=== PATIENT | female | born 1945 | race Caucasian/White ===

== ENCOUNTER 2018-03-20 09:47 | Emergency (ER) | payer MEDICARE, OTHER ==
[~2018-03-20] VITALS: Ht 315 cm; Wt 71.2 kg
[~2018-03-20 09:47] MED LIST: VICODIN ES TAB1 EACH PO; Z.0.AMBIEN10 MG PO; Z.0.AVAPRO150 MG PO; Z.0.CELEXA20 MG PO; Z.0.HUMULIN N100 UNI SQ; Z.0.HUMULIN R100 UNI; Z.0.HYDROCODON-ACE1 PO; Z.0.TORADOL10 MG PO
--- OUTSIDE RECORDS SUMMARY | 2018-03-20 09:51 | XMS REPORT | Clinical Summary ---
Author Author [facility] Organization [facility] Address Unknown Phone Unavailable Care Team Providers Care Dust Collector Ore Crushing Name Role Phone Daquan Spicer MD PCP Allergies No Known Allergies Medications End Date Status Medication Sig Dispensed Refills Start Date Active insulin ASPART (NovoLOG) Inject under 0 100 unit/mL injection the skin 3 (three) times a day before meals. Active mirtazapine (REMERON Take 7.5 mg 0 DAMIAN-TAB) 15 MG by mouth disintegrating tablet nightly. Active glimepiride (AMARYL) 2 MG Take 2 mg by 0 tablet mouth daily before breakfast. Active traZODone (DESYREL) 100 Take 100 mg 0 MG tablet by mouth nightly. Active furosemide (LASIX) 20 mg Take 20 mg by 0 tablet mouth daily. Active tamsulosin (FLOMAX) 0.4 Take 0.4 mg 0 mg capsule by mouth daily. Active escitalopram (LEXAPRO) 10 Take 10 mg by 0 MG tablet mouth daily. Active allopurinol (ZYLOPRIM) Take 100 mg 0 100 MG tablet by mouth daily. Active folic acid (FOLVITE) 1 MG Take 1 mg by 0 tablet mouth daily. Active amLODIPine (NORVASC) 5 mg Take 5 mg by 0 tablet mouth daily. Active lubiprostone (AMITIZA) 24 Take 24 mcg 0 MCG capsule by mouth 2 (two) times a day with meals. 11/08/2017 sulfamethoxazole-trimetho Take 1 tablet 6 tablet 0 prim (BACTRIM DS) 800-160 by mouth 2 8 mg per tablet (two) times a day for 3 days. smx-tmp DS (BACTRIM) 800-160 mg tabs (1tab q12 D10) Active Problems Not on file Encounters Care Team Description Date Type Specialty Kateryna Hays Jr., MD Dislodged Dotson catheter, initial encounter (Primary Dx); Hyperkalemia; UTI symptoms 11/04/2017 Emergency Emergency Medicine - 11/05/2017 after 03/19/2017 Social History Date Tobacco Use Types Packs/Day Years Used Never Smoker Smokeless Tobacco: Never Used Alcohol Use Drinks/Week oz/Week Comments Yes Sex Assigned at Date Recorded Not on file Industry Job Start Date Occupation Not on file Not on file Not on file Travel End Travel History Travel Start No recent travel history available. Last Filed Vital Signs Time Taken Vital Sign Reading 11/05/2017 12:57 AM CDT Blood Pressure 178/82 11/05/2017 12:57 AM CDT Pulse 84 11/05/2017 12:57 AM CDT Temperature 36.8 C (98.2 F) 11/05/2017 12:57 AM CDT Respiratory Rate 18 11/05/2017 12:57 AM CDT Oxygen Saturation 98% - Inhaled Oxygen - Concentration 11/04/2017 5:18 PM CDT Weight 59 kg (130 lb) 11/04/2017 5:18 PM CDT Height 165.1 cm (5' 5") 11/04/2017 5:18 PM CDT Body Mass Index 21.63 Plan of Treatment Not on file Procedures Comments Procedure Name Priority Date/Time Associated Diagnosis ZZESTIMATED GFR STAT 11/04/2017 11:09 PM CDT BASIC METABOLIC PANEL STAT 11/04/2017 11:09 PM CDT ECG 12-LEAD STAT 11/04/2017 8:37 PM CDT ECG ED PRELIMINARY Routine 11/04/2017 INTERPRETATION 7:45 PM CDT ZZESTIMATED GFR STAT 11/04/2017 7:25 PM CDT BASIC METABOLIC PANEL STAT 11/04/2017 7:25 PM CDT URINALYSIS SCREEN AND STAT 11/04/2017 MICROSCOPY, WITH REFLEX 7:02 PM CDT TO CULTURE GRAM STAIN STAT 11/04/2017 7:02 PM CDT URINE CULTURE STAT 11/04/2017 7:02 PM CDT after 03/19/2017 Results * Estimated GFR (11/04/2017 11:09 PM CDT) Only the most recent of 2 results within the time period is included. GFR Non Af Amer 32 (A) mL/min/1.73 m2 [facility] AND [facility] GFR Af Amer 39 (A) mL/min/1.73 m2 [facility] Comment: PATHOLOGY AND Chronic kidney disease: <60 GENOMIC MEDICINE mL/min/1.73m2 Kidney failure: <15 mL/min/1.73m2 The estimated GFR is calculated from the IDMS-traceable Modification of Diet in Renal Disease Equation. The accuracy of the calculation is poor when the creatinine is normal. Calculated values >90 mL/min/1.73m2 are not reported. This equation has not been validated in children (<18 years), women, the elderly (>70 years), or ethnic groups other than Caucasians and Americans. Specimen Plasma specimen Performing Organization Address City/State/Zipcode Phone Number [facility] [place] [address] PATHOLOGY AND [facility] * Basic metabolic panel (11/04/2017 11:09 PM CDT) Only the most recent of 2 results within the time period is included. Sodium 139 135 - 150 mEq/L [facility] AND [facility] Potassium 4.6 3.5 - 5.0 mEq/L [facility] AND [facility] Chloride 104 98 - 112 mEq/L [facility]OLOGY AND GENOMIC MEDICINE CO2 22 (L) 24 - 31 mmol/L [facility] AND [facility] Anion gap 13@ANIO 7 - 15 mEq/L [facility]OLOGY AND [facility] BUN 34 (H) 7 - 18 mg/dL [facility]OLOGY AND [facility] Creatinine 1.60 (H) 0.50 - 0.90 mg/dL [facility]Y AND [facility] Glucose 123 (H) 65 - 100 mg/dL [facility]OLOGY AND [facility] Calcium 9.2 8.8 - 10.2 mg/dL [facility] DEPARTMENT OF PATHOLOGY AND GENOMIC MEDICINE Specimen Plasma specimen Performing Organization Address City/[facility]/Zipcode Phone Number [facility] [address] [place] [address] PATHOLOGY AND GENOMIC MEDICINE * ECG 12 lead (11/04/2017 8:37 PM CDT) Ventricular rate 73 [facility] Atrial rate 73 [facility] AL interval 206 [facility] QRSD interval 74 [facility] QT interval 396 [facility] QTC interval 436 [facility] P axis 1 50 [facility] QRS axis 1 30 [facility] T wave axis 63 [facility] EKG impression Normal sinus rhythm-Cannot [facility] rule out Anterior infarct , age undetermined-Abnormal ECG-No previous ECGs available- Performing Organization Address City/[facility] Phone Number [facility] MUSE [address] [place] [address] * ECG ED Preliminary Interpretation - NOT AN ORDER (11/04/2017 7:45 PM CDT) Narrative Performed At Kateryna Hays Jr., MD 11/07/20171:43 AM ECG ED Preliminary Interpretation - Not an Order Performed by: KATERYNA HAYS JR. Authorized by: KATERYNA HAYS JR. ECG reviewed by ED Physician in the absence of a events traffic controller: yes Interpretation: Interpretation: normal Rate: ECG rate:73 ECG rate assessment: normal Rhythm: Rhythm: sinus rhythm Ectopy: Ectopy: none QRS: QRS axis:Normal QRS intervals:Normal Conduction: Conduction: normal ST segments: ST segments:Normal T waves: T waves: normal * Urinalysis screen and microscopy, with reflex to culture (11/04/2017 7:02 PM CDT) Specimen site Catheterized [facility] AND GENOMIC MEDICINE Color, UA Yellow [facility] AND GENOMIC MEDICINE Appearance, UA Slightly-Cloudy [facility] AND GENOMIC MEDICINE Specific gravity, UA 1.014 1.001 - 1.035 [facility] AND GENOMIC MEDICINE pH, UA 5.0 5.0 - 8.5 [facility] AND GENOMIC MEDICINE Protein, UA 1+ (A) Negative [facility] AND GENOMIC MEDICINE Glucose, UA 2+ (A) Negative [facility] AND GENOMIC MEDICINE Ketones, UA Negative Negative [facility] AND GENOMIC MEDICINE Bilirubin, UA Negative Negative [facility] AND GENOMIC MEDICINE Blood, UA Small (A) Negative [facility]OLOGY AND GENOMIC MEDICINE Nitrite, UA Negative Negative [facility] AND GENOMIC MEDICINE Urobilinogen, UA Negative <2.0 [facility] AND GENOMIC MEDICINE Leukocyte esterase, UA Moderate (A) Negative [facility] AND GENOMIC MEDICINE Epithelial cells, UA Few /HPF [facility] AND GENOMIC MEDICINE WBC, UA 18 (H) 0 - 5 /HPF [facility] AND GENOMIC MEDICINE RBC, UA 1 0 - 5 /HPF [facility]Y AND GENOMIC MEDICINE Bacteria, UA None seen None seen [facility] AND GENOMIC MEDICINE Yeast, UA None seen [facility]OLOGY AND GENOMIC MEDICINE Yeast with pseudohyphae, None seen [facility] UA PATHOLOGY AND GENOMIC MEDICINE Specimen Urine Performing Organization Address City/[facility] Phone Number [facility] [address] [place] [id number] PATHOLOGY AND GENOMIC MEDICINE * Gram stain (11/04/2017 7:02 PM CDT) Gram stain result Occasional WBC's [facility] DEPARTMENT OF No organisms seen PATHOLOGY AND Comment: GENOMIC MEDICINE Specimen Information Specimen Source: Urine Specimen Site: Catheterized Specimen Urine - Catheterized Performing Organization Address City/State/Zipcode Phone Number [facility] DEPARTMENT OF [address] [place] [phone] PATHOLOGY AND GENOMIC MEDICINE * Urine culture (11/04/2017 7:02 PM CDT) Urine culture isolate Streptococcus group B [facility] DEPARTMENT OF 10-1 cfu/ml PATHOLOGY AND (A) GENOMIC MEDICINE Comment: Specimen Information Specimen Source: Urine Specimen Site: Catheterized Urine culture isolate Mixed Gram negative rods [facility] DEPARTMENT OF 10-2 cfu/ml PATHOLOGY AND (A) GENOMIC MEDICINE Urine culture isolate Mixed Gram positive dallin [facility] DEPARTMENT OF <10-1 cfu/ml PATHOLOGY AND (A) GENOMIC MEDICINE Specimen Urine - Catheterized Performing Organization Address City/[facility]/Zipcode Phone Number [facility] DEPARTMENT OF [address] [place] [address] PATHOLOGY AND GENOMIC MEDICINE after 03/19/2017 Insurance Payer Benefit Subscriber ID Type Phone Address Plan / Group MEDICARE MEDICARE xxxxxxxxxx Medicare [place] PART A AND B BANKERS LIFE AND CASUALTY BANKERS xxxxxxxxx Commercial LIFE AND CASUALTY Advance Directives Patient has advance care planning documents on file. For more information, deb ji contact: Mitch Kirkpatrick [address] [place] [address]
--- OUTSIDE RECORDS SUMMARY | 2018-03-20 09:52 | XMS REPORT | Clinical Summary ---
Author Author BAIRON [employer] [employer] [facility] Address Unknown Phone Unavailable Care Team Providers Care Blow Down Operator Name Role Phone Nayan Daquan PCP Allergies No Known Allergies Medications End Date Status Medication Sig Dispensed Refills Start Date Active traZODone (DESYREL) 50 MG Take 50 mg by 0 tabletIndications: mouth insomnia associated with nightly. depression Active hydrALAZINE (APRESOLINE) Take 25 mg by 0 25 MG tablet mouth 2 (two) times daily. Active pregabalin (LYRICA) 50 MG Take 50 mg by 0 capsule mouth 2 (two) times daily. Active allopurinol (ZYLOPRIM) Take 100 mg 0 100 MG tablet by mouth daily. Active furosemide (LASIX) 20 MG Take 60 mg by 0 tablet mouth daily . Active lubiprostone (AMITIZA) 24 Take 24 mg by 0 MCG capsule mouth 2 (two) times daily. Active LORazepam (ATIVAN) 1 MG Take 1 mg by 0 tablet mouth 2 (two) times daily as needed. Active sAXagliptin 5 mg Tab Take 5 mg by 0 mouth daily. Active citalopram (CELEXA) 20 MG Take 20 mg by 0 tablet mouth daily. Active HYDROcodone-acetaminophen Take 1 tablet 0 (NORCO 10-325) 10-325 mg by mouth per tablet every 6 (six) hours as needed. Active docusate sodium (COLACE) Take 200 mg 0 100 MG capsule by mouth 2 (two) times daily. Active acetaminophen (TYLENOL) Take 650 mg 0 325 MG tablet by mouth every 4 (four) hours as needed for Pain. Active cyanocobalamin 1000 MCG Take 1,000 0 tablet mcg by mouth daily. Active ferrous sulfate 325 (65 Take 325 mg 0 FE) MG tablet by mouth daily with breakfast. Active folic acid (FOLVITE) 1 MG Take 1 mg by 0 tablet mouth daily. Active guaiFENesin (MUCINEX) 600 Take 600 mg 0 mg 12 hr by mouth 2 tabletIndications: Cold (two) times Symptoms, Cough daily as needed for Congestion. Active senna-docusate Take 1 tablet 0 (SENNOSIDES-DOCUSATE by mouth SODIUM) 8.6-50 mg per daily as tablet needed for Constipation. Active insulin glargine (LANTUS) Inject 9 10 mL 0 100 unit/mL injection Units 8 subcutaneousl y nightly Use as directed . 08/03/2018 Active insulin lispro (HUMALOG) Inject 0-12 10 mL 0 100 unit/mL injection Units 8 subcutaneousl y as needed (High blood sugar). Active morphine 1 mg/ 1 mL in Inject 2 mLs 144 mL 0 0.9 % sodium chloride 1 (2 mg total) 8 mg/mL Soln intravenously every 8 (eight) hours as needed. Max Daily Amount: 6 mg Active ondansetron (ZOFRAN) 2 Inject 2 mLs 0 mg/mL Soln (4 mg total) 8 intravenously every 8 (eight) hours as needed. 05/26/2017 Discontinued pregabalin (LYRICA) 25 MG Take 25 mg by 0 capsuleIndications: mouth. Diabetic Peripheral Neuropathy 06/05/2017 Discontinued HYDROmorphone (DILAUDID) Inject 1 mL 1 mL 0 injection 1 mg/mL (1 mg total) 8 intravenously every 2 (two) hours as needed. Max Daily Amount: 12 mg 06/05/2017 Discontinued fluconazole (DIFLUCAN) Inject 200 200 mL 0 IVPB 400 mg in sodium mLs (400 mg 8 chloride 0.9% (NS) 200 mL total) intravenously daily. 06/05/2017 Discontinued micafungin (MYCAMINE) MBP Inject 100 mg 0 100 mg in 100 mL NS intravenously 8 daily. 05/26/2017 Discontinued hydrALAZINE (APRESOLINE) Inject 0.5 1 mL 0 20 mg/mL injection mLs (10 mg 8 total) intravenously every 6 (six) hours as needed (for systolic >160mmhg). 05/26/2017 Discontinued metoprolol (TOPROL-XL) 25 Take 1 tablet 0 MG 24 hr tablet (25 mg total) 8 by mouth daily. 05/26/2017 Discontinued insulin lispro (HUMALOG) Inject 0-4 10 mL 0 100 unit/mL injection Units 8 subcutaneousl y every night as needed (High blood sugar). 06/05/2017 Discontinued DEXTROSE 50 % IN WATER Inject 25 mLs 0 (DEXTROSE 50%, D50W,) (12.5 g 8 Syrg injection total) intravenously as needed (blood sugar less than 70 and patient unable to take PO juice or soda). 04/13/2017 polyethylene glycol Take 17 g by 14 each 0 (GLYCOLAX) 17 gram packet mouth daily 8 as needed for up to 3 days. 04/20/2017 HYDROcodone-acetaminophen Take 1 tablet 30 tablet 0 (NORCO 10-325) 10-325 mg by mouth 8 per tablet every 6 (six) hours as needed for up to 10 days. Max Daily Amount: 4 tablets 06/05/2017 Discontinued cefTRIAXone (ROCEPHIN) 1 Inject 50 mLs 50 mL 0 g in dextrose 5% (D5W) 50 (1 g total) 8 mL (DUPLEX) IVPB intravenously daily. 07/24/2017 Discontinued insulin detemir (LEVEMIR) Inject 17 10 mL 0 100 unit/mL injection Units 8 subcutaneousl y nightly. 06/05/2017 Discontinued amLODIPine (NORVASC) 5 MG Take 5 mg by 0 tablet mouth daily. 08/03/2017 Discontinued insulin aspart (NOVOLOG Inject 10 0 FLEXPEN) 100 unit/mL InPn Units subcutaneousl y every morning before breakfast. 07/24/2017 Discontinued acetaminophen (TYLENOL) Take 2 30 tablet 0 325 MG tablet tablets (650 8 mg total) by mouth every 4 (four) hours as needed for up to 360 days. 06/15/2017 cefdinir (OMNICEF) 300 MG Take 1 20 capsule 0 capsule capsule (300 8 mg total) by mouth every 12 (twelve) hours for 10 days. 06/15/2017 docusate sodium (COLACE) Take 1 10 capsule 0 100 MG capsule capsule (100 8 mg total) by mouth 2 (two) times daily for 10 days. 07/24/2017 Discontinued strkquih-lerqniwoiUi-ornf Apply 1 1 packet 0 myxnB (NEOSPORIN) packet 8 3.5-400-5,000 topically 2 vt-[id number] OiPk packet (two) times daily. 06/12/2017 ondansetron (ZOFRAN-ODT) Take 1 tablet 20 tablet 0 4 MG disintegrating (4 mg total) 8 tablet by mouth every 8 (eight) hours as needed for up to 7 days. 06/09/2017 polyethylene glycol Take 17 g by 14 each 0 (GLYCOLAX) 17 gram packet mouth daily 8 for 3 days. 08/03/2017 Discontinued insulin glargine (LANTUS) Inject 12 0 100 unit/mL injection Units subcutaneousl y nightly Use as directed . 08/03/2017 Discontinued insulin regular (HUMULIN Inject 10 0 R,NOVOLIN R) 100 unit/mL Units injection subcutaneousl y daily Use as directed . 08/03/2017 Discontinued levoFLOXacin (LEVAQUIN) Take 500 mg 0 500 MG tablet by mouth daily. 09/10/2017 DAPTOmycin (CUBICIN) IV Inject 650 mg 0 intravenously 8 daily for 38 days. 09/02/2017 lidocaine (LIDODERM) 5 % Place 2 30 patch 0 patch patches onto 8 the skin daily for 30 days Remove & Discard patch within 12 hours or as directed by . 09/10/2017 sodium chloride Inject 1 g 0 bacteriostatic 0.9% 0.9 % intravenously 8 Soln 20 mL with meropenem every 12 1 gram SolR 1 g (twelve) hours for 38 days. 09/10/2017 micafungin (MYCAMINE) MBP Inject 100 mg 0 100 mg in 100 mL NS intravenously 8 daily for 37 days. 08/13/2017 traMADol (ULTRAM) 50 mg Take 1 tablet 30 tablet 0 tablet (50 mg total) 8 by mouth every 6 (six) hours as needed for up to 10 days. Max Daily Amount: 200 mg 09/02/2017 zolpidem (AMBIEN) 5 MG Take 1 tablet 30 tablet 0 tablet (5 mg total) 8 by mouth every night as needed for Insomnia for up to 30 days. Max Daily Amount: 5 mg Active Problems Problem Noted Date Emphysematous pyelonephritis 07/24/2017 Acute urinary tract infection 05/26/2017 Chronic diastolic HF (heart failure) 05/26/2017 Stage 4 chronic kidney disease 05/26/2017 Severe muscle deconditioning 05/26/2017 Type 2 diabetes mellitus with diabetic polyneuropathy, with long-term 05/26/2017 current use of insulin Candidemia 04/06/2017 Acute cystitis 03/29/2017 Pyelonephritis due to Escherichia coli 03/29/2017 MARIO (acute kidney injury) 03/29/2017 Atelectasis of both lungs 03/29/2017 Bacteremia due to Escherichia coli 03/28/2017 Encounters Care Team Description Date Type Specialty Flor Nunes MD Discitis of thoracic region 10/08/2017 Hospital Radiology Encounter Flor Nunes MD Discitis of thoracic region (Primary Dx) 10/05/2017 Outside Orders Radiology Az Corneliusanna 07/25/2017 Anesthesia Event Tyler De Anda MD CYSTOSCOPY,INSERTION URETERAL STENTS 07/25/2017 Surgery Tyler De Anda MD Tirukkovalluri, Srilakshmi, MD Zindani, Shireen, MD Emphysematous pyelonephritis; Nephrolithiasis; Retained ureteral stent 07/24/2017 [facility] General Internal Medicine - Encounter 08/03/2017 Lisette Burgos MD 07/24/2017 Orders Only Internal Medicine Danielle White 07/20/2017 Orders Only Pre-Admission Testing Gt Vargas MD Jarrouge, Elie G., MD Zindani, Shireen, MD Tirukkovalluri, Srilakshmi, MD Acute urinary tract infection (Primary Dx); MARIO (acute kidney injury) (HCC); Dizziness; Leukocytosis, unspecified type; Gait disturbance; Weakness; Chronic diastolic HF (heart failure) (HCC); Severe muscle deconditioning; Stage 4 chronic kidney disease (HCC); Type 2 diabetes mellitus with diabetic polyneuropathy, with long-term current use of insulin (HCC); Emphysematous pyelonephritis of left kidney; Urinary retention 05/26/2017 Hospital Oncology - Encounter 06/05/2017 05/26/2017 Orders Only General Internal Medicine Louis Flynn MD Kulkarni, MD Solo Hunter Alireza, MD Bacteremia due to Escherichia coli (Primary Dx); Pyelonephritis due to Escherichia coli; Acute cystitis without hematuria; MARIO (acute kidney injury) (HCC); Atelectasis of both lungs; Emphysematous pyelonephritis of left kidney 03/28/2017 Hospital General Internal Medicine - Encounter 04/10/2017 03/28/2017 Orders Only General Internal Medicine after 03/19/2017 Immunizations Name Dates Previously Given Next Due Pneumococcal Conjugate 07/30/2017 (Prevnar) 13-Valent Social History Date Tobacco Use Types Packs/Day Years Used Never Smoker Smokeless Tobacco: Never Used Tobacco Cessation: Counseling Given: No Alcohol Use Drinks/Week oz/Week Comments Yes 1 Glasses of 0.6 wine Sex Assigned at Date Recorded Not on file Industry Job Start Date Occupation Not on file Not on file Not on file Travel End Travel History Travel Start No recent travel history available. Last Filed Vital Signs Time Taken Vital Sign Reading 08/03/2017 10:44 AM CDT Blood Pressure 116/56 08/03/2017 10:44 AM CDT Pulse 70 08/03/2017 10:44 AM CDT Temperature 36.2 C (97.1 F) 08/03/2017 10:44 AM CDT Respiratory Rate 18 08/03/2017 10:44 AM CDT Oxygen Saturation 91% 07/29/2017 10:23 AM CDT Inhaled Oxygen 21% Concentration 07/25/2017 7:37 PM CDT Weight 69.9 kg (154 lb) 07/25/2017 7:37 PM CDT Height 165.1 cm (5' 5") 07/25/2017 7:37 PM CDT Body Mass Index 25.63 Plan of Treatment Not on file Implants Device Identifier Shelf Expiration Date Model / Serial / Lot Implanted Type Area Manufactur [id number] / / [id number] Stent Uret Cntour Inj [id number] Uro Stent Left: Ureter [place] [id number] - [id number] SCI:UROLOG Implanted: Qty: 1 on 07/25/2017 by Y/Tyler Jj MD GY Procedures Comments Procedure Name Priority Date/Time Associated Diagnosis MR THORACIC SPINE WITHOUT Routine 10/08/2017 Discitis of thoracic CONTRAST 12:40 PM CDT region POCT-GLUCOSE METER Routine 08/03/2017 12:33 PM CDT CBC W/PLT COUNT & AUTO Routine 08/03/2017 DIFFERENTIAL 5:57 AM CDT CREATINE KINASE (CK) Routine 08/03/2017 5:57 AM CDT BASIC METABOLIC PANEL (7) Routine 08/03/2017 5:57 AM CDT CBC W/PLT COUNT & AUTO Routine 08/03/2017 DIFFERENTIAL 5:57 AM CDT POCT-GLUCOSE METER Routine 08/02/2017 9:35 PM CDT POCT-GLUCOSE METER Routine 08/02/2017 5:39 PM CDT POCT-GLUCOSE METER Routine 08/02/2017 12:54 PM CDT POCT-GLUCOSE METER Routine 08/02/2017 9:33 AM CDT POCT-GLUCOSE METER Routine 08/02/2017 8:49 AM CDT CBC W/PLT COUNT & AUTO Routine 08/02/2017 DIFFERENTIAL 7:01 AM CDT COMPREHENSIVE METABOLIC Routine 08/02/2017 PANEL 7:01 AM CDT SEDIMENTATION RATE Routine 08/02/2017 7:01 AM CDT C-REACTIVE PROTEIN Routine 08/02/2017 7:01 AM CDT CBC W/PLT COUNT & AUTO Routine 08/02/2017 DIFFERENTIAL 7:01 AM CDT POCT-GLUCOSE METER Routine 08/01/2017 9:17 PM CDT POCT-GLUCOSE METER Routine 08/01/2017 6:05 PM CDT POCT-GLUCOSE METER Routine 08/01/2017 12:24 PM CDT POCT-GLUCOSE METER Routine 08/01/2017 9:06 AM CDT POCT-GLUCOSE METER Routine 08/01/2017 8:10 AM CDT CBC W/PLT COUNT & AUTO Routine 08/01/2017 DIFFERENTIAL 6:52 AM CDT COMPREHENSIVE METABOLIC Routine 08/01/2017 PANEL 6:52 AM CDT CBC W/PLT COUNT & AUTO Routine 08/01/2017 DIFFERENTIAL 6:52 AM CDT POCT-GLUCOSE METER Routine 07/31/2017 9:49 PM CDT POCT-GLUCOSE METER Routine 07/31/2017 5:00 PM CDT TISSUE EXAM AP Routine 07/31/2017 1:53 PM CDT POCT-GLUCOSE METER Routine 07/31/2017 12:05 PM CDT POCT-GLUCOSE METER Routine 07/31/2017 9:00 AM CDT POCT-GLUCOSE METER Routine 07/31/2017 8:29 AM CDT CBC W/PLT COUNT & AUTO Routine 07/31/2017 DIFFERENTIAL 5:03 AM CDT BASIC METABOLIC PANEL (7) Routine 07/31/2017 5:03 AM CDT CBC W/PLT COUNT & AUTO Routine 07/31/2017 DIFFERENTIAL 5:03 AM CDT POCT-GLUCOSE METER Routine 07/30/2017 9:27 PM CDT POCT-GLUCOSE METER Routine 07/30/2017 5:[address] Routine 07/30/2017 BIOPSY/ASPIRATION/INJECTI 3:25 PM CDT ON CYTOLOGY AP Routine 07/30/2017 3:20 PM CDT BODY FLUID CULTURE + GRAM Routine 07/30/2017 STAIN 3:17 PM CDT FUNGUS CULTURE + SMEAR Routine 07/30/2017 3:17 PM CDT AFB CULTURE + SMEAR Routine 07/30/2017 3:17 PM CDT POCT-GLUCOSE METER Routine 07/30/2017 11:29 AM CDT POCT-GLUCOSE METER Routine 07/30/2017 8:32 AM CDT POCT-GLUCOSE METER Routine 07/30/2017 7:50 AM CDT CBC W/PLT COUNT & AUTO Routine 07/30/2017 DIFFERENTIAL 4:29 AM CDT BASIC METABOLIC PANEL (7) Routine 07/30/2017 4:29 AM CDT CBC W/PLT COUNT & AUTO Routine 07/30/2017 DIFFERENTIAL 4:29 AM CDT POCT-GLUCOSE METER Routine 07/29/2017 9:14 PM CDT POCT-GLUCOSE METER Routine 07/29/2017 5:33 PM CDT POCT-GLUCOSE METER Routine 07/29/2017 12:57 PM CDT POCT-GLUCOSE METER Routine 07/29/2017 8:48 AM CDT CBC W/PLT COUNT & AUTO Routine 07/29/2017 DIFFERENTIAL 5:29 AM CDT BASIC METABOLIC PANEL (7) Routine 07/29/2017 5:29 AM CDT CBC W/PLT COUNT & AUTO Routine 07/29/2017 DIFFERENTIAL 5:29 AM CDT POCT-GLUCOSE METER Routine 07/28/2017 9:08 PM CDT POCT-GLUCOSE METER Routine 07/28/2017 6:01 PM CDT POCT-GLUCOSE METER Routine 07/28/2017 2:27 PM CDT CBC W/PLT COUNT & AUTO Routine 07/28/2017 DIFFERENTIAL 5:20 AM CDT BASIC METABOLIC PANEL (7) Routine 07/28/2017 5:20 AM CDT CBC W/PLT COUNT & AUTO Routine 07/28/2017 DIFFERENTIAL 5:20 AM CDT CREATINE KINASE (CK) Routine 07/28/2017 5:[address] SPINE THORACIC WITHOUT STAT 07/27/2017 IV CONTRAST 10:53 PM CDT POCT-GLUCOSE METER Routine 07/27/2017 9:27 PM CDT POCT-GLUCOSE METER Routine 07/27/2017 5:55 PM CDT POCT-GLUCOSE METER Routine 07/27/2017 11:45 AM CDT POCT-GLUCOSE METER Routine 07/27/2017 7:28 AM CDT POCT-GLUCOSE METER Routine 07/26/2017 9:33 PM CDT POCT-GLUCOSE METER Routine 07/26/2017 5:58 PM CDT POCT-GLUCOSE METER Routine 07/26/2017 12:16 PM CDT POCT-GLUCOSE METER Routine 07/26/2017 8:14 AM CDT CBC W/PLT COUNT & AUTO Routine 07/26/2017 DIFFERENTIAL 5:51 AM CDT BASIC METABOLIC PANEL (7) Routine 07/26/2017 5:51 AM CDT CBC W/PLT COUNT & AUTO Routine 07/26/2017 DIFFERENTIAL 5:51 AM CDT C-REACTIVE PROTEIN Routine 07/26/2017 5:51 AM CDT SEDIMENTATION RATE Routine 07/26/2017 5:51 AM CDT POCT-GLUCOSE METER Routine 07/25/2017 9:37 PM CDT VANCOMYCIN LEVEL, TROUGH Timed 07/25/2017 9:29 PM CDT POCT-GLUCOSE METER Routine 07/25/2017 1:07 PM CDT FL RAIL CAR REPAIRMAN IN OR 30 Routine 07/25/2017 MINUTE INCREMENTS 1:00 PM CDT STONE ANALYSIS Routine 07/25/2017 11:41 AM CDT URINE CULTURE Routine 07/25/2017 11:40 AM CDT FUNGUS CULTURE + SMEAR Routine 07/25/2017 11:01 AM CDT AFB CULTURE + SMEAR Routine 07/25/2017 11:01 AM CDT ANAEROBIC CULTURE Routine 07/25/2017 11:01 AM CDT SURGICALLY OBTAINED Routine 07/25/2017 CULTURE + GRAM STAIN 11:01 AM CDT SPIN/CONCENTRATION CHARGE Routine 07/25/2017 11:01 AM CDT CYSTOSCOPY,RETROGRADES 07/25/2017 Kidney stones 9:00 AM CDT Special Needs (Holmium scheduled w/ FORTEC (confirmat ion-pendin g)-MS) CYSTOSCOPY,URETEROSCOPY 07/25/2017 Kidney stones W/ LASER LITHOTRIPSY 9:00 AM CDT Special Needs (Holmium scheduled w/ FORTEC (confirmat ion-pendin g)-MS) CYSTOSCOPY,INSERTION 07/25/2017 Kidney stones URETERAL STENTS 9:00 AM CDT Special Needs (Holmium scheduled w/ FORTEC (confirmat ion-pendin g)-MS) CBC W/PLT COUNT & AUTO STAT 07/25/2017 DIFFERENTIAL 8:32 AM CDT BASIC METABOLIC PANEL (7) STAT 07/25/2017 8:32 AM CDT CBC W/PLT COUNT & AUTO STAT 07/25/2017 DIFFERENTIAL 8:32 AM CDT URINALYSIS W/ MICROSCOPIC STAT 07/24/2017 11:26 PM CDT URINE CULTURE STAT 07/24/2017 11:26 PM CDT BLOOD CULTURE Routine 07/24/2017 11:25 PM CDT BLOOD CULTURE STAT 07/24/2017 11:25 PM CDT XR CHEST 1 VIEW STAT 07/24/2017 PORTABLE/BEDSIDE 6:33 PM CDT POCT-GLUCOSE METER Routine 07/24/2017 5:04 PM CDT CBC W/PLT COUNT & AUTO Routine 07/24/2017 DIFFERENTIAL 3:06 PM CDT PROTHROMBIN TIME/INR Routine 07/24/2017 3:06 PM CDT COMPREHENSIVE METABOLIC Routine 07/24/2017 PANEL 3:06 PM CDT CBC W/PLT COUNT & AUTO Routine 07/24/2017 DIFFERENTIAL 3:06 PM CDT POCT-GLUCOSE METER Routine 06/05/2017 12:31 PM AEROPHYSICS ENGINEER POCT-GLUCOSE METER Routine 06/05/2017 7:09 AM AEROPHYSICS ENGINEER CBC W/PLT COUNT & AUTO Routine 06/05/2017 DIFFERENTIAL 6:01 AM AEROPHYSICS ENGINEER PHOSPHORUS Routine 06/05/2017 6:01 AM AEROPHYSICS ENGINEER MAGNESIUM Routine 06/05/2017 6:01 AM AEROPHYSICS ENGINEER BASIC METABOLIC PANEL (7) Routine 06/05/2017 6:01 AM AEROPHYSICS ENGINEER CBC W/PLT COUNT & AUTO Routine 06/05/2017 DIFFERENTIAL 6:01 AM AEROPHYSICS ENGINEER POCT-GLUCOSE METER Routine 06/04/2017 8:49 PM AEROPHYSICS ENGINEER POCT-GLUCOSE METER Routine 06/04/2017 5:40 PM AEROPHYSICS ENGINEER POCT-GLUCOSE METER Routine 06/04/2017 10:48 AM AEROPHYSICS ENGINEER CBC W/PLT COUNT & AUTO Routine 06/04/2017 DIFFERENTIAL 5:50 AM AEROPHYSICS ENGINEER PHOSPHORUS Routine 06/04/2017 5:50 AM AEROPHYSICS ENGINEER MAGNESIUM Routine 06/04/2017 5:50 AM AEROPHYSICS ENGINEER BASIC METABOLIC PANEL (7) Routine 06/04/2017 5:50 AM AEROPHYSICS ENGINEER CBC W/PLT COUNT & AUTO Routine 06/04/2017 DIFFERENTIAL 5:50 AM AEROPHYSICS ENGINEER POCT-GLUCOSE METER Routine 06/03/2017 9:32 PM AEROPHYSICS ENGINEER POCT-GLUCOSE METER Routine 06/03/2017 6:15 PM AEROPHYSICS ENGINEER POCT-GLUCOSE METER Routine 06/03/2017 12:06 PM AEROPHYSICS ENGINEER CBC W/PLT COUNT & AUTO Routine 06/03/2017 DIFFERENTIAL 11:01 AM AEROPHYSICS ENGINEER BASIC METABOLIC PANEL (7) Routine 06/03/2017 11:01 AM AEROPHYSICS ENGINEER CBC W/PLT COUNT & AUTO Routine 06/03/2017 DIFFERENTIAL 11:01 AM AEROPHYSICS ENGINEER POCT-GLUCOSE METER Routine 06/03/2017 7:36 AM AEROPHYSICS ENGINEER POCT-GLUCOSE METER Routine 06/02/2017 9:05 PM AEROPHYSICS ENGINEER POCT-GLUCOSE METER Routine 06/02/2017 6:25 PM AEROPHYSICS ENGINEER POCT-GLUCOSE METER Routine 06/02/2017 2:47 PM AEROPHYSICS ENGINEER PHOSPHORUS Routine 06/02/2017 1:01 PM AEROPHYSICS ENGINEER MAGNESIUM Routine 06/02/2017 1:01 PM AEROPHYSICS ENGINEER BASIC METABOLIC PANEL (7) Routine 06/02/2017 1:01 PM AEROPHYSICS ENGINEER POCT-GLUCOSE METER Routine 06/02/2017 8:23 AM AEROPHYSICS ENGINEER POCT-GLUCOSE METER Routine 06/01/2017 9:51 PM AEROPHYSICS ENGINEER POCT-GLUCOSE METER Routine 06/01/2017 5:43 PM AEROPHYSICS ENGINEER POCT-GLUCOSE METER Routine 06/01/2017 11:34 AM AEROPHYSICS ENGINEER CBC W/PLT COUNT & AUTO Routine 06/01/2017 DIFFERENTIAL 10:19 AM AEROPHYSICS ENGINEER CBC W/PLT COUNT & AUTO Routine 06/01/2017 DIFFERENTIAL 10:19 AM AEROPHYSICS ENGINEER PHOSPHORUS Routine 06/01/2017 10:19 AM AEROPHYSICS ENGINEER MAGNESIUM Routine 06/01/2017 10:19 AM AEROPHYSICS ENGINEER BASIC METABOLIC PANEL (7) Routine 06/01/2017 10:19 AM AEROPHYSICS ENGINEER POCT-GLUCOSE METER Routine 06/01/2017 7:30 AM AEROPHYSICS ENGINEER POCT-GLUCOSE METER Routine 05/31/2017 8:39 PM AEROPHYSICS ENGINEER POCT-GLUCOSE METER Routine 05/31/2017 5:18 PM AEROPHYSICS ENGINEER POCT-GLUCOSE METER Routine 05/31/2017 11:07 AM AEROPHYSICS ENGINEER POCT-GLUCOSE METER Routine 05/31/2017 7:48 AM AEROPHYSICS ENGINEER PHOSPHORUS Routine 05/31/2017 4:31 AM AEROPHYSICS ENGINEER MAGNESIUM Routine 05/31/2017 4:31 AM AEROPHYSICS ENGINEER BASIC METABOLIC PANEL (7) Routine 05/31/2017 4:31 AM AEROPHYSICS ENGINEER POCT-GLUCOSE METER Routine 05/30/2017 9:12 PM AEROPHYSICS ENGINEER POCT-GLUCOSE METER Routine 05/30/2017 5:12 PM AEROPHYSICS ENGINEER POCT-GLUCOSE METER Routine 05/30/2017 11:38 AM AEROPHYSICS ENGINEER POCT-GLUCOSE METER Routine 05/30/2017 7:53 AM AEROPHYSICS ENGINEER PHOSPHORUS Routine 05/30/2017 5:16 AM AEROPHYSICS ENGINEER MAGNESIUM Routine 05/30/2017 5:16 AM AEROPHYSICS ENGINEER BASIC METABOLIC PANEL (7) Routine 05/30/2017 5:16 AM AEROPHYSICS ENGINEER POCT-GLUCOSE METER Routine 05/29/2017 9:27 PM AEROPHYSICS ENGINEER POCT-GLUCOSE METER Routine 05/29/2017 12:52 PM AEROPHYSICS ENGINEER POCT-GLUCOSE METER Routine 05/29/2017 7:37 AM AEROPHYSICS ENGINEER PHOSPHORUS Routine 05/29/2017 5:03 AM AEROPHYSICS ENGINEER MAGNESIUM Routine 05/29/2017 5:03 AM AEROPHYSICS ENGINEER BASIC METABOLIC PANEL (7) Routine 05/29/2017 5:03 AM AEROPHYSICS ENGINEER POCT-GLUCOSE METER Routine 05/28/2017 8:50 PM AEROPHYSICS ENGINEER PERIPHERAL VASCULAR 05/28/2017 REPORT - SCAN 6:50 PM AEROPHYSICS ENGINEER POCT-GLUCOSE METER Routine 05/28/2017 6:19 PM AEROPHYSICS ENGINEER VENOUS DOPPLER LEGS Routine 05/28/2017 BILATERAL 3:32 PM AEROPHYSICS ENGINEER POCT-GLUCOSE METER Routine 05/28/2017 12:29 PM AEROPHYSICS ENGINEER XR CHEST 1 VIEW STAT 05/28/2017 PORTABLE/BEDSIDE 11:55 AM AEROPHYSICS ENGINEER POCT-GLUCOSE METER Routine 05/28/2017 8:38 AM AEROPHYSICS ENGINEER CBC W/PLT COUNT & AUTO Routine 05/28/2017 DIFFERENTIAL 4:41 AM AEROPHYSICS ENGINEER B-TYPE NATRIURETIC FACTOR Routine 05/28/2017 (BNP) 4:41 AM AEROPHYSICS ENGINEER CBC W/PLT COUNT & AUTO Routine 05/28/2017 DIFFERENTIAL 4:41 AM AEROPHYSICS ENGINEER BASIC METABOLIC PANEL (7) Routine 05/28/2017 4:41 AM AEROPHYSICS ENGINEER PHOSPHORUS Routine 05/28/2017 4:41 AM AEROPHYSICS ENGINEER MAGNESIUM Routine 05/28/2017 4:41 AM AEROPHYSICS ENGINEER CALCIUM, IONIZED Routine 05/28/2017 4:41 AM AEROPHYSICS ENGINEER POCT-GLUCOSE METER Routine 05/27/2017 9:50 PM AEROPHYSICS ENGINEER US RENAL COMPLETE Routine 05/27/2017 9:01 PM AEROPHYSICS ENGINEER POCT-GLUCOSE METER Routine 05/27/2017 5:47 PM AEROPHYSICS ENGINEER POCT-GLUCOSE METER Routine 05/27/2017 8:32 AM AEROPHYSICS ENGINEER CBC W/PLT COUNT & AUTO Routine 05/27/2017 DIFFERENTIAL 6:13 AM AEROPHYSICS ENGINEER HEMOGLOBIN A1C Routine 05/27/2017 6:13 AM AEROPHYSICS ENGINEER PHOSPHORUS Routine 05/27/2017 6:13 AM AEROPHYSICS ENGINEER MAGNESIUM Routine 05/27/2017 6:13 AM AEROPHYSICS ENGINEER COMPREHENSIVE METABOLIC Routine 05/27/2017 PANEL 6:13 AM AEROPHYSICS ENGINEER CBC W/PLT COUNT & AUTO Routine 05/27/2017 DIFFERENTIAL 6:13 AM AEROPHYSICS ENGINEER BLOOD CULTURE Routine 05/26/2017 9:45 PM AEROPHYSICS ENGINEER POCT-GLUCOSE METER Routine 05/26/2017 7:[address] ABDOMEN/PELVIS WITHOUT STAT 05/26/2017 IV CONTRAST 6:15 PM AEROPHYSICS ENGINEER URINE CULTURE STAT 05/26/2017 5:23 PM AEROPHYSICS ENGINEER URINALYSIS W/ MICROSCOPIC STAT 05/26/2017 3:58 PM AEROPHYSICS ENGINEER XR CHEST 1 VIEW STAT 05/26/2017 PORTABLE/BEDSIDE 2:27 PM AEROPHYSICS ENGINEER CBC W/PLT COUNT & AUTO STAT 05/26/2017 DIFFERENTIAL 1:38 PM AEROPHYSICS ENGINEER PROTHROMBIN TIME/INR STAT 05/26/2017 1:38 PM AEROPHYSICS ENGINEER CREATINE KINASE (CK), STAT 05/26/2017 TOTAL AND MB 1:38 PM AEROPHYSICS ENGINEER TROPONIN I STAT 05/26/2017 1:38 PM AEROPHYSICS ENGINEER BASIC METABOLIC PANEL (7) STAT 05/26/2017 1:38 PM AEROPHYSICS ENGINEER CBC W/PLT COUNT & AUTO STAT 05/26/2017 DIFFERENTIAL 1:38 PM AEROPHYSICS ENGINEER ECG 12-LEAD Routine 05/26/2017 1:27 PM AEROPHYSICS ENGINEER Procedure Note - Interface, External Ris In - 05/26/2017 2:20 PM AEROPHYSICS ENGINEER Ventricula r Rate 71 BPM Atrial Rate 71 BPM P-R Interval 170 ms QRS Duration 66 ms Q-T Interval 410 ms QTC Calculatio n(Bazett) 445 ms P [place] 37 degrees R [place] 26 degrees T [place] 59 degrees Normal sinus rhythm Normal ECG When compared with ECG of 7 10:38, No significan t change was found ECG 12-LEAD STAT 05/26/2017 1:[address] BRAIN WITHOUT IV STAT 05/26/2017 CONTRAST 12:11 PM AEROPHYSICS ENGINEER RHYTHM STRIP - SCAN 04/11/2017 9:10 AM AEROPHYSICS ENGINEER POCT-GLUCOSE METER Routine 04/10/2017 12:47 PM AEROPHYSICS ENGINEER POCT-GLUCOSE METER Routine 04/10/2017 9:43 AM AEROPHYSICS ENGINEER CBC W/PLT COUNT & AUTO Routine 04/10/2017 DIFFERENTIAL 4:32 AM AEROPHYSICS ENGINEER MAGNESIUM Routine 04/10/2017 4:32 AM AEROPHYSICS ENGINEER PHOSPHORUS Routine 04/10/2017 4:32 AM AEROPHYSICS ENGINEER CALCIUM, IONIZED Routine 04/10/2017 4:32 AM AEROPHYSICS ENGINEER BASIC METABOLIC PANEL (7) Routine 04/10/2017 4:32 AM AEROPHYSICS ENGINEER CBC W/PLT COUNT & AUTO Routine 04/10/2017 DIFFERENTIAL 4:32 AM AEROPHYSICS ENGINEER POCT-GLUCOSE METER Routine 04/09/2017 10:08 PM AEROPHYSICS ENGINEER POCT-GLUCOSE METER Routine 04/09/2017 6:45 PM AEROPHYSICS ENGINEER POCT-GLUCOSE METER Routine 04/09/2017 7:18 AM AEROPHYSICS ENGINEER CBC W/PLT COUNT & AUTO Routine 04/09/2017 DIFFERENTIAL 5:52 AM AEROPHYSICS ENGINEER MAGNESIUM Routine 04/09/2017 5:52 AM AEROPHYSICS ENGINEER PHOSPHORUS Routine 04/09/2017 5:52 AM AEROPHYSICS ENGINEER CALCIUM, IONIZED Routine 04/09/2017 5:52 AM AEROPHYSICS ENGINEER BASIC METABOLIC PANEL (7) Routine 04/09/2017 5:52 AM AEROPHYSICS ENGINEER CBC W/PLT COUNT & AUTO Routine 04/09/2017 DIFFERENTIAL 5:52 AM AEROPHYSICS ENGINEER POCT-GLUCOSE METER Routine 04/08/2017 9:14 PM AEROPHYSICS ENGINEER POCT-GLUCOSE METER Routine 04/08/2017 6:36 PM AEROPHYSICS ENGINEER POCT-GLUCOSE METER Routine 04/08/2017 5:58 PM AEROPHYSICS ENGINEER XR CHEST 1 VIEW STAT 04/08/2017 PORTABLE/BEDSIDE 2:49 PM AEROPHYSICS ENGINEER POCT-GLUCOSE METER Routine 04/08/2017 12:40 PM AEROPHYSICS ENGINEER POCT-GLUCOSE METER Routine 04/08/2017 9:08 AM AEROPHYSICS ENGINEER CBC W/PLT COUNT & AUTO Routine 04/08/2017 DIFFERENTIAL 5:57 AM AEROPHYSICS ENGINEER BASIC METABOLIC PANEL (7) Routine 04/08/2017 5:57 AM AEROPHYSICS ENGINEER PHOSPHORUS Routine 04/08/2017 5:57 AM AEROPHYSICS ENGINEER MAGNESIUM Routine 04/08/2017 5:57 AM AEROPHYSICS ENGINEER CALCIUM, IONIZED Routine 04/08/2017 5:57 AM AEROPHYSICS ENGINEER CBC W/PLT COUNT & AUTO Routine 04/08/2017 DIFFERENTIAL 5:57 AM AEROPHYSICS ENGINEER POCT-GLUCOSE METER Routine 04/07/2017 9:28 PM AEROPHYSICS ENGINEER POCT-GLUCOSE METER Routine 04/07/2017 5:00 PM AEROPHYSICS ENGINEER POCT-GLUCOSE METER Routine 04/07/2017 10:50 AM AEROPHYSICS ENGINEER CBC W/PLT COUNT & AUTO Routine 04/07/2017 DIFFERENTIAL 5:30 AM AEROPHYSICS ENGINEER PHOSPHORUS Routine 04/07/2017 5:30 AM AEROPHYSICS ENGINEER MAGNESIUM Routine 04/07/2017 5:30 AM AEROPHYSICS ENGINEER CALCIUM, IONIZED Routine 04/07/2017 5:30 AM AEROPHYSICS ENGINEER BASIC METABOLIC PANEL (7) Routine 04/07/2017 5:30 AM AEROPHYSICS ENGINEER CBC W/PLT COUNT & AUTO Routine 04/07/2017 DIFFERENTIAL 5:30 AM AEROPHYSICS ENGINEER POCT-GLUCOSE METER Routine 04/06/2017 8:[address] ABDOMEN/PELVIS WITHOUT Routine 04/06/2017 IV CONTRAST 7:46 PM AEROPHYSICS ENGINEER LACTIC ACID, VENOUS, Routine 04/06/2017 WHOLE BLOOD 6:08 PM AEROPHYSICS ENGINEER CREATINE KINASE (CK) Routine 04/06/2017 6:08 PM AEROPHYSICS ENGINEER SODIUM, RANDOM URINE Routine 04/06/2017 5:59 PM AEROPHYSICS ENGINEER CREATININE, RANDOM URINE Routine 04/06/2017 5:59 PM AEROPHYSICS ENGINEER URINALYSIS W/ MICROSCOPIC Routine 04/06/2017 5:59 PM AEROPHYSICS ENGINEER POCT-GLUCOSE METER Routine 04/06/2017 4:52 PM AEROPHYSICS ENGINEER POCT-GLUCOSE METER Routine 04/06/2017 11:39 AM AEROPHYSICS ENGINEER POCT-GLUCOSE METER Routine 04/06/2017 7:58 AM AEROPHYSICS ENGINEER CBC W/PLT COUNT & AUTO Routine 04/06/2017 DIFFERENTIAL 3:57 AM AEROPHYSICS ENGINEER MAGNESIUM Routine 04/06/2017 3:57 AM AEROPHYSICS ENGINEER PHOSPHORUS Routine 04/06/2017 3:57 AM AEROPHYSICS ENGINEER CALCIUM, IONIZED Routine 04/06/2017 3:57 AM AEROPHYSICS ENGINEER BASIC METABOLIC PANEL (7) Routine 04/06/2017 3:57 AM AEROPHYSICS ENGINEER CBC W/PLT COUNT & AUTO Routine 04/06/2017 DIFFERENTIAL 3:57 AM AEROPHYSICS ENGINEER POCT-GLUCOSE METER Routine 04/05/2017 9:33 PM AEROPHYSICS ENGINEER POCT-GLUCOSE METER Routine 04/05/2017 5:18 PM AEROPHYSICS ENGINEER POCT-GLUCOSE METER Routine 04/05/2017 12:59 PM AEROPHYSICS ENGINEER BLOOD CULTURE Routine 04/05/2017 10:50 AM AEROPHYSICS ENGINEER CBC W/PLT COUNT & AUTO Routine 04/05/2017 DIFFERENTIAL 3:05 AM AEROPHYSICS ENGINEER MAGNESIUM Routine 04/05/2017 3:05 AM AEROPHYSICS ENGINEER PHOSPHORUS Routine 04/05/2017 3:05 AM AEROPHYSICS ENGINEER CALCIUM, IONIZED Routine 04/05/2017 3:05 AM AEROPHYSICS ENGINEER BASIC METABOLIC PANEL (7) Routine 04/05/2017 3:05 AM AEROPHYSICS ENGINEER CBC W/PLT COUNT & AUTO Routine 04/05/2017 DIFFERENTIAL 3:05 AM AEROPHYSICS ENGINEER POCT-GLUCOSE METER Routine 04/04/2017 9:29 PM AEROPHYSICS ENGINEER POCT-GLUCOSE METER Routine 04/04/2017 6:04 PM AEROPHYSICS ENGINEER XR CHEST 1 VIEW STAT 04/04/2017 PORTABLE/BEDSIDE 2:24 PM AEROPHYSICS ENGINEER POCT-GLUCOSE METER Routine 04/04/2017 1:31 PM AEROPHYSICS ENGINEER POCT-GLUCOSE METER Routine 04/04/2017 8:21 AM AEROPHYSICS ENGINEER (MANUAL DIFFERENTIAL) Routine 04/04/2017 5:41 AM AEROPHYSICS ENGINEER CBC W/PLT COUNT & AUTO Routine 04/04/2017 DIFFERENTIAL 5:41 AM AEROPHYSICS ENGINEER CALCIUM, IONIZED Routine 04/04/2017 5:41 AM AEROPHYSICS ENGINEER MAGNESIUM Routine 04/04/2017 5:41 AM AEROPHYSICS ENGINEER PHOSPHORUS Routine 04/04/2017 5:41 AM AEROPHYSICS ENGINEER LIPID PANEL Routine 04/04/2017 5:41 AM AEROPHYSICS ENGINEER BASIC METABOLIC PANEL (7) Routine 04/04/2017 5:41 AM AEROPHYSICS ENGINEER CBC W/PLT COUNT & AUTO Routine 04/04/2017 DIFFERENTIAL 5:41 AM AEROPHYSICS ENGINEER POCT-GLUCOSE METER Routine 04/03/2017 8:[address] DRAINAGE ABDOMINAL Routine 04/03/2017 1:48 PM AEROPHYSICS ENGINEER BODY FLUID CULTURE + GRAM Routine 04/03/2017 STAIN 1:29 PM AEROPHYSICS ENGINEER POCT-GLUCOSE METER Routine 04/03/2017 11:30 AM AEROPHYSICS ENGINEER POCT-GLUCOSE METER Routine 04/03/2017 9:01 AM AEROPHYSICS ENGINEER CBC W/PLT COUNT & AUTO Routine 04/03/2017 DIFFERENTIAL 4:52 AM AEROPHYSICS ENGINEER MAGNESIUM Routine 04/03/2017 4:52 AM AEROPHYSICS ENGINEER PHOSPHORUS Routine 04/03/2017 4:52 AM AEROPHYSICS ENGINEER CALCIUM, IONIZED Routine 04/03/2017 4:52 AM AEROPHYSICS ENGINEER BASIC METABOLIC PANEL (7) Routine 04/03/2017 4:52 AM AEROPHYSICS ENGINEER PROTHROMBIN TIME/INR Routine 04/03/2017 4:52 AM AEROPHYSICS ENGINEER CBC W/PLT COUNT & AUTO Routine 04/03/2017 DIFFERENTIAL 4:52 AM AEROPHYSICS ENGINEER BLOOD CULTURE Routine 04/03/2017 4:52 AM AEROPHYSICS ENGINEER POCT-GLUCOSE METER Routine 04/02/2017 10:29 PM AEROPHYSICS ENGINEER POCT-GLUCOSE METER Routine 04/02/2017 6:14 PM AEROPHYSICS ENGINEER POCT-GLUCOSE METER Routine 04/02/2017 12:49 PM AEROPHYSICS ENGINEER POCT-GLUCOSE METER Routine 04/02/2017 8:08 AM AEROPHYSICS ENGINEER CBC W/PLT COUNT & AUTO Routine 04/02/2017 DIFFERENTIAL 6:17 AM AEROPHYSICS ENGINEER CBC W/PLT COUNT & AUTO Routine 04/02/2017 DIFFERENTIAL 6:17 AM AEROPHYSICS ENGINEER POCT-GLUCOSE METER Routine 04/01/2017 9:43 PM AEROPHYSICS ENGINEER POCT-GLUCOSE METER Routine 04/01/2017 5:21 PM AEROPHYSICS ENGINEER POCT-GLUCOSE METER Routine 04/01/2017 1:[address] ABDOMEN/PELVIS WITHOUT Routine 04/01/2017 IV CONTRAST 11:35 AM AEROPHYSICS ENGINEER POCT-GLUCOSE METER Routine 04/01/2017 7:47 AM AEROPHYSICS ENGINEER CBC W/PLT COUNT & AUTO Routine 04/01/2017 DIFFERENTIAL 4:24 AM AEROPHYSICS ENGINEER CBC W/PLT COUNT & AUTO Routine 04/01/2017 DIFFERENTIAL 4:24 AM AEROPHYSICS ENGINEER POCT-GLUCOSE METER Routine 03/31/2017 8:42 PM AEROPHYSICS ENGINEER POCT-GLUCOSE METER Routine 03/31/2017 5:46 PM AEROPHYSICS ENGINEER CATHETER TIP CULTURE Routine 03/31/2017 1:47 PM AEROPHYSICS ENGINEER POCT-GLUCOSE METER Routine 03/31/2017 11:48 AM AEROPHYSICS ENGINEER POCT-GLUCOSE METER Routine 03/31/2017 7:30 AM AEROPHYSICS ENGINEER BASIC METABOLIC PANEL (7) STAT 03/31/2017 6:28 AM AEROPHYSICS ENGINEER (MANUAL DIFFERENTIAL) Routine 03/31/2017 5:15 AM AEROPHYSICS ENGINEER CBC W/PLT COUNT & AUTO Routine 03/31/2017 DIFFERENTIAL 5:15 AM AEROPHYSICS ENGINEER CBC W/PLT COUNT & AUTO Routine 03/31/2017 DIFFERENTIAL 5:15 AM AEROPHYSICS ENGINEER POCT-GLUCOSE METER Routine 03/30/2017 9:07 PM AEROPHYSICS ENGINEER POCT-GLUCOSE METER Routine 03/30/2017 4:06 PM AEROPHYSICS ENGINEER POCT-GLUCOSE METER Routine 03/30/2017 12:39 PM AEROPHYSICS ENGINEER POCT-GLUCOSE METER Routine 03/30/2017 8:36 AM AEROPHYSICS ENGINEER (MANUAL DIFFERENTIAL) Routine 03/30/2017 6:00 AM AEROPHYSICS ENGINEER CBC W/PLT COUNT & AUTO Routine 03/30/2017 DIFFERENTIAL 6:00 AM AEROPHYSICS ENGINEER CBC W/PLT COUNT & AUTO Routine 03/30/2017 DIFFERENTIAL 6:00 AM AEROPHYSICS ENGINEER BASIC METABOLIC PANEL (7) STAT 03/30/2017 6:00 AM AEROPHYSICS ENGINEER POCT-GLUCOSE METER Routine 03/29/2017 9:03 PM AEROPHYSICS ENGINEER POCT-GLUCOSE METER Routine 03/29/2017 6:01 PM AEROPHYSICS ENGINEER POCT-GLUCOSE METER Routine 03/29/2017 12:33 PM AEROPHYSICS ENGINEER XR CHEST 1 VIEW STAT 03/29/2017 PORTABLE/BEDSIDE 10:25 AM AEROPHYSICS ENGINEER RAPID INFLUENZA A&B STAT 03/29/2017 SCREEN 9:55 AM AEROPHYSICS ENGINEER RESPIRATORY PANEL [facility] STAT 03/29/2017 9:55 AM AEROPHYSICS ENGINEER ECHOCARDIOGRAM REPORT - 03/29/2017 SCAN 9:50 AM AEROPHYSICS ENGINEER POCT-GLUCOSE METER Routine 03/29/2017 8:43 AM AEROPHYSICS ENGINEER POCT-GLUCOSE METER Routine 03/29/2017 6:25 AM AEROPHYSICS ENGINEER BASIC METABOLIC PANEL (7) STAT 03/29/2017 4:30 AM AEROPHYSICS ENGINEER CBC W/PLT COUNT & AUTO Routine 03/29/2017 DIFFERENTIAL 3:36 AM AEROPHYSICS ENGINEER CBC W/PLT COUNT & AUTO Routine 03/29/2017 DIFFERENTIAL 3:36 AM AEROPHYSICS ENGINEER HEMOGLOBIN A1C Routine 03/29/2017 3:36 AM AEROPHYSICS ENGINEER POCT-GLUCOSE METER Routine 03/28/2017 9:48 PM AEROPHYSICS ENGINEER IR NEPHROSTOGRAM Routine 03/28/2017 7:25 PM AEROPHYSICS ENGINEER POCT-GLUCOSE METER Routine 03/28/2017 5:40 PM AEROPHYSICS ENGINEER 2D ECHO W/ DOPPLER Routine 03/28/2017 (CW/PW/COLOR) 4:08 PM AEROPHYSICS ENGINEER POCT-GLUCOSE METER Routine 03/28/2017 11:57 AM AEROPHYSICS ENGINEER ECG 12-LEAD Routine 03/28/2017 10:38 AM AEROPHYSICS ENGINEER Procedure Note - Interface, External Ris In - 03/28/2017 10:46 AM AEROPHYSICS ENGINEER Ventricula r Rate 82 BPM Atrial Rate 82 BPM P-R Interval 164 ms QRS Duration 76 ms Q-T Interval 366 ms QTC Calculatio n(Bazett) 427 ms P [place] 35 degrees R [place] 33 degrees T [place] 62 degrees Normal sinus rhythm Normal ECG No previous ECGs available ECG 12-LEAD Routine 03/28/2017 10:38 AM AEROPHYSICS ENGINEER URINALYSIS W/ MICROSCOPIC Routine 03/28/2017 10:04 AM AEROPHYSICS ENGINEER URINE CULTURE Routine 03/28/2017 10:02 AM AEROPHYSICS ENGINEER B-TYPE NATRIURETIC FACTOR Routine 03/28/2017 (BNP) 9:53 AM AEROPHYSICS ENGINEER HEPATIC FUNCTION PANEL STAT 03/28/2017 9:53 AM AEROPHYSICS ENGINEER BASIC METABOLIC PANEL (7) STAT 03/28/2017 9:53 AM AEROPHYSICS ENGINEER LACTIC ACID, VENOUS, STAT 03/28/2017 WHOLE BLOOD 9:53 AM AEROPHYSICS ENGINEER MISCELLANEOUS LAB ORDER Routine 03/28/2017 8:49 AM AEROPHYSICS ENGINEER BLOOD CULTURE STAT 03/28/2017 8:49 AM AEROPHYSICS ENGINEER BLOOD CULTURE STAT 03/28/2017 8:49 AM AEROPHYSICS ENGINEER XR CHEST 1 VIEW KIMMY 03/28/2017 PORTABLE/BEDSIDE 8:48 AM AEROPHYSICS ENGINEER POCT-GLUCOSE METER Routine 03/28/2017 8:29 AM AEROPHYSICS ENGINEER (MANUAL DIFFERENTIAL) Routine 03/28/2017 8:20 AM AEROPHYSICS ENGINEER CBC W/PLT COUNT & AUTO STAT 03/28/2017 DIFFERENTIAL 8:20 AM AEROPHYSICS ENGINEER CBC W/PLT COUNT & AUTO STAT 03/28/2017 DIFFERENTIAL 8:20 AM AEROPHYSICS ENGINEER APTT STAT 03/28/2017 8:20 AM AEROPHYSICS ENGINEER PROTHROMBIN TIME/INR STAT 03/28/2017 8:20 AM AEROPHYSICS ENGINEER after 03/19/2017 Results * MR thoracic spine without IV contrast (10/08/2017 12:40 PM CDT) Narrative Performed At FINAL REPORT [facility] MRI of the thoracic spine Comparison:July 27, 2017 Reason for exam: T9 discitis Discussion: Sagittal and axial multisequence MR imaging of the thoracic spine was provided At T9/10, the disc space is destroyed with edematous and infiltrative changes involving the bone marrow at the T9 and T10 levels. Findings are in keeping with an evolving perhaps treated or partially treated discitis and osteomyelitis. There is no central canal or cord compromise at this level. Mild paraspinal infiltrative inflammatory changes are seen centered at the T9/T10 disc space. Remaining thoracic spine levels are unremarkable except for mild degenerative changes. No central canal or cord compromise at any other level. 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 Continued active infection cannot be excluded at this point. There is no central canal or cord compromise at this or any other level. Signed: Adarsh Loredo MD Report Verified Date/Time:10/08/2017 13:38:56 Reading Location: [address] Consult Reading Room Procedure Note Interface, External Ris In - 10/08/2017 1:41 PM CDT FINAL REPORT MRI of the thoracic spine Comparison: July 27, 2017 Reason for exam: T9 discitis Discussion: Sagittal and axial multisequence MR imaging of the thoracic spine was provided At T9/10, the disc space is destroyed with edematous and infiltrative changes involving the bone marrow at the T9 and T10 levels. Findings are in keeping with an evolving perhaps treated or partially treated discitis and osteomyelitis. There is no central canal or cord compromise at this level. Mild paraspinal infiltrative inflammatory changes are seen centered at the T9/T10 disc space. Remaining thoracic spine levels are unremarkable except for mild degenerative changes. No central canal or cord compromise at any other level. 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 Continued active infection cannot be excluded at this point. There is no central canal or cord compromise at this or any other level. Signed: Adarsh Loredo MD Report Verified Date/Time: 10/08/2017 13:38:56 Reading Location: [facility] B1 [id number] Consult Reading Room Performing Organization Address City/State/Zipcode Phone Number [facility] * POC-Glucose meter (08/03/2017 12:33 PM CDT) Only the most recent of 127 results within the time period is included. POC-Glucose Meter 184 (H)Comment: TESTED AT 70 - 110 mg/dL [address] [address] Specimen Blood Performing Organization Address [facility] Phone Number [address] [facility] * CBC with platelet count + automated diff (08/03/2017 5:57 AM CDT) Only the most recent of 31 results within the time period is included. WBC 8.8 3.5 - 10.5 K/L [facility] RBC 3.29 (L) 3.93 - 5.22 M/L [facility] Hemoglobin 8.7 (L) 11.2 - 15.7 GM/DL [facility] Hematocrit 28.2 (L) 34.1 - 44.9 % [facility] MCV 85.7 79.4 - 94.8 fL [facility] MCH 26.4 25.6 - 32.2 pg [facility] MCHC 30.9 (L) 32.2 - 35.5 GM/DL [facility] RDW 14.5 (H) 11.7 - 14.4 % [facility] Platelets 307 150 - 450 K/CU MM [facility] MPV 10.3 9.4 - 12.3 fL [facility] nRBC 0 0 - 0 /100 WBC [facility] % Neutros 59 % [facility] % Lymphs 26 % [facility] % Monos 7 % [facility] % Eos 6 % [facility] % Baso 1 % [facility] # Neutros 5.19 1.56 - 6.13 K/L [facility] # Lymphs 2.31 1.18 - 3.74 K/L [facility] # Monos 0.65 (H) 0.24 - 0.36 K/L [facility] # Eos 0.56 (H) 0.04 - 0.36 K/L [facility] # Baso 0.04 0.01 - 0.08 K/L [facility] Immature 1 0 - 1 % [facility] Granulocytes-Relative [facility] Specimen Blood - Line, Venous Performing Organization Address City/[facility]/Zipcode Phone Number [address] * Creatine Kinase (CK) (08/03/2017 5:57 AM CDT) Only the most recent of 3 results within the time period is included. Total CK 16 (L) 29 - 200 U/L [facility] Specimen Blood - Line, Venous Performing Organization Address City/[facility]/[place] [phone] [place] [address] * Basic Metabolic Panel (08/03/2017 5:57 AM CDT) Only the most recent of 29 results within the time period is included. Sodium 140 136 - 145 meq/L [facility] Potassium 3.9 3.5 - 5.1 meq/L [facility] Chloride 101 98 - 107 meq/L [facility] CO2 31 (H) 22 - 29 meq/L [facility] BUN 31 (H) 7 - 21 mg/dL [facility] Creatinine 1.32 (H) 0.57 - 1.25 mg/dL [facility] Glucose 86 70 - 105 mg/dL [facility] Calcium 8.5 8.4 - 10.2 mg/dL [facility] EGFR 40Comment: ESTIMATED GFR IS mL/min/1.[address] [facility] NOT ACCURATE CREATININE [facility] CLEARANCE IN PREDICTING GLOMERULAR FILTRATION RATE. ESTIMATED GFR IS NOT APPLICABLE FOR DIALYSIS PATIENTS. Specimen Blood - Line, Venous Performing Organization Address [facility] Phone Number [address] * C-Reactive Protein (08/02/2017 7:01 AM CDT) Only the most recent of 2 results within the time period is included. CRP 8.76 (H) 0.00 - 0.50 mg/dL [facility] Specimen Blood - Line, Venous Performing Organization Address [facility] Phone Number [address] * Sedimentation rate (08/02/2017 7:01 AM CDT) Only the most recent of 2 results within the time period is included. Sed Rate 91 (H) 0 - 40 mm/HR [facility] Specimen Blood - Line, Venous Performing Organization Address [facility] Phone Number [address] * Comprehensive metabolic panel (08/02/2017 7:01 AM CDT) Only the most recent of 4 results within the time period is included. Protein, Total 6.4Comment: Specimen 6.0 - 8.3 gm/dL [facility] moderately hemolyzed [facility] Albumin 2.6 (L)Comment: Specimen 3.5 - 5.0 g/dL [facility] hemolyzed [facility] Alkaline Phosphatase 71 40 - 150 U/L [facility] Total Bilirubin 0.4Comment: Specimen 0.2 - 1.2 mg/dL [facility] moderately hemolyzed [facility] Sodium 140 136 - 145 meq/L [facility] Potassium 3.9Comment: Specimen 3.5 - 5.1 meq/L [facility] hemolyzed [facility] Chloride 104 98 - 107 meq/L [facility] CO2 28 22 - 29 meq/L [facility] BUN 31 (H) 7 - 21 mg/dL [facility] Creatinine 1.20Comment: Specimen 0.57 - 1.25 mg/dL [facility] hemolyzed [facility] Glucose 60 (L) 70 - 105 mg/dL [facility] Calcium 8.5 8.4 - 10.2 mg/dL [facility] AST 15Comment: Specimen moderately 5 - 34 U/L [facility] <6 (L)Comment: Specimen 6 - 55 U/L [facility] hemolyzed [facility] EGFR 45Comment: ESTIMATED GFR IS mL/min/1.[address] [facility] NOT ACCURATE CREATININE [facility] CLEARANCE IN PREDICTING GLOMERULAR FILTRATION RATE. ESTIMATED GFR IS NOT APPLICABLE FOR DIALYSIS PATIENTS. Specimen Blood - Line, Venous Performing Organization Address City/State/Zipcode Phone Number [facility] [address] [place] [address] [facility] * Tissue Exam (07/31/2017 1:53 PM CDT) Case Report Surgical Pathology [facility] Report [facility] Case: [id number] Authorizing Provider:Flor Nunes MD Collected: 07/31/2017 1353 Ordering Location: [address] Received: 07/31/2017 1357 Service Pathologist: Salty Gallo MD Specimen:Intervertebra l Disc, thoracic 9 DIAGNOSIS VERTEBRAL COLUMN, T9, [facility] LAMINECTOMY: [facility] MINUTE FRAGMENT OF FIBRIN AND BLOOD CLOT NO FIBROCARTILAGE IS IDENTIFIED Signing Pathologist Direct Phone Line: [phone] CPT Code(s) [address] [facility] CLINICAL HISTORY None given [facility] SPECIMEN SOURCE Intervertebral disc thoracic 9 [facility] GROSS DESCRIPTION The specimen is received in a [facility] fluidless container labeled [facility] with the patient's information and labeled "thoracic 9 disc tissue" and consists of red soft tissue measuring 0.2 cm in greatest dimension, submitted entirely in A1. CG/ew MICROSCOPIC DESCRIPTION Performed [facility] Specimen Tissue - Intervertebral Disc Performing Organization Address City/State/Zipcode Phone Number [facility] [address] [place] [address] [facility] * CT Biopsy/Aspiration/Injection (07/30/2017 3:25 PM CDT) Narrative Performed At FINAL REPORT [facility] CT-guided fine needle aspiration of the T8/T9 paravertebral soft tissue disc inflammation. CLINICAL HISTORY: t9 osteo. COMPARISON STUDY: CT scan dated July 27, 2017.. Informed consent was obtained from the patient and the risks of the procedure were explained including bleeding, infection, damage to lung, blood vessels, nerves and other adjacent structures. The possibly of a pneumothorax necessitating a chest tube was discussed with the patient. This exam was performed according to our department dose optimization program which includes automated exposure control, adjustment of the mA and/or kV according to the patient's size and/or use of iterative reconstruction technique. Sedation: 1% Xylocaine was utilized as local analgesia. A total of 1.5 mg of Versed and 75 mcg of fentanyl were administered using the moderate sedation protocol under the supervision of the physician and nurse. Moderate sedation time: 20 minutes. TECHNIQUE: Using sterile technique, CT fluoroscopic guidance and a 22-gauge Chiba needle, a single pass fine needle aspiration of the paravertebral/para disc inflammatory tissue was performed using a right percutaneous approach. The sample was sent to the lab in both RPMI for cytology and in saline for cultures. COMPLICATIONS: None. The patient experienced severe pain when the paravertebral soft tissue mass was transected. ESTIMATED BLOOD LOSS: None. Patient Disposition: The patient was in the same state post procedure as preprocedure. IMPRESSION: Successful CT-guided fine-needle aspiration of a T9/T10 paravertebral soft tissue mass adjacent to the disc space. Signed: Dale Umana MD Report Verified Date/Time:07/30/2017 17:23:33 Reading Location: [address] Ortho Consult Reading Room Procedure Note Interface, External Ris In - 07/30/2017 5:25 PM CDT FINAL REPORT CT-guided fine needle aspiration of the T8/T9 paravertebral soft tissue disc inflammation. CLINICAL HISTORY: t9 osteo. COMPARISON STUDY: CT scan dated July 27, 2017.. Informed consent was obtained from the patient and the risks of the procedure were explained including bleeding, infection, damage to lung, blood vessels, nerves and other adjacent structures. The possibly of a pneumothorax necessitating a chest tube was discussed with the patient. This exam was performed according to our department dose optimization program which includes automated exposure control, adjustment of the mA and/or kV according to the patient's size and/or use of iterative reconstruction technique. Sedation: 1% Xylocaine was utilized as local analgesia. A total of 1.5 mg of Versed and 75 mcg of fentanyl were administered using the moderate sedation protocol under the supervision of the physician and nurse. Moderate sedation time: 20 minutes. TECHNIQUE: Using sterile technique, CT fluoroscopic guidance and a 22-gauge Chiba needle, a single pass fine needle aspiration of the paravertebral/para disc inflammatory tissue was performed using a right percutaneous approach. The sample was sent to the lab in both RPMI for cytology and in saline for cultures. COMPLICATIONS: None. The patient experienced severe pain when the paravertebral soft tissue mass was transected. ESTIMATED BLOOD LOSS: None. Patient Disposition: The patient was in the same state post procedure as preprocedure. IMPRESSION: Successful CT-guided fine-needle aspiration of a T9/T10 paravertebral soft tissue mass adjacent to the disc space. Signed: Dale Umana MD Report Verified Date/Time: 07/30/2017 17:23:33 Reading Location: [facility] B1 [id number] Ortho Consult Reading Room Performing Organization Address City/State/Zipcode Phone Number [facility] * Cytology (07/30/2017 3:20 PM CDT) Case Report Medical Cytology [facility] Report [facility] Case: [id number] Authorizing Provider:Flor Nunes MD Collected: 07/30/2017 1520 Ordering Location: [address] Received: 07/31/2017 1257 Service Pathologist: Tran Dobbins MD Specimen:Bone, T9 spine DIAGNOSIS BONE, T9 SPINE FNA BY [facility] CLINICIAN (CYTOSPINS AND CELL [facility] BLOCK OF ASPIRATE): - NO MALIGNANT CELLS IDENTIFIED (SEE COMMENT) - FEW LYMPHOCYTES PRESENT Signing Pathologist Direct Phone Line: [phone] COMMENT Cytospins and cell block [facility] sections show predominantly [facility] blood elements and a few small clusters of lymphocytes. Immunostains performed on cell block sections are predominantly negative for CAM5.2 and GATA3 (rare nonspecific staining). These findings are supportive of the above diagnosis. Clinical/radiological correlation is recommended to determine the adequacy of the sampling. CPT Code(s) 90206, 00960, 24695, 19276 [facility] CLINICAL DATA CT-guided fine needle [facility] aspiration of the T8/T9 [facility] paravertebral soft tissue disc inflammation, history of breast cancer SPECIMEN SOURCE BONE, T9 SPINE FNA [facility] GROSS DESCRIPTION 25 mls in cytorich red; [address] [facility] cytospins, cell block [facility] Collected: [id number] Received: [id number] SPECIAL STUDIES The following special studies [facility] were performed on this case [facility] and the interpretation is incorporated in the diagnostic report above: Please see the immunohistochemistry results in the COMMENT section. The immunohistochemistry test was developed and its performance characteristics determined by [facility], Pathology Laboratory. It has not been cleared or approved by the U.S. Food and Drug Administration. The FDA has determined that such clearance or approval is not necessary. The test is used for clinical purposes. It should not be regarded as investigational or for research. This laboratory is certified under the Clinical Laboratory Improvement Amendments of 1988 (CLIA-88) as qualified to perform high complexity clinical laboratory testing. Technical component was [facility] performed at [facility], Department [facility] Pathology, [address] [place] [id number], Professional component [facility] was performed at [facility], Department of [facility] Pathology, [address] [place] [id number], Specimen Aspirate - Bone Narrative Performed At Performing Organization Address [facility] Phone Number [address] [address] [facility] * AFB culture + smear (07/30/2017 3:17 PM CDT) Only the most recent of 2 results within the time period is included. Result No acid-fast bacilli isolated [facility] in 42 days [facility] AFB Smear No acid fast bacilli seen [facility] Specimen Tissue - Spine, Thoracic Performing Organization Address City/[facility] Phone Number [address] [address] [facility] * Body fluid culture + gram stain (07/30/2017 3:17 PM CDT) Only the most recent of 2 results within the time period is included. Result No growth [facility] Gram Stain Result <1+ WBCs [facility] Gram Stain Result No organisms seen [facility] Specimen Body Fluid - Spine, Thoracic Performing Organization Address City/State/Zipcode Phone Number [facility] [address] [place] [address] [facility] * Fungus culture + smear (07/30/2017 3:17 PM CDT) Only the most recent of 2 results within the time period is included. Result No fungus isolated in 28 days [facility] Fungus Smear No fungi seen [facility] Specimen Tissue - Spine, Thoracic Performing Organization Address City/[facility] Phone Number [facility] [address] [place] [address] [facility] * CT spine thoracic without IV contrast (07/27/2017 10:53 PM CDT) Narrative Performed At FINAL REPORT [employer] CT, SPINE, THORACIC, WO CONTRAST INDICATION: "T9 osteomyelitis - needs biopsy" COMPARISON: None TECHNIQUE:Axially oriented 2.5 mm thick images were obtained through the entire thoracic spine, without contrast.Sagittal and coronal reformations are also provided in osseous and soft tissue algorithms. DOSE REDUCTION: Dose modulation, iterative reconstruction, and/or weight-based adjustment of the mA/kV was utilized to reduce the radiation dose to as low as reasonably achievable. FINDINGS: There is complete loss of disc space height at T9-T10 with destructive endplate changes at this level. There is a moderate amount of inflammatory change in the perivertebral soft tissues. No malalignment. Mild to moderate multilevel degenerative disc disease throughout the thoracic spine. No obvious cord abnormality, large epidural fluid collection, or severe canal narrowing. MRI would be needed for further evaluation. Limited evaluation of the soft tissue structures demonstrates small bilateral pleural effusions, right greater than left, with adjacent airspace disease. Nonobstructing stone in the lower pole of the left kidney. Cardiomegaly. IMPRESSION: Destructive endplate changes at the T9-T10 level compatible with osteomyelitis/discitis. No obvious abnormality of the spinal canal. MRI can be obtained for further evaluation of the cord and epidural space. Signed: Germaine Gentile MD Report Verified Date/Time:07/27/2017 23:51:36 Reading Location: [address] Ortho Consult Reading Room Procedure Note Interface, External Ris In - 07/27/2017 11:[address] FINAL REPORT CT, SPINE, THORACIC, WO CONTRAST INDICATION: "T9 osteomyelitis - needs biopsy" COMPARISON: None TECHNIQUE: Axially oriented 2.5 mm thick images were obtained through the entire thoracic spine, without contrast. Sagittal and coronal reformations are also provided in osseous and soft tissue algorithms. DOSE REDUCTION: Dose modulation, iterative reconstruction, and/or weight-based adjustment of the mA/kV was utilized to reduce the radiation dose to as low as reasonably achievable. FINDINGS: There is complete loss of disc space height at T9-T10 with destructive endplate changes at this level. There is a moderate amount of inflammatory change in the perivertebral soft tissues. No malalignment. Mild to moderate multilevel degenerative disc disease throughout the thoracic spine. No obvious cord abnormality, large epidural fluid collection, or severe canal narrowing. MRI would be needed for further evaluation. Limited evaluation of the soft tissue structures demonstrates small bilateral pleural effusions, right greater than left, with adjacent airspace disease. Nonobstructing stone in the lower pole of the left kidney. Cardiomegaly. IMPRESSION: Destructive endplate changes at the T9-T10 level compatible with osteomyelitis/discitis. No obvious abnormality of the spinal canal. MRI can be obtained for further evaluation of the cord and epidural space. Signed: Germaine Gentile MD Report Verified Date/Time: 07/27/2017 23:51:36 Reading Location: [address] Ortho Consult Reading Room Performing Organization Address City/State/Zipcode Phone Number [facility] * Vancomycin level, trough (07/25/2017 9:29 PM CDT) Vancomycin Tr 23.1 (H) 10.0 - 20.0 ug/mL [facility] Specimen Blood - Line, Venous Narrative Performed At Please draw 30 min prior to fourth dose of vancomycin [facility] Performing Organization Address City/[facility]/Zipcode Phone Number [place] [phone] [place] [address] [facility] * [place] manager of radiology in or 30 minute increments (07/25/2017 1:00 PM CDT) Narrative Performed At PROCEDURE PERFORMED IN O.R. - PLEASE REFER TO THE INTRAOPERATIVE [facility] REPORT. Procedure Note Interface, External Ris In - 08/22/2017 10:48 AM CDT PROCEDURE PERFORMED IN O.R. - PLEASE REFER TO THE INTRAOPERATIVE REPORT. Performing Organization Address [facility] Phone Number [facility] * STONE ANALYSIS (07/25/2017 11:41 AM CDT) Stone Source STONE [facility] Nidus Not observed [facility] COMPONENT 1 ([facility]) See Below [facility] Comment: INC[facility]PORATED Calcium Oxalate Dihydrate (Weddellite) 10% Calcium Oxalate Monohydrate (Whewellite) 90% COMPONENT 2 ([facility]) DNR [facility] Stone Weight 0.0460 g [facility] Comment: INC[facility]PORATED The image will follow, unless test is cancelled or no picture is available to report. This test was developed and its analytical performance characteristics have been determined by [facility]. It has not been cleared or approved by the US Food and Drug Administration. This assay has been validated pursuant to the CLIA regulations and is used for clinical purposes. Specimen Tissue - Stone Narrative Performed At Performing Lab [facility] *[facility] [employer] [facility] [email or web address] [place], [address] [place] [address] Evi Keller MD, PhD Performing Organization Address [facility] Phone Number [facility], [address] [place], [place] [facility] [address] [address] * Urine culture (07/25/2017 11:40 AM CDT) Only the most recent of 4 results within the time period is included. Result >100,000 col/mL Same organism [facility] has been isolated from [facility] culture(s) of the same body site within 3 days. Repeat identification performed only after consultation with the clinical microbiology laboratory. (A) Comment: Refer to previous culture of Vancomycin resistant Enterococcus species Specimen Urine Narrative Performed At <10,000 col/mL Gram Negative Rods [facility] Performing Organization Address City/State/Zipcode Phone Number [facility] [address] [place], [place] [phone] [facility] * Anaerobic culture (07/25/2017 11:01 AM CDT) Result No anaerobes isolated [facility] Specimen Other - Kidney, Left Performing Organization Address City/[facility]/Zipcode Phone Number [facility] [address] [place] [address] [facility] [place] * Surgically obtained culture + gram stain (07/25/2017 11:01 AM CDT) Result PSEUDOMONAS AERUGINOSA (A) [facility] Result 2+ Vancomycin resistant [facility] Enterococcus species (A) [facility] Result METHICILLIN RESISTANT [facility] STAPHYLOCOCCUS AUREUS (A) [facility] Gram Stain Result <1+ WBCs [facility] Gram Stain Result 2+ gram negative rods [facility] Specimen Other - Kidney, Left Antibiotic Method Susceptibility Organism Amikacin <=8: Susceptible Pseudomonas aeruginosa Aztreonam >16: Resistant Pseudomonas aeruginosa Cefepime 8: Susceptible Pseudomonas aeruginosa Ceftazidime 8: Susceptible Pseudomonas aeruginosa Ciprofloxacin >2: Resistant Pseudomonas aeruginosa Doripenem 1: Susceptible Pseudomonas aeruginosa Gentamicin <=2: Susceptible Pseudomonas aeruginosa Imipenem 2: Susceptible Pseudomonas aeruginosa Levofloxacin >8: Resistant Pseudomonas aeruginosa Meropenem 2: Susceptible Pseudomonas aeruginosa Piperacillin <=16: Susceptible Pseudomonas aeruginosa Piperacillin + Tazobactam 16: Susceptible Pseudomonas aeruginosa Tobramycin <=2: Susceptible Pseudomonas aeruginosa Ampicillin >=32: Resistant Vancomycin resistant Enterococcus species Linezolid 2: Susceptible Vancomycin resistant Enterococcus species Vancomycin >=32: Resistant Vancomycin resistant Enterococcus species Daptomycin 2: Susceptible Vancomycin resistant Enterococcus species Clindamycin 0.25: Susceptible Methicillin resistant Staphylococcus aureus Daptomycin <=0.12: Susceptible Methicillin resistant Staphylococcus aureus Erythromycin >=8: Resistant Methicillin resistant Staphylococcus aureus Linezolid 2: Susceptible Methicillin resistant Staphylococcus aureus Oxacillin >=4: Resistant Methicillin resistant Staphylococcus aureus Rifampin <=0.5: Susceptible Methicillin resistant Staphylococcus aureus Tetracycline >=16: Resistant Methicillin resistant Staphylococcus aureus Trimethoprim + Sulfamethoxazole <=10: Susceptible Methicillin resistant Staphylococcus aureus Vancomycin <=0.5: Susceptible Methicillin resistant Staphylococcus aureus Performing Organization Address City/[facility]/Zipcode Phone Number [place] [phone] [place], [place] [phone] [facility] * SPIN/CONCENTRATION CHARGE (07/25/2017 11:01 AM CDT) Concentration charged Done [facility] Specimen Other - Kidney, Left Performing Organization Address [facility]/Zipcode Phone Number [place] [phone] [place] [address] [facility] * Urinalysis w/Microscopic (07/24/2017 11:26 PM CDT) Only the most recent of 4 results within the time period is included. Color, UA Light Yellow [facility] Clarity, UA Clear [facility] Specific [place], UA 1.009 1.001 - 1.035 [facility] pH, UA 5.5 5.0 - 8.0 [facility] Protein, UA Negative Negative [facility] Glucose, UA Negative Negative [facility] Ketones, UA Negative Negative [facility] Bilirubin, UA Negative Negative [facility] Blood, UA Negative Negative [facility] Nitrite, UA Negative Negative [facility] Leukocytes, UA Large (A) Negative [facility] Urobilinogen, UA 0.2 0.2 - 1.0 mg/dL [facility] RBC, UA 2 /HPF [facility] WBC, UA 54 /HPF [facility] Bacteria, UA Occasional [facility] Mucus Rare [facility] Squam Epithel, UA <1 /HPF [facility] Hyaline Casts, UA 2 /LPF [facility] Specimen Source Urine, Clean Catch [facility] Specimen Urine - Urine, Clean Catch Performing Organization Address City/State/Zipcode Phone Number [facility] [address] [place], [place] [phone] [facility] * Blood culture (07/24/2017 11:25 PM CDT) Only the most recent of 7 results within the time period is included. Result No growth in 5 days [facility] Specimen Blood - Line, Venous Performing Organization Address City/State/Zipcode Phone Number [facility] [address] [place], [place] [phone] [facility] * XR chest 1 view portable / bedside (07/24/2017 6:33 PM CDT) Only the most recent of 7 results within the time period is included. Narrative Performed At FINAL REPORT [facility] Chest x-ray Clinical History: check picc placement Comparison: May 28, 2017 Views: One AP lordotic Chest x-ray: The cardiac and mediastinal silhouettes are within normal limits. There is no evidence of a pneumothorax.There is no evidence of a pleural effusion.There is no evidence of overt cardiac failure. The visible regional skeleton is intact.There is evidence of a left lower lung zone focal parenchymal opacity. Postoperative changes are visualized overlying the right proximal humerus. There is a right PICC line terminating in the right atrium. Impression: Interval placement of a right PICC line terminating in the right atrium. Subsegmental atelectasis is visualized bilaterally. Signed: Stacie Prabhakar MD Report Verified Date/Time:07/24/2017 18:53:53 Reading Location: [facility] B1 [id number] Consult Reading Room Procedure Note Interface, External Ris In - 07/24/2017 6:56 PM CDT FINAL REPORT Chest x-ray Clinical History: check picc placement Comparison: May 28, 2017 Views: One AP lordotic Chest x-ray: The cardiac and mediastinal silhouettes are within normal limits. There is no evidence of a pneumothorax. There is no evidence of a pleural effusion. There is no evidence of overt cardiac failure. The visible regional skeleton is intact. There is evidence of a left lower lung zone focal parenchymal opacity. Postoperative changes are visualized overlying the right proximal humerus. There is a right PICC line terminating in the right atrium. Impression: Interval placement of a right PICC line terminating in the right atrium. Subsegmental atelectasis is visualized bilaterally. Signed: Stacie Prabhakar MD Report Verified Date/Time: 07/24/2017 18:53:53 Reading Location: [address] Consult Reading Room Performing Organization Address City/State/Zipcode Phone Number [facility] * Prothrombin time/INR (07/24/2017 3:06 PM CDT) Only the most recent of 4 results within the time period is included. Protime 14.9 (H) 11.7 - 14.7 seconds [facility] INR 1.2 <=5.9 [facility] Specimen Blood - Arm, Right Narrative Performed At RECOMMENDED COUMADIN/WARFARIN INR THERAPY RANGES [facility] STANDARD DOSE: 2.0 - 3.0 Includes: PROPHYLAXIS for venous thrombosis, [facility] systemic embolization; TREATMENT for venous thrombosis and/or pulmonary embolus. HIGH RISK: Target INR is 2.5-3.5 for patients with mechanical heart valves. Performing Organization Address City/[facility] [place] [phone] [place] [address] * Phosphorus (06/05/2017 6:01 AM AEROPHYSICS ENGINEER) Only the most recent of 17 results within the time period is included. Phosphorus 5.7 (H) 2.3 - 4.7 mg/dL [facility] Specimen Blood - Arm, Right Performing Organization Address City/[facility]/Zipcode Phone Number [address] [address] [facility] * Magnesium (06/05/2017 6:01 AM AEROPHYSICS ENGINEER) Only the most recent of 17 results within the time period is included. Magnesium 1.9 1.6 - 2.6 mg/dL [facility] [place] Specimen Blood - Arm, Right Performing Organization Address City/State/Zipcode Phone Number [facility] [address] [place] [address] [facility] * PERIPHERAL VASCULAR REPORT - SCAN (05/28/2017 6:50 PM AEROPHYSICS ENGINEER) Narrative Performed At * Venous doppler legs bilateral (05/28/2017 3:32 PM AEROPHYSICS ENGINEER) [facility] Fraction [facility] Impressions Performed At Right Impression [facility] 1. There is no deep venous obstruction in the common femoral, profunda [facility] femoral, femoral, popliteal, posterior tibial or peroneal veins where visualized. 2. There is no superficial venous obstruction in the great saphenous vein where visualized. Left Impression 1. There is no deep venous obstruction in the common femoral, profunda femoral, femoral, popliteal, posterior tibial or peroneal veins where visualized. 2. There is no superficial venous obstruction in the great saphenous vein where visualized. Conclusions Summary Venous duplex imaging and compression of the bilateral lower extremities were performed. The veins were technically difficult to visualize due to edema and patient body habitus. The bilateral venous systems were patent and compressible with no evidence of thrombus where visualized. The venous Doppler waveforms were phasic with respiration. Signature Velocities are measured in cm/s ; Diameters are measured in cm Narrative Performed At PV LAB - Lower Extremities DVT Study [facility] Demographics [employer] Patient NameMASSEY, CONNIEDate of Study05/28/2017 Visit [id number] Female of Birth1945 Number Referring [facility] [id number] Physician Dayana Manager Metrology Gisele Arrieta RVTInterpreting Kathe Villagomez Physician, [place] Procedure Type of Study: Veins: Lower Extremities DVT Study, VENOUS DOPPLER LEG, BILATERAL. Indications for Study:Fluid collection. Patient Status:Routine. Study Location:Vascular Lab. Technical Quality:Technically Difficult. Risk Factors History of Disease + +----+ + !Diagnosis !Date!Comments! + +----+ + !History/Risk Factors: !!DM, Pneumonia ! + +----+ + Procedure Note Interface, External Ris In - 05/28/2017 6:03 PM AEROPHYSICS ENGINEER PV LAB - Lower Extremities DVT Study Demographics Patient Name BINTA BLAIR Date of Study 05/28/2017 Age 71 Visit Number [id number] Gender Female Date of 1945 Number Referring Raiza Room Number 7 Physician Dayana Manager Metrology Gisele Arrieta RVT Interpreting Kathe Villagomez, Physician , GEM Procedure Type of Study: Veins: Lower Extremities DVT Study, VENOUS DOPPLER LEG, BILATERAL. Indications for Study:Fluid collection. Patient Status:Routine. Study Location:Vascular Lab. Technical Quality:Technically Difficult. Risk Factors History of Disease + +----+ + !Diagnosis !Date!Comments ! + +----+ + !History/Risk Factors: ! !DM, Pneumonia ! + +----+ + Impressions Right Impression 1. There is no deep venous obstruction in the common femoral, profunda femoral, femoral, popliteal, posterior tibial or peroneal veins where visualized. 2. There is no superficial venous obstruction in the great saphenous vein where visualized. Left Impression 1. There is no deep venous obstruction in the common femoral, profunda femoral, femoral, popliteal, posterior tibial or peroneal veins where visualized. 2. There is no superficial venous obstruction in the great saphenous vein where visualized. Conclusions Summary Venous duplex imaging and compression of the bilateral lower extremities were performed. The veins were technically difficult to visualize due to edema and patient body habitus. The bilateral venous systems were patent and compressible with no evidence of thrombus where visualized. The venous Doppler waveforms were phasic with respiration. Signature Velocities are measured in cm/s ; Diameters are measured in cm Performing Organization Address City/[facility] Phone Number [facility] MKCKESSON [facility] * Calcium, Ionized (05/28/2017 4:41 AM AEROPHYSICS ENGINEER) Only the most recent of 9 results within the time period is included. Calcium, Ion 1.01 (L) 1.12 - 1.27 mmol/L [facility] pH, Blood 7.31 [facility] Specimen Blood - Arm, Right Performing Organization Address [facility] Phone Number [facility] [address] [place], [place] [phone] [address] * B-type Natriuretic Factor (BNP) (05/28/2017 4:41 AM AEROPHYSICS ENGINEER) Only the most recent of 2 results within the time period is included. BNP 696 (H) 0 - 100 pg/mL [facility] Specimen Blood - Arm, Right Performing Organization Address [facility] Phone Number [place] [phone] * US renal complete (05/27/2017 9:01 PM AEROPHYSICS ENGINEER) Narrative Performed At FINAL REPORT [employer] U/S, RENAL, COMPLETE CLINICAL INDICATION:Mario /Pyelonephritis COMPARISON: Correlation abdomen pelvis CT May 30, 2017 TECHNIQUE:The kidneys and urinary bladder were evaluated using real time andres scale and color Doppler sonography. FINDINGS: Right kidney: Size: 9.4 x 5.1 x 5.0 cm. Parenchyma: Normal echogenicity. No cysts. No stones. Hydronephrosis: None. Left kidney: Size: 10.4 x 5.0 x 5.0 cm. Parenchyma: Normal echogenicity. No cysts. Nonobstructing stone in the superior pole measures up to 1.2 cm. Hydronephrosis: None. Ureteric stent is not clearly identified on the current examination. Renal Vasculature: Doppler interrogation reveals preserved vascular flow in the main renal arteries and veins bilaterally. Urinary bladder: Decompressed by Dotson catheter. Additional findings: None. IMPRESSION: Nonobstructing left renal stone. The known left ureteric stent is not identified. Otherwise unremarkable renal ultrasound. Signed: JR Jackson Robert MD Report Verified Date/Time:05/28/2017 01:13:48 Reading Location: [facility] C013 CT Body Reading Room Procedure Note Interface, External Ris In - 05/28/2017 1:16 AM AEROPHYSICS ENGINEER FINAL REPORT U/S, RENAL, COMPLETE CLINICAL INDICATION: Mario /Pyelonephritis COMPARISON: Correlation abdomen pelvis CT May 30, 2017 TECHNIQUE: The kidneys and urinary bladder were evaluated using real time andres scale and color Doppler sonography. FINDINGS: Right kidney: Size: 9.4 x 5.1 x 5.0 cm. Parenchyma: Normal echogenicity. No cysts. No stones. Hydronephrosis: None. Left kidney: Size: 10.4 x 5.0 x 5.0 cm. Parenchyma: Normal echogenicity. No cysts. Nonobstructing stone in the superior pole measures up to 1.2 cm. Hydronephrosis: None. Ureteric stent is not clearly identified on the current examination. Renal Vasculature: Doppler interrogation reveals preserved vascular flow in the main renal arteries and veins bilaterally. Urinary bladder: Decompressed by Dotson catheter. Additional findings: None. IMPRESSION: Nonobstructing left renal stone. The known left ureteric stent is not identified. Otherwise unremarkable renal ultrasound. Signed: JR Jackson Robert MD Report Verified Date/Time: 05/28/2017 01:13:48 Reading Location: [facility] C013Y CT Body Reading Room Performing Organization Address City/State/Zipcode Phone Number [facility] RIS * Hemoglobin A1c (05/27/2017 6:13 AM AEROPHYSICS ENGINEER) Only the most recent of 2 results within the time period is included. Hemoglobin A1C 7.9 (H) 4.3 - 6.1 % [facility] Specimen Blood - Arm, Right Performing Organization Address City/State/Zipcode Phone Number [facility] [address] [place] [address] [facility] * CT abdomen/pelvis without iv contrast (05/26/2017 6:15 PM AEROPHYSICS ENGINEER) Only the most recent of 3 results within the time period is included. Narrative Performed At FINAL REPORT [employer] DOSE REDUCTION: The examination was performed according to departmental dose-optimization program which includes automated exposure control, adjustment of the mA and/or kV according to patient size and/or use of iterative reconstruction technique. TECHNIQUE: CT of the abdomen and pelvis without intravenous contrast. Enteric contrast was not administered. COMPARISON: CT of the abdomen and pelvis, 04/06/2017 DISCUSSION: Limited study without intravenous contrast; detection of some masses, vascular pathology, and infectious/inflammatory process may be difficult. There are trace pleural effusion with lower lobe atelectasis/fibrotic changes. Left breast prosthesis partially depicted. Noncontrast appearance of the spleen, pancreas, adrenal glands is unremarkable. Subcentimeter hypodensity in the liver again noted, too small to characterize, stable. There is nonspecific mild distention of the gallbladder. Small amount of high density material at the peripheral aspect of the bladder probably represent small focal gallbladder calcification or gallstone, stable. This is unchanged. No CT findings of cholecystitis. No bile duct dilatation. There is some nonspecific right sided perinephric stranding along with right cortical irregularities. Otherwise noncontrast appearance of the right kidney and ureter is unremarkable. 7 mm stone in the upper pole of the left kidney. Left internal ureteral stent in place. No significant left hydronephrosis. Previous collection of gas along the upper lateral aspect of the left kidney has resolved. A percutaneous drainage catheter has been removed. There is an ill-defined low-density collection measuring 2.8 x 3.3 cm at this location instead. This could represent some residual collection/fluid. No gas within it to suggest definitive abscess although superimposed infection would be difficult to exclude. Further characterization of this finding is limited without intravenous contrast. Pyelonephritis is difficult to evaluate without intravenous contrast. Moderate to large amount of stool throughout the colon. Otherwise unopacified small bowel, colon, and appendix appear unremarkable. No ascites. No organized fluid collections or abscess elsewhere. Vascular calcifications are seen. Aorta and IVC are normal in caliber. There are scattered periaortic and pericaval lymph nodes, nonspecific. A Dotson catheter is present in the bladder. Uterus appears grossly unremarkable. No suspicious adnexal masses. There is mild soft tissue anasarca. No definite acute skeletal amount amounts. Osteopenia and degenerative changes are seen. IMPRESSION: 1. Resolution of previous left perinephric gas containing collection. Percutaneous drainage catheter has been removed. Low density collection without gas along the lateral aspect of the left renal upper pole in the same location could represent some residual changes, area of infarct, etc. Superimposed infection/abscess is difficult to exclude especially without intravenous contrast. 2. Nonobstructing stone in the upper pole of the left kidney. Left internal ureteral stent in place. No left hydronephrosis. Signed: Chi Resendez MD Report Verified Date/Time:05/26/2017 18:29:02 Reading Location: [address] Transitional Reading Room Procedure Note Interface, External Ris In - 05/26/2017 6:31 PM AEROPHYSICS ENGINEER FINAL REPORT DOSE REDUCTION: The examination was performed according to departmental dose-optimization program which includes automated exposure control, adjustment of the mA and/or kV according to patient size and/or use of iterative reconstruction technique. TECHNIQUE: CT of the abdomen and pelvis without intravenous contrast. Enteric contrast was not administered. COMPARISON: CT of the abdomen and pelvis, 04/06/2017 DISCUSSION: Limited study without intravenous contrast; detection of some masses, vascular pathology, and infectious/inflammatory process may be difficult. There are trace pleural effusion with lower lobe atelectasis/fibrotic changes. Left breast prosthesis partially depicted. Noncontrast appearance of the spleen, pancreas, adrenal glands is unremarkable. Subcentimeter hypodensity in the liver again noted, too small to characterize, stable. There is nonspecific mild distention of the gallbladder. Small amount of high density material at the peripheral aspect of the bladder probably represent small focal gallbladder calcification or gallstone, stable. This is unchanged. No CT findings of cholecystitis. No bile duct dilatation. There is some nonspecific right sided perinephric stranding along with right cortical irregularities. Otherwise noncontrast appearance of the right kidney and ureter is unremarkable. 7 mm stone in the upper pole of the left kidney. Left internal ureteral stent in place. No significant left hydronephrosis. Previous collection of gas along the upper lateral aspect of the left kidney has resolved. A percutaneous drainage catheter has been removed. There is an ill-defined low-density collection measuring 2.8 x 3.3 cm at this location instead. This could represent some residual collection/fluid. No gas within it to suggest definitive abscess although superimposed infection would be difficult to exclude. Further characterization of this finding is limited without intravenous contrast. Pyelonephritis is difficult to evaluate without intravenous contrast. Moderate to large amount of stool throughout the colon. Otherwise unopacified small bowel, colon, and appendix appear unremarkable. No ascites. No organized fluid collections or abscess elsewhere. Vascular calcifications are seen. Aorta and IVC are normal in caliber. There are scattered periaortic and pericaval lymph nodes, nonspecific. A Dotson catheter is present in the bladder. Uterus appears grossly unremarkable. No suspicious adnexal masses. There is mild soft tissue anasarca. No definite acute skeletal amount amounts. Osteopenia and degenerative changes are seen. IMPRESSION: 1. Resolution of previous left perinephric gas containing collection. Percutaneous drainage catheter has been removed. Low density collection without gas along the lateral aspect of the left renal upper pole in the same location could represent some residual changes, area of infarct, etc. Superimposed infection/abscess is difficult to exclude especially without intravenous contrast. 2. Nonobstructing stone in the upper pole of the left kidney. Left internal ureteral stent in place. No left hydronephrosis. Signed: Chi Resendez MD Report Verified Date/Time: 05/26/2017 18:29:02 Reading Location: [address] Transitional Reading Room Performing Organization Address City/State/Zipcode Phone Number [facility] * Troponin I (05/26/2017 1:38 PM AEROPHYSICS ENGINEER) Troponin I 0.01 0.00 - 0.03 ng/mL [facility] Specimen Blood - Arm, Right Narrative Performed At Troponin I (TnI) levels must be interpreted in the context of the presenting [facility] symptoms and the clinical findings. Elevated TnI levels indicate myocardial [facility] damage, but are not specific for ischemic heart disease. Elevated TnI levels are seen in patients with other cardiac conditions (including myocarditis and congestive heart failure), and slight TnI elevations occur in patients with other conditions, including sepsis, renal failure, acidosis, acute neurological disease, and persistent tachyarrhythmia. Performing Organization Address City/[facility]/Zipcode Phone Number [facility] [address] [place] [address] [facility] * Creatine Kinase (CK), Total and MB (05/26/2017 1:38 PM AEROPHYSICS ENGINEER) Total CK 31 29 - 200 U/L [facility] CK-MB 1.3 0.0 - 6.6 ng/mL [facility] MB Relative Index 4.2 % [facility] Specimen Blood - Arm, Right Narrative Performed At CK-MB Reference Range: [facility] <6.7Normal [facility] 6.7-10.0Borderline >10.0 Abnormal Performing Organization Address City/[facility] Phone Number [facility] [address], [place] [phone] [facility] * ECG 12 lead (05/26/2017 1:27 PM AEROPHYSICS ENGINEER) Only the most recent of 2 results within the time period is included. Narrative Performed At Ventricular Rate 71 BPM GE MUSE Atrial Rate 71 BPM P-R Interval 170 ms QRS Duration 66 ms Q-T Interval 410 ms QTC Calculation(Bazett) 445 ms P Plano 37 degrees R Plano 26 degrees T Pl[place] 59 degrees Normal sinus rhythm Normal ECG When compared with ECG of 28-MAR-2017 10:38, No significant change was found Confirmed by MD DAWN MAJID ([id number]) on 05/27/2017 10:24:35 AM Procedure Note Interface, External Ris In - 05/27/2017 10:24 AM AEROPHYSICS ENGINEER Ventricular Rate 71 BPM Atrial Rate 71 BPM P-R Interval 170 ms QRS Duration 66 ms Q-T Interval 410 ms QTC Calculation(Bazett) 445 ms P [place] 37 degrees R [place]ano 26 degrees T [place] 59 degrees Normal sinus rhythm Normal ECG When compared with ECG of 28-MAR-2017 10:38, No significant change was found Confirmed by MD NEREYDA, LEXII ([id number]) on 05/27/2017 10:24:35 AM Performing Organization Address City/State/Zipcode Phone Number GE MUSE * CT brain without IV contrast (05/26/2017 12:11 PM AEROPHYSICS ENGINEER) Narrative Performed At FINAL REPORT [employer] CT head without contrast INDICATION: Dizziness TECHNIQUE: Axial noncontrast CT images through the head were obtained. This exam was performed according to our departmental dose optimization program which includes automated exposure control, adjustment of the mA and/or kV according to patient size and/or use of iterative reconstruction technique. COMPARISON: None available FINDINGS: There is no parenchymal hematoma, extra-axial collection, or mass effect. Microvascular ischemic changes are present without definite acute features. Please note that CT is insensitive for early or small infarcts. Generalized volume loss and vascular calcifications are noted. There is no hydrocephalus or midline shift. There is mild chronic sinus mucosal disease and minimal left mastoid air cell fluid. 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 The calvarium is intact. IMPRESSION: No acute intracranial hemorrhage or mass effect. Microvascular ischemic changes without definite acute features. If there is persistent concern for acute abnormality, MRI is advised. Signed: Mike Morris MD Report Verified Date/Time:05/26/2017 12:21:36 Reading Location: [address] Neuro Reading Room Procedure Note Interface, External Ris In - 05/26/2017 12:23 PM AEROPHYSICS ENGINEER FINAL REPORT CT head without contrast INDICATION: Dizziness TECHNIQUE: Axial noncontrast CT images through the head were obtained. This exam was performed according to our departmental dose optimization program which includes automated exposure control, adjustment of the mA and/or kV according to patient size and/or use of iterative reconstruction technique. COMPARISON: None available FINDINGS: There is no parenchymal hematoma, extra-axial collection, or mass effect. Microvascular ischemic changes are present without definite acute features. Please note that CT is insensitive for early or small infarcts. Generalized volume loss and vascular calcifications are noted. There is no hydrocephalus or midline shift. There is mild chronic sinus mucosal disease and minimal left mastoid air cell fluid. 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 The calvarium is intact. IMPRESSION: No acute intracranial hemorrhage or mass effect. Microvascular ischemic changes without definite acute features. If there is persistent concern for acute abnormality, MRI is advised. Signed: Mike Morris MD Report Verified Date/Time: 05/26/2017 12:21:36 Reading Location: [facility] C013V Neuro Reading Room Performing Organization Address City/State/Zipcode Phone Number [facility] * RHYTHM STRIP - SCAN (04/11/2017 9:10 AM AEROPHYSICS ENGINEER) Narrative Performed At * Lactic acid, venous, whole blood (04/06/2017 6:08 PM AEROPHYSICS ENGINEER) Only the most recent of 2 results within the time period is included. Lactate, Venous 1.0 0.5 - 2.2 mmol/L [facility] Specimen Blood Narrative Performed At Effective 08/04/2015: Units/Reference Range Change [facility] New: 0.5-2.2 mmol/LPrevious: 5-20 mg/dL [facility] Performing Organization Address [facility] Phone Number [address] [address] [facility] * Sodium, random urine (04/06/2017 5:59 PM AEROPHYSICS ENGINEER) Sodium Urine 73 meq/L [facility] Specimen Urine Narrative Performed At Reference Range: No Normals [facility] Performing Organization Address City/[facility]/Zipcode Phone Number [place] [phone] [place] [address] [facility] * Creatinine, random urine (04/06/2017 5:59 PM AEROPHYSICS ENGINEER) Creatinine, Ur 34.4 mg/dL [facility] Specimen Urine Narrative Performed At Reference Range: No Normals [facility] Performing Organization Address [facility] Phone Number [facility] [address] [place] [address] [phone] [place] [address] * Manual Differential (04/04/2017 5:41 AM AEROPHYSICS ENGINEER) Only the most recent of 4 results within the time period is included. Total Counted [facility] WBC Morphology Normal [facility] Platelet Morphology Normal [facility] RBC Morphology Normal [facility] Specimen Blood - Arm, Right Performing Organization Address [facility] Phone Number [address] * Lipid panel (04/04/2017 5:41 AM AEROPHYSICS ENGINEER) Triglycerides 164 mg/dL [facility] Cholesterol 134 mg/dL [facility] HDL 18 mg/dL [facility] LDL Calculated 83 mg/dL [facility] Specimen Blood - Arm, Right Narrative Performed At Triglyceride Reference Range: [facility] Low Risk <150 [facility] [id number] High Risk 200-499 Very High Risk>=500 Cholesterol Reference Range: Low Risk <200 [id number] High Risk>240 HDL Cholesterol Reference Range: Low Risk >=60 High Risk <40 LDL Cholesterol Reference Range: Optimal<100 Near [id number] Very High >=190 Performing Organization Address [facility] Phone Number [address] [address] [phone] [place] [address] * [address] drainage abdominal (04/03/2017 1:48 PM AEROPHYSICS ENGINEER) Narrative Performed At Addendum Begins [facility] REPORT STATUS:A 1.0 mg Versed and 100 mcg Fentanyl was given intravenously for moderate sedation monitored under my direction. Total time of sedation was 30 minutes. The patient's vital signs were monitored throughout the procedure and recorded in the patient's medical record by the nurse. Signed: Monique Bhatia MD Report Verified Date/Time:04/09/2017 16:06:08 Reading Location: [facility] B1 C013X Ortho Consult Reading Room Addendum Ends FINAL REPORT CT guided drainage catheter placement, left renal air fluid collection Clinical History: renal air collection Modality: CT Local anesthesia: 10 cc of 1% lidocaine Conscious sedation: (Given after informed consent is obtained.) 1.0 mg of Versed and 100 mcg of fentanyl intravenously Consent: The risks (which included the risks of bleeding, infection, injury to adjacent structures/bowel, adverse medication reaction), benefits, and alternatives to the procedure were discussed with the patient. The patient expressed understanding and informed written consent was obtained. Time out: A pre-procedure time out was performed in order to confirm the appropriate site of the procedure. Technique: After informed consent is obtained, the patient's abdomen is scanned, after reviewing the previous CT from April 01, 2017. The air and fluid collection in the left kidney is localized.After the skin is prepped and draped in the usual sterile manner, and local anesthesia is achieved, an introducer needle is advanced into the fluid collection under CT fluoroscopy guidance. Aftera small skin incision is made, a guidewire is advanced into the fluid collection. Subsequently, a soft tissue tract is created with 7 Taiwanese and 9 Taiwanese dilators. After the tract is dilated, an 10 Taiwanese all-purpose drainage catheter is placed into the fluid collection. The wire is then removed, and the pigtail of the catheter is locked. Approximately 20 cc of cloudy serosanguineous fluid is drained. The fluid is sent for culture. The catheter is then secured onto the skin via sutures. A drainage bag is attached to the catheter, to drain via gravity. The patient tolerated the procedure well, without immediate complications. The patient's vital signs remained stable throughout the procedure. Patient disposition: The patient is discharged from the department in stable condition. Impression: Successful and uncomplicated CT guided drainage catheter placement into left renal air and fluid collection. Signed: Monique Bhatia MD Report Verified Date/Time:04/03/2017 14:11:22 Reading Location: [facility] B1 C013Y CT Body Reading Room Procedure Note Interface, External Ris In - 04/09/2017 4:08 PM AEROPHYSICS ENGINEER Addendum Begins REPORT STATUS:A 1.0 mg Versed and 100 mcg Fentanyl was given intravenously for moderate sedation monitored under my direction. Total time of sedation was 30 minutes. The patient's vital signs were monitored throughout the procedure and recorded in the patient's medical record by the nurse. Signed: Monique Bhatia MD Report Verified Date/Time: 04/09/2017 16:06:08 Reading Location: [facility] C013X Ortho Consult Reading Room Addendum Ends FINAL REPORT CT guided drainage catheter placement, left renal air fluid collection Clinical History: renal air collection Modality: CT Local anesthesia: 10 cc of 1% lidocaine Conscious sedation: (Given after informed consent is obtained.) 1.0 mg of Versed and 100 mcg of fentanyl intravenously Consent: The risks (which included the risks of bleeding, infection, injury to adjacent structures/bowel, adverse medication reaction), benefits, and alternatives to the procedure were discussed with the patient. The patient expressed understanding and informed written consent was obtained. Time out: A pre-procedure time out was performed in order to confirm the appropriate site of the procedure. Technique: After informed consent is obtained, the patient's abdomen is scanned, after reviewing the previous CT from April 01, 2017. The air and fluid collection in the left kidney is localized. After the skin is prepped and draped in the usual sterile manner, and local anesthesia is achieved, an introducer needle is advanced into the fluid collection under CT fluoroscopy guidance. After a small skin incision is made, a guidewire is advanced into the fluid collection. Subsequently, a soft tissue tract is created with 7 Taiwanese and 9 Taiwanese dilators. After the tract is dilated, an 10 Taiwanese all-purpose drainage catheter is placed into the fluid collection. The wire is then removed, and the pigtail of the catheter is locked. Approximately 20 cc of cloudy serosanguineous fluid is drained. The fluid is sent for culture. The catheter is then secured onto the skin via sutures. A drainage bag is attached to the catheter, to drain via gravity. The patient tolerated the procedure well, without immediate complications. The patient's vital signs remained stable throughout the procedure. Patient disposition: The patient is discharged from the department in stable condition. Impression: Successful and uncomplicated CT guided drainage catheter placement into left renal air and fluid collection. Signed: Monique Bhatia MD Report Verified Date/Time: 04/03/2017 14:11:22 Reading Location: [facility] B1 C013Y CT Body Reading Room Performing Organization Address City/State/Zipcode Phone Number GE RIS * Catheter Tip Culture (03/31/2017 1:47 PM AEROPHYSICS ENGINEER) Result No growth [facility] Specimen Other - Catheter Tip Performing Organization Address City/State/Zipcode Phone Number [facility] [address] [place] [address] MEDICAL CENTER * RESPIRATORY PANEL [facility] (03/29/2017 9:55 AM AEROPHYSICS ENGINEER) Human Metapneumovirus Not detected Not detected, [facility] Inconclusive [facility] Rhinovirus Not detected Not detected, [facility] Inconclusive [facility] Influenza A Not detected Not detected, [facility] Inconclusive [facility] Influenza A subtype H1 Not detected Not detected, [facility] Inconclusive [facility] Influenza A Subtype H3 Not detected Not detected, [facility] Inconclusive [facility] Influenza A Subtype Not detected Not detected, [facility] H1-2009 Inconclusive [facility] Influenza B Not detected Not detected, [facility] Inconclusive [facility] Respiratory Syncytial Not detected Not detected, [facility] Virus Inconclusive [facility] Parainfluenza Virus 1 Not detected Not detected, [facility] Parainfluenza Virus 2 Not detected Not detected, [facility] Parainfluenza virus 3 Not detected Not detected, [facility] Parainfluenza Virus 4 Not detected Not detected, [facility] Adenovirus Not detected Not detected, [facility] Coronavirus 229E Not detected Not detected, [facility] Inconclusive [facility] Coronavirus HKU1 Not detected Not detected, [facility] Coronavirus NL63 Not detected Not detected, [facility] Coronavirus OC43 Not detected Not detected, [facility] Bordetella Pertussis Not detected Not detected, [facility] Inconclusive [facility] Chlamydophila Pneumoniae Not detected Not detected, [facility] Mycoplasma Pneumoniae Not detected Not detected, [facility] Inconclusive [facility] Specimen Nasopharyngeal - Nasopharyngeal Swab Performing Organization Address City/[facility] Phone Number [address] [address] [phone] * Rapid Influenza A&B Screen (03/29/2017 9:55 AM AEROPHYSICS ENGINEER) Rapid Influenza A Antigen NEGATIVE LABORATORY FINDING Negative, Inconclusive [facility] Rapid influenza B Antigen NEGATIVE LABORATORY FINDING Negative, Inconclusive [facility] Specimen Nasal - Nasopharyngeal Swab Performing Organization Address [facility] Phone Number [address] [address] [phone] * ECHOCARDIOGRAM REPORT - SCAN (03/29/2017 9:50 AM AEROPHYSICS ENGINEER) Narrative Performed At * IR Nephrostogram (03/28/2017 7:25 PM AEROPHYSICS ENGINEER) Narrative Performed At FINAL REPORT [facility] LIMITED LEFT RENAL ULTRASOUND FINDINGS: Limited sonographic images are obtained of the left kidney at the bedside for the assessment of hydronephrosis. No hydronephrosis is present. A ureteral stent is visualized in place. No obvious perinephric fluid collections identified. IMPRESSION: No hydronephrosis with ureteral stent identified in place. Signed: Gokul Tobias MD Report Verified Date/Time:04/03/2017 08:11:15 Reading Location: [place] [address] Angio Body Reading Room Procedure Note Interface, External Ris In - 04/03/2017 8:13 AM AEROPHYSICS ENGINEER FINAL REPORT LIMITED LEFT RENAL ULTRASOUND FINDINGS: Limited sonographic images are obtained of the left kidney at the bedside for the assessment of hydronephrosis. No hydronephrosis is present. A ureteral stent is visualized in place. No obvious perinephric fluid collections identified. IMPRESSION: No hydronephrosis with ureteral stent identified in place. Signed: Gokul Tobias MD Report Verified Date/Time: 04/03/2017 08:11:15 Reading Location: [facility] P048 Angio Body Reading Room Performing Organization Address City/State/Zipcode Phone Number GE RIS * 2D Echo W/Doppler(CW/PW/Color) (03/28/2017 4:08 PM AEROPHYSICS ENGINEER) Ejection Fraction [facility]CHO [facility]ART[facility] Narrative Performed At Transthoracic Echocardiography Report (TTE) [facility] ECHO [facility]ARTLAB Demographics [facility]rowd[facility] Patient Name Briana BLAIR of Study 03/28/2017 [id number] Female Visit Number [id number] Room Number 7212 Number Date of Birth1945Referring Physician 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 Clinical History DM BACTEREMIA DUE TO ECHERICHIA COLI HGB 9.9 HCT 30.7 % Height: 64 inches Weight: 79.38 kg (175 lbs) BSA: 1.85 m^2 BMI: 30.04 kg/m^2 HR: 80 bpm BP: 126/54 mmHg Summary Left ventricular wall thickness is moderately increased. Left ventricular size is normal. Left ventricular systolic function is normal (EF 60-65%). All segments are joslyn normally. No pericardial effusion is present. Left atrial size is mildly enlarged. Assessment of the inferior vena cava is limited due to poor visualization. Right ventricular size is normal. Right ventricular function is normal. TV structure is normal. Kvtp-le-qvgljknl tricuspid regurgitation. Estimated peak systolic PA pressure is 35-40 mmHg + RA pressure. Signature Findings Rhythm/BPSinus rhythm. Left Ventricle Left ventricular wall thickness is moderately increased. Left ventricular size is normal. Left ventricular systolic function is normal (EF 60-65%). All segments are joslyn normally. Left AtriumLeft atrial size is mildly enlarged. Right VentricleRight ventricular size is normal. Right ventricular function is normal. Right Atrium Right atrial size is normal. Atrial SeptumNormal interatrial septum by available views. Aortic Valve Aortic valve is normal in appearance. No aortic stenosis or regurgitation. Mitral Valve Mitral valve is normal in appearance. No mitral stenosis or regurgitation. Tricuspid ValveTV structure is normal. Nlom-dt-rzxzzeup tricuspid regurgitation. Estimated peak systolic PA pressure is 35-40 mmHg + RA pressure. Pulmonic Valve Pulmonic valve is normal in appearance. Trace pulmonic regurgitation. No pulmonic stenosis. AortaAortic root size is normal. Proximal ascending aortic size is normal. PericardiumNo pericardial effusion is present. IVC/SVC/PA/PV/PleuralAssessment of the inferior vena cava is limited due to poor visualization. Chambers/Structures Left Atrium LA Dimension: 3.42 cmLA Area: 23.22 cm^2 LA Volume: 73.78 ml LA Vol. Index: 40 ml/m^2 Left Ventricle LVIDd: 3.78 cm LVIDs: 2.18 cm LV Septum Diastolic: 1.35 cm LV PW Diastolic: 1.17 cmLV FS: 42.3 % LVEDV Fall's:59.85 ml LVESV Fall's:19.14 mlLVEDVI: 32 ml/m^2 LVEF Fall's: 68 %LVESVI: 10 ml/m^2 LVOT Diameter: 1.87 cm Right Atrium RA Vol. (Sngl Plane): 37.75 ml Right Ventricle RV Diast Dim.: 3.[address] Junction: 2.64 cm Ascending Aorta: 2.51 cm Doppler/Quantitative Measurements Mitral Valve MV Peak E-Wave: 1.14 m/s MV Peak A-Wave: 1.16 m/s E/A Ratio: 0.99 Peak Gradient: 5.22 mmHg MV John. Peak: Tissue Doppler E' Septal Velocity: 0.07 m/s E/E': 14.12 E' Lateral Velocity: 0.08 m/s LVOT Peak Velocity: 1.15 m/s Peak Gradient: 5.34 mmHg Mean Velocity: 0.75 m/s Mean Gradient: 2.64 mmHg LVOT Diameter: 1.87 cmLVOT VTI: 26.87 cm LVOT Area: 2.75 cm^2LVOT SV:73.76 ml LVOT CO: 5.9 l/minLVOT CI: 3.19 l/min/m^2 Tricuspid Valve TR Velocity: 3.29 m/s TR Gradient: 43.36 mmHg Procedure Note Interface, External Ris In - 03/29/2017 9:18 AM AEROPHYSICS ENGINEER Transthoracic Echocardiography Report (TTE) Demographics Patient Name BINTA BLAIR Date of Study 03/28/2017 Gender Female Visit Number [id number] Race Unknown Room Number 7212 Number Date of 1945 Referring Physician Age 71 year(s) Manager Metrology Ana Sandhu Interpreting Sanchez Agustin, Physician MD Fellow CONNIE Montero Procedure Type of Study TTE procedure:2DECHO W DOPPLER(CW/PW/COLOR) (STAT) Indications:Shortness of breath. Clinical History DM BACTEREMIA DUE TO ECHERICHIA COLI HGB 9.9 HCT 30.7 % Height: 64 inches Weight: 79.38 kg (175 lbs) BSA: 1.85 m^2 BMI: 30.04 kg/m^2 HR: 80 bpm BP: 126/54 mmHg Summary Left ventricular wall thickness is moderately increased. Left ventricular size is normal. Left ventricular systolic function is normal (EF 60-65%). All segments are joslyn normally. No pericardial effusion is present. Left atrial size is mildly enlarged. Assessment of the inferior vena cava is limited due to poor visualization. Right ventricular size is normal. Right ventricular function is normal. TV structure is normal. Uohf-wa-kytzaywl tricuspid regurgitation. Estimated peak systolic PA pressure is 35-40 mmHg + RA pressure. Signature Findings Rhythm/BP Sinus rhythm. Left Ventricle Left ventricular wall thickness is moderately increased. Left ventricular size is normal. Left ventricular systolic function is normal (EF 60-65%). All segments are joslyn normally. Left Atrium Left atrial size is mildly enlarged. Right Ventricle Right ventricular size is normal. Right ventricular function is normal. Right Atrium Right atrial size is normal. Atrial Septum Normal interatrial septum by available views. Aortic Valve Aortic valve is normal in appearance. No aortic stenosis or regurgitation. Mitral Valve Mitral valve is normal in appearance. No mitral stenosis or regurgitation. Tricuspid Valve TV structure is normal. Yggz-rd-kftdwixn tricuspid regurgitation. Estimated peak systolic PA pressure is 35-40 mmHg + RA pressure. Pulmonic Valve Pulmonic valve is normal in appearance. Trace pulmonic regurgitation. No pulmonic stenosis. Aorta Aortic root size is normal. Proximal ascending aortic size is normal. Pericardium No pericardial effusion is present. IVC/SVC/PA/PV/Pleural Assessment of the inferior vena cava is limited due to poor visualization. Chambers/Structures Left Atrium LA Dimension: 3.42 cm LA Area: 23.22 cm^2 LA Volume: 73.78 ml LA Vol. Index: 40 ml/m^2 Left Ventricle LVIDd: 3.78 cm LVIDs: 2.18 cm LV Septum Diastolic: 1.35 cm LV PW Diastolic: 1.17 cm LV FS: 42.3 % LVEDV Fall's:59.85 ml LVESV Fall's:19.14 ml LVEDVI: 32 ml/m^2 LVEF Fall's: 68 % LVESVI: 10 ml/m^2 LVOT Diameter: 1.87 cm Right Atrium RA Vol. (Sngl Plane): 37.75 ml Right Ventricle RV Diast Dim.: 3.[address] Junction: 2.64 cm Ascending Aorta: 2.51 cm Doppler/Quantitative Measurements Mitral Valve MV Peak E-Wave: 1.14 m/s MV Peak A-Wave: 1.16 m/s E/A Ratio: 0.99 Peak Gradient: 5.22 mmHg MV John. Peak: Tissue Doppler E' Septal Velocity: 0.07 m/s E/E': 14.12 E' Lateral Velocity: 0.08 m/s LVOT Peak Velocity: 1.15 m/s Peak Gradient: 5.34 mmHg Mean Velocity: 0.75 m/s Mean Gradient: 2.64 mmHg LVOT Diameter: 1.87 cm LVOT VTI: 26.87 cm LVOT Area: 2.75 cm^2 LVOT SV:73.76 ml LVOT CO: 5.9 l/min LVOT CI: 3.19 l/min/m^2 Tricuspid Valve TR Velocity: 3.29 m/s TR Gradient: 43.36 mmHg Performing Organization Address [facility]code Phone Number [facility] * Hepatic function panel (03/28/2017 9:53 AM AEROPHYSICS ENGINEER) Protein, Total 5.5 (L) 6.0 - 8.3 gm/dL [facility] Albumin 2.1 (L) 3.5 - 5.0 g/dL [facility] Total Bilirubin 0.6 0.2 - 1.2 mg/dL [facility] Bilirubin, Direct 0.4 0.1 - 0.5 mg/dL [facility] Alkaline Phosphatase 242 (H) 40 - 150 U/L [facility] AST 15 5 - 34 U/L [facility] ALT 8 6 - 55 U/L [facility] Specimen Blood Performing Organization Address City/[facility]/Zipcode Phone Number [facility] [address] [place] [address] [facility] * BCID (03/28/2017 8:49 AM AEROPHYSICS ENGINEER) Scan Result [facility] Specimen Blood Narrative Performed At [facility] Result comments: LAB EARL GLABRATA DETECTED First line therapy: micafungin De-escalate based on susceptibilities when patient is clinically improving ID and Ophthalmologic consultations strongly recommended Other organisms and resistance markers not contained in this PCR panel cannot be excluded and follow-up of traditional culture results is required. This sample was tested at the [facility] using the Spongecell Blood Culture ID Panel. This test is FDA cleared for in vitro diagnostic use and has been verified and approved by the [facility] for clinical use. Reference Range: Not Detected Performing Organization Address City/State/Zipcode Phone Number [facility] [address] [place], [place] * aPTT (03/28/2017 8:20 AM AEROPHYSICS ENGINEER) PTT 25.9 22.5 - 36.0 seconds [facility] Specimen Blood Performing Organization Address City/State/Zipcode Phone Number [facility] [address] [place] [address] [facility] after 03/19/2017 Insurance Payer Benefit Subscriber ID Type Phone Address Plan / Group MEDICARE MEDICARE A xxxxxxxxxx Medicare B MCR SUPPLEMENT/[employer] xxxxxxxxx Medigap LIFE Advance Directives For more information, please contact: [address] [address] Date Inactivated Comments Code Status Date Activated 08/03/2017 7:51 PM Full Code 07/24/2017 4:42 PM This code status was determined by: Patient 07/24/2017 4:42 PM Full Code 07/24/2017 2:56 PM This code status was determined by: Patient 06/05/2017 8:19 PM Full Code 05/26/2017 6:06 PM This code status was determined by: Patient 04/10/2017 6:03 PM Full Code 03/28/2017 7:34 AM This code status was determined by: Patient
--- OUTSIDE RECORDS SUMMARY | 2018-03-20 09:55 | XMS REPORT | Continuity of Care Document ---
Author Author [facility] Organization [facility] Address [address] [facility] [place] [address] ;ext= Care Team Providers Care Churner Name Role Phone WEBBADILIA Admphys Unavailable ADILIA WEBB Attphys Unavailable Hospital Admission Diagnosis * No data in the System SOCIAL HISTORY * Smoking Status - No data in the system Problems Code Code System Problem Name Start Date End Date Status 302724287 SNOMED-CT Pneumonia 03/25/2017 Active 38961758 SNOMED-CT Urinary tract infectious disease 03/25/2017 Active 23703939 SNOMED-CT Systemic infection 03/25/2017 Active 644648465 SNOMED-CT Carcinoma of breast Unknown Active 360400325 SNOMED-CT Neuropathy Unknown Active 66308472 SNOMED-CT Diabetes mellitus type 2 Unknown Inactive 81518904 SNOMED-CT Diabetes mellitus type 1 Unknown Active Medications RxNorm Medication Dose Route Instructions Indications Start Date End Date Status 6570123 insulin, isophane 40 unit Subcutaneous subcutaneously every evening (administer 30-60 minutes before breakfast;) Active 357947 pregabalin 75 MG Oral Capsule 75 milligram Oral orally 2 times per day (administer at approximately the same time(s) each day;) Active 346258 Trazodone Hydrochloride 50 MG Oral Tablet 50 milligram Oral orally every day at bedtime as needed. insomnia Active Allergies * No Known Allergies Results * No data in the system Vital Signs * No data in the system Plan of Care * No data in the system Procedures * No data in the system Encounters * No data in the system Immunizations * No data in the system Functional Status * No data in the system Hospital Discharge Instructions * No data in the system
--- OUTSIDE RECORDS SUMMARY | 2018-03-20 09:55 | XMS REPORT | Continuity of Care Document ---
Author Author [facility] Organization [facility] Address [address] [address] [place] [address] ;ext= Care Team Providers Care Video Production Intern Name Role Phone WEBBADILIA Admphys Unavailable ADILIA WEBB Attphys Unavailable Hospital Admission Diagnosis * No data in the System SOCIAL HISTORY * Smoking Status - No data in the system Problems Code Code System Problem Name Start Date End Date Status 171893244 SNOMED-CT Pneumonia 03/25/2017 Active 72888607 SNOMED-CT Urinary tract infectious disease 03/25/2017 Active 82661153 SNOMED-CT Systemic infection 03/25/2017 Active 341555767 SNOMED-CT Carcinoma of breast Unknown Active 601957344 SNOMED-CT Neuropathy Unknown Active 25295309 SNOMED-CT Diabetes mellitus type 2 Unknown Inactive 15729037 SNOMED-CT Diabetes mellitus type 1 Unknown Active Medications RxNorm Medication Dose Route Instructions Indications Start Date End Date Status 2396719 insulin, isophane 40 unit Subcutaneous subcutaneously every evening (administer 30-60 minutes before breakfast;) Active 799360 pregabalin 75 MG Oral Capsule 75 milligram Oral orally 2 times per day (administer at approximately the same time(s) each day;) Active 998039 Trazodone Hydrochloride 50 MG Oral Tablet 50 [...]
--- OUTSIDE RECORDS SUMMARY | 2018-03-20 09:55 | XMS REPORT | Continuity of Care Document ---
Author Author [facility] Address [address] [place] [address] ;ext= Care Team Providers Care Process Treater Name Role Phone KYRA VELASQUEZ Admphys GROKYRA PALOMARES Attphys Hospital Admission Diagnosis Code Admission Diagnosis Date [id number] Asthen[place] Social History Element Description Code Description Smoking Status Code System Start Date End Date Smoking Status [id number] Never smoker SNOMED-CT Problems Code Code System Problem Name Start Date End Date Status 542188526 SNOMED-CT Pneumonia 03/25/2017 Active 80639011 SNOMED-CT Urinary tract infectious disease 03/25/2017 Active 14963278 SNOMED-CT Systemic infection 03/25/2017 Active 490044436 SNOMED-CT Carcinoma of breast Unknown Active 786747754 SNOMED-CT Neuropathy Unknown Active 72715580 SNOMED-CT Diabetes mellitus type 2 Unknown Inactive 93869259 SNOMED-CT Diabetes mellitus type 1 Unknown Active Medications RxNorm Medication Dose Route Instructions Indications Start Date End Date Status 0901370 insulin, isophane 40 unit Subcutaneous subcutaneously every evening (administer 30-60 minutes before breakfast;) Active 463829 pregabalin 75 MG Oral Capsule 75 milligram Oral orally 2 times per day (administer at approximately the same time(s) each day;) Active 975460 Trazodone Hydrochloride 50 MG Oral Tablet 50 milligram Oral orally every day at bedtime as needed. insomnia Active Allergies * No Known Allergies Results Laboratory Results Order: UA URINALYSIS WITH MICROSCOPY LOINC Test Result Flag Range Unit Date 5777-08 1Color:Type:Pt:Urine:Nom Yellow 03/24/2017 23:39 5767-9 1Appearance:Aper:Pt:Urine:Nom Sl Cloudy 03/24/2017 23:39 2349-9 1Glucose:ACnc:Pt:Urine:Ord >=1000 A NEGATIVE 03/24/2017 23:39 5770-3 1Bilirubin:ACnc:Pt:Urine:Ord:Test strip NEGATIVE NEGATIVE 03/24/2017 23:39 2514-8 1Ketones:ACnc:Pt:Urine:Ord:Test strip NEGATIVE NEGATIVE 03/24/2017 23:39 5811-5 1Specific gravity:Rden:Pt:Urine:Qn:Test strip >=1.030 A 1.005-1.030 03/24/2017 23:39 5794-3 1Hemoglobin:ACnc:Pt:Urine:Ord:Test strip Moderate A NEGATIVE 03/24/2017 23:39 5803-2 1pH:LsCnc:Pt:Urine:Qn:Test strip 5.5 A 4.5-8.0 03/24/2017 23:39 29935-7 1Protein:ACnc:Pt:Urine:Ord:Test strip Trace A NEGATIVE 03/24/2017 23:39 5818-0 1Urobilinogen:ACnc:Pt:Urine:Ord:Test strip 0.2 0.2 03/24/2017 23:39 5802-4 1Nitrite:ACnc:Pt:Urine:Ord:Test strip NEGATIVE NEGATIVE 03/24/2017 23:39 5799-2 1Leukocyte esterase:ACnc:Pt:Urine:Ord:Test strip NEGATIVE NEGATIVE 03/24/2017 23:39 5821-4 1Leukocytes:Naric:Pt:Urine sed:Qn:Microscopy.light.HPF 0-1 A 0-5 03/24/2017 23:39 47804-4 1Erythrocytes:Naric:Pt:Urine sed:Qn:Microscopy.light.HPF 0-3 A 0-5 03/24/2017 23:39 30356-1 1Epithelial cells.squamous:Naric:Pt:Urine sed:Qn:Microscopy.light.HPF 0-2 A 0-10 03/24/2017 23:39 8247-9 1Mucus:ACnc:Pt:Urine sed:Ord:Microscopy.light Moderate A None Seen 03/24/2017 23:39 5769-5 1Bacteria:Naric:Pt:Urine sed:Qn:Microscopy.light.HPF 2+ A None Seen,Trace 03/24/2017 23:39 * Performing Lab Footnotes:* [address] [place] [id number] [place] [address] MARCIN Harris MD: DIRECTOR TANIA MOLINA Order: ACETONE SERUM LOINC Test Result Flag Range Unit Date 1Acetone Serum Negative 03/24/2017 20:24 1Acetone Titer n/a 03/24/2017 20:24 * Performing Lab Footnotes:* [address] [place] [address] [id number] [place] [address] MARCIN Harris MD: DIRECTOR TANIA MOLINA Order: CBC PLATELET AUTO DIFF LOINC Test Result Flag Range Unit Date 37580-5 1Leukocytes^^corrected for nucleated erythrocytes:NCnc:Pt:Bld:Qn:Automated count 16.43 H 4.80-10.80 10^3/ul 03/24/2017 20:24 789-8 1Erythrocytes:NCnc:Pt:Bld:Qn:Automated count 3.95 L 4.20-5.40 10^6/ul 03/24/2017 20:24 718-7 1Hemoglobin:MCnc:Pt:Bld:Qn 11.4 L 12.0-14.0 gm/dl 03/24/2017 20:24 4544-3 1Hematocrit:VFr:Pt:Bld:Qn:Automated count 35.4 L 37.0-47.0 % 03/24/2017 20:24 787-2 1Erythrocyte mean corpuscular volume:EntVol:Pt:RBC:Qn:Automated count 89.6 81.0-99.0 fL 03/24/2017 20:24 785-6 1Erythrocyte mean corpuscular hemoglobin:EntMass:Pt:RBC:Qn:Automated count 28.9 27.0-31.0 pg 03/24/2017 20:24 786-4 1Erythrocyte mean corpuscular hemoglobin concentration:MCnc:Pt:RBC:Qn:Automated count 32.2 L 33.0-37.0 gm/dl 03/24/2017 20:24 788-0 1Erythrocyte distribution width:Ratio:Pt:RBC:Qn:Automated count 12.8 11.5-14.5 % 03/24/2017 20:24 777-3 1Platelets:NCnc:Pt:Bld:Qn:Automated count 118 L 130-400 10^3/ul 03/24/2017 20:24 32835-2 1Platelet mean volume:EntVol:Pt:Bld:Qn:Automated count 11.8 A 7.4-10.4 fL 03/24/2017 20:24 Note: 'NOT MEASURED' RESULTS ARE DISPLAYED WHEN THE INSTRUMENT HAS A SUPPRESSED OR UNREPORTABLE RESULT. THIS WILL MOST OFTEN HAPPEN WITH THE MPV WHEN THERE IS AN ABNORMAL PLATELET DISTRIBUTION DUE TO A CRITICAL LOW VALUE OR PLATELET CLUMPING. THE RDW MAY BE SUPPRESSED IF THERE ARE MULTIPLE PEAKS PRESENT ON THE RBC HISTOGRAM. IN THIS CASE, A MANUAL REVIEW OF THE SLIDE WILL BE PERFORMED, AND RBC MORPHOLOGY WILL BE NOTED ON THE REPORT. 770-8 1Neutrophils/100 leukocytes:NFr:Pt:Bld:Qn:Automated count 94.3 H 42.0-75.0 % 03/24/2017 20:24 736-9 1Lymphocytes/100 leukocytes:NFr:Pt:Bld:Qn:Automated count 2.6 L 13.0-42.0 % 03/24/2017 20:24 5905-5 1Monocytes/100 leukocytes:NFr:Pt:Bld:Qn:Automated count 2.3 L 4.0-14.0 % 03/24/2017 20:24 713-8 1Eosinophils/100 leukocytes:NFr:Pt:Bld:Qn:Automated count 0.1 L 1.0-3.0 % 03/24/2017 20:24 706-2 1Basophils/100 leukocytes:NFr:Pt:Bld:Qn:Automated count 0.1 L 1.0-3.0 % 03/24/2017 20:24 1IG% 0.6 H 0.0-0.4 % 03/24/2017 20:24 1Bands 3 H 0-2 % 03/24/2017 20:24 Note: The value no value originally released by on ############### was changed to 3 by [id number] on 03/24/2017 23:22 1Neutrophils 88 H 42-75 10^3/ul 03/24/2017 20:24 Note: The value no value originally released by on ############### was changed to 88 by [id number] on 03/24/2017 23:22 1Lymphocytes 1 L 13-42 % 03/24/2017 20:24 Note: The value no value originally released by on ############### was changed to 1 by [id number] on 03/24/2017 23:22 1Monocytes 7 4-14 % 03/24/2017 20:24 Note: The value no value originally released by on ############### was changed to 7 by [id number] on 03/24/2017 23:22 1Eosinophils 1 1-3 % 03/24/2017 20:24 Note: The value no value originally released by on ############### was changed to 1 by [id number] on 03/24/2017 23:22 1WBC Morphology Vacuolation 03/24/2017 20:24 Note: The value no value originally released by on ############### was changed to Vacuolation by [id number] on 03/24/2017 23:22 * Performing Lab Footnotes:* [facility] - [id number] - [address] [facility] [address] [place] [address] MARCIN - MD: DIRECTOR TANIA MOLINA Order: CMP COMPREHENSIVE METABOLIC PANEL LOINC Test Result Flag Range Unit Date 1Glucose 527 HH 75-110 mg/dl 03/24/2017 20:24 1BUN 51 H 6.0-17.0 mg/dl 03/24/2017 20:24 1Creatinine 2.8 H 0.4-1.2 mg/dl 03/24/2017 20:24 1Sodium 125 L 137-145 mmol/l 03/24/2017 20:24 1Potassium 5 3.5-5.0 mmol/l 03/24/2017 20:24 1Chloride 98 98-107 mmol/l 03/24/2017 20:24 1CO2 19 L 22-30 mmol/l 03/24/2017 20:24 1Anion Gap 9 03/24/2017 20:24 1Calcium 7.5 L 8.4-10.2 mg/dl 03/24/2017 20:24 1T Protein 6.5 5.1-8.7 gm/dl 03/24/2017 20:24 1Albumin 3 L 3.5-4.6 gm/dl 03/24/2017 20:24 1A/G Ratio 0.9 L 1.1-2.2 % 03/24/2017 20:24 1AST (SGOT) 21 11-36 U/L 03/24/2017 20:24 1ALT (SGPT) 20 11-40 U/L 03/24/2017 20:24 1Alkaline Phos 238 H 47-114 U/L 03/24/2017 20:24 1Total Bilirubin 1.5 H 0.2-1.2 mg/dl 03/24/2017 20:24 1Globulin 3.5 2.3-3.5 gm/dl 03/24/2017 20:24 1Calcium, Corrected 8.3 L 8.4-10.2 mg/dl 03/24/2017 20:24 Note: Various formulas exist for corrected serum calcium results, each yielding different values. This corrected result was based on the formula: Corrected Calcium=SerumCalcium + [0.8 * ( 4 - SerumAlbumin)] 1EGFR if 22 mL/min/1.73m^2 03/24/2017 20:24 1EGFR if Non- 18 mL/min/1.73m^2 03/24/2017 20:24 Note: Estimated Glomerular Filtration Rate (eGFR) Reference Intervals Decision Points for 18 years and older and average body mass: >=60 Does not exclude kidney disease. 30 - 59 Suggests moderate chronic kidney disease and indicates the need for further investigation including assessment of proteinuria and cardiovascular factors. < 30 Usually indicates a need for referral for assessment and management of chronic kidney failure. * Performing Lab Footnotes:* [address] [place] [address] - [id number] - [address] [place] [address] - MD: DIRECTOR TANIA MOLINA Order: CULTURE ANAEROBIC BLOOD LOINC Test Result Flag Range Unit Date Specimen: Blood 03/24/2017 20:24 Collected: 03/24/2017 20:24 03/24/2017 20:24 03/24/2017 20:24 Status: Final Last Updated: 03/27/2017 07:20 03/24/2017 20:24 03/24/2017 20:24 03/24/2017 20:24 Gram Stain (Final) (Final) 03/24/2017 20:24 Gram Negative Bacilli 03/24/2017 20:24 03/24/2017 20:24 Culture Result (Final) (R) (Final) 03/24/2017 20:24 Preliminary Result: Positive 03/24/2017 20:24 Specimen sent to [facility] for further 03/24/2017 20:24 workup. 03/24/2017 20:24 03/24/2017 20:24 LEFT MESSAGE WITH RAMIRO DOLL(INFECTION CONTROL )MAMMALOGY TEACHER @1056/LK 03/24/2017 20:24 03/24/2017 20:24 ^Gram Negative Bacilli 03/24/2017 20:24 ^No Anaerobes Isolated 03/24/2017 20:24 03/24/2017 20:24 Isolate (Final) (Final) 03/24/2017 20:24 Escherichia coli 03/24/2017 20:24 ALERT! Previous Susceptibility Performed. 03/24/2017 20:24 For detailed result information, refer to: [id number] 03/24/2017 20:24 03/24/2017 20:24 Result before changed by [email or web address] on 03/27/2017 07:20: 03/24/2017 20:24 03/24/2017 20:24 Culture Result (Prelim) (Prelim) 03/24/2017 20:24 Preliminary Result: Positive 03/24/2017 20:24 Specimen sent to [facility] for further 03/24/2017 20:24 workup. 03/24/2017 20:24 03/24/2017 20:24 LEFT MESSAGE WITH RAMIRO DOLL(INFECTION CONTROL )MAMMALOGY TEACHER @1056/LK 03/24/2017 20:24 03/24/2017 20:24 03/24/2017 20:24 03/24/2017 20:24 Order: CULTURE ANAEROBIC BLOOD LOINC Test Result Flag Range Unit Date Specimen: Blood 03/24/2017 20:24 Collected: 03/24/2017 20:24 03/24/2017 20:24 03/24/2017 20:24 Status: Final Last Updated: 03/27/2017 07:19 03/24/2017 20:24 03/24/2017 20:24 03/24/2017 20:24 Gram Stain (Final) (Final) 03/24/2017 20:24 Gram Negative Bacilli 03/24/2017 20:24 03/24/2017 20:24 Culture Result (Final) (R) (Final) 03/24/2017 20:24 Preliminary Result: Positive 03/24/2017 20:24 Specimen sent to [facility] for further 03/24/2017 20:24 workup. 03/24/2017 20:24 03/24/2017 20:24 LEFT MESSAGE WITH RAMIRO ODLL?(INFECTION CONTROL),MAMMALOGY TEACHER@1100/LK 03/24/2017 20:24 03/24/2017 20:24 ^Gram Negative Bacilli 03/24/2017 20:24 ^No Anaerobes Isolated 03/24/2017 20:24 03/24/2017 20:24 Isolate (Final) (Final) 03/24/2017 20:24 Escherichia coli 03/24/2017 20:24 ALERT! Previous Susceptibility Performed. 03/24/2017 20:24 For detailed result information, refer to: [id number] 03/24/2017 20:24 03/24/2017 20:24 Result before changed by [email or web address] on 03/27/2017 07:19: 03/24/2017 20:24 03/24/2017 20:24 Culture Result (Prelim) (Prelim) 03/24/2017 20:24 Preliminary Result: Positive 03/24/2017 20:24 Specimen sent to [facility] for further 03/24/2017 20:24 workup. 03/24/2017 20:24 03/24/2017 20:24 LEFT MESSAGE WITH RAMIRO DOLL?(INFECTION CONTROL),MAMMALOGY TEACHER@1100/LK 03/24/2017 20:24 03/24/2017 20:24 03/24/2017 20:24 03/24/2017 20:24 Order: CULTURE BLOOD LOINC Test Result Flag Range Unit Date Specimen: Blood 03/24/2017 20:24 Collected: 03/24/2017 20:24 03/24/2017 20:24 03/24/2017 20:24 Status: Final Last Updated: 03/27/2017 07:11 03/24/2017 20:24 03/24/2017 20:24 03/24/2017 20:24 Culture Result (Final) (Final) 03/24/2017 20:24 Preliminary Result: Positive 03/24/2017 20:24 Specimen sent to [facility] for further 03/24/2017 20:24 workup. 03/24/2017 20:24 03/24/2017 20:24 03/24/2017 20:24 RESULT CALLED TO RAMIRO DOLL RN (INFECTION CONTROL) AT 747 //HH/ 03/24/2017 20:24 03/24/2017 20:24 Gram Negative Bacilli 03/24/2017 20:24 03/24/2017 20:24 Isolate (Final) (Final) 03/24/2017 20:24 Escherichia coli 03/24/2017 20:24 Amoxicillin/clavu 4 S 03/24/2017 20:24 Ampicillin >=32 R 03/24/2017 20:24 Aztreonam <=1 S 03/24/2017 20:24 Cefazolin <=4 S 03/24/2017 20:24 Cefepime <=1 S 03/24/2017 20:24 Ceftriaxone <=1 S 03/24/2017 20:24 Ciprofloxacin >=4 R 03/24/2017 20:24 Gentamicin <=1 S 03/24/2017 20:24 Imipenem <=0.25 S 03/24/2017 20:24 Levofloxacin >=8 R 03/24/2017 20:24 Meropenem <=0.25 S 03/24/2017 20:24 Tetracycline <=1 S 03/24/2017 20:24 Trimeth/Sulfa <=20 S 03/24/2017 20:24 ESBL Negative - 03/24/2017 20:24 03/24/2017 20:24 Gram Stain (Final) (Final) 03/24/2017 20:24 Report called to Nurse Jerome on K3 @[id number] 03/26/2017rb. 03/24/2017 20:24 03/24/2017 20:24 Gram Negative Bacilli 03/24/2017 20:24 03/24/2017 20:24 03/24/2017 20:24 Order: CULTURE BLOOD LOINC Test Result Flag Range Unit Date Specimen: Blood 03/24/2017 20:24 Collected: 03/24/2017 20:24 03/24/2017 20:24 03/24/2017 20:24 Status: Final Last Updated: 03/27/2017 07:11 03/24/2017 20:24 03/24/2017 20:24 (1) To start 15mins after 1st culture 03/24/2017 20:24 03/24/2017 20:24 03/24/2017 20:24 03/24/2017 20:24 Gram Stain (Final) (Final) 03/24/2017 20:24 Gram Negative Bacilli 03/24/2017 20:24 03/24/2017 20:24 Culture Result (Final) (Final) 03/24/2017 20:24 Preliminary Result: Positive 03/24/2017 20:24 Specimen sent to [facility] for further 03/24/2017 20:24 workup. 03/24/2017 20:24 03/24/2017 20:24 03/24/2017 20:24 RESULT CALLED TO RAMIRO DOLL RN (INFECTION CONTROL) AT 747 //HH/ 03/24/2017 20:24 03/24/2017 20:24 Gram Negative Bacilli 03/24/2017 20:24 2 of 2 blood cultures positive 03/24/2017 20:24 03/24/2017 20:24 Isolate (Final) (Final) 03/24/2017 20:24 Escherichia coli 03/24/2017 20:24 ALERT! Previous Susceptibility Performed. 03/24/2017 20:24 For detailed result information, refer to: [id number] 03/24/2017 20:24 03/24/2017 20:24 03/24/2017 20:24 Order: LACTIC ACID IH LOINC Test Result Flag Range Unit Date 1LACTATE 2.8 HH 0.7-2.0 mmol/l 03/24/2017 20:24 * Performing Lab Footnotes:* [address] [place] [id number] - : DIRECTOR TANIA MOLINA Order: Arterial Blood Gas - ABG LOINC Test Result Flag Range Unit Date 1pH (ABG) 7.364 7.350-7.450 03/24/2017 19:54 1pCO2(T) 32.7 L 35.0-45.0 mmHg 03/24/2017 19:54 1pO2(T) 69.6 L 80.0-100.0 mmHg 03/24/2017 19:54 1sO2 94.8 90.0-99.0 % 03/24/2017 19:54 1Na+ 128.4 L 135.0-148.0 mmol/l 03/24/2017 19:54 1K+ 4.98 H 3.50-4.50 mmol/l 03/24/2017 19:54 1Ca2+ 1.01 LL 1.120-1.320 mmol/l 03/24/2017 19:54 1Cl- 94 L 98-107 mmol/l 03/24/2017 19:54 1tHb 12 11.5-17.4 gm/dl 03/24/2017 19:54 1Hct 42.8 35.0-50.0 03/24/2017 19:54 1O2Hb 92.7 L 95.0-99.0 % 03/24/2017 19:54 1COHb <2.80 H 0.5-2.5 % 03/24/2017 19:54 1MetHB <1.30 0.4-1.5 % 03/24/2017 19:54 1Gluc >449.0 HH 60.0-110.0 mg/dl 03/24/2017 19:54 1Lac 2.4 H 1.0-1.7 mmol/l 03/24/2017 19:54 1Barometric Pressure 767.7 450.0-1000.0 mmHg 03/24/2017 19:54 1BE(act) -6 mmol/l 03/24/2017 19:54 1HCO3 19 L 22-26 meq/L 03/24/2017 19:54 1ctCO2(B) 17 mmol/l 03/24/2017 19:54 1FIO2 (fO2(I) 0.34 % 03/24/2017 19:54 1Drawn By MAHI CASE 03/24/2017 19:54 1Collection Date 03/24/2017 03/24/2017 19:54 1Collection Time 19:44 03/24/2017 19:54 1Sample Site R Radial 03/24/2017 19:54 1Sample Type Arterial 03/24/2017 19:54 1Allens Test Acceptable 03/24/2017 19:54 1Notified By MAHI CASE 03/24/2017 19:[address] VELASQUEZ 03/24/2017 19:54 1Date Notified 03/24/2017 03/24/2017 19:54 1Time Notified 19:59 03/24/2017 19:54 1O2 Device Nasal Cannula 03/24/2017 19:54 1[place] [id number] 03/24/2017 19:54 1Reported By MAHI CASE 03/24/2017 19:54 * Performing Lab Footnotes:* [address] [place] [address] - [id number] - [address] [facility] [address] - MD: DIRECTOR TANIA MOLINA Radiology Results Order: [id number] CT HEAD W/O CONTRAST* Exam Completion Date:03/24/2017 19:40 EXAMINATION: Head CT HISTORY: Confusion.COMPARISON: None.TECHNIQUE: Multidetecto r axial images were obtained without contrast from theforamen magnum to the vert ex . The images were reconstructed using brain andbone algorithms. Thin section brain images were reformatted into coronal andsagittal planes.Intravenous contr ast: None. Motion/streaking artifact limits the evaluation of the skull base and posteriorcranial fossa.FINDINGS: Parenchyma: 1. Few scattered and perivent ricular white matter hypodensities, most likelynonspecific chronic microvascular ischemic changes.2. No mass or hemorrhage. No CT evidence of acute territorial vascular insult. Extra-axial spaces: No abnormal density. No extra-axi al fluid collections Brain volume: Normal for age. Ventricles: No hydr ocephalus or displacement. Arteries: No density suggestive of thrombus. Dural sinuses: No abnormal density. Extra-axial spaces: No abnormal dens ity. Foramen magnum: No mass, Chiari malformation, or basilar invagination. Sella: No obvious mass. Paranasal/mastoid sinuses: Imaged portions u nremarkable. Skull/Scalp: No lytic or blastic lesions. No fractures. IMPRE SSION:1. No acute intracranial hemorrhage or cortical infarcts.2. Mild white m atter chronic microvascular ischemic changes.This final report was electronicall y signed by Dr Asuncion Hernandez MD 03/24/20179:35 PMDictated By: ASUNCION HERNANDEZDate: 03/24/2017 21:42 Order: [id number] XR ABD SERIES W/PA CXR* Exam Completion Date:03/24/2017 19:39 EXAM: XR ABD SERIES W/PA CXR, AP chest and supine and erect abdomenDATE: 017 7:39 PM Time stamp on exam: 2030.INDICATION: SOBCOMPARISON: NoneFINDING S:LINES/TUBES: NoneLUNGS: Left lower lobe consolidation. Right lower lobe linear atelectasis.. PLEURA: Possible trace effusion on the left.HEART AND MEDIASTINUM: Normal size and contour.BOWEL PATTERN: Non-obstructed bowel gas pattern.BONES AND SOFT TISSUES: Partially visualized surgical hardware proximal righthumerus. No abnormal calcifications. No mass effect.IMPRESSION:Possible left lower lobe p neumonia.No evidence for bowel obstruction.This final report was electronically signed by Dr Monique Holland MD 03/24/20178:50 PMDictated By: MONIQUE HOLLANDDate: 20:56 Vital Signs Vitals Value Date BP Systolic 114 mmHg 03/24/2017 BP Diastolic 79 mmHg 03/24/2017 Body Temperature 99.5 F 03/24/2017 O2% BldC Oximetry 93 03/24/2017 Respiratory Rate 28 03/24/2017 Height 66 in 03/24/2017 Weight Measured 160 lbs 03/24/2017 BSA (Body Surface Area) 1.91448 03/24/2017 BMI (Body Mass Index) 26 03/24/2017 Plan of Care * No data in the system Procedures Code Code System Procedure Name Target Site Date of Procedure CT HEAD W/O CONTRAST 03/24/2017 21:42 XR ABD SERIES W/PA CXR 03/24/2017 20:56 [id number] SNOMED Unilateral mastectomy Unknown Encounters Date Code Diagnosis Status (ICD10) - A419 SEPSIS UNSPECIFIED ORGANISM Active Immunizations * No data in the system Functional Status * No data in the system Hospital Discharge Instructions * No data in the system
--- OUTSIDE RECORDS SUMMARY | 2018-03-20 09:55 | XMS REPORT | Continuity of Care Document ---
Author Author [facility] Organization [facility] Address [address] [facility] [place] [address] ;ext= Care Team Providers Care Machine Sole Leveler Name Role Phone ESME AMADOR Admphys ESME AMADOR Attphys LAYO PERRY CP TANIA BARRIENTOS CP Hospital Admission Diagnosis Code Admission Diagnosis Date [id number] [place] Social History Element Description Code Description Smoking Status Code System Start Date End Date Smoking Status [id number] Never smoker SNOMED-CT Problems Code Code System Problem Name Start Date End Date Status 962095054 SNOMED-CT Pneumonia 03/25/2017 Active 98203617 SNOMED-CT Urinary tract infectious disease 03/25/2017 Active 73944871 SNOMED-CT Systemic infection 03/25/2017 Active 427602242 SNOMED-CT Carcinoma of breast Unknown Active 325080956 SNOMED-CT Neuropathy Unknown Active 59480911 SNOMED-CT Diabetes mellitus type 2 Unknown Inactive 21014824 SNOMED-CT Diabetes mellitus type 1 Unknown Active Medications RxNorm Medication Dose Route Instructions Indications Start Date End Date Status 3127744 insulin, isophane 40 unit Subcutaneous subcutaneously every evening (administer 30-60 minutes before breakfast;) Active 983056 pregabalin 75 MG Oral Capsule 75 milligram Oral orally 2 times per day (administer at approximately the same time(s) each day;) Active 131228 Trazodone Hydrochloride 50 MG Oral Tablet 50 milligram Oral orally every day at bedtime as needed. 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 03/28/2017 08:46 1 Surgical Pathology Consultation Report 03/28/2017 08:46 1 Patient Name: MARYLIN BLAIR Case #: [id number] Med. Rec. #: [id number] 03/28/2017 08:46 1 Location: [facility] [address] Surgery Date: 03/27/2017 : 1945 (Age: 71) 03/28/2017 08:46 1 Received: 03/28/2017 Gender: F Copy to : 03/28/2017 08:46 1 Reported: 03/28/2017 08:46 1 03/29/2017 Physician(s): Tania Barrientos 03/28/2017 08:46 1 03/28/2017 08:46 1 Specimen(s) Received 03/28/2017 08:46 1 A: Bladder, foreign body 03/28/2017 08:46 1 Final Pathologic Diagnosis 03/28/2017 08:46 1 Bladder, removal of foreign material: 03/28/2017 08:46 1 - FOREIGN MATERIAL IDENTIFIED. 03/28/2017 08:46 1 Electronically Signed Out 03/28/2017 08:46 1 ka/03/29/2017 Tania Molina MD, Board Certified in Anatomic Pathology 03/28/2017 08:46 1 03/28/2017 08:46 1 Clinical History 03/28/2017 08:46 1 Pyelonephritis. 03/28/2017 08:46 1 Gross Description 03/28/2017 08:46 1 The specimen is labeled bladder foreign body. A piece of soft andres-zarco 03/28/2017 08:46 1 tissue 03/28/2017 08:46 1 measuring 1.8 x 1 x 0.3 cm is received. The entire specimen is submitted 03/28/2017 08:46 1 in a 03/28/2017 08:46 1 cassette. 03/28/2017 08:46 1 ka/03/28/2017 Tania Molina MD, Board Certified in Anatomic Pathology 03/28/2017 08:46 1 03/28/2017 08:46 1 Microscopic Description 03/28/2017 08:46 1 Microscopic examination of the foreign body reveals acellular foreign 03/28/2017 08:46 1 material 03/28/2017 08:46 1 which contains small cystic spaces filled with some degenerating 03/28/2017 08:46 1 inflammatory 03/28/2017 08:46 1 cells and possible bacteria. There are no malignant cells present. 03/28/2017 08:46 1 Billing Fee Code(s): A; 56419 03/28/2017 08:46 * Performing Lab Footnotes:* [address] [place] [address] [id number] - [address] [place] [address] [facility] - MD: DIRECTOR TANIA MOLINA Order: D DIMER QUANTITATIVE LOINC Test Result Flag Range Unit Date 1D DIMER 2.93 H 0.19-0.50 mg/LFEU 03/27/2017 15:25 Note: METHOD CHANGE: 05/08/2012 Due to the discontinued mehodology currently in use, a change in the testing method is necessary. The Reference Ranges will change dramatically, and results are obtained by the observance of clotting activation mesured on the Sysmex instruments. This same methodology is currently in use for PT/INR , PTT, AND HEPARIN testing in our Labs. The D-Dimer assay is an aid in the evaluation of thromboembolic events, as in DIC, DVT, Pulmonary Embolism, and other thromboembolic diseases, and should not be used without other diagnostic measures, to properly diagnose and treat thromboembolic disease. REFERENCE RANGE: 0.19 - 0.50 mg/L FEU (Fibrinogen Equivalent Units) Cut-Off Value is: > .50 mg/L FEU Note: Results greater than (>) the Cut-Off are to be considered POSITIVE, and significant in the evaluation of thromboembolic diseases. Results less than (<) the Cut-Off are to be considered NEGATIVE, and a low probability of thromboembolic disease. * Performing Lab Footnotes:* [address] [place] [address] [id number] - [address] [place] [address] [place] [address] MARCIN Harris MD: DIRECTOR TANIA MOLINA Order: PERIPHERAL SMEAR LOINC Test Result Flag Range Unit Date 1 LEUKOCYTOSIS WITH NEUTROPHILIA AND THROMBOCYTOPENIA IN INFECTION. 03/27/2017 15:25 1 N.N.ANEMIA IN ANEMIA OF CHRONIC DISEASE VS RECENT BLOOD LOSS. SAÚL RAM 03/27/2017 15:25 * Performing Lab Footnotes:* [address] [place] [address] [id number] - [address] [place] [address] MARCIN Harris MD: DIRECTOR TANIA MOLINA Order: BMP BASIC METABOLIC PANEL LOINC Test Result Flag Range Unit Date 2349- 1Glucose:MCnc:Pt:Urine:Qn 155 H 75-110 mg/dl 03/27/2017 07:36 3094-0 1Urea nitrogen:MCnc:Pt:Ser/Plas:Qn 53 H 6.0-17.0 mg/dl 03/27/2017 07:36 2160-0 1Creatinine:MCnc:Pt:Ser/Plas:Qn 2.3 H 0.4-1.2 mg/dl 03/27/2017 07:36 2951-2 1Sodium:SCnc:Pt:Ser/Plas:Qn 129 L 137-145 mmol/l 03/27/2017 07:36 2823-3 1Potassium:SCnc:Pt:Ser/Plas:Qn 4.5 3.5-5.0 mmol/l 03/27/2017 07:36 5-0 1Chloride:SCnc:Pt:Ser/Plas:Qn 103 98-107 mmol/l 03/27/2017 07:36 8-9 1Carbon dioxide:SCnc:Pt:Ser/Plas:Qn 17 L 22-30 mmol/l 03/27/2017 07:36 69444-9 1Calcium:MCnc:Pt:Ser/Plas:Qn 8.4 8.4-10.2 mg/dl 03/27/2017 07:36 1EGFR if 27 mL/min/1.73m^2 03/27/2017 07:36 1EGFR if Non- 22 mL/min/1.73m^2 03/27/2017 07:36 Note: Estimated Glomerular Filtration Rate (eGFR) Reference [...] chronic kidney failure. * Performing Lab Footnotes:* [address] [place] [address] - [id number] - [address] [place] [address] - [place] [address] [facility] - MD: DIRECTOR TANIA MOLINA Order: CBC PLATELET AUTO DIFF LOINC Test Result Flag Range Unit Date 65175-4 1Leukocytes^^corrected for nucleated erythrocytes:NCnc:Pt:Bld:Qn:Automated count 13.43 H 4.80-10.80 10^3/ul 03/27/2017 07:36 789-8 1Erythrocytes:NCnc:Pt:Bld:Qn:Automated count 3.21 L 4.20-5.40 10^6/ul 03/27/2017 07:36 718-7 1Hemoglobin:MCnc:Pt:Bld:Qn 9.2 L 12.0-14.0 gm/dl 03/27/2017 07:36 4544-3 1Hematocrit:VFr:Pt:Bld:Qn:Automated count 28.6 L 37.0-47.0 % 03/27/2017 07:36 787-2 1Erythrocyte mean corpuscular volume:EntVol:Pt:RBC:Qn:Automated count 89.1 81.0-99.0 fL 03/27/2017 07:36 785-6 1Erythrocyte mean corpuscular hemoglobin:EntMass:Pt:RBC:Qn:Automated count 28.7 27.0-31.0 pg 03/27/2017 07:36 786-4 1Erythrocyte mean corpuscular hemoglobin concentration:MCnc:Pt:RBC:Qn:Automated count 32.2 L 33.0-37.0 gm/dl 03/27/2017 07:36 788-0 1Erythrocyte distribution width:Ratio:Pt:RBC:Qn:Automated count 13.4 11.5-14.5 % 03/27/2017 07:36 777-3 1Platelets:NCnc:Pt:Bld:Qn:Automated count 52 L 130-400 10^3/ul 03/27/2017 07:36 90869-6 1Platelet mean volume:EntVol:Pt:Bld:Qn:Automated count 12.1 A 7.4-10.4 fL 03/27/2017 07:36 Note: 'NOT MEASURED' RESULTS ARE DISPLAYED WHEN [...] ON THE REPORT. 770-8 1Neutrophils/100 leukocytes:NFr:Pt:Bld:Qn:Automated count 82.9 H 42.0-75.0 % 03/27/2017 07:36 736-9 1Lymphocytes/100 leukocytes:NFr:Pt:Bld:Qn:Automated count 8 L 13.0-42.0 % 03/27/2017 07:36 5905-5 1Monocytes/100 leukocytes:NFr:Pt:Bld:Qn:Automated count 5.4 4.0-14.0 % 03/27/2017 07:36 713-8 1Eosinophils/100 leukocytes:NFr:Pt:Bld:Qn:Automated count 0.7 L 1.0-3.0 % 03/27/2017 07:36 706-2 1Basophils/100 leukocytes:NFr:Pt:Bld:Qn:Automated count 0.2 L 1.0-3.0 % 03/27/2017 07:36 1IG% 2.8 H 0.0-0.4 % 03/27/2017 07:36 * Performing Lab Footnotes:* [address] [place] [address] [id number] - [address] [place] [address] [place] [address] MARCIN Harris MD: DIRECTOR TANIA MOLINA Order: LACTIC ACID IH LOINC Test Result Flag Range Unit Date 1LACTATE 0.9 0.7-2.0 mmol/l 03/27/2017 07:36 * Performing Lab Footnotes:* [address] [place] [address] - [id number] - [address] [facility] [address] [place] [address] MARCIN Harris MD: DIRECTOR TANIA MOLINA Order: FIBRINOGEN LOINC Test Result Flag Range Unit Date 1Fibrinogen 632.8 H 212.0-430.0 mg/dl 03/27/2017 07:30 * Performing Lab Footnotes:* [address] [place] [address] - [id number] - [address] [address] MARCIN Harris MD: DIRECTOR TANIA MOLINA Order: PROTIME PT INR LOINC Test Result Flag Range Unit Date 5902-2 1Coagulation tissue factor induced:Time:Pt:PPP:Qn:Coag 9.7 9.0-11.9 seconds 03/27/2017 07:30 6301-6 1Coagulation tissue factor induced.INR:RelTime:Pt:PPP:Qn:Coag 0.9 0.9-1.1 03/27/2017 07:30 Note: INR results are intended ONLY to monitor Oral Anticoagulant therapy in stablized patients. The INR Therapeutic Range is 2.0 - 3.0 Patients with a mechanical heart, the INR Range is 2.5 - 3.5 * Performing Lab Footnotes:* [address] [place] [address] - [id number] - [address] [place] [address] MARCIN Harris MD: DIRECTOR TANIA MOLINA Order: CULTURE BLOOD LOINC Test Result Flag Range Unit Date Specimen: Blood 03/26/2017 11:35 Collected: 03/26/2017 11:35 03/26/2017 11:35 03/26/2017 11:35 Status: Final Last Updated: 04/01/2017 10:53 03/26/2017 11:35 03/26/2017 11:35 (1) To start 15mins after 1st culture 03/26/2017 11:35 03/26/2017 11:35 03/26/2017 11:35 03/26/2017 11:35 Culture Result (Final) (Final) 03/26/2017 11:35 No Growth After 5 Days 03/26/2017 11:35 03/26/2017 11:35 03/26/2017 11:35 Order: CMP COMPREHENSIVE METABOLIC PANEL LOINC Test Result Flag Range Unit Date 2349-09 1Glucose:MCnc:Pt:Urine:Qn 196 H 75-110 mg/dl 03/26/2017 08:08 3094-0 1Urea nitrogen:MCnc:Pt:Ser/Plas:Qn 58 H 6.0-17.0 mg/dl 03/26/2017 08:08 2160-0 1Creatinine:MCnc:Pt:Ser/Plas:Qn 2.7 H 0.4-1.2 mg/dl 03/26/2017 08:08 2951-2 1Sodium:SCnc:Pt:Ser/Plas:Qn 127 L 137-145 mmol/l 03/26/2017 08:08 2823-3 1Potassium:SCnc:Pt:Ser/Plas:Qn 4.4 3.5-5.0 mmol/l 03/26/2017 08:08 5-0 1Chloride:SCnc:Pt:Ser/Plas:Qn 102 98-107 mmol/l 03/26/2017 08:08 8-9 1Carbon dioxide:SCnc:Pt:Ser/Plas:Qn 19 L 22-30 mmol/l 03/26/2017 08:08 44909-7 1Calcium:MCnc:Pt:Ser/Plas:Qn 8.2 L 8.4-10.2 mg/dl 03/26/2017 08:08 2885-2 1Protein:MCnc:Pt:Ser/Plas:Qn 5.7 5.1-8.7 gm/dl 03/26/2017 08:08 1751-7 1Albumin:MCnc:Pt:Ser/Plas:Qn 2.5 L 3.5-4.6 gm/dl 03/26/2017 08:08 1A/G Ratio 0.8 L 1.1-2.2 % 03/26/2017 08:08 1920-8 1Aspartate aminotransferase:CCnc:Pt:Ser/Plas:Qn 15 11-36 U/L 03/26/2017 08:08 1742-6 1Alanine aminotransferase:CCnc:Pt:Ser/Plas:Qn 23 11-40 U/L 03/26/2017 08:08 6768-6 1Alkaline phosphatase:CCnc:Pt:Ser/Plas:Qn 121 H 47-114 U/L 03/26/2017 08:08 1975-2 1Bilirubin:MCnc:Pt:Ser/Plas:Qn 0.8 0.2-1.2 mg/dl 03/26/2017 08:08 1Globulin 3.2 2.3-3.5 gm/dl 03/26/2017 08:08 1Calcium, Corrected 9.4 8.4-10.2 mg/dl 03/26/2017 08:08 Note: Various formulas exist for corrected serum calcium results, each yielding different values. This corrected result was based on the formula: Corrected Calcium=SerumCalcium + [0.8 * ( 4 - SerumAlbumin)] 1EGFR if 22 mL/min/1.73m^2 03/26/2017 08:08 1EGFR if Non- 19 mL/min/1.73m^2 03/26/2017 08:08 Note: Estimated Glomerular Filtration Rate (eGFR) Reference [...] chronic kidney failure. * Performing Lab Footnotes:* [address] [address] - [id number] - [address] [address] - [place] [address] [facility] - : DIRECTOR TANIA MOLINA Order: UA URINALYSIS WITH MICROSCOPY LOINC Test Result Flag Range Unit Date 5777-08 1Color:Type:Pt:Urine:Nom YELLOW 03/26/2017 02:30 5767-9 1Appearance:Aper:Pt:Urine:Nom CLOUDY 03/26/2017 02:30 2349-9 1Glucose:ACnc:Pt:Urine:Ord 100 A NEGATIVE 03/26/2017 02:30 5770-3 1Bilirubin:ACnc:Pt:Urine:Ord:Test strip SMALL A NEGATIVE 03/26/2017 02:30 2514-8 1Ketones:ACnc:Pt:Urine:Ord:Test strip NEGATIVE NEGATIVE 03/26/2017 02:30 5811-5 1Specific gravity:Rden:Pt:Urine:Qn:Test strip 1.025 A 1.005-1.030 03/26/2017 02:30 5794-3 1Hemoglobin:ACnc:Pt:Urine:Ord:Test strip LARGE A NEGATIVE 03/26/2017 02:30 5803-2 1pH:LsCnc:Pt:Urine:Qn:Test strip 5.0 A 4.5-8.0 03/26/2017 02:30 52979-2 1Protein:ACnc:Pt:Urine:Ord:Test strip 100 A NEGATIVE 03/26/2017 02:30 5818-0 1Urobilinogen:ACnc:Pt:Urine:Ord:Test strip 0.2 0.2 03/26/2017 02:30 5802-4 1Nitrite:ACnc:Pt:Urine:Ord:Test strip NEGATIVE NEGATIVE 03/26/2017 02:30 5799-2 1Leukocyte esterase:ACnc:Pt:Urine:Ord:Test strip MODERATE A NEGATIVE 03/26/2017 02:30 5821-4 1Leukocytes:Naric:Pt:Urine sed:Qn:Microscopy.light.HPF TNTC A 0-5 03/26/2017 02:30 85425-9 1Erythrocytes:Naric:Pt:Urine sed:Qn:Microscopy.light.HPF TNTC A 0-5 03/26/2017 02:30 16678-6 1Epithelial cells.squamous:Naric:Pt:Urine sed:Qn:Microscopy.light.HPF 0-5 A 0-10 03/26/2017 02:30 8247-9 1Mucus:ACnc:Pt:Urine sed:Ord:Microscopy.light None Seen None Seen 03/26/2017 02:30 5769-5 1Bacteria:Naric:Pt:Urine sed:Qn:Microscopy.light.HPF 3+ A None Seen,Trace 03/26/2017 02:30 5782-8 1Crystals:Prid:Pt:Urine sed:Nom:Microscopy.light Many Amorphous Urates A None Seen 03/26/2017 02:30 * Performing Lab Footnotes:* [address] [place] [address] - [id number] [address] [address] [place] - MD: DIRECTOR TANIA MOLINA Order: FLU SCREEN LOINC Test Result Flag Range Unit Date 1Flu A Screen Negative Negative 03/25/2017 10:27 Note: EFFECTIVE 03/21/2013 - A method change has occurred. A molecular method for Flu testing will replace the current method. Both Flu A and Flu B will be tested and results will continue to be listed as 'Negative or Positive'. While this method is more specific in the detection of both strains, confirmatory testing is available upon request. ldh 1Flu B Screen Negative Negative 03/25/2017 10:27 Note: EFFECTIVE 03/21/2013 - A method change has occurred. A molecular method for Flu testing will replace the current method. Both Flu A and Flu B will be tested and results will continue to be listed as 'Negative or Positive'. While this method is more specific in the detection of both strains, confirmatory testing is available upon request. ldh * Performing Lab Footnotes:* [address] [address] - [id number] - [address] [facility] [address] - [place] [address] [facility] - MD: DIRECTOR TANIA MOLINA Order: CULTURE URINE COLONY COUNT LOINC Test Result Flag Range Unit Date Specimen: Urine Specimens 03/25/2017 09:05 Collected: 03/25/2017 09:05 03/25/2017 09:05 03/25/2017 09:05 Status: Final Last Updated: 03/28/2017 01:11 03/25/2017 09:05 03/25/2017 09:05 03/25/2017 09:05 Culture Result (Final) (R) (Final) 03/25/2017 09:05 >100,000 cc/mL Gram Negative Bacilli 03/25/2017 09:05 >100,000 cc/mL Streptococcus species 03/25/2017 09:05 03/25/2017 09:05 Isolate (Final) (Final) 03/25/2017 09:05 Escherichia coli 03/25/2017 09:05 Amoxicillin/clavu 4 S 03/25/2017 09:05 Ampicillin >=32 R 03/25/2017 09:05 Aztreonam <=1 S 03/25/2017 09:05 Cefazolin <=4 S 03/25/2017 09:05 Cefepime <=1 S 03/25/2017 09:05 Ceftriaxone <=1 S 03/25/2017 09:05 Ciprofloxacin >=4 R 03/25/2017 09:05 Gentamicin <=1 S 03/25/2017 09:05 Imipenem <=0.25 S 03/25/2017 09:05 Levofloxacin >=8 R 03/25/2017 09:05 Meropenem <=0.25 S 03/25/2017 09:05 Nitrofurantoin <=16 S 03/25/2017 09:05 Tetracycline <=1 S 03/25/2017 09:05 Trimeth/Sulfa <=20 S 03/25/2017 09:05 ESBL Negative - 03/25/2017 09:05 03/25/2017 09:05 Isolate (Final) (Final) 03/25/2017 09:05 Streptococcus agalactiae 03/25/2017 09:05 Ampicillin <=0.25 S 03/25/2017 09:05 Penicillin 0.12 S 03/25/2017 09:05 Ceftriaxone <=0.12 S 03/25/2017 09:05 Clindamycin >=1 R 03/25/2017 09:05 ICR Negative - 03/25/2017 09:05 Levofloxacin 1 S 03/25/2017 09:05 Linezolid <=2 S 03/25/2017 09:05 Moxifloxacin 0.25 S 03/25/2017 09:05 Tetracycline >=16 R 03/25/2017 09:05 Tigecycline <=0.06 S 03/25/2017 09:05 Vancomycin 0.5 S 03/25/2017 09:05 03/25/2017 09:05 03/25/2017 09:05 Radiology Results Order: [id number] CT ABDOMEN/PELVIS W/O CONTRAST* Exam Completion Date:03/27/2017 11:07 Procedure: CT ABDOMEN/PELVIS W/O CONTRAST Exam Date: 03/27/2017 11:07 A MOrdering Provider: LAYO Mullerinical Indication: Complicated UTI with bacteremiaComparison: NoneTechnique: Using a helical scanner, sequential axial imaging of the abdomen andpelvis was obtained without the administration of oral or IV contrast. The examextended from the level of the lung bases superiorly to the level of the pubicsymphysis inferiorly. 2-D sagittal and coronal reconstru cted images wereobtained. This exam was performed according to the [facility] ose-optimization program which includes automated exposure control, adjustmentof the mA and/or kV according to patient size and/or use of iterativereconstruction techniques.Findings: Coarse bibasilar atelectasis.. No basilar consolidation or effusion.The liver is normal in size and density. Hepatic contour is normal. T here are nosolid hepatic masses. Millimeters cyst noted in the right lobe of the liveranteriorly. No intrahepatic ductal dilatation.The gallbladder is normal in size and density. There is no evidence ofcholelithiasis or cholecystitis by CT criteria.The spleen is normal in size and density. There are no intrinsic spleni c masses.There is no evidence of a subcapsular hematoma or fluid collection.The pancreas is normal in size and density. There are no pancreaticcalcifications or masses. There is no pancreatic ductal dilatation.The adrenal glands are normal in size bilaterally. There are no adrenal massesbilaterally.The right kidney is normal in size and shape. There are no calculi, masses, orhydronephrosis.There i s a large volume of gas within the left renal cortex involving thesuperior pole to interpolar region. There is no fluid. There is gas extendinginto the left ret roperitoneum involving the posterior pararenal space andextending laterally juliana g the lateral conal fascia.There are several calculi within the left kidney. The largest calculus is in thesuperior pole calyx measuring 1.5 cm.There is mild le ft hydroureter with mild hydroureter to the bladder. There is noobstructing calc ulus visualized.Dotson catheter decompresses the bladder which is not well evalua marjan. There areno obvious bladder calculi.The uterus is normal in size and retrov erted.Aorta is normal in size and diameter. There is no aneurysm. The IVC is nor mal in size and location.There is no lymphadenopathy in the abdomen, pelvis, or either inguinal region.There is no small or large bowel distention. There is no bowel thickening. Thereare no inflammatory changes in the abdomen or pelvis.The appendix is visualized and normal in diameter. There is no periappendicealsoft t issue stranding. No CT findings of appendicitis.No inguinal masses.There is no s keletal lesion.IMPRESSION: 1. 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 Findings mayrepresent a recently passed calculus. There is left nephrolithias is noted. Thereis no obvious abscess.2. Dotson catheter decompresses the bladder which is otherwise normal.3. No other evidence for inflammatory change in the ab domen or pelvis.4. Findings discussed with Dr. Amaro of the hospitalist ser vice on 2016 at 1350.This final report was electronically signed by Dr Dylan Hidalgo MD 03/27/20171:49 PMDictated By: DYLAN HIDALGODate: 2016 13:55 Order: [id number] SP US VASCULAR ACCESS* Exam Completion Date:03/27/2017 11:05 Procedure: SP US VASCULAR ACCESSExam Date: 03/27/2017 11:05 AMOrdering Provide r: LAYO BAILILLIAMClinical Indication: Vascular accessTechnique: The patient was placed supine on the exam table with the right arm abducted. Anultrasound was performed to locate a proper venous access site. The upper armwas prepped a nd draped in the usual sterile fashion. Utilizing 1% lidocainesolution, the ski n and subcutaneous tissues overlying the basilic vein wereanesthetized. Ultrasou nd evaluation demonstrates the vessels to be patent and apermanent ultrasound im age was stored in the medical record for documentation.Then, under ultrasound gu idance, the vein was punctured with a micropunctureneedle and a 0.018 guidewire was advanced into the selected vessel. The vesselswere patent and there was a p ermanent image stored for the permanent medicalrecord. The needle was removed an d the 20 gauge Powerglide catheter was advancedover the wire into the right axil wayne vein. The wire was removed. The catheterwas secured to the skin in the us ual fashion. The patient tolerated theprocedure well and there were no immediat e complications.Impression:1. Successful upper extremity vascular access.This f inal report was electronically signed by Dr Patric Valentin MD 03/27/201712:46 P MDictated By: PATRIC VALENTINDate: 03/27/2017 12:52 Order: [id number] XR CHEST AP/PA 1 VIEW* Exam Completion Date:03/27/2017 09:12 Procedure: XR CHEST AP/PA 1 VIEW Exam Date: 03/27/2017 9:12 AMOrdering Provider: LAYO Mullerinical Indication: PNEU: Chest-PneumoniaComparison : NoneFindings: Cardiac size is magnified by technique.Pulmonary vasculature is normal. Mediastinal contour is normal. Aortic calcification.Mild left perihilar infiltrate.Linear right perihilar atelectasis versus scarring.No significant ple ural effusions.There is no mass or pneumothorax. Postoperative change involving the right proximal humerus.Impression:1. Left perihilar infiltrate.2. No other i nfiltrate or significant pleural effusion.3. Linear right perihilar atelectasis versus scarring.4. No other significant findings.This final report was electroni niya signed by Dr Dylan Hidalgo MD 03/27/20171:12 PMDictated By: DYLAN HIDALGODate: 03/27/2017 13:18 Vital Signs Vitals Value Date Body Temperature 98.3 F 03/28/2017 Respiratory Rate 18 03/28/2017 O2% BldC Oximetry 96 03/28/2017 BP Systolic 127 mmHg 03/28/2017 BP Diastolic 53 mmHg 03/28/2017 Height 64 in 03/28/2017 Weight Measured 178.57 lbs 03/28/2017 BSA (Body Surface Area) 1.99346 03/28/2017 BMI (Body Mass Index) 30.8 03/28/2017 Plan of Care * No data in the system Procedures Code Code System Procedure Name Target Site Date of Procedure FL PRT FLUORO UP TO 1 HR 03/27/2017 18:39 CT ABDOMEN/PELVIS W/O CONTRAST 03/27/2017 13:55 XR CHEST AP/PA 1 VIEW 03/27/2017 13:18 SP US VASCULAR ACCESS 03/27/2017 12:52 [id number] ICD10 DIL LT URETER IL ARIELLA/ART OPNG ENDO 03/27/2017 [id number] ICD10 DRAIN BLADDER ARIELLA/ART OPENING ENDO 03/27/2017 [id number] ICD10 EXTIRPAT MATTR BLAD ARIELLA/ART OP ENDO 03/27/2017 [id number] ICD10 FLUORO LT KIDNEY URETER BLADDER LOC 03/27/2017 [id number] ICD10 INSERT INFUS DEVICE RT AX VEIN PERQ 03/27/2017 [id number] ICD10 ULTRASONOGRAPHY RT UP EXT VNS GUID 03/27/2017 Encounters Date Code Diagnosis Status ([facility]) - [id number] CHRONIC OBSTRUCTIVE PYELONEPHRITIS Active Immunizations * No data in the system Functional Status Code Functional/Cognitive Condition Code System Date Status [id number] No speech problem (situation) [employer] 03/27/2017 Active 621463597 Firm pressure touch, function (observable entity) [employer] 03/27/2017 Active 113607272 [employer]ated [employer] 03/27/2017 Active 605160239 [employer] 03/27/2017 Active 735825204 [employer] 03/27/2017 Active 200026475 Unsteady gait UV Flu Technologies[facility] [employer] 03/25/2017 Active [id number] Oriented to person [employer] TechnologiesMER[facility], [facility] [employer] 03/27/2017 Active [id number] Normal vision [facility] 03/25/2017 Active Hospital Discharge Instructions * No data in the system
--- OUTSIDE RECORDS SUMMARY | 2018-03-20 09:55 | XMS REPORT ---
Author [facility] Address Unknown Phone Unavailable Care Team Providers Care Quality Cloth Tester Name Role Phone SOPHIA BLAKE Unavailable Unavailable Crystal LEHMAN Unavailable Unavailable OMRANIAN ALI Unavailable Unavailable KEYLA AMADORVASA Unavailable Unavailable GRONING, KYRA Unavailable Unavailable Payers Payer Name Policy Type Policy Number Effective Date Expiration Date Problems This patient has no known problems. Allergies, Adverse Reactions, Alerts Allergy Name Allergy Type Status Severity Reaction(s) Onset Date Inactive Date Treating Clinician Comments No Known Contrast Allergies DA Active U 2004-06-01 00:00:00 No Known Drug Allergies DA Active U 2004-06-01 00:00:00 No Known Food Allergies DA Active U 2004-06-01 00:00:00 No Known Other Allergies DA Active U 2004-06-01 00:00:00 No Known Drug Intolerances DA Active U 2004-05-26 00:00:00 Medications This patient has no known medications. Results Test Description Test Time Test Comments Text Results Atomic Results Result Comments MR, SPINE, THORACIC, WITHOUT CONTRAST 2017-10-08 13:38:00 FINAL REPORT MRI of the thoracic spine [...] or any other level. Signed: Adarsh Loredo Verified Date/Time: 10/08/2017 13:38:56 Reading Location: [address] Reading Room CULTURE + SMEAR 2017-09-12 14:21:00 CULTURE (BEAKER) (test ziny=4147) No acid-fast bacilli isolated in 42 days AFB SMEAR (BEAKER) (test mxki=770) No acid fast bacilli seen AFB CULTURE + [id number] 14:18:00* Test Item Value Reference Range Comments CULTURE (BEAKER) (test blrk=3880) No acid-fast bacilli isolated in 42 days AFB SMEAR (BEAKER) (test ljpy=614) No acid fast bacilli seen FUNGUS CULTURE + [id number] 09:36:00* Test Item Value Reference Range Comments CULTURE (BEAKER) (test ewnk=5491) No fungus isolated in 28 days FUNGUS SMEAR (BEAKER) (test vdrq=1297) No fungi seen FUNGUS CULTURE + [id number] 09:08:00* Test Item Value Reference Range Comments CULTURE (BEAKER) (test atzo=3775) No fungus isolated in 28 days FUNGUS SMEAR (BEAKER) (test novm=3318) No fungi seen [place], 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 - PLEASE REFER TO THE INTRAOPERATIVE REPORT. [id number] 15:30:00Medical Cytology Report Case: [id number] Authorizing Provider: Flor Nunes MD Collected: 07/30/2017 1520 Ordering Location: [address] Received: 07/31/2017 1257 Service Pathologist: Tran Dobbins MD Specimen: Bone, T9 spine BONE, T9 SPINE FNA BY CLINICIAN (CYTOSPINS AND CELL BLOCK OF ASPIRATE): - NO MALIGNANT CELLS IDENTIFIED (SEE COMMENT) - FEW LYMPHOCYTES PRESENT Signing Pathologist Direct Phone Line: [phone] signed by Tran Dobbins MD on 08/06/2017 at 3:30 PMPreliminary result electronically signed by Tran Dobbins MD on 08/02/2017 at 4:29 PMCytospins and cell block sections show predominantly blood elements and a few small clusters of lymphocytes. Immunostains performed on cell block sections are predominantly negative for CAM5.2 and GATA3 (rare nonspecific staining). These findings are supportive of the above diagnosis. Clinical/radiological correlation is recommended to det ermine the adequacy of the sampling.74213, 16245, 87546, 97417FF-qthdqh fine nee dle aspiration of the T8/T9 paravertebral soft tissue disc inflammation, history of breast cancerBONE, T9 SPINE FNA25 mls in cytorich red; 4 cytospins, cell blo ckCollected: [id number]: [id number] following special studies were performed on this case and the interpretation is incorporated in the diagnostic report abo ve:Please see the immunohistochemistry results in the COMMENT section. The immun ohistochemistry test was developed and its performance characteristics determine d by [facility], Pathology Laboratory. It has not been cleared or approved by the U.S. Food and Drug Administration. The FDA has determined th at such clearance or approval is not necessary. The test is used for clinical pu rposes. It should not be regarded as investigational or for research. This labor atory is certified under the Clinical Laboratory Improvement Amendments of 1988 (CLIA-88) as qualified to perform high complexity clinical laboratory testing.Enrique robertson [facility] [place], Department of Pathology, [address] [place] [address], [facility], [facility] of [facility], [address] [place] [address], QVVD-GLUCOSE [id number] 12:37:00* Test Item Value Reference Range Comments POC-GLUCOSE METER (BEAKER) (test rump=9768) 184 mg/dL 70-110 [address]ED AT [address] [address] CREATINE KINASE (CK)2017-08-03 07:49:00* Test Item Value Reference Range Comments CREATINE KINASE TOTAL (BEAKER) (test vaif=837) 16 U/L 29-200 BASIC METABOLIC [id number] 07:43:00* Test Item Value Reference Range Comments SODIUM (BEAKER) (test khjd=404) 140 meq/L 136-145 POTASSIUM (BEAKER) (test bssc=258) 3.9 meq/L 3.5-5.1 CHLORIDE (BEAKER) (test sohm=120) 101 meq/L 98-107 CO2 (BEAKER) (test wiaj=305) 31 meq/L 22-29 BLOOD UREA NITROGEN (BEAKER) (test gcfz=641) 31 mg/dL 7-21 CREATININE (BEAKER) (test unvg=985) 1.32 mg/dL 0.57-1.25 GLUCOSE RANDOM (BEAKER) (test qwhj=084) 86 mg/dL 70-105 CALCIUM (BEAKER) (test nlyq=403) 8.5 mg/dL 8.4-10.2 EGFR (BEAKER) (test tnjc=0336) 40 mL/min/1.73 sq m ESTIMATED GFR IS NOT ACCURATE CREATININE CLEARANCE IN PREDICTING GLOMERULAR FILTRATION RATE. ESTIMATED GFR IS NOT APPLICABLE FOR DIALYSIS PATIENTS. CBC W/PLT COUNT & AUTO [id number] 06:24:00* Test Item Value Reference Range Comments WHITE BLOOD CELL COUNT (BEAKER) (test retl=799) 8.8 K/ L 3.5-10.5 RED BLOOD CELL COUNT (BEAKER) (test pbsk=020) 3.29 M/ L 3.93-5.22 HEMOGLOBIN (BEAKER) (test itbh=207) 8.7 GM/DL 11.2-15.7 HEMATOCRIT (BEAKER) (test xvwc=076) 28.2 % 34.1-44.9 MEAN CORPUSCULAR VOLUME (BEAKER) (test xqhl=910) 85.7 fL 79.4-94.8 MEAN CORPUSCULAR HEMOGLOBIN (BEAKER) (test ujte=786) 26.4 pg 25.6-32.2 MEAN CORPUSCULAR HEMOGLOBIN CONC (BEAKER) (test lqjm=646) 30.9 GM/DL 32.2-35.5 RED CELL DISTRIBUTION WIDTH (BEAKER) (test kvvo=308) 14.5 % 11.7-14.4 PLATELET COUNT (BEAKER) (test qrqp=475) 307 K/CU MM 150-450 MEAN PLATELET VOLUME (BEAKER) (test qhix=780) 10.3 fL 9.4-12.3 NUCLEATED RED BLOOD CELLS (BEAKER) (test vknl=512) 0 /100 WBC 0-0 NEUTROPHILS RELATIVE PERCENT (BEAKER) (test tgdc=285) 59 % LYMPHOCYTES RELATIVE PERCENT (BEAKER) (test fjnl=448) 26 % MONOCYTES RELATIVE PERCENT (BEAKER) (test ewsf=663) 7 % EOSINOPHILS RELATIVE PERCENT (BEAKER) (test tnzv=455) 6 % BASOPHILS RELATIVE PERCENT (BEAKER) (test yibq=791) 1 % NEUTROPHILS ABSOLUTE COUNT (BEAKER) (test dtgp=758) 5.19 K/ L 1.56-6.13 LYMPHOCYTES ABSOLUTE COUNT (BEAKER) (test gjbg=697) 2.31 K/ L 1.18-3.74 MONOCYTES ABSOLUTE COUNT (BEAKER) (test lsym=906) 0.65 K/ L 0.24-0.36 EOSINOPHILS ABSOLUTE COUNT (BEAKER) (test wxrp=354) 0.56 K/ L 0.04-0.36 BASOPHILS ABSOLUTE COUNT (BEAKER) (test ddqg=791) 0.04 K/ L 0.01-0.08 IMMATURE GRANULOCYTES-RELATIVE PERCENT (BEAKER) (test hhum=0420) 1 % 0-1 POCT-GLUCOSE [id number] 21:41:00* Test Item Value Reference Range Comments POC-GLUCOSE METER (BEAKER) (test uiid=3177) 188 mg/dL 70-110 TESTED AT [place] [id number] [facility] [address] POCT-GLUCOSE [id number] 17:45:00* Test Item Value Reference Range Comments POC-GLUCOSE METER (BEAKER) (test qzgh=3734) 161 mg/dL 70-110 TESTED AT [address] [address] POCT-GLUCOSE [id number] 12:59:00* Test Item Value Reference Range Comments POC-GLUCOSE METER (BEAKER) (test hjnl=4468) 179 mg/dL 70-110 TESTED AT [address] [address] SEDIMENTATION [id number] 09:54:00* Test Item Value Reference Range Comments SEDIMENTATION RATE, ERYTHROCYTE (BEAKER) (test onrk=079) 91 mm/HR 0-40 POCT-GLUCOSE [id number] 09:37:00* Test Item Value Reference Range Comments POC-GLUCOSE METER (BEAKER) (test hqjq=4729) 116 mg/dL 70-110 TESTED AT [facility] [address] [facility] [address] POCT-GLUCOSE [id number] 08:51:00* Test Item Value Reference Range Comments POC-GLUCOSE METER (BEAKER) (test nqos=4973) 47 mg/dL 70-110 TESTED AT [facility] [address] [facility] [address] BODY FLUID CULTURE + GRAM [id number] 07:52:00* Test Item Value Reference Range Comments CULTURE (BEAKER) (test ztcf=9345) No growth GRAM STAIN RESULT (BEAKER) (test fuqf=7034) <1+ WBCs GRAM STAIN RESULT (BEAKER) (test dwkz=20266) No organisms seen COMPREHENSIVE METABOLIC [id number] 07:50:00* Test Item Value Reference Range Comments TOTAL PROTEIN (BEAKER) (test eusg=979) 6.4 gm/dL 6.0-8.3 Specimen moderately hemolyzed ALBUMIN (BEAKER) (test bzqq=4521) 2.6 g/dL 3.5-5.0 Specimen moderately hemolyzed ALKALINE PHOSPHATASE (BEAKER) (test tlmp=059) 71 U/L 40-150 BILIRUBIN TOTAL (BEAKER) (test nevx=157) 0.4 mg/dL 0.2-1.2 Specimen moderately hemolyzed SODIUM (BEAKER) (test uvki=011) 140 meq/L 136-145 POTASSIUM (BEAKER) (test obbj=241) 3.9 meq/L 3.5-5.1 Specimen moderately hemolyzed CHLORIDE (BEAKER) (test npql=669) 104 meq/L 98-107 CO2 (BEAKER) (test jnuc=641) 28 meq/L 22-29 BLOOD UREA NITROGEN (BEAKER) (test jvlq=603) 31 mg/dL 7-21 CREATININE (BEAKER) (test qvkf=018) 1.20 mg/dL 0.57-1.25 Specimen moderately hemolyzed GLUCOSE RANDOM (BEAKER) (test jdiv=841) 60 mg/dL 70-105 CALCIUM (BEAKER) (test jrmh=321) 8.5 mg/dL 8.4-10.2 AST (SGOT) (BEAKER) (test tvtv=935) 15 U/L 5-34 Specimen moderately hemolyzed ALT (SGPT) (BEAKER) (test bpwt=036) < U/L 6-55 Specimen moderately hemolyzed EGFR (BEAKER) (test bege=0369) 45 mL/min/1.73 sq m ESTIMATED GFR IS NOT ACCURATE CREATININE CLEARANCE IN PREDICTING GLOMERULAR FILTRATION RATE. ESTIMATED GFR IS NOT APPLICABLE FOR DIALYSIS PATIENTS. C-REACTIVE [id number] 07:49:00* Test Item Value Reference Range Comments C-REACTIVE PROTEIN (BEAKER) (test iimi=059) 8.76 mg/dL 0.00-0.50 CBC W/PLT COUNT & AUTO [id number] 07:23:00* Test Item Value Reference Range Comments WHITE BLOOD CELL COUNT (BEAKER) (test xuvo=128) 10.3 K/ L 3.5-10.5 RED BLOOD CELL COUNT (BEAKER) (test dlas=723) 3.49 M/ L 3.93-5.22 HEMOGLOBIN (BEAKER) (test vzea=887) 9.2 GM/DL 11.2-15.7 HEMATOCRIT (BEAKER) (test bpth=058) 29.5 % 34.1-44.9 MEAN CORPUSCULAR VOLUME (BEAKER) (test vrze=846) 84.5 fL 79.4-94.8 MEAN CORPUSCULAR HEMOGLOBIN (BEAKER) (test ewna=521) 26.4 pg 25.6-32.2 MEAN CORPUSCULAR HEMOGLOBIN CONC (BEAKER) (test cfoq=977) 31.2 GM/DL 32.2-35.5 RED CELL DISTRIBUTION WIDTH (BEAKER) (test nnoz=791) 14.6 % 11.7-14.4 PLATELET COUNT (BEAKER) (test qmnh=541) 350 K/CU MM 150-450 MEAN PLATELET VOLUME (BEAKER) (test ykei=248) 10.1 fL 9.4-12.3 NUCLEATED RED BLOOD CELLS (BEAKER) (test ybgs=369) 0 /100 WBC 0-0 NEUTROPHILS RELATIVE PERCENT (BEAKER) (test bfjq=092) 66 % LYMPHOCYTES RELATIVE PERCENT (BEAKER) (test vcde=800) 21 % MONOCYTES RELATIVE PERCENT (BEAKER) (test ttlc=204) 7 % EOSINOPHILS RELATIVE PERCENT (BEAKER) (test ygom=201) 5 % BASOPHILS RELATIVE PERCENT (BEAKER) (test autl=052) 0 % NEUTROPHILS ABSOLUTE COUNT (BEAKER) (test kwml=881) 6.77 K/ L 1.56-6.13 LYMPHOCYTES ABSOLUTE COUNT (BEAKER) (test oavd=314) 2.19 K/ L 1.18-3.74 MONOCYTES ABSOLUTE COUNT (BEAKER) (test rkzz=806) 0.72 K/ L 0.24-0.36 EOSINOPHILS ABSOLUTE COUNT (BEAKER) (test yebz=936) 0.51 K/ L 0.04-0.36 BASOPHILS ABSOLUTE COUNT (BEAKER) (test dwmp=464) 0.04 K/ L 0.01-0.08 IMMATURE GRANULOCYTES-RELATIVE PERCENT (BEAKER) (test sewl=8057) 0 % 0-1 POCT-GLUCOSE [id number] 21:20:00* Test Item Value Reference Range Comments POC-GLUCOSE METER (BEAKER) (test tqkj=4270) 258 mg/dL 70-110 [address]ED AT [address] [address] POCT-GLUCOSE [id number] 18:07:00* Test Item Value Reference Range Comments POC-GLUCOSE METER (BEAKER) (test aklj=1431) 172 mg/dL 70-110 [address]ED AT [address] [address] POCT-GLUCOSE [id number] 12:45:00* Test Item Value Reference Range Comments POC-GLUCOSE METER (BEAKER) (test vnez=0974) 140 mg/dL 70-110 TESTED AT [address] [address] TISSUE [id number] 10:42:00Surgical Pathology Report Case: [id number] Authorizing Provider: Flor Nunes MD Collected: 07/31/2017 3799 Ordering Location: [address] Received: 07/31/2017 1353 Service Pathologist: Salty Gallo MD Specimen: Intervertebral Disc, thoracic 9 VERTEBRAL COLUMN, T9, LAMINECTOMY:MINUTE FRAGMENT OF FIBRIN AND BLOOD CLOTNO FIBROCARTILAGE IS IDENTIFIED Signing Pathologist Direct Phone Line: [phone] signed by Salty Gallo MD on 08/01/2017 at 10:42 [id number] given Intervertebral disc thoracic 9The specimen is received in a fluidless container labeled with the patient's information and labeled "thoracic 9 disc tissue" and consists of red soft tissue measuring 0.2 cm in greatest dimension, submitted entirely in A1. CG/ew PerformedPOCT-GLUCOSE [id number] 09:08:00* Test Item Value Reference Range Comments POC-GLUCOSE METER (BEAKER) (test hmdn=6828) 61 mg/dL 70-110 TESTED AT [facility] [address] [facility] [address] POCT-GLUCOSE [id number] 08:20:00* Test Item Value Reference Range Comments POC-GLUCOSE METER (BEAKER) (test ccpe=7984) 67 mg/dL 70-110 TESTED AT [place] [address] [facility] [address] COMPREHENSIVE METABOLIC [id number] 07:26:00* Test Item Value Reference Range Comments TOTAL PROTEIN (BEAKER) (test sdeq=998) 6.2 gm/dL 6.0-8.3 ALBUMIN (BEAKER) (test tkth=9942) 2.7 g/dL 3.5-5.0 ALKALINE PHOSPHATASE (BEAKER) (test tzay=445) 69 U/L 40-150 BILIRUBIN TOTAL (BEAKER) (test qopi=497) 0.4 mg/dL 0.2-1.2 SODIUM (BEAKER) (test undp=431) 142 meq/L 136-145 POTASSIUM (BEAKER) (test wvum=828) 3.6 meq/L 3.5-5.1 CHLORIDE (BEAKER) (test mktz=421) 106 meq/L 98-107 CO2 (BEAKER) (test oloe=119) 29 meq/L 22-29 BLOOD UREA NITROGEN (BEAKER) (test mxiy=098) 31 mg/dL 7-21 CREATININE (BEAKER) (test xjvq=356) 1.18 mg/dL 0.57-1.25 GLUCOSE RANDOM (BEAKER) (test ijlr=535) 84 mg/dL 70-105 CALCIUM (BEAKER) (test fnur=190) 8.5 mg/dL 8.4-10.2 AST (SGOT) (BEAKER) (test pbwh=358) 8 U/L 5-34 ALT (SGPT) (BEAKER) (test oqyu=421) < U/L 6-55 EGFR (BEAKER) (test zxgp=7595) 45 mL/min/1.73 sq m ESTIMATED GFR IS NOT ACCURATE CREATININE CLEARANCE IN PREDICTING GLOMERULAR FILTRATION RATE. ESTIMATED GFR IS NOT APPLICABLE FOR DIALYSIS PATIENTS. CBC W/PLT COUNT & AUTO [id number] 07:05:00* Test Item Value Reference Range Comments WHITE BLOOD CELL COUNT (BEAKER) (test hprc=262) 10.7 K/ L 3.5-10.5 RED BLOOD CELL COUNT (BEAKER) (test xlcp=522) 3.29 M/ L 3.93-5.22 HEMOGLOBIN (BEAKER) (test rwis=911) 8.8 GM/DL 11.2-15.7 HEMATOCRIT (BEAKER) (test dmqz=976) 27.9 % 34.1-44.9 MEAN CORPUSCULAR VOLUME (BEAKER) (test bofx=683) 84.8 fL 79.4-94.8 MEAN CORPUSCULAR HEMOGLOBIN (BEAKER) (test viqw=976) 26.7 pg 25.6-32.2 MEAN CORPUSCULAR HEMOGLOBIN CONC (BEAKER) (test armj=579) 31.5 GM/DL 32.2-35.5 RED CELL DISTRIBUTION WIDTH (BEAKER) (test eovk=451) 14.6 % 11.7-14.4 PLATELET COUNT (BEAKER) (test dfxp=199) 304 K/CU MM 150-450 MEAN PLATELET VOLUME (BEAKER) (test ulse=912) 10.1 fL 9.4-12.3 NUCLEATED RED BLOOD CELLS (BEAKER) (test xtve=296) 0 /100 WBC 0-0 NEUTROPHILS RELATIVE PERCENT (BEAKER) (test zwau=693) 65 % LYMPHOCYTES RELATIVE PERCENT (BEAKER) (test mxil=896) 23 % MONOCYTES RELATIVE PERCENT (BEAKER) (test afoy=543) 7 % EOSINOPHILS RELATIVE PERCENT (BEAKER) (test karp=261) 4 % BASOPHILS RELATIVE PERCENT (BEAKER) (test lqxi=629) 0 % NEUTROPHILS ABSOLUTE COUNT (BEAKER) (test mqdi=545) 6.93 K/ L 1.56-6.13 LYMPHOCYTES ABSOLUTE COUNT (BEAKER) (test rjgu=987) 2.50 K/ L 1.18-3.74 MONOCYTES ABSOLUTE COUNT (BEAKER) (test suby=561) 0.74 K/ L 0.24-0.36 EOSINOPHILS ABSOLUTE COUNT (BEAKER) (test elwj=271) 0.45 K/ L 0.04-0.36 BASOPHILS ABSOLUTE COUNT (BEAKER) (test zalr=432) 0.03 K/ L 0.01-0.08 IMMATURE GRANULOCYTES-RELATIVE PERCENT (BEAKER) (test kwup=4075) 0 % 0-1 POCT-GLUCOSE [id number] 21:58:00* Test Item Value Reference Range Comments POC-GLUCOSE METER (BEAKER) (test tsyy=6794) 133 mg/dL 70-110 [address]ED AT [address] [address] POCT-GLUCOSE [id number] 17:08:00* Test Item Value Reference Range Comments POC-GLUCOSE METER (BEAKER) (test tbdp=2350) 165 mg/dL 70-110 TESTED AT [address] [address] POCT-GLUCOSE [id number] 13:07:00* Test Item Value Reference Range Comments POC-GLUCOSE METER (BEAKER) (test pdih=8492) 136 mg/dL 70-110 [address]ED AT [address] [address] POCT-GLUCOSE [id number] 09:10:00* Test Item Value Reference Range Comments POC-GLUCOSE METER (BEAKER) (test hkke=1964) 129 mg/dL 70-110 TESTED AT [address] [address] POCT-GLUCOSE [id number] 08:35:00* Test Item Value Reference Range Comments POC-GLUCOSE METER (BEAKER) (test yjum=5568) 50 mg/dL 70-110 TESTED AT [address] [address] BASIC METABOLIC [id number] 05:48:00* Test Item Value Reference Range Comments SODIUM (BEAKER) (test kkwl=776) 141 meq/L 136-145 POTASSIUM (BEAKER) (test vrjc=303) 4.0 meq/L 3.5-5.1 CHLORIDE (BEAKER) (test sgfu=561) 109 meq/L 98-107 CO2 (BEAKER) (test utsp=003) 26 meq/L 22-29 BLOOD UREA NITROGEN (BEAKER) (test ynsz=405) 31 mg/dL 7-21 CREATININE (BEAKER) (test aaaq=480) 1.14 mg/dL 0.57-1.25 GLUCOSE RANDOM (BEAKER) (test dovj=992) 103 mg/dL 70-105 CALCIUM (BEAKER) (test xezl=402) 8.4 mg/dL 8.4-10.2 EGFR (BEAKER) (test bzky=3052) 47 mL/min/1.73 sq m ESTIMATED GFR IS NOT ACCURATE CREATININE CLEARANCE IN PREDICTING GLOMERULAR FILTRATION RATE. ESTIMATED GFR IS NOT APPLICABLE FOR DIALYSIS PATIENTS. CBC W/PLT COUNT & AUTO [id number] 05:20:00* Test Item Value Reference Range Comments WHITE BLOOD CELL COUNT (BEAKER) (test ebct=063) 11.1 K/ L 3.5-10.5 RED BLOOD CELL COUNT (BEAKER) (test seka=899) 3.26 M/ L 3.93-5.22 HEMOGLOBIN (BEAKER) (test ubcq=464) 8.6 GM/DL 11.2-15.7 HEMATOCRIT (BEAKER) (test nytl=010) 28.3 % 34.1-44.9 MEAN CORPUSCULAR VOLUME (BEAKER) (test vfwv=527) 86.8 fL 79.4-94.8 MEAN CORPUSCULAR HEMOGLOBIN (BEAKER) (test bluu=971) 26.4 pg 25.6-32.2 MEAN CORPUSCULAR HEMOGLOBIN CONC (BEAKER) (test nqqz=074) 30.4 GM/DL 32.2-35.5 RED CELL DISTRIBUTION WIDTH (BEAKER) (test tlis=955) 14.7 % 11.7-14.4 PLATELET COUNT (BEAKER) (test broj=950) 304 K/CU MM 150-450 MEAN PLATELET VOLUME (BEAKER) (test pntg=145) 10.0 fL 9.4-12.3 NUCLEATED RED BLOOD CELLS (BEAKER) (test kstm=069) 0 /100 WBC 0-0 NEUTROPHILS RELATIVE PERCENT (BEAKER) (test hcml=167) 70 % LYMPHOCYTES RELATIVE PERCENT (BEAKER) (test afbb=054) 18 % MONOCYTES RELATIVE PERCENT (BEAKER) (test rsyg=068) 6 % EOSINOPHILS RELATIVE PERCENT (BEAKER) (test tkpx=030) 5 % BASOPHILS RELATIVE PERCENT (BEAKER) (test dbcz=706) 1 % NEUTROPHILS ABSOLUTE COUNT (BEAKER) (test yluv=165) 7.72 K/ L 1.56-6.13 LYMPHOCYTES ABSOLUTE COUNT (BEAKER) (test jhtd=335) 2.01 K/ L 1.18-3.74 MONOCYTES ABSOLUTE COUNT (BEAKER) (test suuq=121) 0.70 K/ L 0.24-0.36 EOSINOPHILS ABSOLUTE COUNT (BEAKER) (test wdot=067) 0.55 K/ L 0.04-0.36 BASOPHILS ABSOLUTE COUNT (BEAKER) (test tcyw=107) 0.05 K/ L 0.01-0.08 IMMATURE GRANULOCYTES-RELATIVE PERCENT (BEAKER) (test ojdg=8413) 0 % 0-1 POCT-GLUCOSE [id number] 02:22:00* Test Item Value Reference Range Comments POC-GLUCOSE METER (BEAKER) (test csbf=7096) 237 mg/dL 70-110 TESTED AT [facility] [address] [facility] [address] POCT-GLUCOSE [id number] 20:14:00* Test Item Value Reference Range Comments POC-GLUCOSE METER (BEAKER) (test lolp=8009) 143 mg/dL 70-110 TESTED AT [facility] [address] [facility] [address] CT, BIOPSY, [id number] 17:23:00Reason for exam:->t[address]-guided fine needle aspiration of the T8/T9 paravertebral soft tissue disc inflammation. CLINICAL HISTORY: t9 osteo. SULY RISON STUDY: CT scan dated July 27, 2017.. Informed consent was obtained from t he patient and the risks of the procedure were explained including bleeding, inf ection, damage to lung, blood vessels, nerves and other adjacent structures. The possibly of a pneumothorax necessitating a chest tube was discussed with the shea poole. This exam was performed according to our department dose optimization pro gram which includes automated exposure control, adjustment of the mA and/or kV a ccording to the patient's size and/or use of iterative reconstruction technique. Sedation: 1% Xylocaine was utilized as local analgesia. A total of 1.5 mg of Ve rsed and 75 mcg of fentanyl were administered using the moderate sedation protoc ol under the supervision of the physician and nurse. Moderate sedation time: 20 minutes. TECHNIQUE: Using sterile technique, CT fluoroscopic guidance and a 22-g auge Chiba needle, a single pass fine needle aspiration of the paravertebral/par a disc inflammatory tissue was performed using a right percutaneous approach. Th e sample was sent to the lab in both RPMI for cytology and in saline for culture s. COMPLICATIONS: None. The patient experienced severe pain when the paravertebr al soft tissue mass was transected. ESTIMATED BLOOD LOSS: None. Patient Disposit ion: The patient was in the same state post procedure as preprocedure. IMPRESSIO N: Successful CT-guided fine-needle aspiration of a T9/T10 paravertebral soft ti ssue mass adjacent to the disc space. Signed: Samreen Umanaort Verified Date/Time: 07/30/2017 17:23:33 Reading Location: [facility] C013X Ortho Consult [facility] Room 05:2 3 PM POCT-GLUCOSE [id number] 12:20:00* Test Item Value Reference Range Comments POC-GLUCOSE METER (BEAKER) (test pdip=5095) 204 mg/dL 70-110 TESTED AT [facility] [address] [facility] [address] POCT-GLUCOSE [id number] 08:39:00* Test Item Value Reference Range Comments POC-GLUCOSE METER (BEAKER) (test wyxq=0731) 115 mg/dL 70-110 TESTED AT [facility] [address] [facility] [address] SURGICALLY OBTAINED CULTURE + GRAM [id number] 08:06:00* Test Item Value Reference Range Comments CULTURE (BEAKER) (test sfeg=3521) PSEUDOMONAS AERUGINOSA 1+ Pseudomonas aeruginosa Amikacin (test code=1) Susceptible 0-16 , Resistant <0 or >16 Aztreonam (test code=32) Susceptible 0-8 , Resistant <0 or >8 Cefepime (test code=51) Susceptible 0-8 , Resistant <0 or >8 Ceftazidime (test code=27) Susceptible 0-8 , Resistant <0 or >8 Ciprofloxacin (test code=7) Susceptible 0-1 , Resistant <0 or >1 Doripenem (test gqls=686) Susceptible 0-2 , Resistant <0 or >2 Gentamicin (test code=18) Susceptible 0-4 , Resistant <0 or >4 Imipenem (test code=19) Susceptible 0-2 , Resistant <0 or >2 Levofloxacin (test code=22) Susceptible 0-2 , Resistant <0 or >2 Meropenem (test code=34) Susceptible 0-2 , Resistant <0 or >2 Piperacillin (test code=24) Susceptible 0-16 , Resistant <0 or >16 Piperacillin + Tazobactam (test code=29) Susceptible 0-16 , Resistant <0 or >16 Tobramycin (test code=25) Susceptible 0-4 , Resistant <0 or >4 CULTURE (BEAKER) (test apyg=1252) 2+ Vancomycin resistant Enterococcus species CULTURE (BEAKER) (test hnie=3035) VANCOMYCIN RESISTANT ENTEROCOCCUS SPECIES <1+ Methicillin resistant Staphylococcus aureus Ampicillin (test code=26) Linezolid (test code=40) Vancomycin (test code=13) Daptomycin (test code=59) Susceptible 0-4 , No Interpretations Established <0 or >4 GRAM STAIN RESULT (BEAKER) (test mpfl=5870) <1+ WBCs GRAM STAIN RESULT (BEAKER) (test dbzk=298181) 2+ gram negative rods POCT-GLUCOSE [id number] 07:57:00* Test Item Value Reference Range Comments POC-GLUCOSE METER (BEAKER) (test nmzc=2613) 66 mg/dL 70-110 TESTED AT [address] [address] BLOOD [id number] 06:00:00* Test Item Value Reference Range Comments CULTURE (BEAKER) (test azzi=2981) No growth in 5 days BLOOD [id number] 06:00:00* Test Item Value Reference Range Comments CULTURE (BEAKER) (test lewh=2183) No growth in 5 days CBC W/PLT COUNT & AUTO [id number] 05:56:00* Test Item Value Reference Range Comments WHITE BLOOD CELL COUNT (BEAKER) (test qana=749) 11.8 K/ L 3.5-10.5 RED BLOOD CELL COUNT (BEAKER) (test zpkc=432) 3.15 M/ L 3.93-5.22 HEMOGLOBIN (BEAKER) (test hcjd=166) 8.5 GM/DL 11.2-15.7 HEMATOCRIT (BEAKER) (test jumv=191) 27.3 % 34.1-44.9 MEAN CORPUSCULAR VOLUME (BEAKER) (test gubn=745) 86.7 fL 79.4-94.8 MEAN CORPUSCULAR HEMOGLOBIN (BEAKER) (test knyk=893) 27.0 pg 25.6-32.2 MEAN CORPUSCULAR HEMOGLOBIN CONC (BEAKER) (test aajf=771) 31.1 GM/DL 32.2-35.5 RED CELL DISTRIBUTION WIDTH (BEAKER) (test oyig=165) 14.9 % 11.7-14.4 PLATELET COUNT (BEAKER) (test ngqt=987) 312 K/CU MM 150-450 Discordant PLT results compared to previous results; clinical correlation required. MEAN PLATELET VOLUME (BEAKER) (test bbdf=424) 10.2 fL 9.4-12.3 NUCLEATED RED BLOOD CELLS (BEAKER) (test qwrh=170) 0 /100 WBC 0-0 NEUTROPHILS RELATIVE PERCENT (BEAKER) (test mhqt=984) 65 % LYMPHOCYTES RELATIVE PERCENT (BEAKER) (test wzko=164) 24 % MONOCYTES RELATIVE PERCENT (BEAKER) (test luku=239) 6 % EOSINOPHILS RELATIVE PERCENT (BEAKER) (test xmuh=771) 4 % BASOPHILS RELATIVE PERCENT (BEAKER) (test bpfn=232) 0 % NEUTROPHILS ABSOLUTE COUNT (BEAKER) (test pbdb=195) 7.60 K/ L 1.56-6.13 LYMPHOCYTES ABSOLUTE COUNT (BEAKER) (test bhwo=122) 2.82 K/ L 1.18-3.74 MONOCYTES ABSOLUTE COUNT (BEAKER) (test qugt=593) 0.75 K/ L 0.24-0.36 EOSINOPHILS ABSOLUTE COUNT (BEAKER) (test rrec=533) 0.50 K/ L 0.04-0.36 BASOPHILS ABSOLUTE COUNT (BEAKER) (test ujnx=966) 0.05 K/ L 0.01-0.08 IMMATURE GRANULOCYTES-RELATIVE PERCENT (BEAKER) (test ixzn=6701) 0 % 0-1 BASIC METABOLIC [id number] 05:46:00* Test Item Value Reference Range Comments SODIUM (BEAKER) (test iiao=273) 142 meq/L 136-145 POTASSIUM (BEAKER) (test chiy=996) 3.9 meq/L 3.5-5.1 CHLORIDE (BEAKER) (test sjma=425) 110 meq/L 98-107 CO2 (BEAKER) (test eino=617) 26 meq/L 22-29 BLOOD UREA NITROGEN (BEAKER) (test hneg=052) 34 mg/dL 7-21 CREATININE (BEAKER) (test mask=262) 1.15 mg/dL 0.57-1.25 GLUCOSE RANDOM (BEAKER) (test ekhe=729) 75 mg/dL 70-105 CALCIUM (BEAKER) (test odja=055) 8.4 mg/dL 8.4-10.2 EGFR (BEAKER) (test futc=9847) 47 mL/min/1.73 sq m ESTIMATED GFR IS NOT ACCURATE CREATININE CLEARANCE IN PREDICTING GLOMERULAR FILTRATION RATE. ESTIMATED GFR IS NOT APPLICABLE FOR DIALYSIS PATIENTS. ANAEROBIC [id number] 02:17:00* Test Item Value Reference Range Comments CULTURE (BEAKER) (test cxjp=5044) No anaerobes isolated POCT-GLUCOSE [id number] 21:16:00* Test Item Value Reference Range Comments POC-GLUCOSE METER (BEAKER) (test lafh=4693) 229 mg/dL 70-110 TESTED AT [address] [address] POCT-GLUCOSE [id number] 17:37:00* Test Item Value Reference Range Comments POC-GLUCOSE METER (BEAKER) (test dowk=2515) 145 mg/dL 70-110 TESTED AT [address] [address] POCT-GLUCOSE [id number] 12:59:00* Test Item Value Reference Range Comments POC-GLUCOSE METER (BEAKER) (test qraw=1423) 185 mg/dL 70-110 TESTED AT [address] [address] POCT-GLUCOSE [id number] 11:57:00* Test Item Value Reference Range Comments POC-GLUCOSE METER (BEAKER) (test maco=2370) 110 mg/dL 70-110 TESTED AT [address] [address] BASIC METABOLIC [id number] 07:26:00* Test Item Value Reference Range Comments SODIUM (BEAKER) (test sovn=161) 141 meq/L 136-145 POTASSIUM (BEAKER) (test uqdu=138) 4.0 meq/L 3.5-5.1 CHLORIDE (BEAKER) (test rhar=635) 110 meq/L 98-107 CO2 (BEAKER) (test kdoh=311) 24 meq/L 22-29 BLOOD UREA NITROGEN (BEAKER) (test xcss=750) 38 mg/dL 7-21 CREATININE (BEAKER) (test mdqs=899) 1.28 mg/dL 0.57-1.25 GLUCOSE RANDOM (BEAKER) (test yntp=288) 136 mg/dL 70-105 CALCIUM (BEAKER) (test bcea=323) 8.3 mg/dL 8.4-10.2 EGFR (BEAKER) (test ckhb=3668) 41 mL/min/1.73 sq m ESTIMATED GFR IS NOT ACCURATE CREATININE CLEARANCE IN PREDICTING GLOMERULAR FILTRATION RATE. ESTIMATED GFR IS NOT APPLICABLE FOR DIALYSIS PATIENTS. CBC W/PLT COUNT & AUTO [id number] 06:51:00* Test Item Value Reference Range Comments WHITE BLOOD CELL COUNT (BEAKER) (test hovd=706) 11.8 K/ L 3.5-10.5 RED BLOOD CELL COUNT (BEAKER) (test fqpn=396) 3.33 M/ L 3.93-5.22 HEMOGLOBIN (BEAKER) (test ywxd=414) 8.8 GM/DL 11.2-15.7 HEMATOCRIT (BEAKER) (test xwom=727) 29.0 % 34.1-44.9 MEAN CORPUSCULAR VOLUME (BEAKER) (test mnfg=796) 87.1 fL 79.4-94.8 MEAN CORPUSCULAR HEMOGLOBIN (BEAKER) (test uwdq=068) 26.4 pg 25.6-32.2 MEAN CORPUSCULAR HEMOGLOBIN CONC (BEAKER) (test ubsp=535) 30.3 GM/DL 32.2-35.5 RED CELL DISTRIBUTION WIDTH (BEAKER) (test jiyu=549) 14.9 % 11.7-14.4 PLATELET COUNT (BEAKER) (test wmcw=305) 367 K/CU MM 150-450 MEAN PLATELET VOLUME (BEAKER) (test yitx=579) 10.5 fL 9.4-12.3 NUCLEATED RED BLOOD CELLS (BEAKER) (test lcnx=989) 0 /100 WBC 0-0 NEUTROPHILS RELATIVE PERCENT (BEAKER) (test dnui=224) 60 % LYMPHOCYTES RELATIVE PERCENT (BEAKER) (test cmxc=323) 29 % MONOCYTES RELATIVE PERCENT (BEAKER) (test qpvg=482) 7 % EOSINOPHILS RELATIVE PERCENT (BEAKER) (test tayp=006) 4 % BASOPHILS RELATIVE PERCENT (BEAKER) (test tulh=670) 1 % NEUTROPHILS ABSOLUTE COUNT (BEAKER) (test rhin=254) 7.04 K/ L 1.56-6.13 LYMPHOCYTES ABSOLUTE COUNT (BEAKER) (test cpim=519) 3.37 K/ L 1.18-3.74 MONOCYTES ABSOLUTE COUNT (BEAKER) (test qczv=447) 0.76 K/ L 0.24-0.36 EOSINOPHILS ABSOLUTE COUNT (BEAKER) (test ritv=446) 0.47 K/ L 0.04-0.36 BASOPHILS ABSOLUTE COUNT (BEAKER) (test ahvk=736) 0.08 K/ L 0.01-0.08 IMMATURE GRANULOCYTES-RELATIVE PERCENT (BEAKER) (test srth=9504) 1 % 0-1 POCT-GLUCOSE [id number] 21:12:00* Test Item Value Reference Range Comments POC-GLUCOSE METER (QUOC) (test ewke=6273) 213 mg/dL 70-110 TESTED AT [place] [id number] POCT-GLUCOSE [id number] 18:10:00* Test Item Value Reference Range Comments POC-GLUCOSE METER (QUOC) (test kwxd=1393) 190 mg/dL 70-110 TESTED AT [place] [id number] POCT-GLUCOSE [id number] 14:30:00* Test Item Value Reference Range Comments POC-GLUCOSE METER (QUOC) (test twty=3506) 200 mg/dL 70-110 TESTED AT [place] [id number] URINE [id number] 08:11:00* Test Item Value Reference Range Comments CULTURE (DANDRE) (test dvtu=3903) VANCOMYCIN RESISTANT ENTEROCOCCUS SPECIES 70-79,000 col/mL Vancomycin resistant Enterococcus species Ampicillin (test code=26) Linezolid (test code=40) Nitrofurantoin (test code=23) Tetracycline (test code=2) Vancomycin (test code=13) Daptomycin (test code=59) Susceptible 0-4 , No Interpretations Established <0 or >4 <10,000 col/mL Gram Negative [place] BASIC METABOLIC [id number] 07:50:00* Test Item Value Reference Range Comments SODIUM (BEAKER) (test lvhz=081) 139 meq/L 136-145 POTASSIUM (BEAKER) (test mxem=848) 4.2 meq/L 3.5-5.1 CHLORIDE (BEAKER) (test bmre=087) 107 meq/L 98-107 CO2 (BEAKER) (test vuxj=956) 23 meq/L 22-29 BLOOD UREA NITROGEN (BEAKER) (test mdqe=115) 40 mg/dL 7-21 CREATININE (BEAKER) (test hgug=523) 1.33 mg/dL 0.57-1.25 GLUCOSE RANDOM (BEAKER) (test xtwn=806) 148 mg/dL 70-105 CALCIUM (BEAKER) (test ztkt=931) 8.5 mg/dL 8.4-10.2 EGFR (BEAKER) (test vryk=6703) 40 mL/min/1.73 sq m ESTIMATED GFR IS NOT ACCURATE CREATININE CLEARANCE IN PREDICTING GLOMERULAR FILTRATION RATE. ESTIMATED GFR IS NOT APPLICABLE FOR DIALYSIS PATIENTS. CREATINE KINASE (CK)2017-07-28 07:50:00* Test Item Value Reference Range Comments CREATINE KINASE TOTAL (BEAKER) (test lfum=772) 68 U/L 29-200 CBC W/PLT COUNT & AUTO [id number] 07:25:00* Test Item Value Reference Range Comments WHITE BLOOD CELL COUNT (BEAKER) (test vbcr=050) 13.5 K/ L 3.5-10.5 RED BLOOD CELL COUNT (BEAKER) (test zzic=543) 3.33 M/ L 3.93-5.22 HEMOGLOBIN (BEAKER) (test jvve=491) 8.7 GM/DL 11.2-15.7 HEMATOCRIT (BEAKER) (test bqlq=753) 29.4 % 34.1-44.9 MEAN CORPUSCULAR VOLUME (BEAKER) (test wobp=536) 88.3 fL 79.4-94.8 MEAN CORPUSCULAR HEMOGLOBIN (BEAKER) (test mvph=377) 26.1 pg 25.6-32.2 MEAN CORPUSCULAR HEMOGLOBIN CONC (BEAKER) (test czql=114) 29.6 GM/DL 32.2-35.5 RED CELL DISTRIBUTION WIDTH (BEAKER) (test hjls=324) 14.7 % 11.7-14.4 PLATELET COUNT (BEAKER) (test levk=959) 377 K/CU MM 150-450 MEAN PLATELET VOLUME (BEAKER) (test ozse=091) 10.1 fL 9.4-12.3 NUCLEATED RED BLOOD CELLS (BEAKER) (test ueyw=213) 0 /100 WBC 0-0 NEUTROPHILS RELATIVE PERCENT (BEAKER) (test rvqo=661) 66 % LYMPHOCYTES RELATIVE PERCENT (BEAKER) (test csyk=177) 24 % MONOCYTES RELATIVE PERCENT (BEAKER) (test jhsj=027) 7 % EOSINOPHILS RELATIVE PERCENT (BEAKER) (test pgea=098) 2 % BASOPHILS RELATIVE PERCENT (BEAKER) (test bvuk=208) 0 % NEUTROPHILS ABSOLUTE COUNT (BEAKER) (test ekva=069) 8.87 K/ L 1.56-6.13 LYMPHOCYTES ABSOLUTE COUNT (BEAKER) (test gayg=004) 3.27 K/ L 1.18-3.74 MONOCYTES ABSOLUTE COUNT (BEAKER) (test ifnj=044) 0.92 K/ L 0.24-0.36 EOSINOPHILS ABSOLUTE COUNT (BEAKER) (test wgmw=140) 0.28 K/ L 0.04-0.36 BASOPHILS ABSOLUTE COUNT (BEAKER) (test rfpq=008) 0.06 K/ L 0.01-0.08 IMMATURE GRANULOCYTES-RELATIVE PERCENT (BEAKER) (test sgev=4057) 0 % 0-1 CT, SPINE, THORACIC, WO [id number] 23:51:00FINAL REPORT CT, SPINE, THORACIC, WO CONTRAST INDICATION: [...] dose to as low as reasonably achievable. FINDINGS:There is complete loss of disc space height at T9-T10 with destructive endplate changes at this level. There is a moderate amount of inflammatory change in the perivertebral soft tissues. No malalignment.Mild to moderate multilevel degenerative disc disease throughout the thoracic spine.No obvious cord abnormality, large epidural fluid collection, or severe canal narrowing. MRI would be needed for further evaluation. Limited evaluation of the soft tissue structures demonstrates small bilateral pleural ef fusions, right greater than left, with adjacent airspace disease.Nonobstructing stone in the lower pole of the left kidney.Cardiomegaly. IMPRESSION: Destructive endplate changes at the T9-T10 level compatible with osteomyelitis/discitis.No obvious abnormality of the spinal canal. MRI can be obtained for further evaluat ion of the cord and epidural space. Signed: Germaine Gentile MDReport Verified Date/Time: 07/27/2017 23:51:36 Reading Location: [facility] B1 [id number] Ortho Consult Re ading Room -GLUCOSE [id number] 21:30:00* Test Item Value Reference Range Comments POC-GLUCOSE METER (BEAKER) (test qmpd=9466) 207 mg/dL 70-110 TESTED AT [facility] [address] [facility] [address] POCT-GLUCOSE [id number] 17:58:00* Test Item Value Reference Range Comments POC-GLUCOSE METER (BEAKER) (test djyr=2753) 281 mg/dL 70-110 TESTED AT [facility] [address] [facility] [address] POCT-GLUCOSE [id number] 11:51:00* Test Item Value Reference Range Comments POC-GLUCOSE METER (BEAKER) (test yqly=2914) 172 mg/dL 70-110 TESTED AT [facility] [address] [facility] [address] URINE [id number] 10:22:00* Test Item Value Reference Range Comments CULTURE (BEAKER) (test spmi=4207) >100,000 col/mL Same organism has been isolated from culture(s) of the same body site within 3 days. Repeat identification performed only after consultation with the clinical microbiology laboratory.Refer to previous culture ofVancomycin resistant Enterococcus species <10,000 col/mL Gram Negative RodsPOCT-GLUCOSE [id number] 07:54:00* Test Item Value Reference Range Comments POC-GLUCOSE METER (BEAKER) (test vlfj=8637) 189 mg/dL 70-110 TESTED AT [place] [id number] [facility] [address] SPIN/CONCENTRATION [id number] 22:15:00* Test Item Value Reference Range Comments CONCENTRATION CHARGED (BEAKER) (test qddq=4726) Done POCT-GLUCOSE [id number] 21:37:00* Test Item Value Reference Range Comments POC-GLUCOSE METER (BEAKER) (test zdvy=0123) 261 mg/dL 70-110 TESTED AT [address] [address] POCT-GLUCOSE [id number] 18:09:00* Test Item Value Reference Range Comments POC-GLUCOSE METER (BEAKER) (test ssdf=3804) 245 mg/dL 70-110 TESTED AT [address] [address] POCT-GLUCOSE [id number] 12:28:00* Test Item Value Reference Range Comments POC-GLUCOSE METER (BEAKER) (test dfyx=4229) 217 mg/dL 70-110 TESTED AT [address] [address] SEDIMENTATION [id number] 09:40:00* Test Item Value Reference Range Comments SEDIMENTATION RATE, ERYTHROCYTE (BEAKER) (test rzks=074) 93 mm/HR 0-40 POCT-GLUCOSE [id number] 08:20:00* Test Item Value Reference Range Comments POC-GLUCOSE METER (BEAKER) (test kjoh=1295) 213 mg/dL 70-110 TESTED AT [address] [address] BASIC METABOLIC [id number] 07:38:00* Test Item Value Reference Range Comments SODIUM (BEAKER) (test oxje=079) 136 meq/L 136-145 POTASSIUM (BEAKER) (test gjnd=812) 5.1 meq/L 3.5-5.1 CHLORIDE (BEAKER) (test gexh=674) 104 meq/L 98-107 CO2 (BEAKER) (test aeul=645) 20 meq/L 22-29 BLOOD UREA NITROGEN (BEAKER) (test ewgb=306) 39 mg/dL 7-21 CREATININE (BEAKER) (test tpsp=144) 1.69 mg/dL 0.57-1.25 GLUCOSE RANDOM (BEAKER) (test zbtd=063) 198 mg/dL 70-105 CALCIUM (BEAKER) (test dikz=957) 8.8 mg/dL 8.4-10.2 EGFR (BEAKER) (test bdqj=7692) 30 mL/min/1.73 sq m ESTIMATED GFR IS NOT ACCURATE CREATININE CLEARANCE IN PREDICTING GLOMERULAR FILTRATION RATE. ESTIMATED GFR IS NOT APPLICABLE FOR DIALYSIS PATIENTS. C-REACTIVE [id number] 07:38:00* Test Item Value Reference Range Comments C-REACTIVE PROTEIN (BEAKER) (test xtuy=957) 5.46 mg/dL 0.00-0.50 CBC W/PLT COUNT & AUTO [id number] 06:49:00* Test Item Value Reference Range Comments WHITE BLOOD CELL COUNT (BEAKER) (test vsqx=847) 8.4 K/ L 3.5-10.5 RED BLOOD CELL COUNT (BEAKER) (test grdb=625) 3.40 M/ L 3.93-5.22 HEMOGLOBIN (BEAKER) (test yxdy=890) 9.2 GM/DL 11.2-15.7 HEMATOCRIT (BEAKER) (test ugbz=197) 29.5 % 34.1-44.9 MEAN CORPUSCULAR VOLUME (BEAKER) (test natl=923) 86.8 fL 79.4-94.8 MEAN CORPUSCULAR HEMOGLOBIN (BEAKER) (test jrit=851) 27.1 pg 25.6-32.2 MEAN CORPUSCULAR HEMOGLOBIN CONC (BEAKER) (test oxco=377) 31.2 GM/DL 32.2-35.5 RED CELL DISTRIBUTION WIDTH (BEAKER) (test fztj=222) 14.6 % 11.7-14.4 PLATELET COUNT (BEAKER) (test vhch=130) 408 K/CU MM 150-450 MEAN PLATELET VOLUME (BEAKER) (test oddg=209) 10.3 fL 9.4-12.3 NUCLEATED RED BLOOD CELLS (BEAKER) (test hxqb=794) 0 /100 WBC 0-0 NEUTROPHILS RELATIVE PERCENT (BEAKER) (test egtp=142) 78 % LYMPHOCYTES RELATIVE PERCENT (BEAKER) (test rsvg=779) 18 % MONOCYTES RELATIVE PERCENT (BEAKER) (test mxsk=166) 3 % EOSINOPHILS RELATIVE PERCENT (BEAKER) (test rkvq=727) 0 % BASOPHILS RELATIVE PERCENT (BEAKER) (test wcgp=350) 0 % NEUTROPHILS ABSOLUTE COUNT (BEAKER) (test vedv=820) 6.59 K/ L 1.56-6.13 LYMPHOCYTES ABSOLUTE COUNT (BEAKER) (test nlzx=377) 1.51 K/ L 1.18-3.74 MONOCYTES ABSOLUTE COUNT (BEAKER) (test ntna=832) 0.27 K/ L 0.24-0.36 EOSINOPHILS ABSOLUTE COUNT (BEAKER) (test bjcd=280) 0.00 K/ L 0.04-0.36 BASOPHILS ABSOLUTE COUNT (BEAKER) (test sedc=088) 0.01 K/ L 0.01-0.08 IMMATURE GRANULOCYTES-RELATIVE PERCENT (BEAKER) (test ymau=2651) 1 % 0-1 VANCOMYCIN LEVEL, [id number] 22:14:00* Test Item Value Reference Range Comments VANCOMYCIN TROUGH (BEAKER) (test vdmp=687) 23.1 ug/mL 10.0-20.0 Please draw 30 min prior to fourth dose of vancomycinPOCT-GLUCOSE METER 2017-07-25 21:42:00* Test Item Value Reference Range Comments POC-GLUCOSE METER (BEAKER) (test vfqr=7637) 216 mg/dL 70-110 TESTED AT [address] [address] POCT-GLUCOSE [id number] 13:15:00* Test Item Value Reference Range Comments POC-GLUCOSE METER (BEAKER) (test cvcq=1010) 123 mg/dL 70-110 TESTED AT [address] [address] BASIC METABOLIC [id number] 09:35:00* Test Item Value Reference Range Comments SODIUM (BEAKER) (test awwr=809) 140 meq/L 136-145 POTASSIUM (BEAKER) (test grar=200) 4.0 meq/L 3.5-5.1 CHLORIDE (BEAKER) (test ycra=917) 109 meq/L 98-107 CO2 (BEAKER) (test dnik=103) 23 meq/L 22-29 BLOOD UREA NITROGEN (BEAKER) (test fhyp=239) 37 mg/dL 7-21 CREATININE (BEAKER) (test lnwr=626) 1.63 mg/dL 0.57-1.25 GLUCOSE RANDOM (BEAKER) (test fkwh=269) 51 mg/dL 70-105 CALCIUM (BEAKER) (test iwqx=431) 8.1 mg/dL 8.4-10.2 EGFR (BEAKER) (test fori=0629) 31 mL/min/1.73 sq m ESTIMATED GFR IS NOT ACCURATE CREATININE CLEARANCE IN PREDICTING GLOMERULAR FILTRATION RATE. ESTIMATED GFR IS NOT APPLICABLE FOR DIALYSIS PATIENTS. CBC W/PLT COUNT & AUTO [id number] 09:31:00* Test Item Value Reference Range Comments WHITE BLOOD CELL COUNT (BEAKER) (test cjtg=106) 10.9 K/ L 3.5-10.5 RED BLOOD CELL COUNT (BEAKER) (test sdak=495) 3.09 M/ L 3.93-5.22 HEMOGLOBIN (BEAKER) (test kmke=659) 8.2 GM/DL 11.2-15.7 HEMATOCRIT (BEAKER) (test kvvv=186) 26.6 % 34.1-44.9 MEAN CORPUSCULAR VOLUME (BEAKER) (test tevu=480) 86.1 fL 79.4-94.8 MEAN CORPUSCULAR HEMOGLOBIN (BEAKER) (test tyde=479) 26.5 pg 25.6-32.2 MEAN CORPUSCULAR HEMOGLOBIN CONC (BEAKER) (test ytwq=510) 30.8 GM/DL 32.2-35.5 RED CELL DISTRIBUTION WIDTH (BEAKER) (test snou=092) 14.6 % 11.7-14.4 PLATELET COUNT (BEAKER) (test ysdo=599) 368 K/CU MM 150-450 MEAN PLATELET VOLUME (BEAKER) (test ffhj=209) 9.8 fL 9.4-12.3 NUCLEATED RED BLOOD CELLS (BEAKER) (test bpqh=262) 0 /100 WBC 0-0 NEUTROPHILS RELATIVE PERCENT (BEAKER) (test exgv=176) 66 % LYMPHOCYTES RELATIVE PERCENT (BEAKER) (test sbvr=301) 24 % MONOCYTES RELATIVE PERCENT (BEAKER) (test tvan=913) 7 % EOSINOPHILS RELATIVE PERCENT (BEAKER) (test cnmi=489) 3 % BASOPHILS RELATIVE PERCENT (BEAKER) (test zqfu=306) 1 % NEUTROPHILS ABSOLUTE COUNT (BEAKER) (test sczd=454) 7.13 K/ L 1.56-6.13 LYMPHOCYTES ABSOLUTE COUNT (BEAKER) (test ikdr=633) 2.58 K/ L 1.18-3.74 MONOCYTES ABSOLUTE COUNT (BEAKER) (test goou=840) 0.79 K/ L 0.24-0.36 EOSINOPHILS ABSOLUTE COUNT (BEAKER) (test laqs=344) 0.30 K/ L 0.04-0.36 BASOPHILS ABSOLUTE COUNT (BEAKER) (test figh=937) 0.05 K/ L 0.01-0.08 IMMATURE GRANULOCYTES-RELATIVE PERCENT (BEAKER) (test rutm=5810) 1 % 0-1 URINALYSIS W/ [id number] 00:03:00* Test Item Value Reference Range Comments COLOR (BEAKER) (test dums=959) Light Yellow CLARITY (BEAKER) (test yntx=336) Clear SPECIFIC GRAVITY UA (BEAKER) (test htjq=877) 1.009 1.001-1.035 PH UA (BEAKER) (test jsqg=460) 5.5 5.0-8.0 PROTEIN UA (BEAKER) (test qake=111) Negative Negative GLUCOSE UA (BEAKER) (test chio=083) Negative Negative KETONES UA (BEAKER) (test zjvx=774) Negative Negative BILIRUBIN UA (BEAKER) (test gfyc=338) Negative Negative BLOOD UA (BEAKER) (test knrx=235) Negative Negative NITRITE UA (BEAKER) (test sglq=164) Negative Negative LEUKOCYTE ESTERASE UA (BEAKER) (test kohh=348) Large Negative UROBILINOGEN UA (BEAKER) (test tosy=643) 0.2 mg/dL 0.2-1.0 RBC UA (BEAKER) (test bkdq=245) 2 /HPF WBC UA (BEAKER) (test zjes=027) 54 /HPF BACTERIA (BEAKER) (test ddwy=514) Occasional MUCUS (BEAKER) (test suqo=1586) Rare SQUAMOUS EPITHELIAL (BEAKER) (test ndsv=911) < /HPF HYALINE CASTS (BEAKER) (test mtyw=005) 2 /LPF SOURCE(BEAKER) (test eqfv=3242) Urine, Clean Catch RAD, CHEST, 1 VIEW, NON [id number] 18:53:00Reason for exam:->check picc placement Should this be performed at the bedside?->YesFINAL REPORT Chest x-ray Clinical History: check picc placement Comparison: May 28, 2017 Views: One AP lordotic Chest x-ray:The cardiac and mediastinal silhouettes are within normal [...] in the right atrium. Subsegmental atelectasis is v isualized bilaterally. Signed: Stacie Prabhakar MDReport Verified Date/Time: 018 18:53:53 Reading Location: [facility] C013W Consult Reading Room Electronic ally signed by: STACIE PRABHAKAR M.D. on 07/24/2017 06:53 PM POCT-GLUCOSE METER 2017-07-24 17:07:00* Test Item Value Reference Range Comments POC-GLUCOSE METER (BEAKER) (test odhe=3445) 254 mg/dL 70-110 TESTED AT [facility] [address] [facility] [address] COMPREHENSIVE METABOLIC [id number] 16:08:00* Test Item Value Reference Range Comments TOTAL PROTEIN (BEAKER) (test jxxd=158) 8.3 gm/dL 6.0-8.3 Specimen slightly hemolyzed ALBUMIN (BEAKER) (test mrhg=3391) 3.5 g/dL 3.5-5.0 Specimen slightly hemolyzed ALKALINE PHOSPHATASE (BEAKER) (test vcfr=847) 87 U/L 40-150 BILIRUBIN TOTAL (BEAKER) (test hlmj=224) 0.3 mg/dL 0.2-1.2 Specimen slightly hemolyzed SODIUM (BEAKER) (test wkeg=865) 136 meq/L 136-145 POTASSIUM (BEAKER) (test uawl=233) 5.1 meq/L 3.5-5.1 Specimen slightly hemolyzed CHLORIDE (BEAKER) (test mmxa=908) 103 meq/L 98-107 CO2 (BEAKER) (test dctg=623) 23 meq/L 22-29 BLOOD UREA NITROGEN (BEAKER) (test jjca=487) 40 mg/dL 7-21 CREATININE (BEAKER) (test sxfr=627) 2.10 mg/dL 0.57-1.25 Specimen slightly hemolyzed GLUCOSE RANDOM (BEAKER) (test lymv=775) 245 mg/dL 70-105 CALCIUM (BEAKER) (test frqn=828) 9.1 mg/dL 8.4-10.2 AST (SGOT) (BEAKER) (test nmdo=849) 11 U/L 5-34 Specimen slightly hemolyzed ALT (SGPT) (BEAKER) (test sgxc=290) < U/L 6-55 Specimen slightly hemolyzed EGFR (BEAKER) (test nlej=4585) 23 mL/min/1.73 sq m ESTIMATED GFR IS NOT ACCURATE CREATININE CLEARANCE IN PREDICTING GLOMERULAR FILTRATION RATE. ESTIMATED GFR IS NOT APPLICABLE FOR DIALYSIS PATIENTS. CBC W/PLT COUNT & AUTO [id number] 15:59:00* Test Item Value Reference Range Comments WHITE BLOOD CELL COUNT (BEAKER) (test meny=277) 13.1 K/ L 3.5-10.5 RED BLOOD CELL COUNT (BEAKER) (test jagw=516) 3.85 M/ L 3.93-5.22 HEMOGLOBIN (BEAKER) (test ylng=959) 10.2 GM/DL 11.2-15.7 HEMATOCRIT (BEAKER) (test miou=930) 32.7 % 34.1-44.9 MEAN CORPUSCULAR VOLUME (BEAKER) (test bmss=899) 84.9 fL 79.4-94.8 MEAN CORPUSCULAR HEMOGLOBIN (BEAKER) (test dtay=786) 26.5 pg 25.6-32.2 MEAN CORPUSCULAR HEMOGLOBIN CONC (BEAKER) (test cwuc=633) 31.2 GM/DL 32.2-35.5 RED CELL DISTRIBUTION WIDTH (BEAKER) (test rtxj=270) 14.4 % 11.7-14.4 PLATELET COUNT (BEAKER) (test wfrg=088) 476 K/CU MM 150-450 MEAN PLATELET VOLUME (BEAKER) (test jyzr=757) 10.2 fL 9.4-12.3 NUCLEATED RED BLOOD CELLS (BEAKER) (test yoef=669) 0 /100 WBC 0-0 NEUTROPHILS RELATIVE PERCENT (BEAKER) (test erlh=497) 70 % LYMPHOCYTES RELATIVE PERCENT (BEAKER) (test yhwj=582) 21 % MONOCYTES RELATIVE PERCENT (BEAKER) (test xlhj=659) 6 % EOSINOPHILS RELATIVE PERCENT (BEAKER) (test crnk=219) 2 % BASOPHILS RELATIVE PERCENT (BEAKER) (test ftdg=688) 1 % NEUTROPHILS ABSOLUTE COUNT (BEAKER) (test xnbs=377) 9.18 K/ L 1.56-6.13 LYMPHOCYTES ABSOLUTE COUNT (BEAKER) (test cklk=151) 2.74 K/ L 1.18-3.74 MONOCYTES ABSOLUTE COUNT (BEAKER) (test cezs=766) 0.75 K/ L 0.24-0.36 EOSINOPHILS ABSOLUTE COUNT (BEAKER) (test dhyi=126) 0.22 K/ L 0.04-0.36 BASOPHILS ABSOLUTE COUNT (BEAKER) (test wznk=002) 0.09 K/ L 0.01-0.08 IMMATURE GRANULOCYTES-RELATIVE PERCENT (BEAKER) (test fjfl=3382) 1 % 0-1 PROTHROMBIN [id number] 15:34:00* Test Item Value Reference Range Comments PROTIME (BEAKER) (test fick=699) 14.9 seconds 11.7-14.7 INR (BEAKER) (test vnlp=417) 1.2 <=5.9 RECOMMENDED COUMADIN/WARFARIN INR THERAPY RANGESSTANDARD DOSE: 2.0 - 3.0 Inclu yary: PROPHYLAXIS for venous thrombosis, systemic embolization; TREATMENT for bishnu ous thrombosis and/or pulmonary embolus.HIGH RISK: Target INR is 2.5-3.5 for pat ients with mechanical heart valves.POCT-GLUCOSE [id number] 12:43:00* Test Item Value Reference Range Comments POC-GLUCOSE METER (BEAKER) (test hqwm=3940) 237 mg/dL 70-110 TESTED AT [facility] [address] [id number] CBC W/PLT COUNT & AUTO [id number] 08:59:00* Test Item Value Reference Range Comments WHITE BLOOD CELL COUNT (BEAKER) (test chys=803) 11.4 K/ L 3.5-10.5 RED BLOOD CELL COUNT (BEAKER) (test egca=345) 3.53 M/ L 3.93-5.22 HEMOGLOBIN (BEAKER) (test clzx=138) 9.9 GM/DL 11.2-15.7 HEMATOCRIT (BEAKER) (test wnoh=632) 31.6 % 34.1-44.9 MEAN CORPUSCULAR VOLUME (BEAKER) (test nnxj=599) 89.5 fL 79.4-94.8 MEAN CORPUSCULAR HEMOGLOBIN (BEAKER) (test xvlb=885) 28.0 pg 25.6-32.2 MEAN CORPUSCULAR HEMOGLOBIN CONC (BEAKER) (test kfwg=605) 31.3 GM/DL 32.2-35.5 RED CELL DISTRIBUTION WIDTH (BEAKER) (test niye=195) 16.1 % 11.7-14.4 PLATELET COUNT (BEAKER) (test ezgr=854) 417 K/CU MM 150-450 MEAN PLATELET VOLUME (BEAKER) (test zdnu=081) 10.9 fL 9.4-12.3 NUCLEATED RED BLOOD CELLS (BEAKER) (test sqxu=160) 0 /100 WBC 0-0 NEUTROPHILS RELATIVE PERCENT (BEAKER) (test gfxk=070) 65 % LYMPHOCYTES RELATIVE PERCENT (BEAKER) (test shan=381) 23 % MONOCYTES RELATIVE PERCENT (BEAKER) (test hwoc=421) 5 % EOSINOPHILS RELATIVE PERCENT (BEAKER) (test oowd=579) 6 % BASOPHILS RELATIVE PERCENT (BEAKER) (test iutk=521) 0 % NEUTROPHILS ABSOLUTE COUNT (BEAKER) (test rdry=759) 7.38 K/ L 1.56-6.13 LYMPHOCYTES ABSOLUTE COUNT (BEAKER) (test dpti=392) 2.67 K/ L 1.18-3.74 MONOCYTES ABSOLUTE COUNT (BEAKER) (test uenh=172) 0.56 K/ L 0.24-0.36 EOSINOPHILS ABSOLUTE COUNT (BEAKER) (test wxay=415) 0.69 K/ L 0.04-0.36 BASOPHILS ABSOLUTE COUNT (BEAKER) (test dkaf=045) 0.05 K/ L 0.01-0.08 IMMATURE GRANULOCYTES-RELATIVE PERCENT (BEAKER) (test rxkp=2214) 1 % 0-1 POCT-GLUCOSE [id number] 08:09:00* Test Item Value Reference Range Comments POC-GLUCOSE METER (BEAKER) (test sgpb=7318) 224 mg/dL 70-110 TESTED AT [facility] [address] [facility] [id number] [id number] 07:12:00* Test Item Value Reference Range Comments PHOSPHORUS (BEAKER) (test qhkm=033) 5.7 mg/dL 2.3-4.7 [id number] 07:12:00* Test Item Value Reference Range Comments MAGNESIUM (BEAKER) (test junl=067) 1.9 mg/dL 1.6-2.6 BASIC METABOLIC [id number] 07:12:00* Test Item Value Reference Range Comments SODIUM (BEAKER) (test gujm=065) 134 meq/L 136-145 POTASSIUM (BEAKER) (test yjui=997) 4.8 meq/L 3.5-5.1 CHLORIDE (BEAKER) (test cyad=789) 95 meq/L 98-107 CO2 (BEAKER) (test soai=886) 29 meq/L 22-29 BLOOD UREA NITROGEN (BEAKER) (test ingu=274) 47 mg/dL 7-21 CREATININE (BEAKER) (test spdu=991) 1.58 mg/dL 0.57-1.25 GLUCOSE RANDOM (BEAKER) (test mlny=476) 209 mg/dL 70-105 CALCIUM (BEAKER) (test wprb=201) 8.7 mg/dL 8.4-10.2 EGFR (BEAKER) (test ypcd=8980) 32 mL/min/1.73 sq m ESTIMATED GFR IS NOT ACCURATE CREATININE CLEARANCE IN PREDICTING GLOMERULAR FILTRATION RATE. ESTIMATED GFR IS NOT APPLICABLE FOR DIALYSIS PATIENTS. POCT-GLUCOSE [id number] 20:55:00* Test Item Value Reference Range Comments POC-GLUCOSE METER (BEAKER) (test zpne=3854) 377 mg/dL 70-110 TESTED AT [place] [id number] POCT-GLUCOSE [id number] 17:42:00* Test Item Value Reference Range Comments POC-GLUCOSE METER (BEAKER) (test qlfq=4698) 269 mg/dL 70-110 TESTED AT [address] [address] POCT-GLUCOSE [id number] 10:49:00* Test Item Value Reference Range Comments POC-GLUCOSE METER (BEAKER) (test igcc=6797) 245 mg/dL 70-110 TESTED AT [address] [address] [id number] 07:01:00* Test Item Value Reference Range Comments PHOSPHORUS (BEAKER) (test ldma=844) 5.6 mg/dL 2.3-4.7 [id number] 07:01:00* Test Item Value Reference Range Comments MAGNESIUM (BEAKER) (test nuac=061) 1.6 mg/dL 1.6-2.6 BASIC METABOLIC [id number] 07:01:00* Test Item Value Reference Range Comments SODIUM (BEAKER) (test hljt=999) 137 meq/L 136-145 POTASSIUM (BEAKER) (test hvyw=396) 4.4 meq/L 3.5-5.1 CHLORIDE (BEAKER) (test jzlo=169) 97 meq/L 98-107 CO2 (BEAKER) (test gkxw=173) 30 meq/L 22-29 BLOOD UREA NITROGEN (BEAKER) (test fxnt=374) 42 mg/dL 7-21 CREATININE (BEAKER) (test jucg=755) 1.53 mg/dL 0.57-1.25 GLUCOSE RANDOM (BEAKER) (test upod=623) 146 mg/dL 70-105 CALCIUM (BEAKER) (test pnvh=006) 8.9 mg/dL 8.4-10.2 EGFR (BEAKER) (test bxmd=9348) 34 mL/min/1.73 sq m ESTIMATED GFR IS NOT ACCURATE CREATININE CLEARANCE IN PREDICTING GLOMERULAR FILTRATION RATE. ESTIMATED GFR IS NOT APPLICABLE FOR DIALYSIS PATIENTS. CBC W/PLT COUNT & AUTO [id number] 06:32:00* Test Item Value Reference Range Comments WHITE BLOOD CELL COUNT (BEAKER) (test isjj=973) 11.4 K/ L 3.5-10.5 RED BLOOD CELL COUNT (BEAKER) (test yytv=351) 3.49 M/ L 3.93-5.22 HEMOGLOBIN (BEAKER) (test pjvd=718) 9.8 GM/DL 11.2-15.7 HEMATOCRIT (BEAKER) (test obgw=706) 31.4 % 34.1-44.9 MEAN CORPUSCULAR VOLUME (BEAKER) (test xdzp=061) 90.0 fL 79.4-94.8 MEAN CORPUSCULAR HEMOGLOBIN (BEAKER) (test abqf=717) 28.1 pg 25.6-32.2 MEAN CORPUSCULAR HEMOGLOBIN CONC (BEAKER) (test ocur=816) 31.2 GM/DL 32.2-35.5 RED CELL DISTRIBUTION WIDTH (BEAKER) (test iwsa=366) 15.9 % 11.7-14.4 PLATELET COUNT (BEAKER) (test pcye=723) 458 K/CU MM 150-450 MEAN PLATELET VOLUME (BEAKER) (test zphp=274) 10.3 fL 9.4-12.3 NUCLEATED RED BLOOD CELLS (BEAKER) (test vssv=894) 0 /100 WBC 0-0 NEUTROPHILS RELATIVE PERCENT (BEAKER) (test hqcu=520) 54 % LYMPHOCYTES RELATIVE PERCENT (BEAKER) (test qniw=491) 34 % MONOCYTES RELATIVE PERCENT (BEAKER) (test ukdy=589) 6 % EOSINOPHILS RELATIVE PERCENT (BEAKER) (test mddy=860) 6 % BASOPHILS RELATIVE PERCENT (BEAKER) (test xtnc=862) 0 % NEUTROPHILS ABSOLUTE COUNT (BEAKER) (test sfng=195) 6.11 K/ L 1.56-6.13 LYMPHOCYTES ABSOLUTE COUNT (BEAKER) (test khxs=879) 3.87 K/ L 1.18-3.74 MONOCYTES ABSOLUTE COUNT (BEAKER) (test vlng=806) 0.63 K/ L 0.24-0.36 EOSINOPHILS ABSOLUTE COUNT (BEAKER) (test frap=390) 0.70 K/ L 0.04-0.36 BASOPHILS ABSOLUTE COUNT (BEAKER) (test jiwo=871) 0.05 K/ L 0.01-0.08 IMMATURE GRANULOCYTES-RELATIVE PERCENT (BEAKER) (test abyv=2618) 1 % 0-1 POCT-GLUCOSE [id number] 01:02:00* Test Item Value Reference Range Comments POC-GLUCOSE METER (BEAKER) (test tzud=3141) 272 mg/dL 70-110 TESTED AT [place] [id number] POCT-GLUCOSE [id number] 18:19:00* Test Item Value Reference Range Comments POC-GLUCOSE METER (BEAKER) (test zfcs=9244) 258 mg/dL 70-110 TESTED AT [address] [address] POCT-GLUCOSE [id number] 12:08:00* Test Item Value Reference Range Comments POC-GLUCOSE METER (BEAKER) (test nidm=8188) 220 mg/dL 70-110 TESTED AT [address] [address] BASIC METABOLIC [id number] 11:31:00* Test Item Value Reference Range Comments SODIUM (BEAKER) (test nttv=296) 136 meq/L 136-145 POTASSIUM (BEAKER) (test kxko=829) 4.6 meq/L 3.5-5.1 CHLORIDE (BEAKER) (test vmrw=065) 98 meq/L 98-107 CO2 (BEAKER) (test mtoc=549) 30 meq/L 22-29 BLOOD UREA NITROGEN (BEAKER) (test yyqu=771) 44 mg/dL 7-21 CREATININE (BEAKER) (test idoy=822) 1.66 mg/dL 0.57-1.25 GLUCOSE RANDOM (BEAKER) (test vneu=400) 218 mg/dL 70-105 CALCIUM (BEAKER) (test mzob=390) 8.7 mg/dL 8.4-10.2 EGFR (BEAKER) (test wvvu=3215) 31 mL/min/1.73 sq m ESTIMATED GFR IS NOT ACCURATE CREATININE CLEARANCE IN PREDICTING GLOMERULAR FILTRATION RATE. ESTIMATED GFR IS NOT APPLICABLE FOR DIALYSIS PATIENTS. CBC W/PLT COUNT & AUTO [id number] 11:17:00* Test Item Value Reference Range Comments WHITE BLOOD CELL COUNT (BEAKER) (test raik=285) 10.5 K/ L 3.5-10.5 RED BLOOD CELL COUNT (BEAKER) (test cwfj=106) 3.49 M/ L 3.93-5.22 HEMOGLOBIN (BEAKER) (test iyva=702) 9.6 GM/DL 11.2-15.7 HEMATOCRIT (BEAKER) (test gsbj=393) 30.8 % 34.1-44.9 MEAN CORPUSCULAR VOLUME (BEAKER) (test fhjo=250) 88.3 fL 79.4-94.8 MEAN CORPUSCULAR HEMOGLOBIN (BEAKER) (test qath=999) 27.5 pg 25.6-32.2 MEAN CORPUSCULAR HEMOGLOBIN CONC (BEAKER) (test qmrd=611) 31.2 GM/DL 32.2-35.5 RED CELL DISTRIBUTION WIDTH (BEAKER) (test ytfy=065) 15.9 % 11.7-14.4 PLATELET COUNT (BEAKER) (test ajds=598) 457 K/CU MM 150-450 MEAN PLATELET VOLUME (BEAKER) (test abhv=924) 10.3 fL 9.4-12.3 NUCLEATED RED BLOOD CELLS (BEAKER) (test pngi=368) 0 /100 WBC 0-0 NEUTROPHILS RELATIVE PERCENT (BEAKER) (test rdes=551) 62 % LYMPHOCYTES RELATIVE PERCENT (BEAKER) (test xyxu=939) 27 % MONOCYTES RELATIVE PERCENT (BEAKER) (test hsng=604) 6 % EOSINOPHILS RELATIVE PERCENT (BEAKER) (test icsg=229) 5 % BASOPHILS RELATIVE PERCENT (BEAKER) (test ootr=684) 1 % NEUTROPHILS ABSOLUTE COUNT (BEAKER) (test ckkl=579) 6.45 K/ L 1.56-6.13 LYMPHOCYTES ABSOLUTE COUNT (BEAKER) (test rlzf=205) 2.82 K/ L 1.18-3.74 MONOCYTES ABSOLUTE COUNT (BEAKER) (test qjfr=911) 0.57 K/ L 0.24-0.36 EOSINOPHILS ABSOLUTE COUNT (BEAKER) (test xeuv=007) 0.48 K/ L 0.04-0.36 BASOPHILS ABSOLUTE COUNT (BEAKER) (test tori=849) 0.05 K/ L 0.01-0.08 IMMATURE GRANULOCYTES-RELATIVE PERCENT (BEAKER) (test gpzr=3942) 1 % 0-1 POCT-GLUCOSE [id number] 07:55:00* Test Item Value Reference Range Comments POC-GLUCOSE METER (BEAKER) (test qjce=4303) 184 mg/dL 70-110 TESTED AT [address] [address] POCT-GLUCOSE [id number] 21:07:00* Test Item Value Reference Range Comments POC-GLUCOSE METER (BEAKER) (test iceb=8866) 248 mg/dL 70-110 TESTED AT [address] [address] POCT-GLUCOSE [id number] 18:26:00* Test Item Value Reference Range Comments POC-GLUCOSE METER (BEAKER) (test hwul=2845) 223 mg/dL 70-110 TESTED AT [address] [address] POCT-GLUCOSE [id number] 14:49:00* Test Item Value Reference Range Comments POC-GLUCOSE METER (BEAKER) (test lxur=4520) 220 mg/dL 70-110 TESTED AT [address] [address] [id number] 14:16:00* Test Item Value Reference Range Comments PHOSPHORUS (BEAKER) (test ciad=569) 5.0 mg/dL 2.3-4.7 [id number] 14:16:00* Test Item Value Reference Range Comments MAGNESIUM (BEAKER) (test gpnq=597) 2.0 mg/dL 1.6-2.6 BASIC METABOLIC [id number] 14:16:00* Test Item Value Reference Range Comments SODIUM (BEAKER) (test yubo=370) 133 meq/L 136-145 POTASSIUM (BEAKER) (test fgxc=363) 4.7 meq/L 3.5-5.1 CHLORIDE (BEAKER) (test azkb=933) 100 meq/L 98-107 CO2 (BEAKER) (test qxns=631) 25 meq/L 22-29 BLOOD UREA NITROGEN (BEAKER) (test znyt=520) 47 mg/dL 7-21 CREATININE (BEAKER) (test tone=124) 1.63 mg/dL 0.57-1.25 GLUCOSE RANDOM (BEAKER) (test renc=222) 218 mg/dL 70-105 CALCIUM (BEAKER) (test edzn=700) 8.3 mg/dL 8.4-10.2 EGFR (BEAKER) (test iaoq=8174) 31 mL/min/1.73 sq m ESTIMATED GFR IS NOT ACCURATE CREATININE CLEARANCE IN PREDICTING GLOMERULAR FILTRATION RATE. ESTIMATED GFR IS NOT APPLICABLE FOR DIALYSIS PATIENTS. POCT-GLUCOSE [id number] 08:25:00* Test Item Value Reference Range Comments POC-GLUCOSE METER (BEAKER) (test anoh=6424) 166 mg/dL 70-110 TESTED AT [place] [id number] POCT-GLUCOSE [id number] 22:14:00* Test Item Value Reference Range Comments POC-GLUCOSE METER (BEAKER) (test jkph=1369) 184 mg/dL 70-110 TESTED AT [address] [address] POCT-GLUCOSE [id number] 17:45:00* Test Item Value Reference Range Comments POC-GLUCOSE METER (BEAKER) (test mfhk=3914) 162 mg/dL 70-110 TESTED AT [address] [address] POCT-GLUCOSE [id number] 11:40:00* Test Item Value Reference Range Comments POC-GLUCOSE METER (BEAKER) (test mfcc=9171) 213 mg/dL 70-110 TESTED AT [address] [address] BASIC METABOLIC [id number] 11:33:00* Test Item Value Reference Range Comments SODIUM (BEAKER) (test xlrg=255) 134 meq/L 136-145 POTASSIUM (BEAKER) (test ilpw=517) 5.1 meq/L 3.5-5.1 CHLORIDE (BEAKER) (test ieax=759) 104 meq/L 98-107 CO2 (BEAKER) (test rzcq=662) 22 meq/L 22-29 BLOOD UREA NITROGEN (BEAKER) (test mroz=848) 52 mg/dL 7-21 CREATININE (BEAKER) (test shxx=794) 1.88 mg/dL 0.57-1.25 GLUCOSE RANDOM (BEAKER) (test gtry=516) 237 mg/dL 70-105 CALCIUM (BEAKER) (test ffrs=070) 8.3 mg/dL 8.4-10.2 EGFR (BEAKER) (test hnqk=9304) 27 mL/min/1.73 sq m ESTIMATED GFR IS NOT ACCURATE CREATININE CLEARANCE IN PREDICTING GLOMERULAR FILTRATION RATE. ESTIMATED GFR IS NOT APPLICABLE FOR DIALYSIS PATIENTS. CBC W/PLT COUNT & AUTO [id number] 11:25:00* Test Item Value Reference Range Comments WHITE BLOOD CELL COUNT (BEAKER) (test mrzn=256) 13.2 K/ L 3.5-10.5 RED BLOOD CELL COUNT (BEAKER) (test nbsa=322) 3.21 M/ L 3.93-5.22 HEMOGLOBIN (BEAKER) (test beag=939) 8.8 GM/DL 11.2-15.7 HEMATOCRIT (BEAKER) (test urlp=568) 29.1 % 34.1-44.9 MEAN CORPUSCULAR VOLUME (BEAKER) (test axrd=208) 90.7 fL 79.4-94.8 MEAN CORPUSCULAR HEMOGLOBIN (BEAKER) (test zvsu=677) 27.4 pg 25.6-32.2 MEAN CORPUSCULAR HEMOGLOBIN CONC (BEAKER) (test trrc=833) 30.2 GM/DL 32.2-35.5 RED CELL DISTRIBUTION WIDTH (BEAKER) (test xsah=514) 15.6 % 11.7-14.4 PLATELET COUNT (BEAKER) (test ibvh=528) 425 K/CU MM 150-450 MEAN PLATELET VOLUME (BEAKER) (test yatb=716) 10.5 fL 9.4-12.3 NUCLEATED RED BLOOD CELLS (BEAKER) (test cgfb=937) 0 /100 WBC 0-0 NEUTROPHILS RELATIVE PERCENT (BEAKER) (test niya=171) 77 % LYMPHOCYTES RELATIVE PERCENT (BEAKER) (test czfj=897) 14 % MONOCYTES RELATIVE PERCENT (BEAKER) (test uwlv=846) 4 % EOSINOPHILS RELATIVE PERCENT (BEAKER) (test uczt=945) 4 % BASOPHILS RELATIVE PERCENT (BEAKER) (test wtgx=614) 0 % NEUTROPHILS ABSOLUTE COUNT (BEAKER) (test ethb=668) 10.13 K/ L 1.56-6.13 LYMPHOCYTES ABSOLUTE COUNT (BEAKER) (test hexp=940) 1.83 K/ L 1.18-3.74 MONOCYTES ABSOLUTE COUNT (BEAKER) (test pjpb=444) 0.51 K/ L 0.24-0.36 EOSINOPHILS ABSOLUTE COUNT (BEAKER) (test hsbd=867) 0.52 K/ L 0.04-0.36 BASOPHILS ABSOLUTE COUNT (BEAKER) (test klvj=102) 0.05 K/ L 0.01-0.08 IMMATURE GRANULOCYTES-RELATIVE PERCENT (BEAKER) (test lzfn=4286) 1 % 0-1 [id number] 11:24:00* Test Item Value Reference Range Comments PHOSPHORUS (BEAKER) (test yjnt=645) 5.6 mg/dL 2.3-4.7 [id number] 11:24:00* Test Item Value Reference Range Comments MAGNESIUM (BEAKER) (test ioco=660) 2.0 mg/dL 1.6-2.6 POCT-GLUCOSE [id number] 07:51:00* Test Item Value Reference Range Comments POC-GLUCOSE METER (BEAKER) (test bbie=7907) 197 mg/dL 70-110 TESTED AT [address] [address] BLOOD [id number] 06:24:00* Test Item Value Reference Range Comments CULTURE (BEAKER) (test ihkm=8674) No growth in 5 days POCT-GLUCOSE [id number] 20:45:00* Test Item Value Reference Range Comments POC-GLUCOSE METER (BEAKER) (test gusz=5449) 131 mg/dL 70-110 TESTED AT [address] [address] POCT-GLUCOSE [id number] 17:19:00* Test Item Value Reference Range Comments POC-GLUCOSE METER (BEAKER) (test vlvw=5978) 207 mg/dL 70-110 TESTED AT [address] [address] POCT-GLUCOSE [id number] 11:09:00* Test Item Value Reference Range Comments POC-GLUCOSE METER (BEAKER) (test bapi=0986) 196 mg/dL 70-110 TESTED AT [address] [address] POCT-GLUCOSE [id number] 08:02:00* Test Item Value Reference Range Comments POC-GLUCOSE METER (BEAKER) (test bexz=4497) 159 mg/dL 70-110 TESTED AT [address] [address] BASIC METABOLIC [id number] 05:33:00* Test Item Value Reference Range Comments SODIUM (BEAKER) (test nxoh=766) 136 meq/L 136-145 POTASSIUM (BEAKER) (test gosu=139) 5.2 meq/L 3.5-5.1 CHLORIDE (BEAKER) (test mtpq=042) 107 meq/L 98-107 CO2 (BEAKER) (test cqtz=957) 22 meq/L 22-29 BLOOD UREA NITROGEN (BEAKER) (test xqfn=475) 53 mg/dL 7-21 CREATININE (BEAKER) (test nogh=584) 1.89 mg/dL 0.57-1.25 GLUCOSE RANDOM (BEAKER) (test ycca=323) 121 mg/dL 70-105 CALCIUM (BEAKER) (test opag=196) 8.3 mg/dL 8.4-10.2 EGFR (BEAKER) (test kmno=7124) 26 mL/min/1.73 sq m ESTIMATED GFR IS NOT ACCURATE CREATININE CLEARANCE IN PREDICTING GLOMERULAR FILTRATION RATE. ESTIMATED GFR IS NOT APPLICABLE FOR DIALYSIS PATIENTS. [id number] 05:27:00* Test Item Value Reference Range Comments PHOSPHORUS (BEAKER) (test myic=848) 5.2 mg/dL 2.3-4.7 [id number] 05:27:00* Test Item Value Reference Range Comments MAGNESIUM (BEAKER) (test cplg=498) 2.0 mg/dL 1.6-2.6 POCT-GLUCOSE [id number] 21:25:00* Test Item Value Reference Range Comments POC-GLUCOSE METER (BEAKER) (test sqjj=4445) 170 mg/dL 70-110 TESTED AT [place] [address] [facility] [address] POCT-GLUCOSE [id number] 17:16:00* Test Item Value Reference Range Comments POC-GLUCOSE METER (BEAKER) (test pjtb=9332) 187 mg/dL 70-110 TESTED AT [address] [address] POCT-GLUCOSE [id number] 11:44:00* Test Item Value Reference Range Comments POC-GLUCOSE METER (BEAKER) (test yvxd=5470) 114 mg/dL 70-110 TESTED AT [address] [address] POCT-GLUCOSE [id number] 08:11:00* Test Item Value Reference Range Comments POC-GLUCOSE METER (BEAKER) (test gsce=5439) 205 mg/dL 70-110 TESTED AT [address] [address] BASIC METABOLIC [id number] 06:57:00* Test Item Value Reference Range Comments SODIUM (BEAKER) (test equr=392) 135 meq/L 136-145 POTASSIUM (BEAKER) (test lakv=150) 4.7 meq/L 3.5-5.1 CHLORIDE (BEAKER) (test obnp=870) 106 meq/L 98-107 CO2 (BEAKER) (test rugc=569) 22 meq/L 22-29 BLOOD UREA NITROGEN (BEAKER) (test sfbq=323) 51 mg/dL 7-21 CREATININE (BEAKER) (test zvuj=986) 1.90 mg/dL 0.57-1.25 GLUCOSE RANDOM (BEAKER) (test fcsh=109) 179 mg/dL 70-105 CALCIUM (BEAKER) (test wugf=118) 8.3 mg/dL 8.4-10.2 EGFR (BEAKER) (test mbej=9410) 26 mL/min/1.73 sq m ESTIMATED GFR IS NOT ACCURATE CREATININE CLEARANCE IN PREDICTING GLOMERULAR FILTRATION RATE. ESTIMATED GFR IS NOT APPLICABLE FOR DIALYSIS PATIENTS. [id number] 06:51:00* Test Item Value Reference Range Comments PHOSPHORUS (BEAKER) (test zymd=690) 4.8 mg/dL 2.3-4.7 [id number] 06:51:00* Test Item Value Reference Range Comments MAGNESIUM (BEAKER) (test pnce=270) 1.8 mg/dL 1.6-2.6 POCT-GLUCOSE [id number] 21:29:00* Test Item Value Reference Range Comments POC-GLUCOSE METER (BEAKER) (test jqcc=0950) 164 mg/dL 70-110 TESTED AT [facility] [address] [facility] [address] POCT-GLUCOSE [id number] 13:00:00* Test Item Value Reference Range Comments POC-GLUCOSE METER (BEAKER) (test fegr=8178) 150 mg/dL 70-110 TESTED AT [address] [address] URINE [id number] 09:39:00* Test Item Value Reference Range Comments CULTURE (BEAKER) (test rhcy=0938) Amikacin (test code=1) Susceptible 0-16 , Resistant <0 or >16 Ampicillin + Sulbactam (test code=6) Susceptible 0-8 , Resistant <0 or >8 Aztreonam (test code=32) Susceptible 0-4 , Resistant <0 or >4 Cefepime (test code=51) Susceptible <=2 , Dose Dependent Susceptible >2 , Resistant Ceftazidime (test code=27) Susceptible 0-4 , Resistant <0 or >4 Ceftriaxone (test code=52) Susceptible 0-1 , Resistant <0 or >1 Ertapenem (test code=38) Susceptible 0-0.5 , Resistant <0 or >.5 Gentamicin (test code=18) Susceptible 0-4 , Resistant <0 or >4 Imipenem (test code=19) Susceptible 0-1 , Resistant <0 or >1 Levofloxacin (test code=22) Susceptible 0-2 , Resistant <0 or >2 Meropenem (test code=34) Susceptible 0-4 , Resistant <0 or >4 Nitrofurantoin (test code=23) Susceptible 0-32 , Resistant <0 or >32 Piperacillin (test code=24) Susceptible 0-16 , Resistant <0 or >16 Piperacillin + Tazobactam (test code=29) Susceptible 0-16 , Resistant <0 or >16 Tetracycline (test code=2) Susceptible 0-4 , Resistant <0 or >4 Tobramycin (test code=25) Susceptible 0-4 , Resistant <0 or >4 Trimethoprim + Sulfamethoxazole (test code=47) Susceptible 0-40 , Resistant <0 or >40 CULTURE (BEAKER) (test cdkq=5881) >100,000 col/mL Klebsiella oxytoca GRAM STAIN RESULT (BEAKER) (test yafh=5908) 1+ WBCs GRAM STAIN RESULT (BEAKER) (test ysah=964063) 1+ gram negative rods GRAM STAIN RESULT (BEAKER) (test hele=858201) <1+ gram positive cocci in pairs POCT-GLUCOSE [id number] 07:54:00* Test Item Value Reference Range Comments POC-GLUCOSE METER (BEAKER) (test hcut=5242) 206 mg/dL 70-110 TESTED AT [facility] [address] [place] [address] BASIC METABOLIC [id number] 06:20:00* Test Item Value Reference Range Comments SODIUM (BEAKER) (test egab=732) 137 meq/L 136-145 POTASSIUM (BEAKER) (test cngc=078) 4.3 meq/L 3.5-5.1 CHLORIDE (BEAKER) (test zutx=210) 108 meq/L 98-107 CO2 (BEAKER) (test ljpc=476) 19 meq/L 22-29 BLOOD UREA NITROGEN (BEAKER) (test lovt=991) 45 mg/dL 7-21 CREATININE (BEAKER) (test lffs=404) 1.82 mg/dL 0.57-1.25 GLUCOSE RANDOM (BEAKER) (test xrpy=872) 143 mg/dL 70-105 CALCIUM (BEAKER) (test etdv=155) 8.2 mg/dL 8.4-10.2 EGFR (BEAKER) (test xgvs=8781) 28 mL/min/1.73 sq m ESTIMATED GFR IS NOT ACCURATE CREATININE CLEARANCE IN PREDICTING GLOMERULAR FILTRATION RATE. ESTIMATED GFR IS NOT APPLICABLE FOR DIALYSIS PATIENTS. [id number] 06:16:00* Test Item Value Reference Range Comments PHOSPHORUS (BEAKER) (test kpmz=992) 4.7 mg/dL 2.3-4.7 [id number] 06:16:00* Test Item Value Reference Range Comments MAGNESIUM (BEAKER) (test schv=706) 1.7 mg/dL 1.6-2.6 POCT-GLUCOSE [id number] 20:55:00* Test Item Value Reference Range Comments POC-GLUCOSE METER (BEAKER) (test grfy=1826) 238 mg/dL 70-110 TESTED AT [place] [address] [facility] [address] POCT-GLUCOSE [id number] 18:21:00* Test Item Value Reference Range Comments POC-GLUCOSE METER (BEAKER) (test dwqu=0431) 212 mg/dL 70-110 TESTED AT [address] [address] POCT-GLUCOSE [id number] 12:47:00* Test Item Value Reference Range Comments POC-GLUCOSE METER (BEAKER) (test mfet=4851) 222 mg/dL 70-110 TESTED AT [address] [address] RAD, CHEST, 1 VIEW, NON [id number] 12:44:00Reason for exam:->SOBShould this be performed at the bedside?->YesFINAL REPORT Chest one view compared to May 26, 2017 Discussion: Interstitial, patchy, and linear pulmonary opacities are seen in both mid to low lung regions, overall similar to that of the previous study. No effusion or pneumothorax. Signed: Adarsh Loredo Verified Date/Time: 05/28/2017 12:44:33 Reading Location: [address] Consult Reading Room -GLUCOSE [id number] 08:46:00* Test Item Value Reference Range Comments POC-GLUCOSE METER (BEAKER) (test ubgj=7658) 149 mg/dL 70-110 TESTED AT [address] [address] CALCIUM, [id number] 07:09:00* Test Item Value Reference Range Comments CALCIUM IONIZED (BEAKER) (test roco=672) 1.01 mmol/L 1.12-1.27 PH, BLOOD (BEAKER) (test qmhu=6344) 7.31 B-TYPE NATRIURETIC FACTOR (BNP)2017-05-28 06:19:00* Test Item Value Reference Range Comments B-TYPE NATRIURETIC PEPTIDE (BEAKER) (test fpid=362) 696 pg/mL 0-100 BASIC METABOLIC [id number] 06:19:00* Test Item Value Reference Range Comments SODIUM (BEAKER) (test aucv=619) 138 meq/L 136-145 POTASSIUM (BEAKER) (test otrv=601) 3.9 meq/L 3.5-5.1 CHLORIDE (BEAKER) (test dakf=699) 109 meq/L 98-107 CO2 (BEAKER) (test laeh=606) 20 meq/L 22-29 BLOOD UREA NITROGEN (BEAKER) (test sabj=444) 45 mg/dL 7-21 CREATININE (BEAKER) (test kxyl=906) 1.87 mg/dL 0.57-1.25 GLUCOSE RANDOM (BEAKER) (test qpki=926) 153 mg/dL 70-105 CALCIUM (BEAKER) (test iasu=078) 7.9 mg/dL 8.4-10.2 EGFR (BEAKER) (test exvp=6632) 27 mL/min/1.73 sq m ESTIMATED GFR IS NOT ACCURATE CREATININE CLEARANCE IN PREDICTING GLOMERULAR FILTRATION RATE. ESTIMATED GFR IS NOT APPLICABLE FOR DIALYSIS PATIENTS. [id number] 06:15:00* Test Item Value Reference Range Comments PHOSPHORUS (BEAKER) (test mrrv=576) 4.7 mg/dL 2.3-4.7 [id number] 06:15:00* Test Item Value Reference Range Comments MAGNESIUM (BEAKER) (test vlqr=661) 1.7 mg/dL 1.6-2.6 CBC W/PLT COUNT & AUTO [id number] 05:45:00* Test Item Value Reference Range Comments WHITE BLOOD CELL COUNT (BEAKER) (test ejji=424) 8.4 K/ L 3.5-10.5 RED BLOOD CELL COUNT (BEAKER) (test rbzd=260) 2.76 M/ L 3.93-5.22 HEMOGLOBIN (BEAKER) (test wrtg=505) 7.7 GM/DL 11.2-15.7 HEMATOCRIT (BEAKER) (test pzld=740) 25.2 % 34.1-44.9 MEAN CORPUSCULAR VOLUME (BEAKER) (test bxfi=105) 91.3 fL 79.4-94.8 MEAN CORPUSCULAR HEMOGLOBIN (BEAKER) (test lzhy=462) 27.9 pg 25.6-32.2 MEAN CORPUSCULAR HEMOGLOBIN CONC (BEAKER) (test bbww=941) 30.6 GM/DL 32.2-35.5 RED CELL DISTRIBUTION WIDTH (BEAKER) (test kzco=059) 15.6 % 11.7-14.4 PLATELET COUNT (BEAKER) (test hoca=853) 358 K/CU MM 150-450 MEAN PLATELET VOLUME (BEAKER) (test vodl=112) 10.7 fL 9.4-12.3 NUCLEATED RED BLOOD CELLS (BEAKER) (test znhs=407) 0 /100 WBC 0-0 NEUTROPHILS RELATIVE PERCENT (BEAKER) (test gqla=619) 60 % LYMPHOCYTES RELATIVE PERCENT (BEAKER) (test pucj=101) 28 % MONOCYTES RELATIVE PERCENT (BEAKER) (test xhii=511) 6 % EOSINOPHILS RELATIVE PERCENT (BEAKER) (test hvna=503) 4 % BASOPHILS RELATIVE PERCENT (BEAKER) (test riba=233) 1 % NEUTROPHILS ABSOLUTE COUNT (BEAKER) (test eerd=747) 5.07 K/ L 1.56-6.13 LYMPHOCYTES ABSOLUTE COUNT (BEAKER) (test rpzz=936) 2.37 K/ L 1.18-3.74 MONOCYTES ABSOLUTE COUNT (BEAKER) (test cpff=178) 0.52 K/ L 0.24-0.36 EOSINOPHILS ABSOLUTE COUNT (BEAKER) (test xudp=806) 0.34 K/ L 0.04-0.36 BASOPHILS ABSOLUTE COUNT (BEAKER) (test llxa=151) 0.04 K/ L 0.01-0.08 IMMATURE GRANULOCYTES-RELATIVE PERCENT (BEAKER) (test ibmh=2833) 1 % 0-1 U/S, RENAL, [id number] 01:13:00Reason for exam:->Mally /Pyelonephritis FINAL REPORT U/S, RENAL, COMPLETE CLINICAL INDICATION: A Ki /Pyelonephritis COMPARISON: Correlation abdomen pelvis CT May 30, 2017 T ECHNIQUE: The kidneys and urinary bladder were evaluated using real time andres s aguust and color Doppler sonography. FINDINGS:Right kidney: Size: 9.4 x 5.1 x 5.0 cm. Parenchyma: Normal echogenicity. No cysts. No stones. Hydronep hrosis: None. Left kidney: Size: 10.4 x 5.0 x 5.0 cm. Parenchyma: Normal echogenicity. No cysts. Nonobstructing stone in the superior pole measures up to 1.2 cm. Hydronephrosis: None. Ureteric stent is not clearly identified on the current examination. Renal Vasculature: Doppler interrogation reveals preser lluvia vascular flow in the main renal arteries and veins bilaterally. Urinary blad toyin: Decompressed by Dotson catheter. Additional findings: None. IMPRESSION: Nonobstructing left renal stone. The known left ureteric stent is not identified . Otherwise unremarkable renal ultrasound. Signed: JR Jackson Robert MDRe port Verified Date/Time: 05/28/2017 01:13:48 Reading Location: [place] [id number] Body Reading Room Electronically signed by: CHEKO JACKSON on 018 01:13 AM POCT-GLUCOSE [id number] 21:52:00* Test Item Value Reference Range Comments POC-GLUCOSE METER (BEAKER) (test admy=3066) 256 mg/dL 70-110 TESTED AT [address] [address] POCT-GLUCOSE [id number] 17:50:00* Test Item Value Reference Range Comments POC-GLUCOSE METER (BEAKER) (test zfxo=4431) 181 mg/dL 70-110 TESTED AT [address] [address] HEMOGLOBIN [id number] 10:30:00* Test Item Value Reference Range Comments HEMOGLOBIN A1C (BEAKER) (test rkgc=875) 7.9 % 4.3-6.1 POCT-GLUCOSE [id number] 08:45:00* Test Item Value Reference Range Comments POC-GLUCOSE METER (BEAKER) (test inih=7820) 151 mg/dL 70-110 TESTED AT [address] [address] COMPREHENSIVE METABOLIC [id number] 07:23:00* Test Item Value Reference Range Comments TOTAL PROTEIN (BEAKER) (test gywc=628) 6.8 gm/dL 6.0-8.3 ALBUMIN (BEAKER) (test atuo=3438) 2.7 g/dL 3.5-5.0 ALKALINE PHOSPHATASE (BEAKER) (test xdcg=369) 78 U/L 40-150 BILIRUBIN TOTAL (BEAKER) (test rluu=137) < mg/dL 0.2-1.2 SODIUM (BEAKER) (test lizl=907) 142 meq/L 136-145 POTASSIUM (BEAKER) (test pbgt=037) 3.8 meq/L 3.5-5.1 CHLORIDE (BEAKER) (test zjme=847) 110 meq/L 98-107 CO2 (BEAKER) (test dvad=651) 22 meq/L 22-29 BLOOD UREA NITROGEN (BEAKER) (test qsfd=641) 46 mg/dL 7-21 CREATININE (BEAKER) (test wezp=566) 2.03 mg/dL 0.57-1.25 GLUCOSE RANDOM (BEAKER) (test gxzo=744) 129 mg/dL 70-105 CALCIUM (BEAKER) (test fxjg=255) 8.2 mg/dL 8.4-10.2 AST (SGOT) (BEAKER) (test egjz=335) 12 U/L 5-34 ALT (SGPT) (BEAKER) (test ierx=001) < U/L 6-55 EGFR (BEAKER) (test mukr=1709) 24 mL/min/1.73 sq m ESTIMATED GFR IS NOT ACCURATE CREATININE CLEARANCE IN PREDICTING GLOMERULAR FILTRATION RATE. ESTIMATED GFR IS NOT APPLICABLE FOR DIALYSIS PATIENTS. [id number] 07:22:00* Test Item Value Reference Range Comments PHOSPHORUS (BEAKER) (test glro=444) 5.3 mg/dL 2.3-4.7 [id number] 07:22:00* Test Item Value Reference Range Comments MAGNESIUM (BEAKER) (test uqca=424) 1.7 mg/dL 1.6-2.6 CBC W/PLT COUNT & AUTO [id number] 06:51:00* Test Item Value Reference Range Comments WHITE BLOOD CELL COUNT (BEAKER) (test psji=849) 9.9 K/ L 3.5-10.5 RED BLOOD CELL COUNT (BEAKER) (test hgdn=881) 3.03 M/ L 3.93-5.22 HEMOGLOBIN (BEAKER) (test wcai=885) 8.3 GM/DL 11.2-15.7 HEMATOCRIT (BEAKER) (test adrc=286) 27.5 % 34.1-44.9 MEAN CORPUSCULAR VOLUME (BEAKER) (test urer=973) 90.8 fL 79.4-94.8 MEAN CORPUSCULAR HEMOGLOBIN (BEAKER) (test mwmb=509) 27.4 pg 25.6-32.2 MEAN CORPUSCULAR HEMOGLOBIN CONC (BEAKER) (test fgna=940) 30.2 GM/DL 32.2-35.5 RED CELL DISTRIBUTION WIDTH (BEAKER) (test uezm=614) 15.5 % 11.7-14.4 PLATELET COUNT (BEAKER) (test ysjf=133) 375 K/CU MM 150-450 MEAN PLATELET VOLUME (BEAKER) (test fuea=613) 10.3 fL 9.4-12.3 NUCLEATED RED BLOOD CELLS (BEAKER) (test ylbn=744) 0 /100 WBC 0-0 NEUTROPHILS RELATIVE PERCENT (BEAKER) (test pfvu=389) 72 % LYMPHOCYTES RELATIVE PERCENT (BEAKER) (test vziu=642) 15 % MONOCYTES RELATIVE PERCENT (BEAKER) (test dnfz=608) 7 % EOSINOPHILS RELATIVE PERCENT (BEAKER) (test viys=080) 5 % BASOPHILS RELATIVE PERCENT (BEAKER) (test zatl=981) 1 % NEUTROPHILS ABSOLUTE COUNT (BEAKER) (test eivp=468) 7.11 K/ L 1.56-6.13 LYMPHOCYTES ABSOLUTE COUNT (BEAKER) (test xdro=267) 1.48 K/ L 1.18-3.74 MONOCYTES ABSOLUTE COUNT (BEAKER) (test ezwp=591) 0.73 K/ L 0.24-0.36 EOSINOPHILS ABSOLUTE COUNT (BEAKER) (test irlc=099) 0.50 K/ L 0.04-0.36 BASOPHILS ABSOLUTE COUNT (BEAKER) (test iawb=604) 0.06 K/ L 0.01-0.08 IMMATURE GRANULOCYTES-RELATIVE PERCENT (BEAKER) (test mggp=1021) 1 % 0-1 POCT-GLUCOSE [id number] 20:02:00* Test Item Value Reference Range Comments POC-GLUCOSE METER (BEAKER) (test ksky=6913) 185 mg/dL 70-110 TESTED AT [facility] [address] [facility] [address] [address] [address], [id number] 18:29:00FINAL REPORT DOSE REDUCTION: The examination was performed according to departmental dose- optimization program which includes automated exposure control, adjustment of the mA and/or kV according to patient size and/or use of iterative reconstruction technique. TECHNIQUE: CT of the abdomen and pelvis without intravenous contrast. Enteric contrast was not administered. COMPARISON: CT of the abdomen and pelvis, 04/06/2017 DISCUSSION: Limited study without intravenous contrast; detection of some masses, vascular pathology, and infectio us/inflammatory process may be difficult. There are trace pleural effusion wit h lower lobe atelectasis/fibrotic changes. Left breast prosthesis partially depi cted. Noncontrast appearance of the spleen, pancreas, adrenal glands is unrema rkable. Subcentimeter hypodensity in the liver again noted, too small to charact erize, stable. There is nonspecific mild distention of the gallbladder. Small am ount of high density material at the peripheral aspect of the bladder probably r epresent small focal gallbladder calcification or gallstone, stable. This is unc hanged. No CT findings of cholecystitis. No bile duct dilatation. There is some nonspecific right sided perinephric stranding along with right cortical irregula rities. Otherwise noncontrast appearance of the right kidney and ureter is unrem arkable. 7 mm stone in the upper pole of the left kidney. Left internal ureteral stent in place. No significant left hydronephrosis. Previous collection of gas along the upper lateral aspect of the left kidney has resolved. A percutaneous d rainage catheter has been removed. There is an ill-defined low-density collectio n measuring 2.8 x 3.3 cm at this location instead. This could represent some res idual collection/fluid. No gas within it to suggest definitive abscess although superimposed infection would be difficult to exclude. Further characterization o f this finding is limited without intravenous contrast. Pyelonephritis is diffic ult to evaluate without intravenous contrast. Moderate to large amount of stool throughout the colon. Otherwise unopacified small bowel, colon, and appendix alpa ear unremarkable. No ascites. No organized fluid collections or abscess elsewher e. Vascular calcifications are seen. Aorta and IVC are normal in caliber. There are scattered periaortic and pericaval lymph nodes, nonspecific. A Dotson cathete r is present in the bladder. Uterus appears grossly unremarkable. No suspicious adnexal masses. There is mild soft tissue anasarca. No definite acute skeletal a mount amounts. Osteopenia and degenerative changes are seen. IMPRESSION: 1. Reso lution of previous left perinephric gas containing collection. Percutaneous drai nage catheter has been removed. Low density collection without gas along the lat eral aspect of the left renal upper pole in the same location could represent so me residual changes, area of infarct, etc. Superimposed infection/abscess is dif ficult to exclude especially without intravenous contrast. 2. Nonobstructing sto ne in the upper pole of the left kidney. Left internal ureteral stent in place. No left hydronephrosis. Signed: Chi Resendez MDReport Verified Date/Time: 05/26 18:29:02 Reading Location: [facility] C0[facility] Transitional Reading Room Argelia ctronically signed by: CHI RESENDEZ M.D. on 05/26/2017 06:29 PM URINALYSIS W/ [id number] 16:26:00* Test Item Value Reference Range Comments COLOR (BEAKER) (test xskk=799) Yellow CLARITY (BEAKER) (test umem=579) Cloudy SPECIFIC GRAVITY UA (BEAKER) (test bvjh=258) 1.014 1.001-1.035 PH UA (BEAKER) (test xbxy=789) 5.0 5.0-8.0 PROTEIN UA (BEAKER) (test rdss=471) 70 mg/dL Negative GLUCOSE UA (BEAKER) (test unns=364) Negative Negative KETONES UA (BEAKER) (test qbwl=004) Negative Negative BILIRUBIN UA (BEAKER) (test hqsu=394) Negative Negative BLOOD UA (BEAKER) (test udvo=871) Small Negative NITRITE UA (BEAKER) (test ojzb=927) Negative Negative LEUKOCYTE ESTERASE UA (BEAKER) (test pxnt=945) Large Negative UROBILINOGEN UA (BEAKER) (test gvsb=528) 0.2 mg/dL 0.2-1.0 RBC UA (BEAKER) (test eget=143) 36 /HPF WBC UA (BEAKER) (test nyth=241) 487 /HPF BACTERIA (BEAKER) (test syex=312) Moderate MUCUS (BEAKER) (test uyfb=6034) Rare SQUAMOUS EPITHELIAL (BEAKER) (test ljya=566) < /HPF SOURCE(BEAKER) (test rohz=8097) Urine, Dotson RAD, CHEST, 1 VIEW, NON [id number] 14:36:00Reason for exam:->DIZZINESSoff and on for approx 1 weekShould this be performed at the bedside?->YesFINAL REPORT INDICATION: DIZZINESS COMPARISON: April 08, 2017 TECHNIQUE: Chest radiograph, single view, portable technique. FINDINGS / I MPRESSION: There is pulmonary venous congestion and prominence of the heart shad ow which may in part be related to portable technique. Left base platelike opaci ty likely represents subsegmental atelectasis. No pneumothorax or large pleural effusion. Osseous structures are notable for internal fixation of the right jocelynn raine. Signed: Komal Vázquez MDReport Verified Date/Time: 05/26/2017 14:36:31 Reading Location: [address] Ortho Consult Reading Room C METABOLIC PANEL 2017-05-26 14:35:00* Test Item Value Reference Range Comments SODIUM (BEAKER) (test vxud=846) 139 meq/L 136-145 POTASSIUM (BEAKER) (test vhbb=023) 3.6 meq/L 3.5-5.1 CHLORIDE (BEAKER) (test tyka=119) 105 meq/L 98-107 CO2 (BEAKER) (test dmbj=211) 23 meq/L 22-29 BLOOD UREA NITROGEN (BEAKER) (test wvhq=479) 49 mg/dL 7-21 CREATININE (BEAKER) (test zwok=864) 2.32 mg/dL 0.57-1.25 GLUCOSE RANDOM (BEAKER) (test fgyt=321) 109 mg/dL 70-105 CALCIUM (BEAKER) (test wsyu=680) 8.4 mg/dL 8.4-10.2 EGFR (BEAKER) (test jxeq=1660) 21 mL/min/1.73 sq m ESTIMATED GFR IS NOT ACCURATE CREATININE CLEARANCE IN PREDICTING GLOMERULAR FILTRATION RATE. ESTIMATED GFR IS NOT APPLICABLE FOR DIALYSIS PATIENTS. CREATINE KINASE (CK), TOTAL AND [id number] 14:22:00* Test Item Value Reference Range Comments CREATINE KINASE TOTAL (BEAKER) (test bfhw=304) 31 U/L 29-200 CREATINE KINASE-MB (BEAKER) (test nfnu=161) 1.3 ng/mL 0.0-6.6 CREATINE KINASE-MB INDEX (BEAKER) (test njej=915) 4.2 % CK-MB Reference Range:<6.7 Normal6.7-10.0 Borderline>10.0 Abnormal TROPONIN [id number] 14:22:00* Test Item Value Reference Range Comments TROPONIN I (BEAKER) (test rnhh=972) 0.01 ng/mL 0.00-0.03 Troponin I (TnI) levels must be interpreted in the context of the presenting sym ptoms and the clinical findings. Elevated TnI levels indicate myocardial damage, but are not specific for ischemic heart disease. Elevated TnI levels are seen in patients with other cardiac conditions (including myocarditis and congestive h eart failure), and slight TnI elevations occur in patients with other conditions , including sepsis, renal failure, acidosis, acute neurological disease, and per sistent tachyarrhythmia.CBC W/PLT COUNT & AUTO [id number] 14:14:00* Test Item Value Reference Range Comments WHITE BLOOD CELL COUNT (BEAKER) (test zpix=223) 12.3 K/ L 3.5-10.5 RED BLOOD CELL COUNT (BEAKER) (test llml=916) 3.12 M/ L 3.93-5.22 HEMOGLOBIN (BEAKER) (test hyzg=563) 8.6 GM/DL 11.2-15.7 HEMATOCRIT (BEAKER) (test tvty=600) 28.3 % 34.1-44.9 MEAN CORPUSCULAR VOLUME (BEAKER) (test jvrk=121) 90.7 fL 79.4-94.8 MEAN CORPUSCULAR HEMOGLOBIN (BEAKER) (test zvms=913) 27.6 pg 25.6-32.2 MEAN CORPUSCULAR HEMOGLOBIN CONC (BEAKER) (test kbaf=019) 30.4 GM/DL 32.2-35.5 RED CELL DISTRIBUTION WIDTH (BEAKER) (test bozl=434) 15.6 % 11.7-14.4 PLATELET COUNT (BEAKER) (test sfjm=930) 401 K/CU MM 150-450 MEAN PLATELET VOLUME (BEAKER) (test suys=925) 10.0 fL 9.4-12.3 NUCLEATED RED BLOOD CELLS (BEAKER) (test temd=826) 0 /100 WBC 0-0 NEUTROPHILS RELATIVE PERCENT (BEAKER) (test fhku=208) 69 % LYMPHOCYTES RELATIVE PERCENT (BEAKER) (test aenq=105) 19 % MONOCYTES RELATIVE PERCENT (BEAKER) (test soyt=736) 7 % EOSINOPHILS RELATIVE PERCENT (BEAKER) (test bmmr=975) 4 % BASOPHILS RELATIVE PERCENT (BEAKER) (test mfqn=177) 1 % NEUTROPHILS ABSOLUTE COUNT (BEAKER) (test mjad=789) 8.45 K/ L 1.56-6.13 LYMPHOCYTES ABSOLUTE COUNT (BEAKER) (test rhty=616) 2.38 K/ L 1.18-3.74 MONOCYTES ABSOLUTE COUNT (BEAKER) (test ebwq=247) 0.80 K/ L 0.24-0.36 EOSINOPHILS ABSOLUTE COUNT (BEAKER) (test xkaa=824) 0.52 K/ L 0.04-0.36 BASOPHILS ABSOLUTE COUNT (BEAKER) (test atix=628) 0.08 K/ L 0.01-0.08 IMMATURE GRANULOCYTES-RELATIVE PERCENT (BEAKER) (test cpnn=7439) 1 % 0-1 PROTHROMBIN [id number] 14:04:00* Test Item Value Reference Range Comments PROTIME (BEAKER) (test bgrs=433) 14.7 seconds 11.7-14.7 INR (BEAKER) (test syej=706) 1.2 <=5.9 RECOMMENDED COUMADIN/WARFARIN INR THERAPY RANGESSTANDARD DOSE: 2.0 - 3.0 Inclu yary: PROPHYLAXIS for venous thrombosis, systemic embolization; TREATMENT for bishnu ous thrombosis and/or pulmonary embolus.HIGH RISK: Target INR is 2.5-3.5 for pat ients with mechanical heart valves.CT, BRAIN, WITHOUT [id number] 12:21:00FINAL REPORT CT head without contrast INDICATION: Dizziness TECHNIQUE: Axial noncontrast CT images through the head were obtained. This exam was performed according to our departmental dose optimization program which includes automated exposure control, adjustment of the mA and/or kV according to patient size and/or use of iterative reconstruction technique. COMPARISON: None available FINDINGS:There is no parenchymal hematoma, extra- axial collection, or mass effect. Microvascular ischemic changes [...] for acute abnormality, MRI is advised. Signed: Rylan Morris MDReport Verified Date/Time: 05/26/2017 12:21:36 Reading Location: [address] Neuro Reading Room FLUID CULTURE + GRAM [id number] 14:24:00* Test Item Value Reference Range Comments CULTURE (BEAKER) (test exbb=9250) Amikacin (test code=1) Ampicillin + Sulbactam (test code=6) Aztreonam (test code=32) Cefepime (test code=51) Cefoxitin (test code=68) Ceftazidime (test code=27) Ceftriaxone (test code=52) Ertapenem (test code=38) Gentamicin (test code=18) Levofloxacin (test code=22) Meropenem (test code=34) Nitrofurantoin (test code=23) Piperacillin + Tazobactam (test code=29) Tetracycline (test code=2) Tobramycin (test code=25) Trimethoprim + Sulfamethoxazole (test code=47) CULTURE (BEAKER) (test ikdn=5887) EARL GLABRATA 2+ Escherichia coli Micafungin (test jqaq=950) Fluconazole (test wwjs=239) Susceptible 0-0 , Dose Dependent Susceptible <0 or >0 , Resi Micafungin (test cqvu=734) Susceptible 0-0.06 , Non CULTURE (BEAKER) (test vdyd=2742) 2+ Earl glabrata GRAM STAIN RESULT (BEAKER) (test byzm=7343) 4+ WBCs GRAM STAIN RESULT (BEAKER) (test knpy=764176) No organisms seen BLOOD [id number] 17:00:00* Test Item Value Reference Range Comments CULTURE (BEAKER) (test dfrj=8126) No growth in 5 days POCT-GLUCOSE [id number] 13:40:00* Test Item Value Reference Range Comments POC-GLUCOSE METER (BEAKER) (test lvov=4124) 143 mg/dL 70-110 TESTED AT [facility] [address] [address] POCT-GLUCOSE [id number] 10:26:00* Test Item Value Reference Range Comments POC-GLUCOSE METER (BEAKER) (test zikq=2183) 166 mg/dL 70-110 TESTED AT [facility] [address] [address] CALCIUM, [id number] 06:32:00* Test Item Value Reference Range Comments CALCIUM IONIZED (BEAKER) (test hcly=761) 1.03 mmol/L 1.12-1.27 PH, BLOOD (BEAKER) (test rgwa=5496) 7.36 BASIC METABOLIC [id number] 05:55:00* Test Item Value Reference Range Comments SODIUM (BEAKER) (test uovy=449) 139 meq/L 136-145 POTASSIUM (BEAKER) (test jrjl=479) 4.9 meq/L 3.5-5.1 CHLORIDE (BEAKER) (test wfug=408) 106 meq/L 98-107 CO2 (BEAKER) (test vtrj=297) 25 meq/L 22-29 BLOOD UREA NITROGEN (BEAKER) (test dood=016) 26 mg/dL 7-21 CREATININE (BEAKER) (test nqdo=716) 1.94 mg/dL 0.57-1.25 GLUCOSE RANDOM (BEAKER) (test sgqc=690) 80 mg/dL 70-105 CALCIUM (BEAKER) (test obqf=201) 8.3 mg/dL 8.4-10.2 EGFR (BEAKER) (test bfdm=4814) 26 mL/min/1.73 sq m ESTIMATED GFR IS NOT ACCURATE CREATININE CLEARANCE IN PREDICTING GLOMERULAR FILTRATION RATE. ESTIMATED GFR IS NOT APPLICABLE FOR DIALYSIS PATIENTS. [id number] 05:54:00* Test Item Value Reference Range Comments PHOSPHORUS (BEAKER) (test gler=001) 5.5 mg/dL 2.3-4.7 [id number] 05:54:00* Test Item Value Reference Range Comments MAGNESIUM (BEAKER) (test dfvc=953) 1.3 mg/dL 1.6-2.6 CBC W/PLT COUNT & AUTO [id number] 05:35:00* Test Item Value Reference Range Comments WHITE BLOOD CELL COUNT (BEAKER) (test amcr=720) 12.2 K/ L 3.5-10.5 RED BLOOD CELL COUNT (BEAKER) (test doug=099) 2.90 M/ L 3.93-5.22 HEMOGLOBIN (BEAKER) (test ncja=431) 8.3 GM/DL 11.2-15.7 HEMATOCRIT (BEAKER) (test gwjc=846) 27.0 % 34.1-44.9 MEAN CORPUSCULAR VOLUME (BEAKER) (test gfqz=649) 93.1 fL 79.4-94.8 MEAN CORPUSCULAR HEMOGLOBIN (BEAKER) (test mhhp=876) 28.6 pg 25.6-32.2 MEAN CORPUSCULAR HEMOGLOBIN CONC (BEAKER) (test pmwz=697) 30.7 GM/DL 32.2-35.5 RED CELL DISTRIBUTION WIDTH (BEAKER) (test tube=385) 13.4 % 11.7-14.4 PLATELET COUNT (BEAKER) (test nwic=176) 567 K/CU MM 150-450 MEAN PLATELET VOLUME (BEAKER) (test yzal=684) 9.3 fL 9.4-12.3 NUCLEATED RED BLOOD CELLS (BEAKER) (test iilm=932) 0 /100 WBC 0-0 NEUTROPHILS RELATIVE PERCENT (BEAKER) (test busc=629) 70 % LYMPHOCYTES RELATIVE PERCENT (BEAKER) (test rnpm=431) 19 % MONOCYTES RELATIVE PERCENT (BEAKER) (test mcbb=524) 7 % EOSINOPHILS RELATIVE PERCENT (BEAKER) (test kbsf=322) 2 % BASOPHILS RELATIVE PERCENT (BEAKER) (test mdxn=258) 1 % NEUTROPHILS ABSOLUTE COUNT (BEAKER) (test ssdm=621) 8.54 K/ L 1.56-6.13 LYMPHOCYTES ABSOLUTE COUNT (BEAKER) (test bapf=411) 2.31 K/ L 1.18-3.74 MONOCYTES ABSOLUTE COUNT (BEAKER) (test tqgk=383) 0.90 K/ L 0.24-0.36 EOSINOPHILS ABSOLUTE COUNT (BEAKER) (test yvxv=037) 0.24 K/ L 0.04-0.36 BASOPHILS ABSOLUTE COUNT (BEAKER) (test hfvp=012) 0.11 K/ L 0.01-0.08 IMMATURE GRANULOCYTES-RELATIVE PERCENT (BEAKER) (test efrs=2727) 1 % 0-1 POCT-GLUCOSE [id number] 22:40:00* Test Item Value Reference Range Comments POC-GLUCOSE METER (QUOC) (test fydh=0177) 99 mg/dL 70-110 TESTED AT [facility] [address] [address] POCT-GLUCOSE [id number] 18:49:00* Test Item Value Reference Range Comments POC-GLUCOSE METER (QUOC) (test yxao=2077) 110 mg/dL 70-110 TESTED AT [place] [id number] [facility] [address] CT, DRAINAGE, [id number] 16:06:00Reason for exam:->renal air collection Addendum BeginsREPORT STATUS:A 1.0 mg Versed and 100 mcg Fentanyl was given intravenously for moderate sedation monitored under my direc tion. Total time of sedation was 30 minutes. The patient's vital signs were kishore tored throughout the procedure and recorded in the patient's medical record by [facility] pulliam nurse. Signed: Monique Bhatiaepwesly Verified Date/Time: 04/09/2017 16:06:08 Re ading Location: [address] Ortho Consult Reading RoomAddendum EndsFINAL REPORT CT guided drainage catheter placement, left renal air f luid collection Clinical History: renal air collection Modality: CT Local anesth esia: 10 cc of 1% lidocaine Conscious sedation: (Given after informed consent i s obtained.) 1.0 mg of Versed and 100 mcg of fentanyl intravenously Consent: The risks (which included the risks of bleeding, infection, injury to adjacent stru ctures/bowel, adverse medication reaction), benefits, and alternatives to the pr ocedure were discussed with the patient. The patient expressed understanding and informed written consent was obtained. Time out: A pre-procedure time out was p erformed in order to confirm the appropriate site of the procedure. Technique: A fter informed consent is obtained, the patient's abdomen is scanned, after revie wing the previous CT from April 01, 2017. The air and fluid collection in the left kidney is localized. After the skin is prepped and draped in the usual st erile manner, and local anesthesia is achieved, an introducer needle is advanced into the fluid collection under CT fluoroscopy guidance. After a small skin in cision is made, a guidewire is advanced into the fluid collection. Subsequently, a soft tissue tract is created with 7 Afghan and 9 Afghan dilators. After the t ract is dilated, an 10 Afghan all-purpose drainage catheter is placed into the f luid collection. The wire is then removed, and the pigtail of the catheter is lo cked. Approximately 20 cc of cloudy serosanguineous fluid is drained. The fluid is sent for culture. The catheter is then secured onto the skin via sutures. A d rainage bag is attached to the catheter, to drain via gravity. The patient christy ated the procedure well, without immediate complications. The patient's vital si gns remained stable throughout the procedure. Patient disposition: The patient i s discharged from the department in stable condition. Impression: Successful an d uncomplicated CT guided drainage catheter placement into left renal air and fl uid collection. Signed: Monique Bhatia MDReport Verified Date/Time: 04/03/2017 14:11: 22 Reading Location: [facility] C013Y CT Body Reading Room Electronically sig zaki by: MONIQUE BHATIA M.D. on 04/09/2017 04:06 PM POCT-GLUCOSE [id number] 07:36:00* Test Item Value Reference Range Comments POC-GLUCOSE METER (BEAKER) (test rasv=8122) 148 mg/dL 70-110 TESTED AT [facility] [address] [address] BASIC METABOLIC [id number] 07:35:00* Test Item Value Reference Range Comments SODIUM (BEAKER) (test upae=335) 135 meq/L 136-145 POTASSIUM (BEAKER) (test pyzl=376) 5.2 meq/L 3.5-5.1 CHLORIDE (BEAKER) (test fire=173) 105 meq/L 98-107 CO2 (BEAKER) (test ieuj=405) 23 meq/L 22-29 BLOOD UREA NITROGEN (BEAKER) (test kogl=058) 26 mg/dL 7-21 CREATININE (BEAKER) (test kugj=270) 1.95 mg/dL 0.57-1.25 GLUCOSE RANDOM (BEAKER) (test uyiu=317) 109 mg/dL 70-105 CALCIUM (BEAKER) (test agvf=514) 8.2 mg/dL 8.4-10.2 EGFR (BEAKER) (test uubk=5917) 25 mL/min/1.73 sq m ESTIMATED GFR IS NOT ACCURATE CREATININE CLEARANCE IN PREDICTING GLOMERULAR FILTRATION RATE. ESTIMATED GFR IS NOT APPLICABLE FOR DIALYSIS PATIENTS. CALCIUM, [id number] 07:27:00* Test Item Value Reference Range Comments CALCIUM IONIZED (BEAKER) (test zajc=251) 1.06 mmol/L 1.12-1.27 PH, BLOOD (BEAKER) (test ymxx=6411) 7.39 CBC W/PLT COUNT & AUTO [id number] 07:20:00* Test Item Value Reference Range Comments WHITE BLOOD CELL COUNT (BEAKER) (test zene=402) 12.6 K/ L 3.5-10.5 RED BLOOD CELL COUNT (BEAKER) (test vmow=348) 3.14 M/ L 3.93-5.22 HEMOGLOBIN (BEAKER) (test flah=163) 8.7 GM/DL 11.2-15.7 HEMATOCRIT (BEAKER) (test thdt=304) 28.9 % 34.1-44.9 MEAN CORPUSCULAR VOLUME (BEAKER) (test bflh=166) 92.0 fL 79.4-94.8 MEAN CORPUSCULAR HEMOGLOBIN (BEAKER) (test dpbg=991) 27.7 pg 25.6-32.2 MEAN CORPUSCULAR HEMOGLOBIN CONC (BEAKER) (test ewne=819) 30.1 GM/DL 32.2-35.5 RED CELL DISTRIBUTION WIDTH (BEAKER) (test ayqm=942) 13.3 % 11.7-14.4 PLATELET COUNT (BEAKER) (test mgge=722) 605 K/CU MM 150-450 MEAN PLATELET VOLUME (BEAKER) (test sonh=452) 9.7 fL 9.4-12.3 NUCLEATED RED BLOOD CELLS (BEAKER) (test wflt=298) 0 /100 WBC 0-0 NEUTROPHILS RELATIVE PERCENT (BEAKER) (test ulwt=557) 71 % LYMPHOCYTES RELATIVE PERCENT (BEAKER) (test sxui=160) 19 % MONOCYTES RELATIVE PERCENT (BEAKER) (test nwwt=614) 7 % EOSINOPHILS RELATIVE PERCENT (BEAKER) (test wswc=570) 3 % BASOPHILS RELATIVE PERCENT (BEAKER) (test qijs=071) 1 % NEUTROPHILS ABSOLUTE COUNT (BEAKER) (test eipg=552) 8.89 K/ L 1.56-6.13 LYMPHOCYTES ABSOLUTE COUNT (BEAKER) (test xnju=935) 2.32 K/ L 1.18-3.74 MONOCYTES ABSOLUTE COUNT (BEAKER) (test owgf=257) 0.83 K/ L 0.24-0.36 EOSINOPHILS ABSOLUTE COUNT (BEAKER) (test hexp=251) 0.31 K/ L 0.04-0.36 BASOPHILS ABSOLUTE COUNT (BEAKER) (test gtmi=183) 0.09 K/ L 0.01-0.08 IMMATURE GRANULOCYTES-RELATIVE PERCENT (BEAKER) (test jspc=7120) 1 % 0-1 [id number] 07:09:00* Test Item Value Reference Range Comments MAGNESIUM (BEAKER) (test mvmm=158) 1.6 mg/dL 1.6-2.6 [id number] 07:08:00* Test Item Value Reference Range Comments PHOSPHORUS (BEAKER) (test yats=185) 5.1 mg/dL 2.3-4.7 POCT-GLUCOSE [id number] 21:49:00* Test Item Value Reference Range Comments POC-GLUCOSE METER (BEAKER) (test mbuw=8583) 159 mg/dL 70-110 TESTED AT [place] [id number] POCT-GLUCOSE [id number] 18:38:00* Test Item Value Reference Range Comments POC-GLUCOSE METER (BEAKER) (test fskw=0805) 96 mg/dL 70-110 TESTED AT [address] [address] POCT-GLUCOSE [id number] 18:30:00* Test Item Value Reference Range Comments POC-GLUCOSE METER (BEAKER) (test wxyr=2317) 63 mg/dL 70-110 Notified SHALA RAM/TESTED AT [address] [address] RAD, CHEST, 1 VIEW, NON [id number] 15:40:00Reason for exam:->SOBShould this be performed at the bedside?->YesFINAL REPORT CHEST ONE VIEW HISTORY: Shortness of breath COMPARISON: 04/04/2017 FINDINGS: Single portable AP examination of the chest was performed. Small to moderate left pleural effusion is unchanged or slightly increased since the prior study. Left lower lobe airspace consolidation has slightly increased suggestive of atelectasis or pneumonia. Mild pleural thickening or fissural fluid in the minor fissure. No right pleural effusion. A skinfold overlies the lateral aspect of the right lung. No pneumothorax. Right PICC line tip is in the SVC region. A catheter is present in the left abdomen. Signed: Tania Segal MDReport Verified Date/Time: 04/08/2017 15:40:49 Reading Location: [facility] B1 [id number] Ortho Consult Reading Room - GLUCOSE [id number] 13:00:00* Test Item Value Reference Range Comments POC-GLUCOSE METER (BEAKER) (test jjkl=7586) 116 mg/dL 70-110 TESTED AT [facility] [address] [facility] [address] BASIC METABOLIC [id number] 11:42:00* Test Item Value Reference Range Comments SODIUM (BEAKER) (test jbeh=073) 139 meq/L 136-145 POTASSIUM (BEAKER) (test ccle=363) 5.2 meq/L 3.5-5.1 CHLORIDE (BEAKER) (test bqxh=181) 109 meq/L 98-107 CO2 (BEAKER) (test rnbl=756) 22 meq/L 22-29 BLOOD UREA NITROGEN (BEAKER) (test olpl=467) 26 mg/dL 7-21 CREATININE (BEAKER) (test sjil=212) 1.97 mg/dL 0.57-1.25 GLUCOSE RANDOM (BEAKER) (test wqox=258) 89 mg/dL 70-105 CALCIUM (BEAKER) (test krvh=772) 8.1 mg/dL 8.4-10.2 EGFR (BEAKER) (test asbo=0971) 25 mL/min/1.73 sq m ESTIMATED GFR IS NOT ACCURATE CREATININE CLEARANCE IN PREDICTING GLOMERULAR FILTRATION RATE. ESTIMATED GFR IS NOT APPLICABLE FOR DIALYSIS PATIENTS. [id number] 11:25:00* Test Item Value Reference Range Comments PHOSPHORUS (BEAKER) (test wjvq=169) 4.9 mg/dL 2.3-4.7 [id number] 11:25:00* Test Item Value Reference Range Comments MAGNESIUM (BEAKER) (test oniu=757) 1.7 mg/dL 1.6-2.6 BLOOD [id number] 10:00:00* Test Item Value Reference Range Comments CULTURE (BEAKER) (test mupx=8309) No growth in 5 days POCT-GLUCOSE [id number] 09:10:00* Test Item Value Reference Range Comments POC-GLUCOSE METER (BEAKER) (test ozpt=2354) 117 mg/dL 70-110 TESTED AT [facility] [address] [facility] [address] CBC W/PLT COUNT & AUTO [id number] 07:27:00* Test Item Value Reference Range Comments WHITE BLOOD CELL COUNT (BEAKER) (test ogme=848) 12.9 K/ L 3.5-10.5 RED BLOOD CELL COUNT (BEAKER) (test beum=706) 3.01 M/ L 3.93-5.22 HEMOGLOBIN (BEAKER) (test tvvy=349) 8.4 GM/DL 11.2-15.7 HEMATOCRIT (BEAKER) (test cora=049) 27.8 % 34.1-44.9 MEAN CORPUSCULAR VOLUME (BEAKER) (test lhfq=684) 92.4 fL 79.4-94.8 MEAN CORPUSCULAR HEMOGLOBIN (BEAKER) (test syfk=331) 27.9 pg 25.6-32.2 MEAN CORPUSCULAR HEMOGLOBIN CONC (BEAKER) (test hexf=229) 30.2 GM/DL 32.2-35.5 RED CELL DISTRIBUTION WIDTH (BEAKER) (test mbom=160) 13.3 % 11.7-14.4 PLATELET COUNT (BEAKER) (test vjog=229) 591 K/CU MM 150-450 MEAN PLATELET VOLUME (BEAKER) (test tcmv=281) 9.8 fL 9.4-12.3 NUCLEATED RED BLOOD CELLS (BEAKER) (test zqik=140) 0 /100 WBC 0-0 NEUTROPHILS RELATIVE PERCENT (BEAKER) (test udlz=915) 71 % LYMPHOCYTES RELATIVE PERCENT (BEAKER) (test qpul=541) 18 % MONOCYTES RELATIVE PERCENT (BEAKER) (test ygls=997) 7 % EOSINOPHILS RELATIVE PERCENT (BEAKER) (test utgo=212) 2 % BASOPHILS RELATIVE PERCENT (BEAKER) (test zjbk=469) 1 % NEUTROPHILS ABSOLUTE COUNT (BEAKER) (test wujt=889) 9.23 K/ L 1.56-6.13 LYMPHOCYTES ABSOLUTE COUNT (BEAKER) (test uhha=338) 2.36 K/ L 1.18-3.74 MONOCYTES ABSOLUTE COUNT (BEAKER) (test qjyg=859) 0.85 K/ L 0.24-0.36 EOSINOPHILS ABSOLUTE COUNT (BEAKER) (test btju=701) 0.25 K/ L 0.04-0.36 BASOPHILS ABSOLUTE COUNT (BEAKER) (test qbhw=942) 0.08 K/ L 0.01-0.08 IMMATURE GRANULOCYTES-RELATIVE PERCENT (BEAKER) (test bdkn=3473) 1 % 0-1 CALCIUM, [id number] 06:49:00* Test Item Value Reference Range Comments CALCIUM IONIZED (BEAKER) (test atpa=209) 0.99 mmol/L 1.12-1.27 PH, BLOOD (BEAKER) (test igao=4487) 7.35 POCT-GLUCOSE [id number] 21:51:00* Test Item Value Reference Range Comments POC-GLUCOSE METER (BEAKER) (test twyd=3360) 91 mg/dL 70-110 TESTED AT [address] [address] POCT-GLUCOSE [id number] 17:11:00* Test Item Value Reference Range Comments POC-GLUCOSE METER (BEAKER) (test lxbo=2535) 168 mg/dL 70-110 TESTED AT [address] [address] POCT-GLUCOSE [id number] 10:51:00* Test Item Value Reference Range Comments POC-GLUCOSE METER (BEAKER) (test vrnv=9902) 204 mg/dL 70-110 TESTED AT [address] [address] CBC W/PLT COUNT & AUTO [id number] 08:12:00* Test Item Value Reference Range Comments WHITE BLOOD CELL COUNT (BEAKER) (test ikdf=626) 13.9 K/ L 3.5-10.5 RED BLOOD CELL COUNT (BEAKER) (test rffs=192) 3.02 M/ L 3.93-5.22 HEMOGLOBIN (BEAKER) (test zipq=794) 8.6 GM/DL 11.2-15.7 HEMATOCRIT (BEAKER) (test frzy=446) 28.0 % 34.1-44.9 MEAN CORPUSCULAR VOLUME (BEAKER) (test nzxe=139) 92.7 fL 79.4-94.8 MEAN CORPUSCULAR HEMOGLOBIN (BEAKER) (test zzfq=816) 28.5 pg 25.6-32.2 MEAN CORPUSCULAR HEMOGLOBIN CONC (BEAKER) (test ijea=769) 30.7 GM/DL 32.2-35.5 RED CELL DISTRIBUTION WIDTH (BEAKER) (test eove=324) 13.4 % 11.7-14.4 PLATELET COUNT (BEAKER) (test jaua=971) 595 K/CU MM 150-450 MEAN PLATELET VOLUME (BEAKER) (test xpuz=002) 10.0 fL 9.4-12.3 NUCLEATED RED BLOOD CELLS (BEAKER) (test btxp=215) 0 /100 WBC 0-0 NEUTROPHILS RELATIVE PERCENT (BEAKER) (test yyee=710) 74 % LYMPHOCYTES RELATIVE PERCENT (BEAKER) (test rmte=894) 16 % MONOCYTES RELATIVE PERCENT (BEAKER) (test ormn=423) 6 % EOSINOPHILS RELATIVE PERCENT (BEAKER) (test pcib=628) 2 % BASOPHILS RELATIVE PERCENT (BEAKER) (test epua=159) 1 % NEUTROPHILS ABSOLUTE COUNT (BEAKER) (test ltno=563) 10.30 K/ L 1.56-6.13 LYMPHOCYTES ABSOLUTE COUNT (BEAKER) (test lcfa=326) 2.25 K/ L 1.18-3.74 MONOCYTES ABSOLUTE COUNT (BEAKER) (test jwhp=890) 0.85 K/ L 0.24-0.36 EOSINOPHILS ABSOLUTE COUNT (BEAKER) (test csqf=740) 0.25 K/ L 0.04-0.36 BASOPHILS ABSOLUTE COUNT (BEAKER) (test looe=498) 0.09 K/ L 0.01-0.08 IMMATURE GRANULOCYTES-RELATIVE PERCENT (BEAKER) (test oijq=4453) 1 % 0-1 BASIC METABOLIC [id number] 08:12:00* Test Item Value Reference Range Comments SODIUM (BEAKER) (test nazq=828) 136 meq/L 136-145 POTASSIUM (BEAKER) (test kqok=772) 4.9 meq/L 3.5-5.1 CHLORIDE (BEAKER) (test qaub=412) 106 meq/L 98-107 CO2 (BEAKER) (test pykt=332) 23 meq/L 22-29 BLOOD UREA NITROGEN (BEAKER) (test xdpg=835) 27 mg/dL 7-21 CREATININE (BEAKER) (test vkqg=719) 1.95 mg/dL 0.57-1.25 GLUCOSE RANDOM (BEAKER) (test yceh=326) 88 mg/dL 70-105 CALCIUM (BEAKER) (test rhtb=230) 7.9 mg/dL 8.4-10.2 EGFR (BEAKER) (test wgkt=6103) 25 mL/min/1.73 sq m ESTIMATED GFR IS NOT ACCURATE CREATININE CLEARANCE IN PREDICTING GLOMERULAR FILTRATION RATE. ESTIMATED GFR IS NOT APPLICABLE FOR DIALYSIS PATIENTS. [id number] 08:00:00* Test Item Value Reference Range Comments PHOSPHORUS (BEAKER) (test xabp=444) 5.4 mg/dL 2.3-4.7 [id number] 08:00:00* Test Item Value Reference Range Comments MAGNESIUM (BEAKER) (test yckn=190) 1.5 mg/dL 1.6-2.6 CALCIUM, [id number] 06:07:00* Test Item Value Reference Range Comments CALCIUM IONIZED (BEAKER) (test amjh=116) 0.99 mmol/L 1.12-1.27 PH, BLOOD (BEAKER) (test zjem=8510) 7.35 CT, [id number] 22:51:00FINAL REPORT CLINICAL HISTORY: Emphysematous pyelonephritis, status post drain placement FINDINGS: Multiple axial images of the abdomen and pelvis were performed without intravenous contrast. Oral contrast was not given. This exam was performed according to our departmental dose-optimization program, which includes automated exposure control, adjustment of the mA and/or kV according to patient size and/or use of the iterative reconstruction technique. Comparison: 04/01/2017 Lower chest: Left greater than right basilar consolidations, atelectasis versus pneumonitis. Small bilateral pleural effusions, left greater than right. Coronary artery atherosclerotic calcifications. Partially visualized left breast prosthesis. Liver: No significant findings. Gallbladder and biliary tree: High density in the dependent gallbladder lumen, stones versus sludge Spleen: No significant findings. Adrenal Glands: No significant findings. Kidne ys and ureters: Redemonstrated perinephric collection of gas and fluid at the le ft mid to upper pole kidney. There has been interval placement of a percutaneous pigtail drainage catheter with decrease in the size of the collection. The maxi mum cross-sectional dimension is now 5.2 x 2.3 cm where it previously measured 7 .5 x 4.1 cm. A left-sided ureteral stent is in place. A nonobstructing left midp ole stone is present. No CT evidence of obstructive uropathy. Stomach and Duoden um: No significant findings. Pancreas: Fatty replacement of the pancreas Bowel: No obstruction or pneumatosis intestinalis. Appendix: Normal. Bladder: Decomp ressed with a Dotson catheter Major vascular structures: Atherosclerotic calcific ations Reproductive organs: No significant findings. Other: Interval resolution of the previously seen free air in the left abdomen. Skeleton: No acute bony abnormality. IMPRESSION: Interval placement of a percutaneous pigtail drainage catheter in the left perinephric collection of gas and fluid with interval decre ase in the size of this collection. There has been resolution of the previously seen free air in the left abdomen. A left ureteral stent is in appropriate posit ion. There is no CT evidence of obstructive uropathy. A nonobstructing left kidn ey stone remains is redemonstrated. Color sludge versus stones. Left greater jacy n right small pulmonary effusions with adjacent atelectasis versus pneumonitis. Signed: Franky [place] Verified Date/Time: 04/06/2017 22:51:19 Reading Location: [address] Reading Room -GLUCOSE [id number] 20:49:00 * Test Item Value Reference Range Comments POC-GLUCOSE METER (BEAKER) (test nube=7798) 87 mg/dL 70-110 TESTED AT [facility] [address] [address] CREATININE, RANDOM [id number] 19:33:00* Test Item Value Reference Range Comments CREATININE URINE (BEAKER) (test dqvc=637) 34.4 mg/dL Reference Range: No NormalsSODIUM, RANDOM [id number] 19:33:00* Test Item Value Reference Range Comments SODIUM URINE (BEAKER) (test ogmn=194) 73 meq/L Reference Range: No NormalsURINALYSIS W/ [id number] 19:10:00* Test Item Value Reference Range Comments COLOR (BEAKER) (test dliz=411) Light Yellow CLARITY (BEAKER) (test zvte=853) Hazy SPECIFIC GRAVITY UA (BEAKER) (test bjph=239) 1.008 1.001-1.035 PH UA (BEAKER) (test ymmm=794) 5.5 5.0-8.0 PROTEIN UA (BEAKER) (test dkiy=262) 50 mg/dL Negative GLUCOSE UA (BEAKER) (test zdao=364) Negative Negative KETONES UA (BEAKER) (test qxnm=889) Negative Negative BILIRUBIN UA (BEAKER) (test zauw=720) Negative Negative BLOOD UA (BEAKER) (test ujjy=111) Small Negative NITRITE UA (BEAKER) (test vcfw=962) Negative Negative LEUKOCYTE ESTERASE UA (BEAKER) (test nnpu=319) Large Negative UROBILINOGEN UA (BEAKER) (test tmzo=290) 0.2 mg/dL 0.2-1.0 RBC UA (BEAKER) (test vbds=211) 19 /HPF WBC UA (BEAKER) (test sxxu=859) 169 /HPF BACTERIA (BEAKER) (test mwnq=795) Occasional SOURCE(BEAKER) (test rsgs=7699) CREATINE KINASE (CK)2017-04-06 19:04:00* Test Item Value Reference Range Comments CREATINE KINASE TOTAL (BEAKER) (test jrbx=802) 8 U/L 29-200 LACTIC ACID, VENOUS, WHOLE [id number] 19:00:00* Test Item Value Reference Range Comments LACTATE BLOOD VENOUS (2) (BEAKER) (test oafc=8026) 1.0 mmol/L 0.5-2.2 Effective 08/04/2015: Units/Reference Range ChangeNew: 0.5-2.2 mmol/L Previous: 5 -20 mg/dLPOCT-GLUCOSE [id number] 17:20:00* Test Item Value Reference Range Comments POC-GLUCOSE METER (BEAKER) (test vqfo=9880) 101 mg/dL 70-110 TESTED AT [facility] [address] [address] POCT-GLUCOSE [id number] 11:42:00* Test Item Value Reference Range Comments POC-GLUCOSE METER (BEAKER) (test jsce=9573) 208 mg/dL 70-110 TESTED AT [facility] [address] [address] POCT-GLUCOSE [id number] 11:42:00* Test Item Value Reference Range Comments POC-GLUCOSE METER (BEAKER) (test pcjs=1067) 157 mg/dL 70-110 TESTED AT [facility] [address] [facility] [address] CBC W/PLT COUNT & AUTO [id number] 06:35:00* Test Item Value Reference Range Comments WHITE BLOOD CELL COUNT (BEAKER) (test ofsc=219) 14.9 K/ L 3.5-10.5 RED BLOOD CELL COUNT (BEAKER) (test frin=006) 3.13 M/ L 3.93-5.22 HEMOGLOBIN (BEAKER) (test vlsx=461) 8.9 GM/DL 11.2-15.7 HEMATOCRIT (BEAKER) (test ykac=486) 29.5 % 34.1-44.9 MEAN CORPUSCULAR VOLUME (BEAKER) (test zeeo=275) 94.2 fL 79.4-94.8 MEAN CORPUSCULAR HEMOGLOBIN (BEAKER) (test pvep=546) 28.4 pg 25.6-32.2 MEAN CORPUSCULAR HEMOGLOBIN CONC (BEAKER) (test rcll=565) 30.2 GM/DL 32.2-35.5 RED CELL DISTRIBUTION WIDTH (BEAKER) (test gqbb=100) 13.3 % 11.7-14.4 PLATELET COUNT (BEAKER) (test wvab=836) 474 K/CU MM 150-450 MEAN PLATELET VOLUME (BEAKER) (test hjcy=885) 10.1 fL 9.4-12.3 NUCLEATED RED BLOOD CELLS (BEAKER) (test emvh=101) 0 /100 WBC 0-0 NEUTROPHILS RELATIVE PERCENT (BEAKER) (test frvm=955) 75 % LYMPHOCYTES RELATIVE PERCENT (BEAKER) (test kjjk=837) 15 % MONOCYTES RELATIVE PERCENT (BEAKER) (test tskv=741) 6 % EOSINOPHILS RELATIVE PERCENT (BEAKER) (test oezj=466) 2 % BASOPHILS RELATIVE PERCENT (BEAKER) (test uyzr=699) 1 % NEUTROPHILS ABSOLUTE COUNT (BEAKER) (test djga=824) 11.14 K/ L 1.56-6.13 LYMPHOCYTES ABSOLUTE COUNT (BEAKER) (test tttb=029) 2.23 K/ L 1.18-3.74 MONOCYTES ABSOLUTE COUNT (BEAKER) (test qajb=974) 0.90 K/ L 0.24-0.36 EOSINOPHILS ABSOLUTE COUNT (BEAKER) (test yqza=438) 0.27 K/ L 0.04-0.36 BASOPHILS ABSOLUTE COUNT (BEAKER) (test kdew=819) 0.09 K/ L 0.01-0.08 IMMATURE GRANULOCYTES-RELATIVE PERCENT (BEAKER) (test hmfz=4043) 2 % 0-1 BASIC METABOLIC [id number] 05:52:00* Test Item Value Reference Range Comments SODIUM (BEAKER) (test vpfz=847) 136 meq/L 136-145 POTASSIUM (BEAKER) (test gsic=613) 5.1 meq/L 3.5-5.1 Specimen slightly hemolyzed CHLORIDE (BEAKER) (test wczi=065) 108 meq/L 98-107 CO2 (BEAKER) (test gkdj=391) 21 meq/L 22-29 BLOOD UREA NITROGEN (BEAKER) (test hgvv=401) 28 mg/dL 7-21 CREATININE (BEAKER) (test suin=276) 2.08 mg/dL 0.57-1.25 Specimen slightly hemolyzed GLUCOSE RANDOM (BEAKER) (test ztks=831) 113 mg/dL 70-105 CALCIUM (BEAKER) (test ujvd=924) 7.9 mg/dL 8.4-10.2 EGFR (BEAKER) (test qzue=8298) 24 mL/min/1.73 sq m ESTIMATED GFR IS NOT ACCURATE CREATININE CLEARANCE IN PREDICTING GLOMERULAR FILTRATION RATE. ESTIMATED GFR IS NOT APPLICABLE FOR DIALYSIS PATIENTS. CALCIUM, [id number] 05:32:00* Test Item Value Reference Range Comments CALCIUM IONIZED (BEAKER) (test whrq=849) 0.97 mmol/L 1.12-1.27 PH, BLOOD (BEAKER) (test fhtk=6697) 7.41 [id number] 05:27:00* Test Item Value Reference Range Comments MAGNESIUM (BEAKER) (test zzak=629) 1.7 mg/dL 1.6-2.6 Specimen slightly hemolyzed [id number] 05:27:00* Test Item Value Reference Range Comments PHOSPHORUS (BEAKER) (test wden=974) 5.5 mg/dL 2.3-4.7 Specimen slightly hemolyzed POCT-GLUCOSE [id number] 21:36:00* Test Item Value Reference Range Comments POC-GLUCOSE METER (BEAKER) (test nrhp=5214) 137 mg/dL 70-110 TESTED AT [place] [address] POCT-GLUCOSE [id number] 17:26:00* Test Item Value Reference Range Comments POC-GLUCOSE METER (BEAKER) (test lppy=8271) 164 mg/dL 70-110 TESTED AT [place] [address] MISCELLANEOUS LAB [id number] 13:39:00* Test Item Value Reference Range Comments SCAN RESULT (test mwuq=[id number]) Result comments: EARL GLABRATA DETECTED First line therapy: micafungin De-esc alate based on susceptibilities when patient is clinically improving ID and Opht halmologic consultations strongly recommended Other organisms and resistance mar kers not contained in this PCR panel cannot be excluded and follow-up of traditi onal culture results is required. This sample was tested at the [facility] Clinical Microbiology Laboratory using the [facility] Blood Culture ID Panel. This test is FDA cleared for in vitro diagnostic use and has been verified and appr jeffrey by the [facility] Clinical Microbiology laboratory for clinical use. Reference R elizabeth: Not DetectedPOCT-GLUCOSE [id number] 13:04:00* Test Item Value Reference Range Comments POC-GLUCOSE METER (BEAKER) (test jyrm=4697) 207 mg/dL 70-110 TESTED AT [place] [id number] CBC W/PLT COUNT & AUTO [id number] 11:24:00* Test Item Value Reference Range Comments WHITE BLOOD CELL COUNT (BEAKER) (test eyfi=670) 16.3 K/ L 3.5-10.5 RED BLOOD CELL COUNT (BEAKER) (test okgi=379) 3.09 M/ L 3.93-5.22 HEMOGLOBIN (BEAKER) (test ggua=035) 8.7 GM/DL 11.2-15.7 HEMATOCRIT (BEAKER) (test kydq=047) 28.1 % 34.1-44.9 MEAN CORPUSCULAR VOLUME (BEAKER) (test cekx=969) 90.9 fL 79.4-94.8 MEAN CORPUSCULAR HEMOGLOBIN (BEAKER) (test nfde=849) 28.2 pg 25.6-32.2 MEAN CORPUSCULAR HEMOGLOBIN CONC (BEAKER) (test exnf=702) 31.0 GM/DL 32.2-35.5 RED CELL DISTRIBUTION WIDTH (BEAKER) (test zilo=318) 13.2 % 11.7-14.4 PLATELET COUNT (BEAKER) (test zqha=854) 425 K/CU MM 150-450 Discordant result compared to previous result; clinical correlation required. MEAN PLATELET VOLUME (BEAKER) (test ztrh=411) 10.1 fL 9.4-12.3 NUCLEATED RED BLOOD CELLS (BEAKER) (test iwam=040) 0 /100 WBC 0-0 NEUTROPHILS RELATIVE PERCENT (BEAKER) (test krli=454) 77 % LYMPHOCYTES RELATIVE PERCENT (BEAKER) (test iqam=210) 13 % MONOCYTES RELATIVE PERCENT (BEAKER) (test acus=380) 6 % EOSINOPHILS RELATIVE PERCENT (BEAKER) (test akcj=551) 2 % BASOPHILS RELATIVE PERCENT (BEAKER) (test xagx=577) 0 % NEUTROPHILS ABSOLUTE COUNT (BEAKER) (test xqsd=676) 12.54 K/ L 1.56-6.13 LYMPHOCYTES ABSOLUTE COUNT (BEAKER) (test qdiy=891) 2.12 K/ L 1.18-3.74 MONOCYTES ABSOLUTE COUNT (BEAKER) (test ditm=067) 0.98 K/ L 0.24-0.36 EOSINOPHILS ABSOLUTE COUNT (BEAKER) (test egkr=072) 0.28 K/ L 0.04-0.36 BASOPHILS ABSOLUTE COUNT (BEAKER) (test oebm=497) 0.06 K/ L 0.01-0.08 IMMATURE GRANULOCYTES-RELATIVE PERCENT (BEAKER) (test gnke=2279) 2 % 0-1 CALCIUM, [id number] 06:44:00* Test Item Value Reference Range Comments CALCIUM IONIZED (BEAKER) (test vqez=825) 1.00 mmol/L 1.12-1.27 PH, BLOOD (BEAKER) (test mnvp=6640) 7.37 BASIC METABOLIC [id number] 03:51:00* Test Item Value Reference Range Comments SODIUM (BEAKER) (test tddn=515) 135 meq/L 136-145 POTASSIUM (BEAKER) (test fzsc=594) 4.5 meq/L 3.5-5.1 CHLORIDE (BEAKER) (test erxe=518) 105 meq/L 98-107 CO2 (BEAKER) (test ccew=956) 22 meq/L 22-29 BLOOD UREA NITROGEN (BEAKER) (test dgdr=761) 33 mg/dL 7-21 CREATININE (BEAKER) (test zqux=836) 1.92 mg/dL 0.57-1.25 GLUCOSE RANDOM (BEAKER) (test ouyh=911) 104 mg/dL 70-105 CALCIUM (BEAKER) (test tvad=772) 8.1 mg/dL 8.4-10.2 EGFR (BEAKER) (test vjai=6067) 26 mL/min/1.73 sq m ESTIMATED GFR IS NOT ACCURATE CREATININE CLEARANCE IN PREDICTING GLOMERULAR FILTRATION RATE. ESTIMATED GFR IS NOT APPLICABLE FOR DIALYSIS PATIENTS. [id number] 03:41:00* Test Item Value Reference Range Comments PHOSPHORUS (BEAKER) (test glgb=228) 5.2 mg/dL 2.3-4.7 [id number] 03:41:00* Test Item Value Reference Range Comments MAGNESIUM (BEAKER) (test ujxk=445) 1.6 mg/dL 1.6-2.6 POCT-GLUCOSE [id number] 21:31:00* Test Item Value Reference Range Comments POC-GLUCOSE METER (BEAKER) (test rlrm=6863) 156 mg/dL 70-110 TESTED AT [facility] [address] [address] POCT-GLUCOSE [id number] 18:30:00* Test Item Value Reference Range Comments POC-GLUCOSE METER (BEAKER) (test nush=1710) 162 mg/dL 70-110 TESTED AT [place] [id number] [facility] [address] CBC W/PLT COUNT & AUTO [id number] 16:24:00* Test Item Value Reference Range Comments WHITE BLOOD CELL COUNT (BEAKER) (test yrms=703) 26.3 K/ L 3.5-10.5 RED BLOOD CELL COUNT (BEAKER) (test tsvq=076) 3.46 M/ L 3.93-5.22 HEMOGLOBIN (BEAKER) (test rnsh=547) 10.0 GM/DL 11.2-15.7 HEMATOCRIT (BEAKER) (test zxiy=215) 32.0 % 34.1-44.9 MEAN CORPUSCULAR VOLUME (BEAKER) (test vyiw=796) 92.5 fL 79.4-94.8 MEAN CORPUSCULAR HEMOGLOBIN (BEAKER) (test kqxx=547) 28.9 pg 25.6-32.2 MEAN CORPUSCULAR HEMOGLOBIN CONC (BEAKER) (test bxts=847) 31.3 GM/DL 32.2-35.5 RED CELL DISTRIBUTION WIDTH (BEAKER) (test kibd=688) 13.6 % 11.7-14.4 PLATELET COUNT (BEAKER) (test zsph=432) 477 K/CU MM 150-450 MEAN PLATELET VOLUME (BEAKER) (test dofb=544) 11.0 fL 9.4-12.3 NUCLEATED RED BLOOD CELLS (BEAKER) (test sgtz=353) 0 /100 WBC 0-0 NEUTROPHILS RELATIVE PERCENT (BEAKER) (test hjqp=619) 80 % LYMPHOCYTES RELATIVE PERCENT (BEAKER) (test ppah=660) 12 % MONOCYTES RELATIVE PERCENT (BEAKER) (test fabh=029) 5 % EOSINOPHILS RELATIVE PERCENT (BEAKER) (test dziv=389) 1 % BASOPHILS RELATIVE PERCENT (BEAKER) (test uiei=226) 0 % NEUTROPHILS ABSOLUTE COUNT (BEAKER) (test jgqb=478) 21.11 K/ L 1.56-6.13 LYMPHOCYTES ABSOLUTE COUNT (BEAKER) (test jokz=191) 3.12 K/ L 1.18-3.74 MONOCYTES ABSOLUTE COUNT (BEAKER) (test wnrn=212) 1.32 K/ L 0.24-0.36 EOSINOPHILS ABSOLUTE COUNT (BEAKER) (test fdpx=725) 0.15 K/ L 0.04-0.36 BASOPHILS ABSOLUTE COUNT (BEAKER) (test timn=971) 0.09 K/ L 0.01-0.08 IMMATURE GRANULOCYTES-RELATIVE PERCENT (BEAKER) (test oulf=3980) 2 % 0-1 (MANUAL DIFFERENTIAL)2017-04-04 16:24:00* Test Item Value Reference Range Comments TOTAL COUNTED (BEAKER) (test czst=9859) WBC MORPHOLOGY (BEAKER) (test oums=230) Normal PLT MORPHOLOGY (BEAKER) (test zspt=194) Normal RBC MORPHOLOGY (BEAKER) (test bmow=005) Normal RAD, CHEST, 1 VIEW, NON [id number] 14:39:00Reason for exam:->check picc placement Should this be performed at the bedside?->YesFINAL REPORT AP chest HISTORY: PICC placement COMPARISON: 03/29/2017 IMPRESSION:Right PICC present with tip projecting near cavoatrial junction. This could be retracted 2-3 cm if desired. Stable cardiac silhouette. Increased interstitial edema. Bibasilar atelectasis and trace left effusion. No pn eumothorax. Signed: Dwayne Petereport Verified Date/Time: 04/04/2017 14: 39:24 Reading Location: [facility] Reading Room -GLUCOSE [id number] 13:33:00* Test Item Value Reference Range Comments POC-GLUCOSE METER (BEAKER) (test sacq=7505) 215 mg/dL 70-110 TESTED AT [facility] [address] [address] POCT-GLUCOSE [id number] 08:33:00* Test Item Value Reference Range Comments POC-GLUCOSE METER (BEAKER) (test siqh=9961) 180 mg/dL 70-110 TESTED AT [facility] [address] [address] BLOOD [id number] 08:02:00* Test Item Value Reference Range Comments CULTURE (BEAKER) (test oypf=1561) From Aerobic Bottle Only Same organism has been isolated from cultures(s) of the same body site and collection date. Repeat identification and susceptibility testing performed only after consultation with the clinical microbiology laboratory.Refer to previous culture ofCandida glabrata GRAM STAIN RESULT (BEAKER) (test hkyi=9747) From aerobic bottle only: yeast BLOOD [id number] 07:59:00* Test Item Value Reference Range Comments CULTURE (BEAKER) (test ngfv=2475) Fluconazole (test zvec=400) Micafungin (test pizs=235) Susceptible 0-0.06 , Non CULTURE (BEAKER) (test zecb=7447) From Aerobic Bottle Only Earl glabrata GRAM STAIN RESULT (BEAKER) (test jpmn=9033) From aerobic bottle only: yeast EARL GLABRATA DETECTEDFirst line therapy: micafunginDe-escalate based on susc eptibilities when patient is clinically improvingID and Ophthalmologic consultat ions strongly recommendedOther organisms and resistance markers not contained in this PCR panel cannot be excluded and follow-up of traditional culture results is required. This sample was tested at the [facility] using the [facility] Blood Culture ID Panel. This test is FDA cleared for in vitro diagnostic use and has been verified and approved by the [facility] laboratory for clinical use. Reference Range: Not Detected BASIC METABOLIC [id number] 07:58:00* Test Item Value Reference Range Comments SODIUM (BEAKER) (test gbqk=369) 136 meq/L 136-145 POTASSIUM (BEAKER) (test ltav=385) 5.4 meq/L 3.5-5.1 CHLORIDE (BEAKER) (test rgpm=507) 106 meq/L 98-107 CO2 (BEAKER) (test lsqk=427) 21 meq/L 22-29 BLOOD UREA NITROGEN (BEAKER) (test vvwg=905) 30 mg/dL 7-21 CREATININE (BEAKER) (test xjjj=052) 1.77 mg/dL 0.57-1.25 GLUCOSE RANDOM (BEAKER) (test nmle=013) 99 mg/dL 70-105 CALCIUM (BEAKER) (test zfii=479) 8.4 mg/dL 8.4-10.2 EGFR (BEAKER) (test rfps=8506) 28 mL/min/1.73 sq m ESTIMATED GFR IS NOT ACCURATE CREATININE CLEARANCE IN PREDICTING GLOMERULAR FILTRATION RATE. ESTIMATED GFR IS NOT APPLICABLE FOR DIALYSIS PATIENTS. [id number] 07:34:00* Test Item Value Reference Range Comments PHOSPHORUS (BEAKER) (test rzsy=558) 4.7 mg/dL 2.3-4.7 [id number] 07:34:00* Test Item Value Reference Range Comments MAGNESIUM (BEAKER) (test bfwv=509) 1.7 mg/dL 1.6-2.6 LIPID [id number] 07:34:00* Test Item Value Reference Range Comments TRIGLYCERIDES (BEAKER) (test eczr=126) 164 mg/dL CHOLESTEROL (BEAKER) (test iqkj=019) 134 mg/dL HDL CHOLESTEROL (BEAKER) (test ijab=296) 18 mg/dL LDL CHOLESTEROL CALCULATED (BEAKER) (test vvzx=913) 83 mg/dL Triglyceride Reference Range: Low Risk <150 Borderline 150-199 High Risk 200-499 Very High Risk >=500Cholesterol Reference Range: Low Risk <200 Borderline 200-239 High Risk >240HDL Cholesterol Reference Range: Low Risk >=60 High Risk <40LDL Cholesterol Reference Range: Optimal <100 Near Optimal 100-129 Borderline 130-159 High 160-189 Very High >=190 CALCIUM, [id number] 07:17:00* Test Item Value Reference Range Comments CALCIUM IONIZED (BEAKER) (test dhgt=812) 1.03 mmol/L 1.12-1.27 PH, BLOOD (BEAKER) (test lcev=2778) 7.35 POCT-GLUCOSE [id number] 20:55:00* Test Item Value Reference Range Comments POC-GLUCOSE METER (BEAKER) (test nxbw=2624) 112 mg/dL 70-110 TESTED AT [address] [address] POCT-GLUCOSE [id number] 13:07:00* Test Item Value Reference Range Comments POC-GLUCOSE METER (BEAKER) (test gerw=4024) 175 mg/dL 70-110 TESTED AT [address] [address] POCT-GLUCOSE [id number] 09:06:00* Test Item Value Reference Range Comments POC-GLUCOSE METER (BEAKER) (test onzz=7933) 245 mg/dL 70-110 TESTED AT [address] [address] CATHETER TIP [id number] 08:17:00* Test Item Value Reference Range Comments CULTURE (BEAKER) (test lenp=9153) No growth ANG, [id number] 08:11:00Reason for exam:->L PCN drainFINAL REPORT LIMITED LEFT RENAL ULTRASOUND FINDINGS:Limited sonographic images are obtained of the left kidney at the bedside for the ass essment of hydronephrosis. No hydronephrosis is present. A ureteral stent is vis ualized in place. No obvious perinephric fluid collections identified. IMPRESSI ON: No hydronephrosis with ureteral stent identified in place. Signed: Gokul Tobias MDReport Verified Date/Time: 04/03/2017 08:11:15 Reading Location: [facility] P048 Angio Body Reading Room W/PLT COUNT & AUTO [id number] 08:02:00* Test Item Value Reference Range Comments WHITE BLOOD CELL COUNT (BEAKER) (test jhcb=181) 19.3 K/ L 3.5-10.5 RED BLOOD CELL COUNT (BEAKER) (test yjfs=306) 3.32 M/ L 3.93-5.22 HEMOGLOBIN (BEAKER) (test eodn=570) 9.4 GM/DL 11.2-15.7 HEMATOCRIT (BEAKER) (test lzlm=553) 29.9 % 34.1-44.9 MEAN CORPUSCULAR VOLUME (BEAKER) (test jkzx=827) 90.1 fL 79.4-94.8 MEAN CORPUSCULAR HEMOGLOBIN (BEAKER) (test vbbn=698) 28.3 pg 25.6-32.2 MEAN CORPUSCULAR HEMOGLOBIN CONC (BEAKER) (test gfap=401) 31.4 GM/DL 32.2-35.5 RED CELL DISTRIBUTION WIDTH (BEAKER) (test vfzc=594) 13.4 % 11.7-14.4 PLATELET COUNT (BEAKER) (test eftm=552) 388 K/CU MM 150-450 MEAN PLATELET VOLUME (BEAKER) (test vblz=278) 11.1 fL 9.4-12.3 NUCLEATED RED BLOOD CELLS (BEAKER) (test kziz=361) 0 /100 WBC 0-0 NEUTROPHILS RELATIVE PERCENT (BEAKER) (test zgcn=956) 77 % LYMPHOCYTES RELATIVE PERCENT (BEAKER) (test wqsi=827) 13 % MONOCYTES RELATIVE PERCENT (BEAKER) (test eidz=479) 5 % EOSINOPHILS RELATIVE PERCENT (BEAKER) (test stuc=074) 1 % BASOPHILS RELATIVE PERCENT (BEAKER) (test adqy=072) 1 % NEUTROPHILS ABSOLUTE COUNT (BEAKER) (test mrgy=965) 14.83 K/ L 1.56-6.13 LYMPHOCYTES ABSOLUTE COUNT (BEAKER) (test kfcq=564) 2.40 K/ L 1.18-3.74 MONOCYTES ABSOLUTE COUNT (BEAKER) (test npkz=526) 0.93 K/ L 0.24-0.36 EOSINOPHILS ABSOLUTE COUNT (BEAKER) (test iitk=958) 0.23 K/ L 0.04-0.36 BASOPHILS ABSOLUTE COUNT (BEAKER) (test zybt=433) 0.09 K/ L 0.01-0.08 IMMATURE GRANULOCYTES-RELATIVE PERCENT (BEAKER) (test cerc=7849) 4 % 0-1 CALCIUM, [id number] 05:55:00* Test Item Value Reference Range Comments CALCIUM IONIZED (BEAKER) (test olza=682) 0.99 mmol/L 1.12-1.27 PH, BLOOD (BEAKER) (test otjk=0353) 7.46 [id number] 05:39:00* Test Item Value Reference Range Comments PHOSPHORUS (BEAKER) (test xosw=244) 3.5 mg/dL 2.3-4.7 [id number] 05:39:00* Test Item Value Reference Range Comments MAGNESIUM (BEAKER) (test ubvy=455) 1.7 mg/dL 1.6-2.6 BASIC METABOLIC [id number] 05:39:00* Test Item Value Reference Range Comments SODIUM (BEAKER) (test chmy=661) 132 meq/L 136-145 POTASSIUM (BEAKER) (test cvwx=840) 5.7 meq/L 3.5-5.1 CHLORIDE (BEAKER) (test qqgg=592) 106 meq/L 98-107 CO2 (BEAKER) (test bkvl=351) 20 meq/L 22-29 BLOOD UREA NITROGEN (BEAKER) (test rokd=552) 31 mg/dL 7-21 CREATININE (BEAKER) (test iqrc=470) 1.58 mg/dL 0.57-1.25 GLUCOSE RANDOM (BEAKER) (test fpre=084) 216 mg/dL 70-105 CALCIUM (BEAKER) (test xhxu=210) 8.0 mg/dL 8.4-10.2 EGFR (BEAKER) (test rkxy=0515) 32 mL/min/1.73 sq m ESTIMATED GFR IS NOT ACCURATE CREATININE CLEARANCE IN PREDICTING GLOMERULAR FILTRATION RATE. ESTIMATED GFR IS NOT APPLICABLE FOR DIALYSIS PATIENTS. PROTHROMBIN [id number] 05:28:00* Test Item Value Reference Range Comments PROTIME (BEAKER) (test adei=388) 15.7 seconds 11.7-14.7 INR (BEAKER) (test gras=970) 1.3 <=5.9 RECOMMENDED COUMADIN/WARFARIN INR THERAPY RANGESSTANDARD DOSE: 2.0 - 3.0 Inclu yary: PROPHYLAXIS for venous thrombosis, systemic embolization; TREATMENT for bishnu ous thrombosis and/or pulmonary embolus.HIGH RISK: Target INR is 2.5-3.5 for pat ients with mechanical heart valves.POCT-GLUCOSE [id number] 22:35:00* Test Item Value Reference Range Comments POC-GLUCOSE METER (BEAKER) (test jcae=1481) 244 mg/dL 70-110 [address]ED AT [address] [address] POCT-GLUCOSE [id number] 18:16:00* Test Item Value Reference Range Comments POC-GLUCOSE METER (BEAKER) (test mgzm=9669) 181 mg/dL 70-110 TESTED AT [address] [address] POCT-GLUCOSE [id number] 12:51:00* Test Item Value Reference Range Comments POC-GLUCOSE METER (BEAKER) (test bixz=1443) 237 mg/dL 70-110 TESTED AT [address] [address] CBC W/PLT COUNT & AUTO [id number] 08:14:00* Test Item Value Reference Range Comments WHITE BLOOD CELL COUNT (BEAKER) (test jbpq=672) 21.6 K/ L 3.5-10.5 RED BLOOD CELL COUNT (BEAKER) (test blik=443) 3.33 M/ L 3.93-5.22 HEMOGLOBIN (BEAKER) (test rtgm=061) 9.6 GM/DL 11.2-15.7 HEMATOCRIT (BEAKER) (test efjx=320) 30.3 % 34.1-44.9 MEAN CORPUSCULAR VOLUME (BEAKER) (test dhod=064) 91.0 fL 79.4-94.8 MEAN CORPUSCULAR HEMOGLOBIN (BEAKER) (test zqdw=725) 28.8 pg 25.6-32.2 MEAN CORPUSCULAR HEMOGLOBIN CONC (BEAKER) (test tptv=455) 31.7 GM/DL 32.2-35.5 RED CELL DISTRIBUTION WIDTH (BEAKER) (test cfpt=610) 13.7 % 11.7-14.4 PLATELET COUNT (BEAKER) (test evxw=724) 302 K/CU MM 150-450 MEAN PLATELET VOLUME (BEAKER) (test gxyq=193) 11.6 fL 9.4-12.3 NUCLEATED RED BLOOD CELLS (BEAKER) (test tpyf=009) 0 /100 WBC 0-0 NEUTROPHILS RELATIVE PERCENT (BEAKER) (test lyqq=752) 80 % LYMPHOCYTES RELATIVE PERCENT (BEAKER) (test xroh=110) 10 % MONOCYTES RELATIVE PERCENT (BEAKER) (test srjc=404) 5 % EOSINOPHILS RELATIVE PERCENT (BEAKER) (test nguc=500) 1 % BASOPHILS RELATIVE PERCENT (BEAKER) (test tdlg=974) 0 % NEUTROPHILS ABSOLUTE COUNT (BEAKER) (test myuy=532) 17.27 K/ L 1.56-6.13 LYMPHOCYTES ABSOLUTE COUNT (BEAKER) (test uchp=962) 2.10 K/ L 1.18-3.74 MONOCYTES ABSOLUTE COUNT (BEAKER) (test oefd=494) 1.07 K/ L 0.24-0.36 EOSINOPHILS ABSOLUTE COUNT (BEAKER) (test izct=856) 0.26 K/ L 0.04-0.36 BASOPHILS ABSOLUTE COUNT (BEAKER) (test tdzi=134) 0.07 K/ L 0.01-0.08 IMMATURE GRANULOCYTES-RELATIVE PERCENT (BEAKER) (test kkhj=1522) 4 % 0-1 POCT-GLUCOSE [id number] 08:10:00* Test Item Value Reference Range Comments POC-GLUCOSE METER (BEAKER) (test duhg=4600) 233 mg/dL 70-110 TESTED AT [place] [id number] [facility] [address] POCT-GLUCOSE [id number] 21:44:00* Test Item Value Reference Range Comments POC-GLUCOSE METER (BEAKER) (test pszi=4963) 240 mg/dL 70-110 TESTED AT [place] [id number] [facility] [address] POCT-GLUCOSE [id number] 17:23:00* Test Item Value Reference Range Comments POC-GLUCOSE METER (BEAKER) (test yibn=1222) 232 mg/dL 70-110 TESTED AT [facility] [address] [facility] [address] [address], [id number] 13:40:00FINAL REPORT TECHNIQUE: CT of the abdomen and pelvis WITHOUT intravenous contrast and WITHOUT oral contrast. Dose modulation, iterative reconstruction, and/or weight-based adjustment of the mA/kV was utilized to reduce the radiation dose to as low as reasonably achievable. INDICATION: 71-year-old woman with abdominal pain. COMPARISON: None. FINDINGS: ABSENCE OF INTRAVENOUS CONTRAST DECREASES SENSITIVITY FOR DETECTION OF FOCAL LESIONS AND VASCULAR PATHOLOGY. LOWER THORAX: Trace bilateral pleural effusions with adjacent consolidative opacities. HEPATOBILIARY: 0.7 cm cyst in segment IV/VIII. Subcentimeter hyperdense focus at the gallbladder fundus. No biliary ductal dilatation.SPLEEN: No sp lenomegaly.PANCREAS: Fatty replacement of the pancreas. No focal masses or ducta l dilatation. ADRENALS: No adrenal nodules.KIDNEYS/URETERS: 6.5 x 3.8 cm area in the lateral aspect of the left kidney contains air, debris, and a small amount of fluid (axial series image 32). 2.7 x 2.1 cm hyperdense area along the inferio r pole of the left kidney, likely hematoma. Left ureteral stent in expected posi tion. 1.5 cm nonobstructing calculus in the left upper pole. No hydronephrosis o r solid mass lesions in either kidney.PELVIC ORGANS/BLADDER: Bladder is decompre ssed by Dotson catheter. Air within the bladder, likely from catheterization. The endometrium appears thickened, measuring approximately 1.2 cm. Ovaries are cami sly unremarkable. PERITONEUM/RETROPERITONEUM: No free fluid. Trace amount of cherry e air within the lateroconal space of the right retroperitoneum (axial series im age 39).LYMPH NODES: No lymphadenopathy.VESSELS: Atherosclerotic vascular calcif ications without aneurysm. GI TRACT: No distention or wall thickening. Normal ap pendix. BONES AND SOFT TISSUES: Degenerative changes of the visualized spine. Pa rtially visualized left breast prosthesis. Anasarca. Few small air foci within t he subcutaneous tissues of the anterior abdominal wall. IMPRESSION:6.5 cm colle ction of predominantly air in the left kidney, suspicious of emphysematous pyelo nephritis. 2.7 cm hyperdense area along the inferior pole of the left kidney, li ivette hematoma. Trace free air in the right retroperitoneum. No hydronephrosis. L eft ureteral stent in expected position. Nonobstructing calculus in the left kid pablito. The endometrium is thickened in this postmenopausal patient. Recommend daisy elation with history of tamoxifen use, and consider further evaluation with pelv ic ultrasound. Signed: Nyla Francisco MDReport Verified Date/Time: 04/01/2017 13:40:51 Reading Location: [facility] B1 C013Y CT Body Reading Room Electronically s igned by: NYLA FRANCISCO MD on 04/01/2017 01:40 PM POCT-GLUCOSE METER 2017-04-01 13:03:00* Test Item Value Reference Range Comments POC-GLUCOSE METER (BEAKER) (test whby=3683) 254 mg/dL 70-110 TESTED AT [address] [address] CULTURE, [id number] 10:55:00Specimen: BloodCollected: 03/26/2017 11:25 Status: Final Last Updated: 04/01/2017 10:53 Culture Result (Final) (Final) No Growth After 5 Days CULTURE, [id number] 10:54:00To start 15mins after 1st cultureSpecimen: BloodCollected: 03/26/2017 11:35 Status: Final Last Updated: 04/01/2017 10:53 (1) To start 15mins after 1st culture Culture Result (Final) (Final) No Growth After 5 Days POCT- GLUCOSE [id number] 07:49:00* Test Item Value Reference Range Comments POC-GLUCOSE METER (BEAKER) (test ybjj=9983) 226 mg/dL 70-110 TESTED AT [place] [id number] [facility] [address] CBC W/PLT COUNT & AUTO [id number] 06:49:00* Test Item Value Reference Range Comments WHITE BLOOD CELL COUNT (BEAKER) (test hpji=914) 19.7 K/ L 3.5-10.5 RED BLOOD CELL COUNT (BEAKER) (test oqcv=179) 3.41 M/ L 3.93-5.22 HEMOGLOBIN (BEAKER) (test fiwx=036) 9.7 GM/DL 11.2-15.7 HEMATOCRIT (BEAKER) (test izte=219) 31.2 % 34.1-44.9 MEAN CORPUSCULAR VOLUME (BEAKER) (test tqeu=189) 91.5 fL 79.4-94.8 MEAN CORPUSCULAR HEMOGLOBIN (BEAKER) (test jkey=527) 28.4 pg 25.6-32.2 MEAN CORPUSCULAR HEMOGLOBIN CONC (BEAKER) (test idqu=412) 31.1 GM/DL 32.2-35.5 RED CELL DISTRIBUTION WIDTH (BEAKER) (test szgc=907) 13.9 % 11.7-14.4 PLATELET COUNT (BEAKER) (test qboj=664) 231 K/CU MM 150-450 MEAN PLATELET VOLUME (BEAKER) (test lwxf=206) 12.4 fL 9.4-12.3 NUCLEATED RED BLOOD CELLS (BEAKER) (test sfvn=569) 0 /100 WBC 0-0 NEUTROPHILS RELATIVE PERCENT (BEAKER) (test payi=934) 78 % LYMPHOCYTES RELATIVE PERCENT (BEAKER) (test vnih=203) 11 % MONOCYTES RELATIVE PERCENT (BEAKER) (test hzas=308) 5 % EOSINOPHILS RELATIVE PERCENT (BEAKER) (test pgbr=318) 1 % BASOPHILS RELATIVE PERCENT (BEAKER) (test twrl=777) 0 % NEUTROPHILS ABSOLUTE COUNT (BEAKER) (test tusf=150) 15.41 K/ L 1.56-6.13 LYMPHOCYTES ABSOLUTE COUNT (BEAKER) (test uxzu=657) 2.26 K/ L 1.18-3.74 MONOCYTES ABSOLUTE COUNT (BEAKER) (test rkeb=046) 1.00 K/ L 0.24-0.36 EOSINOPHILS ABSOLUTE COUNT (BEAKER) (test agfy=578) 0.23 K/ L 0.04-0.36 BASOPHILS ABSOLUTE COUNT (BEAKER) (test senm=724) 0.05 K/ L 0.01-0.08 IMMATURE GRANULOCYTES-RELATIVE PERCENT (BEAKER) (test cmrq=3471) 4 % 0-1 POCT-GLUCOSE [id number] 20:44:00* Test Item Value Reference Range Comments POC-GLUCOSE METER (BEAKER) (test gcof=2005) 271 mg/dL 70-110 TESTED AT [facility] [address] [facility] [address] POCT-GLUCOSE [id number] 17:59:00* Test Item Value Reference Range Comments POC-GLUCOSE METER (BEAKER) (test arzp=1303) 278 mg/dL 70-110 TESTED AT [facility] [address] [facility] [address] CBC W/PLT COUNT & AUTO [id number] 14:51:00* Test Item Value Reference Range Comments WHITE BLOOD CELL COUNT (BEAKER) (test dzzm=368) 23.2 K/ L 3.5-10.5 RED BLOOD CELL COUNT (BEAKER) (test post=616) 3.30 M/ L 3.93-5.22 HEMOGLOBIN (BEAKER) (test kjsy=820) 9.5 GM/DL 11.2-15.7 HEMATOCRIT (BEAKER) (test efuf=186) 30.2 % 34.1-44.9 MEAN CORPUSCULAR VOLUME (BEAKER) (test lqbn=955) 91.5 fL 79.4-94.8 MEAN CORPUSCULAR HEMOGLOBIN (BEAKER) (test sftv=707) 28.8 pg 25.6-32.2 MEAN CORPUSCULAR HEMOGLOBIN CONC (BEAKER) (test jami=768) 31.5 GM/DL 32.2-35.5 RED CELL DISTRIBUTION WIDTH (BEAKER) (test povn=998) 13.9 % 11.7-14.4 PLATELET COUNT (BEAKER) (test sawj=875) 189 K/CU MM 150-450 MEAN PLATELET VOLUME (BEAKER) (test uepv=196) 12.4 fL 9.4-12.3 NUCLEATED RED BLOOD CELLS (BEAKER) (test fcfx=398) 0 /100 WBC 0-0 NEUTROPHILS RELATIVE PERCENT (BEAKER) (test tkyr=621) 87 % LYMPHOCYTES RELATIVE PERCENT (BEAKER) (test dqvv=900) 5 % MONOCYTES RELATIVE PERCENT (BEAKER) (test pqbl=181) 3 % EOSINOPHILS RELATIVE PERCENT (BEAKER) (test asgh=726) 1 % BASOPHILS RELATIVE PERCENT (BEAKER) (test kzsl=381) 0 % NEUTROPHILS ABSOLUTE COUNT (BEAKER) (test swhb=073) 20.17 K/ L 1.56-6.13 LYMPHOCYTES ABSOLUTE COUNT (BEAKER) (test uhmi=791) 1.14 K/ L 1.18-3.74 MONOCYTES ABSOLUTE COUNT (BEAKER) (test apwj=414) 0.79 K/ L 0.24-0.36 EOSINOPHILS ABSOLUTE COUNT (BEAKER) (test xqoc=433) 0.18 K/ L 0.04-0.36 BASOPHILS ABSOLUTE COUNT (BEAKER) (test pzjx=790) 0.08 K/ L 0.01-0.08 IMMATURE GRANULOCYTES-RELATIVE PERCENT (BEAKER) (test xihd=9261) 4 % 0-1 (MANUAL DIFFERENTIAL)2017-03-31 14:51:00* Test Item Value Reference Range Comments TOTAL COUNTED (BEAKER) (test wetq=3737) WBC MORPHOLOGY (BEAKER) (test vjfh=656) Normal PLT MORPHOLOGY (BEAKER) (test dwrq=769) Normal ANISOCYTOSIS (BEAKER) (test eibj=593) 1+ few HYPOCHROMIA (BEAKER) (test vmzr=630) 1+ few POIKILOCYTES (BEAKER) (test iwgv=182) 1+ few POCT-GLUCOSE [id number] 11:49:00* Test Item Value Reference Range Comments POC-GLUCOSE METER (BEAKER) (test twkt=2184) 282 mg/dL 70-110 TESTED AT [address] [address] BASIC METABOLIC [id number] 07:58:00* Test Item Value Reference Range Comments SODIUM (BEAKER) (test dnbq=249) 134 meq/L 136-145 POTASSIUM (BEAKER) (test nhvf=618) 5.0 meq/L 3.5-5.1 CHLORIDE (BEAKER) (test ynei=342) 107 meq/L 98-107 CO2 (BEAKER) (test ooln=047) 16 meq/L 22-29 BLOOD UREA NITROGEN (BEAKER) (test dlti=398) 43 mg/dL 7-21 CREATININE (BEAKER) (test ymjq=043) 1.56 mg/dL 0.57-1.25 GLUCOSE RANDOM (BEAKER) (test stwp=837) 254 mg/dL 70-105 CALCIUM (BEAKER) (test auln=028) 7.7 mg/dL 8.4-10.2 EGFR (BEAKER) (test togw=7390) 33 mL/min/1.73 sq m ESTIMATED GFR IS NOT ACCURATE CREATININE CLEARANCE IN PREDICTING GLOMERULAR FILTRATION RATE. ESTIMATED GFR IS NOT APPLICABLE FOR DIALYSIS PATIENTS. POCT-GLUCOSE [id number] 07:31:00* Test Item Value Reference Range Comments POC-GLUCOSE METER (BEAKER) (test wibz=9944) 276 mg/dL 70-110 TESTED AT [place] [id number] [facility] [address] POCT-GLUCOSE [id number] 21:17:00* Test Item Value Reference Range Comments POC-GLUCOSE METER (BEAKER) (test iilo=0274) 272 mg/dL 70-110 TESTED AT [address] [address] POCT-GLUCOSE [id number] 16:30:00* Test Item Value Reference Range Comments POC-GLUCOSE METER (BEAKER) (test prcr=2911) 324 mg/dL 70-110 Notified SHALA RAM/TESTED AT [address] [address] POCT-GLUCOSE [id number] 12:48:00* Test Item Value Reference Range Comments POC-GLUCOSE METER (BEAKER) (test crqf=3129) 255 mg/dL 70-110 TESTED AT [address] [address] CBC W/PLT COUNT & AUTO [id number] 11:37:00* Test Item Value Reference Range Comments WHITE BLOOD CELL COUNT (BEAKER) (test nasa=023) 19.7 K/ L 3.5-10.5 RED BLOOD CELL COUNT (BEAKER) (test tejl=535) 3.26 M/ L 3.93-5.22 HEMOGLOBIN (BEAKER) (test svxf=312) 9.4 GM/DL 11.2-15.7 HEMATOCRIT (BEAKER) (test cflm=002) 30.5 % 34.1-44.9 MEAN CORPUSCULAR VOLUME (BEAKER) (test icva=145) 93.6 fL 79.4-94.8 MEAN CORPUSCULAR HEMOGLOBIN (BEAKER) (test qkyq=897) 28.8 pg 25.6-32.2 MEAN CORPUSCULAR HEMOGLOBIN CONC (BEAKER) (test ofbv=450) 30.8 GM/DL 32.2-35.5 RED CELL DISTRIBUTION WIDTH (BEAKER) (test kufv=666) 14.1 % 11.7-14.4 PLATELET COUNT (BEAKER) (test wjph=114) 131 K/CU MM 150-450 MEAN PLATELET VOLUME (BEAKER) (test pdlw=219) 12.1 fL 9.4-12.3 NUCLEATED RED BLOOD CELLS (BEAKER) (test zqng=837) 0 /100 WBC 0-0 IMMATURE GRANULOCYTES-RELATIVE PERCENT (BEAKER) (test crwq=3281) 5 % 0-1 (MANUAL DIFFERENTIAL)2017-03-30 11:37:00* Test Item Value Reference Range Comments NEUTROPHILS - REL (DIFF) (BEAKER) (test ryyg=3572) 93 % LYMPHOCYTES - REL (DIFF) (BEAKER) (test mpve=9100) 1 % MONOCYTES - REL (DIFF) (BEAKER) (test ialx=6056) 1 % EOSINOPHILS - REL (DIFF) (BEAKER) (test llij=9343) 3 % BANDS - REL (DIFF) (BEAKER) (test lvsy=3591) 2 % 0-10 NEUTROPHILS - ABS (DIFF) (BEAKER) (test vdsh=3769) 18.32 K/ L 1.80-8.00 LYMPHOCYTES - ABS (DIFF) (BEAKER) (test uvlz=6790) 0.20 K/ L 1.48-4.50 MONOCYTES - ABS (DIFF) (BEAKER) (test dsrx=8896) 0.20 K/ L 0.00-1.30 EOSINOPHILS - ABS (DIFF) (BEAKER) (test yhtp=4771) 0.59 K/ L 0.00-0.50 BANDS-ABS (DIFF) (BEAKER) (test vywr=6646) 0.4 K/ L 0.0-0.8 TOTAL COUNTED (BEAKER) (test yubb=0805) 100 BANDS + SEGMENTED NEUTROPHILS (BEAKER) (test owrm=6810) 18.72 WBC MORPHOLOGY (BEAKER) (test oenm=867) Normal RBC MORPHOLOGY (BEAKER) (test heky=439) Normal LARGE PLT(BEAKER) (test lpbm=7650) Present URINE [id number] 08:56:00* Test Item Value Reference Range Comments CULTURE (BEAKER) (test ibqd=8327) See comment <10,000 col/mL yeastPOCT-GLUCOSE [id number] 08:46:00* Test Item Value Reference Range Comments POC-GLUCOSE METER (BEAKER) (test oxbn=1099) 277 mg/dL 70-110 TESTED AT [facility] [address] [facility] [address] BASIC METABOLIC [id number] 07:16:00* Test Item Value Reference Range Comments SODIUM (BEAKER) (test ggsu=298) 133 meq/L 136-145 POTASSIUM (BEAKER) (test esei=974) 4.7 meq/L 3.5-5.1 CHLORIDE (BEAKER) (test fokw=539) 107 meq/L 98-107 CO2 (BEAKER) (test cfkc=060) 18 meq/L 22-29 BLOOD UREA NITROGEN (BEAKER) (test ycxx=657) 47 mg/dL 7-21 CREATININE (BEAKER) (test vjvw=724) 1.84 mg/dL 0.57-1.25 GLUCOSE RANDOM (BEAKER) (test jynx=733) 255 mg/dL 70-105 CALCIUM (BEAKER) (test nvds=375) 8.1 mg/dL 8.4-10.2 EGFR (BEAKER) (test tqsf=5084) 27 mL/min/1.73 sq m ESTIMATED GFR IS NOT ACCURATE CREATININE CLEARANCE IN PREDICTING GLOMERULAR FILTRATION RATE. ESTIMATED GFR IS NOT APPLICABLE FOR DIALYSIS PATIENTS. POCT-GLUCOSE [id number] 21:10:00* Test Item Value Reference Range Comments POC-GLUCOSE METER (BEAKER) (test bdxk=1706) 290 mg/dL 70-110 TESTED AT [facility] [address] [facility] [address] POCT-GLUCOSE [id number] 18:13:00* Test Item Value Reference Range Comments POC-GLUCOSE METER (BEAKER) (test nhth=0686) 258 mg/dL 70-110 TESTED AT [place] [id number] [facility] [address] RESPIRATORY PANEL [id number] 15:50:00* Test Item Value Reference Range Comments HUMAN METAPNEUMOVIRUS (BEAKER) (test iqhg=1985) Not detected Not detected, Inconclusive RHINOVIRUS (BEAKER) (test elmu=3124) Not detected Not detected, Inconclusive INFLUENZA A (BEAKER) (test myit=5256) Not detected Not detected, Inconclusive INFLUENZA A SUBTYPE H1 (BEAKER) (test kjzz=3786) Not detected Not detected, Inconclusive INFLUENZA A SUBTYPE H3 (BEAKER) (test fpee=0286) Not detected Not detected, Inconclusive INFLUENZA A SUBTYPE H1-2009 (BEAKER) (test yjks=0920) Not detected Not detected, Inconclusive INFLUENZA B (BEAKER) (test lelx=8809) Not detected Not detected, Inconclusive RESPIRATORY SYNCYTIAL VIRUS (BEAKER) (test oxpn=3430) Not detected Not detected, Inconclusive PARAINFLUENZA VIRUS 1 (BEAKER) (test mqxc=2985) Not detected Not detected, Inconclusive PARAINFLUENZA VIRUS 2 (BEAKER) (test cddr=8688) Not detected Not detected, Inconclusive PARAINFLUENZA VIRUS 3 (BEAKER) (test abze=9996) Not detected Not detected, Inconclusive PARAINFLUENZA VIRUS 4 (BEAKER) (test fcid=6284) Not detected Not detected, Inconclusive ADENOVIRUS (BEAKER) (test sfbh=5514) Not detected Not detected, Inconclusive CORONAVIRUS 229E (BEAKER) (test dcgx=9431) Not detected Not detected, Inconclusive CORONAVIRUS HKU1 (BEAKER) (test ikom=0600) Not detected Not detected, Inconclusive CORONAVIRUS NL63 (BEAKER) (test pqgx=2764) Not detected Not detected, Inconclusive CORONAVIRUS OC43 (BEAKER) (test hjev=3517) Not detected Not detected, Inconclusive BORDETELLA PERTUSSIS (BEAKER) (test oqyp=6784) Not detected Not detected, Inconclusive CHLAMYDOPHILA PNEUMONIAE (BEAKER) (test djmx=9667) Not detected Not detected, Inconclusive MYCOPLASMA PNEUMONIAE (BEAKER) (test ddka=9938) Not detected Not detected, Inconclusive POCT-GLUCOSE [id number] 12:39:00* Test Item Value Reference Range Comments POC-GLUCOSE METER (BEAKER) (test itnw=6905) 224 mg/dL 70-110 TESTED AT [facility] [address] [facility] [address] RAD, CHEST, 1 VIEW, NON [id number] 11:13:00Reason for exam:->coughShould this be performed at the bedside?->YesFINAL REPORT CLINICAL HISTORY: cough TECHNIQUE: 1 view of the chest. COMPARISON: 03/28/2017 IMPRESSION: Previous left asymmetric lung opacities have decreased. There is residual bilateral mid and lower lung atelectasis. There is blunting of the left costophrenic angle. The heart is not significantly enlarged. Signed: Robbie Tipton MDReport Verified Date/Time: 03/29/2017 11:13:26 Reading Location: [facility] Radiology Reading Room D INFLUENZA A&B [id number] 10:52:00* Test Item Value Reference Range Comments RAPID INFLUENZA A AG (BEAKER) (test ekbd=3958) Negative Negative, Inconclusive RAPID INFLUENZA B AG (BEAKER) (test cqnr=4663) Negative Negative, Inconclusive HISTOLOGY [id number] 09:50:[address] [place] [address]Clttq: [phone] [facility] #: [id number] Reproduction Artist: Tania Ding M.D.Surgical Pathology Consultation ReportPatient Name: MARYLIN BLAIR Case #: [id number] Med. Rec. #: [id number]: [id number] Surgery Date: 03/27/2017 : 1945 (Age: 71) Received: 03/28/2017 Gender: F Copy to : Reported:03/29/2017 Physician(s): Tania Barrientos Specimen(s) ReceivedA: Bladd er, foreign body Final Pathologic DiagnosisBladder, removal of foreign material: - FOREIGN MATERIAL IDENTIFIED. Electronically Signed Out 03/29/2017 Tania Ding MD, Board Certified in Anatomic Pathology Clinical HistoryPyelonephritis.Gross DescriptionThe specimen is labeled bladder foreign body. A piece of soft andres-tantissuemeasuring 1.8 x 1 x 0.3 cm is received. The entire specimen is submittedin acassette.03/28/2017 Tania Ding MD, Board C ertified in Anatomic Pathology Microscopic DescriptionMicroscopic examination o f the foreign body reveals acellular foreignmaterialwhich contains small cystic spaces filled with some degeneratinginflammatorycells and possible bacteria. The re are no malignant cells present.Billing Fee Code(s): A; [id number] 08:45:00* Test Item Value Reference Range Comments POC-GLUCOSE METER (BEAKER) (test iatq=6076) 180 mg/dL 70-110 TESTED AT [facility] [address] [address] HEMOGLOBIN [id number] 08:41:00* Test Item Value Reference Range Comments HEMOGLOBIN A1C (BEAKER) (test wkyo=577) 17.9 % 4.3-6.1 PERIPHERAL [id number] 07:39:00LEUKOCYTOSIS WITH NEUTROPHILIA AND THROMBOCYTOPENIA IN INFECTION.N.N.ANEMIA IN ANEMIA OF CHRONIC DISEASE VS RECENT BLOOD LOSS. DT MDPOCT-GLUCOSE [id number] 06:39:00* Test Item Value Reference Range Comments POC-GLUCOSE METER (BEAKER) (test jefz=5606) 187 mg/dL 70-110 TESTED AT [facility] [address] [place] [address] BASIC METABOLIC [id number] 05:10:00* Test Item Value Reference Range Comments SODIUM (BEAKER) (test xakb=990) 135 meq/L 136-145 POTASSIUM (BEAKER) (test lqxc=109) 5.0 meq/L 3.5-5.1 Specimen slightly hemolyzed CHLORIDE (BEAKER) (test dzfx=845) 108 meq/L 98-107 CO2 (BEAKER) (test qowp=114) 16 meq/L 22-29 BLOOD UREA NITROGEN (BEAKER) (test oiak=418) 44 mg/dL 7-21 CREATININE (BEAKER) (test ibjs=020) 1.67 mg/dL 0.57-1.25 Specimen slightly hemolyzed GLUCOSE RANDOM (BEAKER) (test tqiv=516) 159 mg/dL 70-105 CALCIUM (BEAKER) (test sjft=521) 8.1 mg/dL 8.4-10.2 EGFR (BEAKER) (test dmyj=8861) 30 mL/min/1.73 sq m ESTIMATED GFR IS NOT ACCURATE CREATININE CLEARANCE IN PREDICTING GLOMERULAR FILTRATION RATE. ESTIMATED GFR IS NOT APPLICABLE FOR DIALYSIS PATIENTS. CBC W/PLT COUNT & AUTO [id number] 04:20:00* Test Item Value Reference Range Comments WHITE BLOOD CELL COUNT (BEAKER) (test ituc=783) 19.1 K/ L 3.5-10.5 RED BLOOD CELL COUNT (BEAKER) (test mcjr=817) 3.33 M/ L 3.93-5.22 HEMOGLOBIN (BEAKER) (test meqg=385) 9.5 GM/DL 11.2-15.7 HEMATOCRIT (BEAKER) (test frgk=232) 31.1 % 34.1-44.9 MEAN CORPUSCULAR VOLUME (BEAKER) (test qfwt=851) 93.4 fL 79.4-94.8 MEAN CORPUSCULAR HEMOGLOBIN (BEAKER) (test nifh=906) 28.5 pg 25.6-32.2 MEAN CORPUSCULAR HEMOGLOBIN CONC (BEAKER) (test petz=213) 30.5 GM/DL 32.2-35.5 RED CELL DISTRIBUTION WIDTH (BEAKER) (test sssh=721) 14.3 % 11.7-14.4 PLATELET COUNT (BEAKER) (test breb=761) 122 K/CU MM 150-450 MEAN PLATELET VOLUME (BEAKER) (test twiz=696) 12.4 fL 9.4-12.3 NUCLEATED RED BLOOD CELLS (BEAKER) (test jpkc=385) 0 /100 WBC 0-0 NEUTROPHILS RELATIVE PERCENT (BEAKER) (test sdpe=780) 85 % LYMPHOCYTES RELATIVE PERCENT (BEAKER) (test ltiz=692) 6 % MONOCYTES RELATIVE PERCENT (BEAKER) (test xzhn=654) 3 % EOSINOPHILS RELATIVE PERCENT (BEAKER) (test xvlm=533) 1 % BASOPHILS RELATIVE PERCENT (BEAKER) (test rsgo=950) 0 % NEUTROPHILS ABSOLUTE COUNT (BEAKER) (test vcoh=306) 16.27 K/ L 1.56-6.13 LYMPHOCYTES ABSOLUTE COUNT (BEAKER) (test gmaa=850) 1.06 K/ L 1.18-3.74 MONOCYTES ABSOLUTE COUNT (BEAKER) (test iwix=698) 0.59 K/ L 0.24-0.36 EOSINOPHILS ABSOLUTE COUNT (BEAKER) (test giii=753) 0.27 K/ L 0.04-0.36 BASOPHILS ABSOLUTE COUNT (BEAKER) (test hbdb=111) 0.07 K/ L 0.01-0.08 IMMATURE GRANULOCYTES-RELATIVE PERCENT (BEAKER) (test pnjd=2024) 5 % 0-1 POCT-GLUCOSE [id number] 21:50:00* Test Item Value Reference Range Comments POC-GLUCOSE METER (BEAKER) (test fgbp=7348) 165 mg/dL 70-110 TESTED AT [facility] [address] [address] POCT-GLUCOSE [id number] 18:01:00* Test Item Value Reference Range Comments POC-GLUCOSE METER (BEAKER) (test ianv=7981) 123 mg/dL 70-110 TESTED AT [facility] [address] [facility] [address] CBC W/PLT COUNT & AUTO [id number] 13:16:00* Test Item Value Reference Range Comments WHITE BLOOD CELL COUNT (BEAKER) (test fwtc=506) 19.8 K/ L 3.5-10.5 RED BLOOD CELL COUNT (BEAKER) (test ivqb=170) 3.40 M/ L 3.93-5.22 HEMOGLOBIN (BEAKER) (test tmap=252) 9.9 GM/DL 11.2-15.7 HEMATOCRIT (BEAKER) (test yilu=933) 30.7 % 34.1-44.9 MEAN CORPUSCULAR VOLUME (BEAKER) (test zwea=873) 90.3 fL 79.4-94.8 MEAN CORPUSCULAR HEMOGLOBIN (BEAKER) (test jlai=943) 29.1 pg 25.6-32.2 MEAN CORPUSCULAR HEMOGLOBIN CONC (BEAKER) (test rpbd=594) 32.2 GM/DL 32.2-35.5 RED CELL DISTRIBUTION WIDTH (BEAKER) (test gver=698) 14.0 % 11.7-14.4 PLATELET COUNT (BEAKER) (test obah=738) 112 K/CU MM 150-450 MEAN PLATELET VOLUME (BEAKER) (test cars=915) 12.2 fL 9.4-12.3 NUCLEATED RED BLOOD CELLS (BEAKER) (test ingp=585) 0 /100 WBC 0-0 NEUTROPHILS RELATIVE PERCENT (BEAKER) (test oywj=733) 85 % LYMPHOCYTES RELATIVE PERCENT (BEAKER) (test hvzw=314) 6 % MONOCYTES RELATIVE PERCENT (BEAKER) (test vzrc=695) 4 % EOSINOPHILS RELATIVE PERCENT (BEAKER) (test ecrk=371) 1 % BASOPHILS RELATIVE PERCENT (BEAKER) (test qtuk=800) 0 % NEUTROPHILS ABSOLUTE COUNT (BEAKER) (test arrt=640) 16.92 K/ L 1.56-6.13 LYMPHOCYTES ABSOLUTE COUNT (BEAKER) (test ynfh=265) 1.17 K/ L 1.18-3.74 MONOCYTES ABSOLUTE COUNT (BEAKER) (test bbtr=243) 0.84 K/ L 0.24-0.36 EOSINOPHILS ABSOLUTE COUNT (BEAKER) (test noni=315) 0.15 K/ L 0.04-0.36 BASOPHILS ABSOLUTE COUNT (BEAKER) (test hemy=445) 0.03 K/ L 0.01-0.08 IMMATURE GRANULOCYTES-RELATIVE PERCENT (BEAKER) (test pepl=0109) 4 % 0-1 (MANUAL DIFFERENTIAL)2017-03-28 13:16:00* Test Item Value Reference Range Comments TOTAL COUNTED (BEAKER) (test cjqi=7485) WBC MORPHOLOGY (BEAKER) (test sifl=611) Normal PLT MORPHOLOGY (BEAKER) (test lmno=899) Normal RBC MORPHOLOGY (BEAKER) (test bion=591) Normal POCT-GLUCOSE [id number] 12:41:00* Test Item Value Reference Range Comments POC-GLUCOSE METER (BEAKER) (test qqlp=2378) 129 mg/dL 70-110 TESTED AT [facility] [address] [facility] [address] URINALYSIS W/ [id number] 12:07:00* Test Item Value Reference Range Comments COLOR (BEAKER) (test lmct=699) Yellow CLARITY (BEAKER) (test qjfq=000) Hazy SPECIFIC GRAVITY UA (BEAKER) (test hawu=442) 1.012 1.001-1.035 PH UA (BEAKER) (test dirz=465) 5.5 5.0-8.0 PROTEIN UA (BEAKER) (test fwhu=306) 70 mg/dL Negative GLUCOSE UA (BEAKER) (test jwge=986) Negative Negative KETONES UA (BEAKER) (test qtyx=657) 10 mg/dL Negative BILIRUBIN UA (BEAKER) (test djnd=711) Negative Negative BLOOD UA (BEAKER) (test lrrl=992) Large Negative NITRITE UA (BEAKER) (test jukw=587) Negative Negative LEUKOCYTE ESTERASE UA (BEAKER) (test unop=964) Large Negative UROBILINOGEN UA (BEAKER) (test fsqp=360) 0.2 mg/dL 0.2-1.0 RBC UA (BEAKER) (test cphz=070) > /HPF WBC UA (BEAKER) (test fvfp=586) 172 /HPF BACTERIA (BEAKER) (test ozrj=027) Few MUCUS (BEAKER) (test tuul=0710) Rare SQUAMOUS EPITHELIAL (BEAKER) (test yoek=616) 1 /HPF AMORPHOUS CRYSTALS (BEAKER) (test grtt=6570) Occasional SOURCE(BEAKER) (test kitq=3861) Urine, Dotson B-TYPE NATRIURETIC FACTOR (BNP)2017-03-28 10:41:00* Test Item Value Reference Range Comments B-TYPE NATRIURETIC PEPTIDE (BEAKER) (test lrsf=197) 662 pg/mL 0-100 BASIC METABOLIC [id number] 10:39:00* Test Item Value Reference Range Comments SODIUM (BEAKER) (test yrqg=029) 133 meq/L 136-145 POTASSIUM (BEAKER) (test iptj=049) 4.4 meq/L 3.5-5.1 CHLORIDE (BEAKER) (test hgfo=539) 109 meq/L 98-107 CO2 (BEAKER) (test zmzi=635) 16 meq/L 22-29 BLOOD UREA NITROGEN (BEAKER) (test doqf=335) 44 mg/dL 7-21 CREATININE (BEAKER) (test ghbu=649) 1.78 mg/dL 0.57-1.25 GLUCOSE RANDOM (BEAKER) (test ksix=702) 76 mg/dL 70-105 CALCIUM (BEAKER) (test xdyj=659) 8.1 mg/dL 8.4-10.2 EGFR (BEAKER) (test pplw=2685) 28 mL/min/1.73 sq m ESTIMATED GFR IS NOT ACCURATE CREATININE CLEARANCE IN PREDICTING GLOMERULAR FILTRATION RATE. ESTIMATED GFR IS NOT APPLICABLE FOR DIALYSIS PATIENTS. HEPATIC FUNCTION [id number] 10:35:00* Test Item Value Reference Range Comments TOTAL PROTEIN (BEAKER) (test nfub=646) 5.5 gm/dL 6.0-8.3 ALBUMIN (BEAKER) (test bvby=5658) 2.1 g/dL 3.5-5.0 BILIRUBIN TOTAL (BEAKER) (test ksil=610) 0.6 mg/dL 0.2-1.2 BILIRUBIN DIRECT (BEAKER) (test fvfa=525) 0.4 mg/dL 0.1-0.5 ALKALINE PHOSPHATASE (BEAKER) (test oilo=924) 242 U/L 40-150 AST (SGOT) (BEAKER) (test donb=085) 15 U/L 5-34 ALT (SGPT) (BEAKER) (test optf=182) 8 U/L 6-55 LACTIC ACID, VENOUS, WHOLE [id number] 10:29:00* Test Item Value Reference Range Comments LACTATE BLOOD VENOUS (2) (BEAKER) (test sfiw=5212) 0.6 mmol/L 0.5-2.2 Effective 08/04/2015: Units/Reference Range ChangeNew: 0.5-2.2 mmol/L Previous: 5 -20 mg/dLRAD, CHEST, 1 VIEW, NON [id number] 08:55:00Reason for exam:-> hypoxemiaShould this be performed at the bedside?->YesFINAL REPORT CLINICAL HISTORY: hypoxemia TECHNIQUE: 1 view of the chest. COMPARISON: None IMPRESSION: There are left asymmetric lung opacities without significant appearing pleural fluid. The cardiomediastinal silhouette is magnified by technique. Signed: Robbie Tipton Verified Date/Time: 03/28/2017 08:55:08 Reading Location: [facility] Radiology Reading Room HROMBIN TIME/[id number] 08:43:00* Test Item Value Reference Range Comments PROTIME (BEAKER) (test vfnv=610) 15.3 seconds 11.7-14.7 INR (BEAKER) (test cvbv=018) 1.2 <=5.9 RECOMMENDED COUMADIN/WARFARIN INR THERAPY RANGESSTANDARD DOSE: 2.0 - 3.0 Inclu yary: PROPHYLAXIS for venous thrombosis, systemic embolization; TREATMENT for bishnu ous thrombosis and/or pulmonary embolus.HIGH RISK: Target INR is 2.5-3.5 for pat ients with mechanical heart valves.[id number] 08:43:00* Test Item Value Reference Range Comments PARTIAL THROMBOPLASTIN TIME (BEAKER) (test xveu=902) 25.9 seconds 22.5-36.0 POCT-GLUCOSE [id number] 08:34:00* Test Item Value Reference Range Comments POC-GLUCOSE METER (BEAKER) (test ywpx=8225) 71 mg/dL 70-110 TESTED AT [facility] [address] [facility] [address] CULTURE, [id number] 07:34:00Specimen: Urine SpecimensCollected: 03/25/2017 09:05 Status: Final Last Updated: 03/28/2017 01:11 Culture Result (Final) (R) (Final) >100,000 cc/mL Gram Negative Bacilli >100,000 cc/mL Streptococcus species Isolate (Final) (Final) Escherichia coli Amoxicillin/clavu 4 S Ampicillin >=32 R Aztreonam <=1 S Cefazolin <=4 S Cefepime <=1 S Ceftriaxone <=1 S Ciprofloxacin >=4 R Gentamicin <=1 S Imipenem <=0.25 S Levofloxacin >=8 R Meropenem <=0.25 S Nitrofurantoin <=16 S Tetracycline <=1 S Trimeth/Sulfa <=20 S ESBL Negative - Isolate (Final) (Final) Streptococcus agalactiae Ampicillin <=0.25 S Penicillin 0.12 S Ceftriaxone <=0.12 S Clindamycin >=1 R ICR Negative - Levofloxacin 1 S Li nezolid <=2 S Moxifloxacin 0.25 S Tetracycline >=16 R Tigecycline <=0.06 S Vancomycin 0.5 S D-DIMER [id number] 16:29:00* Test Item Value Reference Range Comments D DIMER (test code=D DIM) 2.93 mg/L FEU 0.19-0.50 METHOD CHANGE: 05/08/2012 Due to the discontinued [...] and a low probability of thromboembolic disease. [id number] 14:37:00* Test Item Value Reference Range Comments Fibrinogen (test code=FBG) 632.8 mg/dl 212.0-430.0 PT AND [id number] 14:37:00* Test Item Value Reference Range Comments Protime (test code=PT) 9.7 seconds 9.0-11.9 INR (test code=INR) 0.9 0.9-1.1 INR results are intended ONLY to monitor Oral Anticoagulant therapy in stablized patients. The INR Therapeutic Range is 2.0 - 3.0 Patients with a mechanical heart, the INR Range is 2.5 - 3.5 CT ABDOMEN/PELVIS W/O [id number] 13:55:52NPO 4 hours. Do not withhold medsProcedure: CT ABDOMEN/PELVIS W/O CONTRASTExam Date: 03/27/2017 11:07 AMOrdering Provider: LAYO Mullerinical Indication: Complicated UTI with bacteremiaComparison: NoneTechnique: Using a helical scanner, sequential axial imaging of the abdomen andpelvis was obtained without the administration of oral or IV contrast. The examextended from the level of the lung bases superiorly to the level of the pubicsymphysis inferiorly. 2-D sagittal and coronal reconstructed images wereobtained. This exam was performed according to the departmentaldose-optimization program which includes automated exposure control, adjustmentof the mA and/or kV according to patient size and/or use of iterativereconstruction techniques.Findings:Coarse bibasilar atelectasis.. No basilar consolidation or effusion.The liver is normal in size and density. Hepatic contour is normal. There are nosolid hepatic masses. Millimeters cyst noted in the right lobe of the liveranteriorly. No intrahepatic ductal dilatation.The gallbladder is normal in size and density. There is no evidence ofcholelithiasis or cholecystitis by CT criteria.The spleen is normal in size and density. There are no intrinsic splenic masses.There is no evidence of a subcapsular hematoma or fluid collection.The pancreas is normal in size and density. There are no pancreaticcalcifications or masses. There is no pancreatic ductal dilatation.The adrenal glands are normal in size bilaterally. There are no adrenal massesbilaterally.The right kidney is normal in size and shape. There are no calculi, masses, orhydronephrosis.There is a large volume of gas within the left renal cortex involving thesuperior pole to interpolar region. There is no fluid. There is gas extendinginto the left retroperitoneum involving the posterior pararenal space andextending laterally along the lateral conal fascia.There are several calculi within the left kidney. The largest calculus is in thesuperior pole calyx measuring 1.5 cm.There is mild left hydroureter with mild hydroureter to the bladder. There is noobstructing calculus visu alized.Dotson catheter decompresses the bladder which is not well evaluated. Ther e areno obvious bladder calculi.The uterus is normal in size and retroverted.Aor ta is normal in size and diameter. There is no aneurysm.The IVC is normal in siz e and location.There is no lymphadenopathy in the abdomen, pelvis, or either ing uinal region.There is no small or large bowel distention. There is no bowel thic kening. Thereare no inflammatory changes in the abdomen or pelvis.The appendix i s visualized and normal in diameter. There is no periappendicealsoft tissue stra nding. No CT findings of appendicitis.No inguinal masses.There is no skeletal le kassandra.IMPRESSION:1. 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 Findings mayrepresent a recently passed calculus. There is left nephrolithiasis noted. T hereis no obvious abscess.2. Dotson catheter decompresses the bladder which is ot herwise normal.3. No other evidence for inflammatory change in the abdomen or pe lvis.4. Findings discussed with Dr. Amaro of the hospitalist service on Mar at 1350.This final report was electronically signed by Dr Dylan crowder MD 03/27/20171:49 PMDictated By: DYLAN HIDALGODate: 03/27/2017 13:55 XR CHEST AP/PA 1 [id number] 13:18:18Procedure: XR CHEST AP/PA 1 VIEWExam Date: 03/27/2017 9:12 AMOrdering Provider: KARANPREET BAINSClinical Indication: PNEU: Chest-PneumoniaComparison: NoneFindings:Cardiac size is magnified by technique.Pulmonary vasculature is normal.Mediastinal contour is normal.Aortic calcification.Mild left perihilar infiltrate.Linear right perihilar atelectasis versus scarring.No significant pleural effusions.There is no mass or pneumothorax.Postoperative change involving the right proximal humerus.Impression:1. Left perihilar infiltrate.2. No other infiltrate or significant pleural effusion.3. Linear right perihilar atelectasis versus scarr ing.4. No other significant findings.This final report was electronically signed by Dr Dylan Hidalgo MD 03/27/20171:12 PMDictated By: DYLAN HIDALGODate: 13:18SP VASCULAR [id number] 12:52:41no nephrologistProcedure: SP VASCULAR ACCESSExam Date: 03/27/2017 11:05 AMOrdering Provider: LAYO Mullerinical Indication: Vascular accessTechnique:The patient was placed supine on the exam table with the right arm abducted. Anultrasound was performed to locate a proper venous access site. The upper armwas prepped and draped in the usual sterile fashion. Utilizing 1% lidocainesolution, the skin and subcutaneous tissues overlying the basilic vein wereanesthetized. Ultrasound evaluation demonstrates the vessels to be patent and apermanent ultrasound image was stored in the medical record for documentation.Then, under ultrasound guid ance, the vein was punctured with a micropunctureneedle and a 0.018 guidewire wa s advanced into the selected vessel. The vesselswere patent and there was a per manent image stored for the permanent medicalrecord. The needle was removed and the 20 gauge Powerglide catheter was advancedover the wire into the right axilla ry vein. The wire was removed. The catheterwas secured to the skin in the usua l fashion. The patient tolerated theprocedure well and there were no immediate complications.Impression:1. Successful upper extremity vascular access.This fin al report was electronically signed by Dr Goldy Valentin MD 03/27/201712:46 PMD ictated By: GOLDY VALENTINDate: 03/27/2017 12:[id number] 08:27:00* Test Item Value Reference Range Comments Glucose (test code=GLU) 155 mg/dl 75-110 BUN (test code=BUN) 53.0 mg/dl 6.0-17.0 Creatinine (test code=CREA) 2.3 mg/dl 0.4-1.2 Sodium (test code=NA) 129 mmol/l 137-145 Potassium (test code=K) 4.5 mmol/l 3.5-5.0 Chloride (test code=CL) 103 mmol/l 98-107 CO2 (test code=CO2) 17 mmol/l 22-30 Calcium (test code=CALC) 8.4 mg/dl 8.4-10.2 EGFR if (test code=EGFRAA) 27 mL/min/1.73m\\S\\2 EGFR if Non- (test code=EGFRNA) 22 mL/min/1.73m\\S\\2 Estimated Glomerular Filtration Rate (eGFR) Reference Intervals Decision Points for 18 years and older and average body mass: >=60 Does not exclude kidney disease. 30 - 59 Suggests moderate chronic kidney disease and indicates the need for further investigation including assessment of proteinuria and cardiovascular factors. < 30 Usually indicates a need for referral for assessment and management of chronic kidney failure. LACTIC ACID [id number] 08:27:00* Test Item Value Reference Range Comments LACTATE (test code=LAC) 0.9 mmol/l 0.7-2.0 CBC WITH AUTO [id number] 07:55:00* Test Item Value Reference Range Comments WBC (test code=WBC) 13.43 10\\S\\3/ul 4.80-10.80 RBC (test code=RBC) 3.21 10\\S\\6/ul 4.20-5.40 Hemoglobin (test code=HGB) 9.2 gm/dl 12.0-14.0 Hematocrit (test code=HCT) 28.6 % 37.0-47.0 MCV (test code=MCV) 89.1 fL 81.0-99.0 MCH (test code=MCH) 28.7 pg 27.0-31.0 MCHC (test code=MCHC) 32.2 gm/dl 33.0-37.0 RDW (test code=RDWVC) 13.4 % 11.5-14.5 Platelet (test code=PLT) 52 10\\S\\3/ul 130-400 MPV (test code=MPV) 12.1 fL 7.4-10.4 "NOT MEASURED" RESULTS ARE DISPLAYED WHEN THE INSTRUMENT HAS A SUPPRESSED OR UNREPORTABLE RESULT. THIS WILL MOST OFTEN HAPPEN WITH THE MPV WHEN THERE IS AN ABNORMAL PLATELET DISTRIBUTION DUE TO A CR ITICAL LOW VALUE OR PLATELET CLUMPING. THE RDW MAY BE SUPPRESSED IF THERE ARE MULTIPLE PEAKS PRESENT ON THE RBC HISTOGRAM. IN THIS CASE, A MANUAL REVIEW OF THE SLIDE WILL BE PERFORMED, AND RBC MORPHOLOGY WILL BE NOTED ON THE REPORT. NE% (test code=NE) 82.9 % 42.0-75.0 LY% (test code=LY) 8.0 % 13.0-42.0 MO% (test code=MO) 5.4 % 4.0-14.0 EO% (test code=EO) 0.7 % 1.0-3.0 BA% (test code=BA) 0.2 % 1.0-3.0 IG% (test code=IG%) 2.8 % 0.0-0.4 CBC AUTO diffCULTURE, LOTTIE [id number] 07:20:00Specimen: BloodCollected: 03/24/2017 20:24 Status: Final Last Updated: 03/27/2017 07:20 Gram Stain (Final) (Final) Gram Negative Bacilli Culture Result (Final) (R) (Final) Preliminary Result: Positive Specimen sent to [facility] for furtherworkup. LEFT MESSAGE WITH RAMIRO DOLL(INFECTION CONTROL )[place] @1056/LK \\S\\Gram Negative Bacilli \\S\\No Anaerobes Isolated Isolate (Final) (Final) Escherichia coli ALERT! Previous Susceptibility Performed. For detailed result information, refer to: [id number] Result before changed by [email or web address] on 03/27/2017 07:20: Culture R esult (Prelim) (Prelim) Preliminary Result: Positive Specimen sent to [facility] for furtherworkup. 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 LEFT MESSAGE WITH RAMIRO DOLL?(INFECTION CONTROL),WEIGH MACHINE OPERATOR@1100/LK \\S\\Gram Negative Bacilli \\S\\No Anaerobes Isolated Isolate (Final) (Final) Escherichia coli ALERT! Previous Susceptibility Performed. For detailed result information, refer to: [id number] Result before changed by [email or web address] on 03/27/2017 07:19: Culture Result (Prelim) (Prelim) Preliminary Result: Positive Specimen sent to [facility] for furtherworkup. LEFT MESSAGE WITH RAMIRO DOLL?(INFECTION CONTROL),WEIGH MACHINE OPERATOR@1100/LK CULTURE, [id number] 07:11:00 Specimen: BloodCollected: 03/24/2017 20:24 Status: Final Last Updated: 03/03 07:11 Culture Result (Final) (Final) Preliminary Result: Posi tive Specimen sent to [facility] for furtherworku p. RESULT CALLED TO RAMIRO DOLL RN (INFECTION CONTROL) AT 747 //HH / Gram Negative Bacilli Isolate (Final) (Final) Escherichia coli A moxicillin/clavu 4 S Ampicillin >=32 R Aztreonam <=1 S Cefazolin <=4 S Cefepime <=1 S Ceftriaxone <=1 S Ciprofloxacin >=4 R Gentamicin <=1 S Imipenem <=0.25 S Levofloxacin >=8 R Meropenem <=0.25 S Tetracycline <=1 S Trimeth/Sulfa <=20 S ESBL Negative - Gram Stain (Final) (Final) Report called to Nurse Jerome on K3 @0825cdw 03/26/2017rb. Gram Negative Bacilli CULTURE, BLOOD 2017-03-27 07:11:00To start 15mins after 1st cultureSpecimen: BloodCollected: 03/24/2017 20:24 Status: Final Last Updated: 03/27/2017 07:11 (1) To start 15mins after 1st culture Gram Stain (Final) (Final) Gram Negative Bacilli Culture Result (Final) (Final) Preliminary Result: Positive Specimen sent to [facility] for furtherworkup. RESULT CALLED TO RAMIRO DOLL RN (INFECTION CONTROL) AT 747 //HH/ Gram Negative Bacilli 2 of 2 blood cultures positive Isolate (Final) (Final) Escherichia coli ALERT! Previous Susceptibility Performed. For detailed result information, refer to: [id number] LACTIC ACID [id number] 21:05:00* Test Item Value Reference Range Comments LACTATE (test code=LAC) 1.1 mmol/l 0.7-2.0 LACTIC ACID [id number] 14:51:00* Test Item Value Reference Range Comments LACTATE (test code=LAC) 1.7 mmol/l 0.7-2.0 LACTIC ACID [id number] 08:52:00* Test Item Value Reference Range Comments LACTATE (test code=LAC) 1.3 mmol/l 0.7-2.0 [id number] 08:52:00* Test Item Value Reference Range Comments Glucose (test code=GLU) 196 mg/dl 75-110 BUN (test code=BUN) 58.0 mg/dl 6.0-17.0 Creatinine (test code=CREA) 2.7 mg/dl 0.4-1.2 Sodium (test code=NA) 127 mmol/l 137-145 Potassium (test code=K) 4.4 mmol/l 3.5-5.0 Chloride (test code=CL) 102 mmol/l 98-107 CO2 (test code=CO2) 19 mmol/l 22-30 Calcium (test code=CALC) 8.2 mg/dl 8.4-10.2 T Protein (test code=TP) 5.7 gm/dl 5.1-8.7 Albumin (test code=ALB) 2.5 gm/dl 3.5-4.6 A/G Ratio (test code=AGRAT) 0.8 % 1.1-2.2 AST (SGOT) (test code=AST) 15 U/L 11-36 ALT (SGPT) (test code=ALT) 23 U/L 11-40 Alkaline Phos (test code=ALKP) 121 U/L 47-114 Total Bilirubin (test code=TBIL) 0.8 mg/dl 0.2-1.2 Globulin (test code=GLOBU) 3.2 gm/dl 2.3-3.5 Calcium, Corrected (test code=CALCCORR) 9.4 mg/dl 8.4-10.2 Various formulas exist for corrected serum calcium results, each yielding different values. This corrected result was based on the formula: Corrected Calcium=SerumCalcium + [0.8 * ( 4 - SerumAlbumin)] EGFR if (test code=EGFRAA) 22 mL/min/1.73m\\S\\2 EGFR if Non- (test code=EGFRNA) 19 mL/min/1.73m\\S\\2 Estimated Glomerular Filtration Rate (eGFR) Reference Intervals Decision Points for 18 years and older and average body mass: >=60 Does not exclude kidney disease. 30 - 59 Suggests moderate chronic kidney disease and indicates the need for further investigation including assessment of proteinuria and cardiovascular factors. < 30 Usually indicates a need for referral for assessment and management of chronic kidney failure. CBC WITH AUTO [id number] 08:26:00* Test Item Value Reference Range Comments WBC (test code=WBC) 12.07 10\\S\\3/ul 4.80-10.80 RBC (test code=RBC) 3.28 10\\S\\6/ul 4.20-5.40 Hemoglobin (test code=HGB) 9.5 gm/dl 12.0-14.0 Hematocrit (test code=HCT) 29.2 % 37.0-47.0 MCV (test code=MCV) 89.0 fL 81.0-99.0 MCH (test code=MCH) 29.0 pg 27.0-31.0 MCHC (test code=MCHC) 32.5 gm/dl 33.0-37.0 RDW (test code=RDWVC) 13.2 % 11.5-14.5 Platelet (test code=PLT) 52 10\\S\\3/ul 130-400 MPV (test code=MPV) 12.0 fL 7.4-10.4 "NOT MEASURED" RESULTS ARE DISPLAYED WHEN THE INSTRUMENT HAS A SUPPRESSED OR UNREPORTABLE RESULT. THIS WILL MOST OFTEN HAPPEN WITH THE MPV WHEN THERE IS AN ABNORMAL PLATELET DISTRIBUTION DUE TO A CR ITICAL LOW VALUE OR PLATELET CLUMPING. THE RDW MAY BE SUPPRESSED IF THERE ARE MULTIPLE PEAKS PRESENT ON THE RBC HISTOGRAM. IN THIS CASE, A MANUAL REVIEW OF THE SLIDE WILL BE PERFORMED, AND RBC MORPHOLOGY WILL BE NOTED ON THE REPORT. NE% (test code=NE) 80.5 % 42.0-75.0 LY% (test code=LY) 8.0 % 13.0-42.0 MO% (test code=MO) 5.1 % 4.0-14.0 EO% (test code=EO) 0.1 % 1.0-3.0 BA% (test code=BA) 0.1 % 1.0-3.0 IG% (test code=IG%) 6.2 % 0.0-0.4 URINALYSIS WITH [id number] 03:17:00* Test Item Value Reference Range Comments Color (test code=UCOLR) YELLOW Clarity (test code=UCLAR) CLOUDY Glucose (test code=UGLUC) 100 NEGATIVE Bilirubin (test code=UBILI) SMALL NEGATIVE Ketones (test code=UKET) NEGATIVE NEGATIVE Specific [place] (test code=USPGR) 1.025 1.005-1.030 Blood (test code=UBLD) LARGE NEGATIVE PH (test code=UPH) 5.0 4.5-8.0 Protein (test code=UPROT) 100 NEGATIVE Urobilinogen (test code=U UROB) 0.2 >0.2 Nitrite (test code=UNITR) NEGATIVE NEGATIVE Leukocyte Esterase (test code=ULEUK) MODERATE NEGATIVE WBC (test code=WBCUR) TNTC 0-5 RBC (test code=RBCUR) TNTC 0-5 Epithial Cells (test code=U EPI) 0-5 0-10 Mucous (test code=UMUC) None Seen None Seen Bacteria (test code=UBACT) 3+ None Seen,Trace Crystals Urine (test code=URCRYS) Many Amorphous Urates None Seen LACTIC ACID [id number] 02:52:00* Test Item Value Reference Range Comments LACTATE (test code=LAC) 3.1 mmol/l 0.7-2.0 Critical values were called to KERRY Sorenson by [id number] on 03/26/2017 02:52 AM. Results were read back by KERRY Sorenson. LACTIC ACID [id number] 21:00:00* Test Item Value Reference Range Comments LACTATE (test code=LAC) 2.1 mmol/l 0.7-2.0 Critical values were called to KERRY Cannon by [id number] on 03/25/2017 21:00 PM. Results were read back by KERRY Cannon. LACTIC ACID [id number] 14:58:00* Test Item Value Reference Range Comments LACTATE (test code=LAC) 1.7 mmol/l 0.7-2.0 FLU [id number] 11:22:00* Test Item Value Reference Range Comments Flu A Screen (test code=FLUA) Negative Negative EFFECTIVE 03/21/2013 - A method change has occurred. A molecular method for Flu testing will replace the current method. Both Flu A and Flu B will be tested and results will continue to be listed as "Negative or Positive". While this method is more specific in the detection of both strains, confirmatory testing is available upon request. ldh Flu B Screen (test code=FLUB) Negative Negative EFFECTIVE 03/21/2013 - A method change has occurred. A molecular method for Flu testing will replace the current method. Both Flu A and Flu B will be tested and results will continue to be listed as "Negative or Positive". While this method is more specific in the detection of both strains, confirmatory testing is available upon request. ldh If a specimen is collected by a nurse, then you MUST fill out the Collecte d and Collected By pan LACTIC ACID [id number] 10:03:00* Test Item Value Reference Range Comments LACTATE (test code=LAC) 1.9 mmol/l 0.7-2.0 [id number] 09:40:00* Test Item Value Reference Range Comments Glucose (test code=GLU) 319 mg/dl 75-110 BUN (test code=BUN) 53.0 mg/dl 6.0-17.0 Creatinine (test code=CREA) 2.8 mg/dl 0.4-1.2 Sodium (test code=NA) 134 mmol/l 137-145 Potassium (test code=K) 5.0 mmol/l 3.5-5.0 Chloride (test code=CL) 102 mmol/l 98-107 CO2 (test code=CO2) 19 mmol/l 22-30 Calcium (test code=CALC) 8.2 mg/dl 8.4-10.2 T Protein (test code=TP) 6.2 gm/dl 5.1-8.7 Albumin (test code=ALB) 2.8 gm/dl 3.5-4.6 A/G Ratio (test code=AGRAT) 0.8 % 1.1-2.2 AST (SGOT) (test code=AST) 24 U/L 11-36 ALT (SGPT) (test code=ALT) 27 U/L 11-40 Alkaline Phos (test code=ALKP) 225 U/L 47-114 Total Bilirubin (test code=TBIL) 1.4 mg/dl 0.2-1.2 Globulin (test code=GLOBU) 3.4 gm/dl 2.3-3.5 Calcium, Corrected (test code=CALCCORR) 9.2 mg/dl 8.4-10.2 Various formulas exist for corrected serum calcium results, each yielding different values. This corrected result was based on the formula: Corrected Calcium=SerumCalcium + [0.8 * ( 4 - SerumAlbumin)] EGFR if (test code=EGFRAA) 22 mL/min/1.73m\\S\\2 EGFR if Non- (test code=EGFRNA) 18 mL/min/1.73m\\S\\2 Estimated Glomerular Filtration Rate (eGFR) Reference Intervals Decision Points for 18 years and older and average body mass: >=60 Does not exclude kidney disease. 30 - 59 Suggests moderate chronic kidney disease and indicates the need for further investigation including assessment of proteinuria and cardiovascular factors. < 30 Usually indicates a need for referral for assessment and management of chronic kidney failure. CBC WITH AUTO [id number] 09:16:00* Test Item Value Reference Range Comments WBC (test code=WBC) 9.14 10\\S\\3/ul 4.80-10.80 RBC (test code=RBC) 4.06 10\\S\\6/ul 4.20-5.40 Hemoglobin (test code=HGB) 11.7 gm/dl 12.0-14.0 Hematocrit (test code=HCT) 36.6 % 37.0-47.0 MCV (test code=MCV) 90.1 fL 81.0-99.0 MCH (test code=MCH) 28.8 pg 27.0-31.0 MCHC (test code=MCHC) 32.0 gm/dl 33.0-37.0 RDW (test code=RDWVC) 12.9 % 11.5-14.5 Platelet (test code=PLT) 87 10\\S\\3/ul 130-400 MPV (test code=MPV) 11.9 fL 7.4-10.4 "NOT MEASURED" RESULTS ARE DISPLAYED WHEN THE INSTRUMENT HAS A SUPPRESSED OR UNREPORTABLE RESULT. THIS WILL MOST OFTEN HAPPEN WITH THE MPV WHEN THERE IS AN ABNORMAL PLATELET DISTRIBUTION DUE TO A CR ITICAL LOW VALUE OR PLATELET CLUMPING. THE RDW MAY BE SUPPRESSED IF THERE ARE MULTIPLE PEAKS PRESENT ON THE RBC HISTOGRAM. IN THIS CASE, A MANUAL REVIEW OF THE SLIDE WILL BE PERFORMED, AND RBC MORPHOLOGY WILL BE NOTED ON THE REPORT. NE% (test code=NE) 94.1 % 42.0-75.0 LY% (test code=LY) 3.3 % 13.0-42.0 MO% (test code=MO) 1.3 % 4.0-14.0 EO% (test code=EO) 0.0 % 1.0-3.0 BA% (test code=BA) 0.3 % 1.0-3.0 IG% (test code=IG%) 1.0 % 0.0-0.4 AUTO DIFFURINALYSIS WITH [id number] 00:03:00* Test Item Value Reference Range Comments Color (test code=UCOLR) Yellow Clarity (test code=UCLAR) Sl Cloudy Glucose (test code=UGLUC) >=1000 NEGATIVE Bilirubin (test code=UBILI) NEGATIVE NEGATIVE Ketones (test code=UKET) NEGATIVE NEGATIVE Specific [place] (test code=USPGR) >=1.030 1.005-1.030 Blood (test code=UBLD) Moderate NEGATIVE PH (test code=UPH) 5.5 4.5-8.0 Protein (test code=UPROT) Trace NEGATIVE Urobilinogen (test code=U UROB) 0.2 >0.2 Nitrite (test code=UNITR) NEGATIVE NEGATIVE Leukocyte Esterase (test code=ULEUK) NEGATIVE NEGATIVE WBC (test code=WBCUR) 0-1 0-5 RBC (test code=RBCUR) 0-3 0-5 Epithial Cells (test code=U EPI) 0-2 0-10 Mucous (test code=UMUC) Moderate None Seen Bacteria (test code=UBACT) 2+ None Seen,Trace CBC WITH AUTO [id number] 23:22:00* Test Item Value Reference Range Comments WBC (test code=WBC) 16.43 10\\S\\3/ul 4.80-10.80 RBC (test code=RBC) 3.95 10\\S\\6/ul 4.20-5.40 Hemoglobin (test code=HGB) 11.4 gm/dl 12.0-14.0 Hematocrit (test code=HCT) 35.4 % 37.0-47.0 MCV (test code=MCV) 89.6 fL 81.0-99.0 MCH (test code=MCH) 28.9 pg 27.0-31.0 MCHC (test code=MCHC) 32.2 gm/dl 33.0-37.0 RDW (test code=RDWVC) 12.8 % 11.5-14.5 Platelet (test code=PLT) 118 10\\S\\3/ul 130-400 MPV (test code=MPV) 11.8 fL 7.4-10.4 "NOT MEASURED" RESULTS ARE DISPLAYED WHEN THE INSTRUMENT HAS A SUPPRESSED OR UNREPORTABLE RESULT. THIS WILL MOST OFTEN HAPPEN WITH THE MPV WHEN THERE IS AN ABNORMAL PLATELET DISTRIBUTION DUE TO A CR ITICAL LOW VALUE OR PLATELET CLUMPING. THE RDW MAY BE SUPPRESSED IF THERE ARE MULTIPLE PEAKS PRESENT ON THE RBC HISTOGRAM. IN THIS CASE, A MANUAL REVIEW OF THE SLIDE WILL BE PERFORMED, AND RBC MORPHOLOGY WILL BE NOTED ON THE REPORT. NE% (test code=NE) 94.3 % 42.0-75.0 LY% (test code=LY) 2.6 % 13.0-42.0 MO% (test code=MO) 2.3 % 4.0-14.0 EO% (test code=EO) 0.1 % 1.0-3.0 BA% (test code=BA) 0.1 % 1.0-3.0 IG% (test code=IG%) 0.6 % 0.0-0.4 Bands (test code=BANDM) 3 % 0-2 The value no value originally released by on ############### was changed to 3 by [id number] on 03/24/2017 23:22 Neutrophils (test code=NEUTR) 88 10\\S\\3/ul 42-75 The value no value originally released by on ############### was changed to 88 by [id number] on 03/24/2017 23:22 Lymphocytes (test code=LYMPH) 1 % 13-42 The value no value originally released by on ############### was changed to 1 by [id number] on 03/24/2017 23:22 Monocytes (test code=MONOS) 7 % 4-14 The value no value originally released by on ############### was changed to 7 by [id number] on 03/24/2017 23:22 Eosinophils (test code=EOS) 1 % 1-3 The value no value originally released by on ############### was changed to 1 by [id number] on 03/24/2017 23:22 WBC Morphology (test code=WBCMOR) Vacuolation The value no value originally released by on ############### was changed to Vacuolation by [id number] on 03/24/2017 23:22 [id number] 22:28:00* Test Item Value Reference Range Comments pH (ABG) (test code=BGPH) 7.364 7.350-7.450 pCO2(T) (test code=BGPCO2(T)) 32.7 mm Hg 35.0-45.0 pO2(T) (test code=BGPO2(T)) 69.6 mm Hg 80.0-100.0 sO2 (test code=BGSO2) 94.8 % 90.0-99.0 Na+ (test code=BGCNA+) 128.4 mmol/l 135.0-148.0 K+ (test code=BGCK+) 4.98 mmol/l 3.50-4.50 Ca2+ (test code=BGCCA2+) 1.010 mmol/l 1.120-1.320 Cl- (test code=BGCCL-) 94 mmol/l 98-107 tHb (test code=BGCTHB) 12.0 gm/dl 11.5-17.4 Hct (test code=BGHCT) 42.8 35.0-50.0 O2Hb (test code=AIDE1OR) 92.7 % 95.0-99.0 COHb (test code=BGFCOHB) <2.80 % 0.5-2.5 MetHB (test code=BGMETHB) <1.30 % 0.4-1.5 Gluc (test code=BGCGLU) >449.0 mg/dl 60.0-110.0 Lac (test code=BGCLAC) 2.40 mmol/l 1.0-1.7 Barometric Pressure (test code=BGBARO) 767.7 mm Hg 450.0-1000.0 BE(act) (test code=BGBEACT) -6 mmol/l HCO3 (test code=BGHCO3) 19 meq/L 22-26 ctCO2(B) (test code=BGCTCO2(B)) 17 mmol/l FIO2 (fO2(I) (test code=BGFIO2) 0.34 % Drawn By (test code=BGDRAWNBY) MAHI CASE Collection Date (test code=BGDTCOL) 03/24/2017 Collection Time (test code=BGCTM) 19:44 Sample Site (test code=BGSAMPLESITE) R Radial Sample Type (test code=BGSAMPLETYPE) Arterial Allens Test (test code=BGALLEN) Acceptable Notified By (test code=BGNOTIFIEDBY) MAHI CASE Notified Whom (test code=BGNOTIFIEDWHOM) DR. VELASQUEZ Date Notified (test code=BGDTNOTIFIED) 03/24/2017 Time Notified (test code=BGTMNOTIFIED) 19:59 O2 Device (test code=WDQ4ONJ2) Nasal Cannula Instrument ID (test code=BGINSTRID) [id number] Reported By (test code=BGREPORTEDBY) MAHI CASE CT HEAD W/O [id number] 21:42:16EXAMINATION: Head CTHISTORY: Confusion.COMPARISON: None.TECHNIQUE: Multidetector axial images were obtained without contrast from theforamen magnum to the vertex . The images were reconstructed using brain andbone algorithms. Thin section brain images were reformatted into coronal andsagittal planes.Intravenous contrast: None.Motion/streaking artifact limits the evaluation of the skull base and p osteriorcranial fossa.FINDINGS:Parenchyma:1. Few scattered and periventricular white matter hypodensities, most likelynonspecific chronic microvascular ischemi c changes.2. No mass or hemorrhage. No CT evidence of acute territorial vascula r insult.Extra-axial spaces: No abnormal density. No extra-axial fluid collectio nsBrain volume: Normal for age.Ventricles: No hydrocephalus or displacement.Flor karlos: No density suggestive of thrombus.Dural sinuses: No abnormal density.Extra -axial spaces: No abnormal density.Foramen magnum: No mass, Chiari malformation, or basilar invagination.Sella: No obvious mass.Paranasal/mastoid sinuses: Imaged portions unremarkable.Skull/Scalp: No lytic or blastic lesions. No fractures. IMPRESSION:1. No acute intracranial hemorrhage or cortical infarcts.2. Mild wh ite matter chronic microvascular ischemic changes.This final report was electron ically signed by Dr Hermelinda Hernandez MD 03/24/20179:35 PMDictated By: Lashell HERNANDEZ te: 03/24/2017 21:[id number] 21:22:00* Test Item Value Reference Range Comments Glucose (test code=GLU) 527 mg/dl 75-110 BUN (test code=BUN) 51.0 mg/dl 6.0-17.0 Creatinine (test code=CREA) 2.8 mg/dl 0.4-1.2 Sodium (test code=NA) 125 mmol/l 137-145 Potassium (test code=K) 5.0 mmol/l 3.5-5.0 Chloride (test code=CL) 98 mmol/l 98-107 CO2 (test code=CO2) 19 mmol/l 22-30 Anion Gap (test code=GAP) 9 Calcium (test code=CALC) 7.5 mg/dl 8.4-10.2 T Protein (test code=TP) 6.5 gm/dl 5.1-8.7 Albumin (test code=ALB) 3.0 gm/dl 3.5-4.6 A/G Ratio (test code=AGRAT) 0.9 % 1.1-2.2 AST (SGOT) (test code=AST) 21 U/L 11-36 ALT (SGPT) (test code=ALT) 20 U/L 11-40 Alkaline Phos (test code=ALKP) 238 U/L 47-114 Total Bilirubin (test code=TBIL) 1.5 mg/dl 0.2-1.2 Globulin (test code=GLOBU) 3.5 gm/dl 2.3-3.5 Calcium, Corrected (test code=CALCCORR) 8.3 mg/dl 8.4-10.2 Various formulas exist for corrected serum calcium results, each yielding different values. This corrected result was based on the formula: Corrected Calcium=SerumCalcium + [0.8 * ( 4 - SerumAlbumin)] EGFR if (test code=EGFRAA) 22 mL/min/1.73m\\S\\2 EGFR if Non- (test code=EGFRNA) 18 mL/min/1.73m\\S\\2 Estimated Glomerular Filtration Rate (eGFR) Reference Intervals Decision Points for 18 years and older and average body mass: >=60 Does not exclude kidney disease. 30 - 59 Suggests moderate chronic kidney disease and indicates the need for further investigation including assessment of proteinuria and cardiovascular factors. < 30 Usually indicates a need for referral for assessment and management of chronic kidney failure. Critical values were called to KRISTY DONALD RN by [id number] on 03/24/2017 21:2 1 PM. Results were read back by KRISTY DONALD RN. LACTIC ACID [id number] 21:22:00* Test Item Value Reference Range Comments LACTATE (test code=LAC) 2.8 mmol/l 0.7-2.0 Critical values were called to KRISTY DONALD RN by [id number] on 03/24/2017 21:2 2 PM. Results were read back by KRISTY DONALD RN. XR ABD SERIES W/PA CXR 2017-03-24 20:56:41EXAM: XR ABD SERIES W/PA CXR, AP chest and supine and erect abdomenDATE: 03/24/2017 7:39 PM Time stamp on exam: 2030 hrs.INDICATION: SOBCOMPARISON: NoneFINDINGS:LINES/TUBES: NoneLUNGS: Left lower lobe consolidation. Right lower lobe linear atelectasis..PLEURA: Possible trace effusion on the left.HEART AND MEDIASTINUM: Normal size and contour.BOWEL PATTERN: Non-obstructed bowel gas pattern.BONES AND SOFT TISSUES: Partially visualized surgical hardware proximal righthumerus. No abnormal calcifications. No mass effect.IMPRESSION:Possible left lower lobe pneumonia.No evidence for bowel obstruction.This final report was electronically signed by Dr Monique Holland MD 03/24/20178:50 PMDictated By: MONIQUE HOLLANDDate: 03/24/2017 20:56ACETONE, [id number] 20:43:00* Test Item Value Reference Range Comments Acetone Serum (test code=ACETO) Negative Acetone Titer (test code=ACETIT) n/a
[2018-03-20 10:53] LABS: BILIRUBIN,URINE NEGATIVE (NEGATIVE); CLARITY,URINE MUCOUS (CLEAR); COLOR,URINE YELLOW (YELLOW); KETONES,URINE NEGATIVE (NEGATIVE); LEUKOCYTE ESTERASE ,URINE 1+ (NEGATIVE); NITRITE,URINE POSITIVE (NEGATIVE); PROTEIN,URINE DIPSTICK NEGATIVE (NEGATIVE); URINE UROBILINOGEN 0.2 mg/dL (0.2 - 1)
[2018-03-20 11:23] LABS: BACTERIA,URINE FEW /HPF; EPITHELIAL CELLS,URINE FEW /LPF; RBC,URINE 0-5 /HPF (0-5); YEAST,URINE FEW
== END 2018-03-20 11:10 | disposition home or self-care (01) ==
LOC: ER 09:47
DX: Z46.6 Encounter for fitting and adjustment of urinary device (principal); R30.0 Dysuria
CPT/HCPCS: 51700; 81001; 99283

== ENCOUNTER 2018-05-13 11:01 | Observation (INO) | payer MEDICARE, OTHER ==
[~2018-05-13] VITALS: Ht 165.1 cm; Wt 77.6 kg
--- OUTSIDE RECORDS SUMMARY | 2018-05-13 11:06 | XMS REPORT | Clinical Summary ---
Author Author BAIRON Oceana Organization [facility] [employer] [facility] Address Unknown Phone Unavailable Care Team Providers Care Weight Guesser Name Role Phone Nayan Daquan PCP Allergies [...] mouth 2 tabletIndications: Cold (two) times Symptoms, cough daily as needed for Congestion. Active senna-docusate [...] unable to take PO juice or soda). 06/05/2017 Discontinued cefTRIAXone (ROCEPHIN) 1 Inject 50 [...] times daily for 10 days. 07/24/2017 Discontinued vmcbddvp-ytxkiaycyFw-gvps Apply 1 1 packet 0 myxnB (NEOSPORIN) packet 8 3.5-400-5,000 topically 2 dg-sima-gpnd OiPk packet (two) times daily. 06/12/2017 ondansetron [...] region (Primary Dx) 10/05/2017 Outside Orders Radiology Franky Cornelius 07/25/2017 Anesthesia Event Tyler De Anda MD CYSTOSCOPY,INSERTION URETERAL STENTS 07/25/2017 Surgery Tyler De Anda MD Tirukkovalluri, Srilakshmi, MD Zindani, Shireen, MD Emphysematous pyelonephritis; Nephrolithiasis; Retained ureteral stent 07/24/2017 Hospital General Internal Medicine - Encounter 08/03/2017 Lisette [...] 06/05/2017 05/26/2017 Orders Only General Internal Medicine after 05/12/2017 Immunizations Name Dates Previously Given Next Due [...] Serial / Lot Implanted Type Area Manufactur er [id number] / / [id number] Stent Uret Cntour Inj [id number] Uro Stent Left: Ureter [place] [id number] - [id number] SCI:UROLOG Implanted: Qty: 1 on 07/25/2017 by [...] METER Routine 07/25/2017 1:07 PM CDT FL POLICY AND PLANNING MANAGER IN OR 30 Routine 07/25/2017 MINUTE INCREMENTS [...] CDT POCT-GLUCOSE METER Routine 06/05/2017 12:31 PM EXERCISE INSTRUCTOR POCT-GLUCOSE METER Routine 06/05/2017 7:09 AM EXERCISE INSTRUCTOR CBC W/PLT COUNT & AUTO Routine 06/05/2017 DIFFERENTIAL 6:01 AM EXERCISE INSTRUCTOR PHOSPHORUS Routine 06/05/2017 6:01 AM EXERCISE INSTRUCTOR MAGNESIUM Routine 06/05/2017 6:01 AM EXERCISE INSTRUCTOR BASIC METABOLIC PANEL (7) Routine 06/05/2017 6:01 AM EXERCISE INSTRUCTOR CBC W/PLT COUNT & AUTO Routine 06/05/2017 DIFFERENTIAL 6:01 AM EXERCISE INSTRUCTOR POCT-GLUCOSE METER Routine 06/04/2017 8:49 PM EXERCISE INSTRUCTOR POCT-GLUCOSE METER Routine 06/04/2017 5:40 PM EXERCISE INSTRUCTOR POCT-GLUCOSE METER Routine 06/04/2017 10:48 AM EXERCISE INSTRUCTOR CBC W/PLT COUNT & AUTO Routine 06/04/2017 DIFFERENTIAL 5:50 AM EXERCISE INSTRUCTOR PHOSPHORUS Routine 06/04/2017 5:50 AM EXERCISE INSTRUCTOR MAGNESIUM Routine 06/04/2017 5:50 AM EXERCISE INSTRUCTOR BASIC METABOLIC PANEL (7) Routine 06/04/2017 5:50 AM EXERCISE INSTRUCTOR CBC W/PLT COUNT & AUTO Routine 06/04/2017 DIFFERENTIAL 5:50 AM EXERCISE INSTRUCTOR POCT-GLUCOSE METER Routine 06/03/2017 9:32 PM EXERCISE INSTRUCTOR POCT-GLUCOSE METER Routine 06/03/2017 6:15 PM EXERCISE INSTRUCTOR POCT-GLUCOSE METER Routine 06/03/2017 12:06 PM EXERCISE INSTRUCTOR CBC W/PLT COUNT & AUTO Routine 06/03/2017 DIFFERENTIAL 11:01 AM EXERCISE INSTRUCTOR BASIC METABOLIC PANEL (7) Routine 06/03/2017 11:01 AM EXERCISE INSTRUCTOR CBC W/PLT COUNT & AUTO Routine 06/03/2017 DIFFERENTIAL 11:01 AM EXERCISE INSTRUCTOR POCT-GLUCOSE METER Routine 06/03/2017 7:36 AM EXERCISE INSTRUCTOR POCT-GLUCOSE METER Routine 06/02/2017 9:05 PM EXERCISE INSTRUCTOR POCT-GLUCOSE METER Routine 06/02/2017 6:25 PM EXERCISE INSTRUCTOR POCT-GLUCOSE METER Routine 06/02/2017 2:47 PM EXERCISE INSTRUCTOR PHOSPHORUS Routine 06/02/2017 1:01 PM EXERCISE INSTRUCTOR MAGNESIUM Routine 06/02/2017 1:01 PM EXERCISE INSTRUCTOR BASIC METABOLIC PANEL (7) Routine 06/02/2017 1:01 PM EXERCISE INSTRUCTOR POCT-GLUCOSE METER Routine 06/02/2017 8:23 AM EXERCISE INSTRUCTOR POCT-GLUCOSE METER Routine 06/01/2017 9:51 PM EXERCISE INSTRUCTOR POCT-GLUCOSE METER Routine 06/01/2017 5:43 PM EXERCISE INSTRUCTOR POCT-GLUCOSE METER Routine 06/01/2017 11:34 AM EXERCISE INSTRUCTOR CBC W/PLT COUNT & AUTO Routine 06/01/2017 DIFFERENTIAL 10:19 AM EXERCISE INSTRUCTOR CBC W/PLT COUNT & AUTO Routine 06/01/2017 DIFFERENTIAL 10:19 AM EXERCISE INSTRUCTOR PHOSPHORUS Routine 06/01/2017 10:19 AM EXERCISE INSTRUCTOR MAGNESIUM Routine 06/01/2017 10:19 AM EXERCISE INSTRUCTOR BASIC METABOLIC PANEL (7) Routine 06/01/2017 10:19 AM EXERCISE INSTRUCTOR POCT-GLUCOSE METER Routine 06/01/2017 7:30 AM EXERCISE INSTRUCTOR POCT-GLUCOSE METER Routine 05/31/2017 8:39 PM EXERCISE INSTRUCTOR POCT-GLUCOSE METER Routine 05/31/2017 5:18 PM EXERCISE INSTRUCTOR POCT-GLUCOSE METER Routine 05/31/2017 11:07 AM EXERCISE INSTRUCTOR POCT-GLUCOSE METER Routine 05/31/2017 7:48 AM EXERCISE INSTRUCTOR PHOSPHORUS Routine 05/31/2017 4:31 AM EXERCISE INSTRUCTOR MAGNESIUM Routine 05/31/2017 4:31 AM EXERCISE INSTRUCTOR BASIC METABOLIC PANEL (7) Routine 05/31/2017 4:31 AM EXERCISE INSTRUCTOR POCT-GLUCOSE METER Routine 05/30/2017 9:12 PM EXERCISE INSTRUCTOR POCT-GLUCOSE METER Routine 05/30/2017 5:12 PM EXERCISE INSTRUCTOR POCT-GLUCOSE METER Routine 05/30/2017 11:38 AM EXERCISE INSTRUCTOR POCT-GLUCOSE METER Routine 05/30/2017 7:53 AM EXERCISE INSTRUCTOR PHOSPHORUS Routine 05/30/2017 5:16 AM EXERCISE INSTRUCTOR MAGNESIUM Routine 05/30/2017 5:16 AM EXERCISE INSTRUCTOR BASIC METABOLIC PANEL (7) Routine 05/30/2017 5:16 AM EXERCISE INSTRUCTOR POCT-GLUCOSE METER Routine 05/29/2017 9:27 PM EXERCISE INSTRUCTOR POCT-GLUCOSE METER Routine 05/29/2017 12:52 PM EXERCISE INSTRUCTOR POCT-GLUCOSE METER Routine 05/29/2017 7:37 AM EXERCISE INSTRUCTOR PHOSPHORUS Routine 05/29/2017 5:03 AM EXERCISE INSTRUCTOR MAGNESIUM Routine 05/29/2017 5:03 AM EXERCISE INSTRUCTOR BASIC METABOLIC PANEL (7) Routine 05/29/2017 5:03 AM EXERCISE INSTRUCTOR POCT-GLUCOSE METER Routine 05/28/2017 8:50 PM EXERCISE INSTRUCTOR PERIPHERAL VASCULAR 05/28/2017 REPORT - SCAN 6:50 PM EXERCISE INSTRUCTOR POCT-GLUCOSE METER Routine 05/28/2017 6:19 PM EXERCISE INSTRUCTOR VENOUS DOPPLER LEGS Routine 05/28/2017 BILATERAL 3:32 PM EXERCISE INSTRUCTOR POCT-GLUCOSE METER Routine 05/28/2017 12:29 PM EXERCISE INSTRUCTOR XR CHEST 1 VIEW STAT 05/28/2017 PORTABLE/BEDSIDE 11:55 AM EXERCISE INSTRUCTOR POCT-GLUCOSE METER Routine 05/28/2017 8:38 AM EXERCISE INSTRUCTOR CBC W/PLT COUNT & AUTO Routine 05/28/2017 DIFFERENTIAL 4:41 AM EXERCISE INSTRUCTOR B-TYPE NATRIURETIC FACTOR Routine 05/28/2017 (BNP) 4:41 AM EXERCISE INSTRUCTOR CBC W/PLT COUNT & AUTO Routine 05/28/2017 DIFFERENTIAL 4:41 AM EXERCISE INSTRUCTOR BASIC METABOLIC PANEL (7) Routine 05/28/2017 4:41 AM EXERCISE INSTRUCTOR PHOSPHORUS Routine 05/28/2017 4:41 AM EXERCISE INSTRUCTOR MAGNESIUM Routine 05/28/2017 4:41 AM EXERCISE INSTRUCTOR CALCIUM, IONIZED Routine 05/28/2017 4:41 AM EXERCISE INSTRUCTOR POCT-GLUCOSE METER Routine 05/27/2017 9:50 PM EXERCISE INSTRUCTOR US RENAL COMPLETE Routine 05/27/2017 9:01 PM EXERCISE INSTRUCTOR POCT-GLUCOSE METER Routine 05/27/2017 5:47 PM EXERCISE INSTRUCTOR POCT-GLUCOSE METER Routine 05/27/2017 8:32 AM EXERCISE INSTRUCTOR CBC W/PLT COUNT & AUTO Routine 05/27/2017 DIFFERENTIAL 6:13 AM EXERCISE INSTRUCTOR HEMOGLOBIN A1C Routine 05/27/2017 6:13 AM EXERCISE INSTRUCTOR PHOSPHORUS Routine 05/27/2017 6:13 AM EXERCISE INSTRUCTOR MAGNESIUM Routine 05/27/2017 6:13 AM EXERCISE INSTRUCTOR COMPREHENSIVE METABOLIC Routine 05/27/2017 PANEL 6:13 AM EXERCISE INSTRUCTOR CBC W/PLT COUNT & AUTO Routine 05/27/2017 DIFFERENTIAL 6:13 AM EXERCISE INSTRUCTOR BLOOD CULTURE Routine 05/26/2017 9:45 PM EXERCISE INSTRUCTOR POCT-GLUCOSE METER Routine 05/26/2017 7:[address] ABDOMEN/PELVIS WITHOUT STAT 05/26/2017 IV CONTRAST 6:15 PM EXERCISE INSTRUCTOR URINE CULTURE STAT 05/26/2017 5:23 PM EXERCISE INSTRUCTOR URINALYSIS W/ MICROSCOPIC STAT 05/26/2017 3:58 PM EXERCISE INSTRUCTOR XR CHEST 1 VIEW STAT 05/26/2017 PORTABLE/BEDSIDE 2:27 PM EXERCISE INSTRUCTOR CBC W/PLT COUNT & AUTO STAT 05/26/2017 DIFFERENTIAL 1:38 PM EXERCISE INSTRUCTOR PROTHROMBIN TIME/INR STAT 05/26/2017 1:38 PM EXERCISE INSTRUCTOR CREATINE KINASE (CK), STAT 05/26/2017 TOTAL AND MB 1:38 PM EXERCISE INSTRUCTOR TROPONIN I STAT 05/26/2017 1:38 PM EXERCISE INSTRUCTOR BASIC METABOLIC PANEL (7) STAT 05/26/2017 1:38 PM EXERCISE INSTRUCTOR CBC W/PLT COUNT & AUTO STAT 05/26/2017 DIFFERENTIAL 1:38 PM EXERCISE INSTRUCTOR ECG 12-LEAD Routine 05/26/2017 1:27 PM EXERCISE INSTRUCTOR Procedure Note - Interface, External Ris In - 05/26/2017 2:20 PM EXERCISE INSTRUCTOR Ventricula r Rate 71 BPM Atrial Rate 71 BPM P-R Interval 170 ms QRS Duration 66 ms Q-T Interval 410 ms QTC Calculatio n(Bazett) 445 ms P [place] 37 degrees R [place] 26 degrees T [place] 59 degrees Normal sinus rhythm Normal ECG When compared with ECG of 10:38, No significan t change was found ECG 12-LEAD STAT 05/26/2017 1:[address] BRAIN WITHOUT IV STAT 05/26/2017 CONTRAST 12:11 PM EXERCISE INSTRUCTOR after 05/12/2017 Results * MR thoracic spine without IV contrast (10/08/2017 12:40 PM CDT) Narrative Performed At FINAL REPORT [facility] MRI of the thoracic spine Comparison:July 27, [...] MD Report Verified Date/Time:10/08/2017 13:38:56 Reading Location: [facility] [id number] Consult Reading Room Procedure Note Interface, [...] Report Verified Date/Time: 10/08/2017 13:38:56 Reading Location: [address] Consult Reading Room Performing Organization Address City/[facility] Cent[facility]ode Phone Number [facility] * POC-Glucose meter (08/03/2017 12:33 PM CDT) Only the most recent of 75 results within the time period is included. POC-Glucose Meter 184 (H)Comment: TESTED AT 70 - 110 mg/dL [address] [address] Specimen Blood Performing Organization Address City/[facility]/Zipcode Phone Number [place] [phone] [place] [address] [facility] * CBC with platelet count + automated diff (08/03/2017 5:57 AM CDT) Only the most recent of 17 results within the time period is included. WBC 8.8 3.5 - 10.5 K/L [facility] RBC 3.29 (L) 3.93 - 5.22 M/L [facility] Hemoglobin 8.7 (L) 11.2 - 15.7 GM/DL [facility] Hematocrit 28.2 (L) 34.1 - 44.9 % [facility] MCV 85.7 79.4 - 94.8 fL [facility] MCH 26.4 25.6 - 32.2 pg [facility] MCHC 30.9 (L) 32.2 - 35.5 GM/DL [facility] RDW 14.5 (H) 11.7 - 14.4 % [facility] Platelets 307 150 - 450 K/CU MM [facility] MPV 10.3 9.4 - 12.3 fL [facility] nRBC 0 0 - 0 /100 WBC [facility] % Neutros 59 % [facility] % Lymphs 26 % [facility] % Monos 7 % [facility] % Eos 6 % [facility] % Baso 1 % [facility] # Neutros 5.19 1.56 - 6.13 K/L [facility] # Lymphs 2.31 1.18 - 3.74 K/L [facility] # Monos 0.65 (H) 0.24 - 0.36 K/L [facility] # Eos 0.56 (H) 0.04 - 0.36 K/L [facility] # Baso 0.04 0.01 - 0.08 K/L [facility] Immature 1 0 - 1 % [facility] Specimen Blood - Line, Venous Performing Organization Address City/State/Zipcode Phone Number [facility] [address] [place] [address] [facility] * Creatine Kinase (CK) (08/03/2017 5:57 AM CDT) Only the most recent of 2 results within the time period is included. Total CK 16 (L) 29 - 200 U/L [facility] Specimen Blood - Line, Venous Performing Organization Address City/[facility] Centercode Phone Number [facility] [address] [place] [address] [facility] * Basic Metabolic Panel (08/03/2017 5:57 AM CDT) Only the most recent of 17 results within the time period is included. Sodium 140 136 - 145 meq/L [facility] Potassium 3.9 3.5 - 5.1 meq/L [facility] Chloride 101 98 - 107 meq/L [facility] CO2 31 (H) 22 - 29 meq/L [facility] BUN 31 (H) 7 - 21 mg/dL [facility] Creatinine 1.32 (H) 0.57 - 1.25 mg/dL [facility] Glucose 86 70 - 105 mg/dL [facility] Calcium 8.5 8.4 - 10.2 mg/dL [facility] EGFR 40Comment: ESTIMATED GFR IS mL/min/1.73 sq m [facility] NOT ACCURATE CREATININE [facility] CLEARANCE IN PREDICTING GLOMERULAR FILTRATION RATE. ESTIMATED GFR IS NOT APPLICABLE FOR DIALYSIS PATIENTS. Specimen Blood - Line, Venous Performing Organization Address [facility] Centercode Phone Number [facility] [address] [place] [address] [facility] * C-Reactive Protein (08/02/2017 7:01 AM CDT) Only the most recent of 2 results within the time period is included. CRP 8.76 (H) 0.00 - 0.50 mg/dL [facility] Specimen Blood - Line, Venous Performing Organization Address City/[facility]/Zipcode Phone Number [facility] [address] [place] [address] [facility] * Sedimentation rate (08/02/2017 7:01 AM CDT) Only the most recent of 2 results within the time period is included. Sed Rate 91 (H) 0 - 40 mm/HR [facility] Specimen Blood - Line, Venous Performing Organization Address City/State/Zipcode Phone Number [facility] [address] [place] [address] [facility] * Comprehensive metabolic panel (08/02/2017 7:01 AM CDT) Only the most recent of 4 results within the time period is included. Protein, Total 6.4Comment: Specimen 6.0 - 8.3 gm/dL [facility] hemolyzed [facility] Albumin 2.6 (L)Comment: Specimen 3.5 - 5.0 g/dL [facility] hemolyzed [facility] Alkaline Phosphatase 71 40 - 150 U/L [facility] Total Bilirubin 0.4Comment: Specimen 0.2 - 1.2 mg/dL [facility] moderately hemolyzed [facility] Sodium 140 136 - 145 meq/L [facility] Potassium 3.9Comment: Specimen 3.5 - 5.1 meq/L [facility] hemolyzed [facility] Chloride 104 98 - 107 meq/L [facility] CO2 28 22 - 29 meq/L [facility] BUN 31 (H) 7 - 21 mg/dL [facility] Creatinine 1.20Comment: Specimen 0.57 - 1.25 mg/dL [facility] hemolyzed [facility] Glucose 60 (L) 70 - 105 mg/dL [facility] Calcium 8.5 8.4 - 10.2 mg/dL [facility] AST 15Comment: Specimen moderately 5 - 34 U/L [facility] ALT <6 (L)Comment: Specimen 6 - 55 U/L [facility] moderately hemolyzed [facility] EGFR 45Comment: ESTIMATED GFR IS mL/min/1.73 sq m [facility] NOT ACCURATE CREATININE [facility] CLEARANCE IN PREDICTING GLOMERULAR FILTRATION RATE. ESTIMATED GFR IS NOT APPLICABLE FOR DIALYSIS PATIENTS. Specimen Blood - Line, Venous Performing Organization Address City/[facility]/Zipcode Phone Number [facility] [address] [place] [address] [facility] * Tissue Exam (07/31/2017 1:53 PM CDT) Case Report Surgical Pathology [facility] Report [facility] Case: [id number] Authorizing Provider:Flor Nunse MD Collected: 07/31/2017 1353 Ordering Location: [address] Received: 07/31/2017 1353 Service Pathologist: Salty Gallo MD Specimen:Intervertebra l Disc, thoracic 9 DIAGNOSIS VERTEBRAL COLUMN, T9, [facility] LAMINECTOMY: [facility] MINUTE FRAGMENT OF FIBRIN AND BLOOD CLOT NO FIBROCARTILAGE IS IDENTIFIED Signing Pathologist Direct Phone Line: [phone] CPT Code(s) 24160 [facility] CLINICAL HISTORY None given [facility] SPECIMEN SOURCE Intervertebral disc thoracic 9 [facility] GROSS DESCRIPTION The specimen is received in a [facility] fluidless container labeled [facility] with the patient's information and labeled "thoracic 9 disc tissue" and consists of red soft tissue measuring 0.2 cm in greatest dimension, submitted entirely in A1. CG/ew MICROSCOPIC DESCRIPTION Performed [facility] Specimen Tissue - Intervertebral Disc Performing Organization Address City/[facility]/Zipcode Phone Number [facility] [address] [place] [address] [facility] * CT Biopsy/Aspiration/Injection (07/30/2017 3:25 PM CDT) Narrative Performed At FINAL REPORT [place] CT-guided fine needle aspiration of the T8/T9 [...] MD Report Verified Date/Time:07/30/2017 17:23:33 Reading Location: [address] Consult Reading Room Procedure Note Interface, External [...] Report Verified Date/Time: 07/30/2017 17:23:33 Reading Location: [address] Ortho Consult Reading Room Performing Organization Address City/State/Zipcode Phone Number [facility] * Cytology (07/30/2017 3:20 PM CDT) Case Report Medical Cytology [facility] Report [facility] Case: [id number] Authorizing Provider:Flor Nunes MD Collected: 07/30/2017 1520 Ordering Location: [address] Received: 07/31/2017 1257 Service Pathologist: Tran Dobbins MD Specimen:Bone, T9 spine DIAGNOSIS BONE, T9 SPINE FNA BY [facility] CLINICIAN (CYTOSPINS AND CELL [facility] BLOCK OF ASPIRATE): - NO MALIGNANT CELLS IDENTIFIED (SEE COMMENT) - FEW LYMPHOCYTES PRESENT Signing Pathologist Direct Phone Line: [phone] COMMENT Cytospins and cell block [facility] sections show predominantly [facility] blood elements and a few small clusters of lymphocytes. Immunostains performed on cell block sections are predominantly negative for CAM5.2 and GATA3 (rare nonspecific staining). These findings are supportive of the above diagnosis. Clinical/radiological correlation is recommended to determine the adequacy of the sampling. CPT Code(s) 42090, 95309, 70411, 68433 [facility] CLINICAL DATA CT-guided fine needle [facility] aspiration of the T8/T9 [facility] paravertebral soft tissue disc inflammation, history of breast cancer SPECIMEN SOURCE BONE, T9 SPINE FNA [facility] GROSS DESCRIPTION 25 mls in cytorich red; 4 [facility] cytospins, cell block [facility] Collected: [id number] Received: [id number] SPECIAL STUDIES The following special studies [facility] were performed on this case [facility] and the interpretation is incorporated in the diagnostic report above: Please see the immunohistochemistry results in the COMMENT section. The immunohistochemistry test was developed and its performance characteristics determined by [facility], Pathology Laboratory. It has not been cleared [...] complexity clinical laboratory testing. Technical component was [facility] performed at [place], Department of [facility] Pathology, [address] [place] [id number], Professional component [facility] was performed at [place], Department of [facility] Pathology, [address] [place] [address], Specimen Aspirate - Bone Narrative Performed At Performing Organization Address City/State/[place] [address] [facility] * AFB culture + smear (07/30/2017 3:17 PM CDT) Only the most recent of 2 results within the time period is included. Result No acid-fast bacilli isolated [facility] in 42 days [facility] AFB Smear No acid fast bacilli seen [facility] Specimen Tissue - Spine, Thoracic Performing Organization Address City/State/Zipcode Phone Number [facility] [address] [place] [address] [facility] * Body fluid culture + gram stain (07/30/2017 3:17 PM CDT) Result No growth [facility] Gram Stain Result <1+ WBCs [facility] Gram Stain Result No organisms seen [facility] Specimen Body Fluid - Spine, Thoracic Performing Organization Address City/[facility]/Zipcode Phone Number [facility] [address] [place] [address] [facility] * Fungus culture + smear (07/30/2017 3:17 PM CDT) Only the most recent of 2 results within the time period is included. Result No fungus isolated in 28 days [facility] Fungus Smear No fungi seen [facility] Specimen Tissue - Spine, Thoracic Performing Organization Address City/[facility] Phone Number [facility] [address] [place] [phone] [facility] * CT spine thoracic without IV contrast (07/27/2017 10:53 PM CDT) Narrative Performed At FINAL REPORT [facility] CT, SPINE, THORACIC, WO CONTRAST INDICATION: "T9 [...] MD Report Verified Date/Time:07/27/2017 23:51:36 Reading Location: [facility] [id number] Ortho Consult Reading Room Procedure Note Interface, [...] Report Verified Date/Time: 07/27/2017 23:51:36 Reading Location: [facility] C013X Ortho Consult Reading Room Performing Organization Address City/[facility] Centercode Phone Number [facility] * Vancomycin level, trough (07/25/2017 9:29 PM CDT) Vancomycin Tr 23.1 (H) 10.0 - 20.0 ug/mL [facility] Specimen Blood - Line, Venous Narrative Performed At Please draw 30 min prior to fourth dose of vancomycin [facility] Performing Organization Address City/[facility]/Zipcode Phone Number [facility] [address] [place] [address] MEDICAL CENTER * [place] land degradation analyst in or 30 minute increments (07/25/2017 1:00 PM CDT) Narrative Performed At PROCEDURE PERFORMED IN O.R. - PLEASE REFER TO THE INTRAOPERATIVE [facility] REPORT. Procedure Note Interface, External Ris In - 08/22/2017 10:48 AM CDT PROCEDURE PERFORMED IN O.R. - PLEASE REFER TO THE INTRAOPERATIVE REPORT. Performing Organization Address [facility] Phone Number [facility] * STONE ANALYSIS [...] analytical performance characteristics have been determined by [facility]. It has not been cleared or approved by the US Food and Drug Administration. This assay has been validated pursuant to the CLIA regulations and is used for clinical purposes. Specimen Tissue - Stone Narrative Performed At Performing Lab [facility], [address] [place] [address] Evi Keller MD, PhD Performing Organization Address City/[facility]/Zipcode Phone Number [facility], [address] [place], [place] INC[facility]PORATED [facility] [address] [address] * Urine culture (07/25/2017 11:40 AM CDT) Only the most recent of 3 results within the time period is included. Result >100,000 col/mL Same organism [facility] has been isolated from [facility] culture(s) of the same body site within 3 days. Repeat identification performed only after consultation with the clinical microbiology laboratory. (A) Comment: Refer to previous culture of Vancomycin resistant Enterococcus species Specimen Urine Narrative Performed At <10,000 col/mL Gram Negative Rods [facility] Performing Organization Address City/[facility]/Zipcode Phone Number [address] [address] [facility] * Anaerobic culture (07/25/2017 11:01 AM CDT) Result No anaerobes isolated [facility] Specimen Other - Kidney, Left Performing Organization Address City/State/Zipcode Phone Number [address] [address] [facility] * Surgically obtained culture + gram stain (07/25/2017 11:01 AM CDT) Result PSEUDOMONAS AERUGINOSA (A) [facility] Result 2+ Vancomycin resistant [facility] Enterococcus species (A) [facility] Result METHICILLIN RESISTANT [facility] STAPHYLOCOCCUS AUREUS (A) [facility] Gram Stain Result <1+ WBCs [facility] Gram Stain Result 2+ gram negative rods [facility] Specimen Other - Kidney, Left Antibiotic Method [...] Methicillin resistant Staphylococcus aureus Performing Organization Address [facility]/[place] [phone] [place] [address] * SPIN/CONCENTRATION CHARGE (07/25/2017 11:01 AM CDT) Concentration charged Done [facility] Specimen Other - Kidney, Left Performing Organization Address [facility]/Zipcode Phone Number [address] [address] [phone] [place] [address] * Urinalysis w/Microscopic (07/24/2017 11:26 PM CDT) Only the most recent of 2 results within the time period is included. Color, UA Light Yellow [facility] Clarity, UA Clear [facility] Specific [place], UA 1.009 1.001 - 1.035 [facility] pH, UA 5.5 5.0 - 8.0 [facility] Protein, UA Negative Negative [facility] Glucose, UA Negative Negative [facility] Ketones, UA Negative Negative [facility] Bilirubin, UA Negative Negative [facility] Blood, UA Negative Negative [facility] Nitrite, UA Negative Negative [facility] Leukocytes, UA Large (A) Negative [facility] Urobilinogen, UA 0.2 0.2 - 1.0 mg/dL [facility] RBC, UA 2 /HPF [facility] WBC, UA 54 /HPF [facility] Bacteria, UA Occasional [facility] Mucus Rare [facility] Squam Epithel, UA <1 /HPF [facility] Hyaline Casts, UA 2 /LPF [facility] Specimen Source Urine, Clean Catch [facility] Specimen Urine - Urine, Clean Catch Performing Organization Address City/[facility] Phone Number [address] * Blood culture (07/24/2017 11:25 PM CDT) Only the most recent of 3 results within the time period is included. Result No growth in 5 days [facility] Specimen Blood - Line, Venous Performing Organization Address City/[facility]/Zipcode Phone Number [address] * XR chest 1 view portable / bedside (07/24/2017 6:33 PM CDT) Only the most recent of 3 results within the time period is included. Narrative Performed At FINAL REPORT [facility] Chest x-ray Clinical History: check picc placement [...] MD Report Verified Date/Time:07/24/2017 18:53:53 Reading Location: [facility] B1 C013W Consult Reading Room Procedure Note [...] Report Verified Date/Time: 07/24/2017 18:53:53 Reading Location: [facility] B1 C013W Consult Reading Room Performing Organization Address City/State/Zipcode Phone Number [facility] * Prothrombin time/INR (07/24/2017 3:06 PM CDT) Only the most recent of 2 results within the time period is included. Protime 14.9 (H) 11.7 - 14.7 seconds [facility] INR 1.2 <=5.9 [facility] Specimen Blood - Arm, Right Narrative Performed At RECOMMENDED COUMADIN/WARFARIN INR THERAPY RANGES [facility] STANDARD DOSE: 2.0 - 3.0 Includes: PROPHYLAXIS for venous thrombosis, [facility] systemic embolization; TREATMENT for venous thrombosis and/or pulmonary embolus. HIGH RISK: Target INR is 2.5-3.5 for patients with mechanical heart valves. Performing Organization Address City/State/Zipcode Phone Number [facility] [address] [place] [address] MEDICAL CENTER * Phosphorus (06/05/2017 6:01 AM EXERCISE INSTRUCTOR) Only the most recent of 9 results within the time period is included. Phosphorus 5.7 (H) 2.3 - 4.7 mg/dL [facility] Specimen Blood - Arm, Right Performing Organization Address [facility]/State/Zipcode Phone Number [facility] [address] [place] [address] [phone] [place] [address] * Magnesium (06/05/2017 6:01 AM EXERCISE INSTRUCTOR) Only the most recent of 9 results within the time period is included. Magnesium 1.9 1.6 - 2.6 mg/dL [facility] Specimen Blood - Arm, Right Performing Organization Address [facility] Phone Number [address] [address] [phone] * PERIPHERAL VASCULAR REPORT - SCAN (05/28/2017 6:50 PM EXERCISE INSTRUCTOR) Narrative Performed At * Venous doppler legs bilateral (05/28/2017 3:32 PM EXERCISE INSTRUCTOR) Ejection Fraction [facility] MKCKESSON CPACS Impressions Performed At Right Impression [facility] 1. There is no deep venous obstruction in the common femoral, profunda MKCKESSON CPACS femoral, femoral, popliteal, posterior tibial or peroneal [...] PV LAB - Lower Extremities DVT Study [facility] Demographics [facility] Patient NameBriana BLAIR of Study05/28/2017 Visit [id number] Female of Birth1945 Number Referring Ananya [id number] Physician [facility] [employer] Insurance Agent Gisele Arrieta RVTInterpreting Josafat Gonzalez, RPGEM Procedure Type of Study: Veins: Lower Extremities DVT Study, VENOUS DOPPLER LEG, BILATERAL. Indications for Study:Fluid collection. Patient Status:Routine. Study Location:Vascular Lab. Technical Quality:Technically Difficult. Risk Factors History of Disease + +----+ + !Diagnosis !Date!Comments! + +----+ + !History/Risk Factors: !!DM, Pneumonia ! + +----+ + Procedure Note Interface, External Ris In - 05/28/2017 6:03 PM EXERCISE INSTRUCTOR PV LAB - Lower Extremities DVT Study Demographics Patient Name BINTA BLAIR Date of Study 05/28/2017 Age 71 Visit Number [id number] Gender Female Date of 1945 Number Referring [facility] Room Number 7 Physician [employer] Insurance Agent Gisele Arrieta T Interpreting Kathe Villagomez, Physician , RPVI Procedure Type of Study: Veins: Lower Extremities [...] are measured in cm Performing Organization Address [facility] Phone Number [facility] * Calcium, Ionized (05/28/2017 4:41 AM EXERCISE INSTRUCTOR) Calcium, Ion 1.01 (L) 1.12 - 1.27 mmol/L [facility] pH, Blood 7.31 [facility] Specimen Blood - Arm, Right Performing Organization Address [facility] Cent[facility] Phone Number [facility] [address] [place] [address] [facility] * B-type Natriuretic Factor (BNP) (05/28/2017 4:41 AM EXERCISE INSTRUCTOR) BNP 696 (H) 0 - 100 pg/mL [facility] Specimen Blood - Arm, Right Performing Organization Address [facility] Phone Number [facility] [address] [place] [address] [facility] * US renal complete (05/27/2017 9:01 PM EXERCISE INSTRUCTOR) Narrative Performed At FINAL REPORT [facility] U/S, RENAL, COMPLETE CLINICAL INDICATION:Mario /Pyelonephritis COMPARISON: [...] MD Report Verified Date/Time:05/28/2017 01:13:48 Reading Location: [facility] C013Y CT Body Reading Room Procedure Note Interface, External Ris In - 05/28/2017 1:16 AM EXERCISE INSTRUCTOR FINAL REPORT U/S, RENAL, COMPLETE CLINICAL INDICATION: [...] Report Verified Date/Time: 05/28/2017 01:13:48 Reading Location: [facility] B1 C013Y CT Body Reading Room Performing Organization Address City/State/Zipcode Phone Number [facility] * Hemoglobin A1c (05/27/2017 6:13 AM EXERCISE INSTRUCTOR) Hemoglobin A1C 7.9 (H) 4.3 - 6.1 % [facility] Specimen Blood - Arm, Right Performing Organization Address City/State/Zipcode Phone Number [facility] [address] [place] [address] MEDICAL [address]ENTER * CT abdomen/pelvis without iv contrast (05/26/2017 6:15 PM EXERCISE INSTRUCTOR) Narrative Performed At FINAL REPORT GE E[facility] DOSE REDUCTION: The examination was performed according [...] MD Report Verified Date/Time:05/26/2017 18:29:02 Reading Location: [address] Transitional Reading Room Procedure Note Interface, External Ris In - 05/26/2017 6:31 PM EXERCISE INSTRUCTOR FINAL REPORT DOSE REDUCTION: The examination was [...] Report Verified Date/Time: 05/26/2017 18:29:02 Reading Location: [facility] C0[facility] Transitional Reading Room Performing Organization Address City/[facility]/Zipcode Phone Number [facility] * Troponin I (05/26/2017 1:38 PM EXERCISE INSTRUCTOR) Troponin I 0.01 0.00 - 0.03 ng/mL [facility] Specimen Blood - Arm, Right Narrative Performed At Troponin I (TnI) levels must be interpreted in the context of the presenting [facility] symptoms and the clinical findings. Elevated TnI levels indicate myocardial [facility] damage, but are not specific for ischemic heart disease. Elevated TnI levels are seen in patients with other cardiac conditions (including myocarditis and congestive heart failure), and slight TnI elevations occur in patients with other conditions, including sepsis, renal failure, acidosis, acute neurological disease, and persistent tachyarrhythmia. Performing Organization Address [facility] Phone Number [place] [phone] [place] [address] [phone] [place] [address] * Creatine Kinase (CK), Total and MB (05/26/2017 1:38 PM EXERCISE INSTRUCTOR) Total CK 31 29 - 200 U/L [facility] CK-MB 1.3 0.0 - 6.6 ng/mL [facility] MB Relative Index 4.2 % [facility] Specimen Blood - Arm, Right Narrative Performed At CK-MB Reference Range: [facility] <6.7Normal [facility] 6.7-10.0Borderline >10.0 Abnormal Performing Organization Address [facility] Cent[facility] Phone Number [facility] [address] [place] [address] [facility] * ECG 12 lead (05/26/2017 1:27 PM EXERCISE INSTRUCTOR) Narrative Performed At Ventricular Rate 71 BPM GE MUSE Atrial Rate 71 BPM P-R Interval 170 ms QRS Duration 66 ms Q-T Interval 410 ms QTC Calculation(Bazett) 445 ms P [place] 37 degrees R [place] 26 degrees T [place] 59 degrees Normal sinus rhythm Normal ECG When compared with ECG of 28-MAR-2017 10:38, No significant change was found Confirmed by MIRZAI-TEHRANE, MD, MAJID ([id number]) on 05/27/2017 10:24:35 AM Procedure Note Interface, External Ris In - 05/27/2017 10:24 AM EXERCISE INSTRUCTOR Ventricular Rate 71 BPM Atrial Rate 71 BPM P-R Interval 170 ms QRS Duration 66 ms Q-T Interval 410 ms QTC Calculation(Bazett) 445 ms P [place] 37 degrees R [place] 26 degrees T [place] 59 degrees Normal sinus rhythm Normal ECG When compared with ECG of 28-MAR-2017 10:38, No significant change was found Confirmed by MD DAWN MAJID ([id number]) on 05/27/2017 10:24:35 AM Performing Organization Address City/State/Zipcode Phone Number [facility] * CT brain without IV contrast (05/26/2017 12:11 PM EXERCISE INSTRUCTOR) Narrative Performed At FINAL REPORT [facility] CT head without contrast INDICATION: Dizziness TECHNIQUE: [...] MD Report Verified Date/Time:05/26/2017 12:21:36 Reading Location: [address] Neuro Reading Room Procedure Note Interface, External Ris In - 05/26/2017 12:23 PM EXERCISE INSTRUCTOR FINAL REPORT CT head without contrast INDICATION: [...] Report Verified Date/Time: 05/26/2017 12:21:36 Reading Location: [facility] C013 Neuro Reading Room Performing Organization Address City/State/Zipcode Phone Number [facility] after 05/12/2017 Insurance Payer Benefit Subscriber ID Type Phone Address Plan / Group MEDICARE MEDICARE A xxxxxxxxxx Medicare B MCR SUPPLEMENT/INDIVIDUAL BANKER'S xxxxxxxxx [employer] LIFE Advance Directives For more information, please contact: [facility] [address] [place] [address] Date Inactivated Comments Code Status Date Activated [...]
--- OUTSIDE RECORDS SUMMARY | 2018-05-13 11:06 | XMS REPORT | Clinical Summary ---
Author Author [facility] Address Unknown Phone Unavailable Care Team Providers Care Instructional Services Librarian Name Role Phone Daquan Spicer MD PCP [...] 11/04/2017 Emergency Emergency Medicine - 11/05/2017 after 05/12/2017 Social History Date Tobacco Use Types Packs/Day [...] CULTURE STAT 11/04/2017 7:02 PM CDT after 05/12/2017 Results * Estimated GFR (11/04/2017 11:09 PM CDT) Only the most recent of 2 results within the time period is included. GFR Non Af Amer 32 (A) mL/min/1.73 m2 [facility] DEPARTMENT OF PATHOLOGY AND [facility] GFR Af Amer 39 (A) mL/min/1.73 m2 [facility] DEPARTMENT OF Comment: PATHOLOGY AND Chronic kidney [...] specimen Performing Organization Address City/State/Zipcode Phone Number [facility] DEPARTMENT OF [facility] [place] [address] PATHOLOGY AND [facility] MEDICINE * Basic metabolic panel (11/04/2017 11:09 PM CDT) Only the most recent of 2 results within the time period is included. Sodium 139 135 - 150 mEq/L [facility] DEPARTMENT OF PATHOLOGY AND [facility] MEDICINE Potassium 4.6 3.5 - 5.0 mEq/L [facility] DEPARTMENT OF PATHOLOGY AND GENOMIC MEDICINE Chloride 104 98 - 112 mEq/L [facility] DEPARTMENT OF PATHOLOGY AND GENOMIC MEDICINE CO2 22 (L) 24 - 31 mmol/L [facility] DEPARTMENT OF PATHOLOGY AND [facility] MEDICINE Anion gap 13@ANIO 7 - 15 mEq/L [facility] DEPARTMENT OF PATHOLOGY AND [facility] MEDICINE BUN 34 (H) 7 - 18 mg/dL [facility] DEPARTMENT OF PATHOLOGY AND [facility] MEDICINE Creatinine 1.60 (H) 0.50 - 0.90 mg/dL [facility] DEPARTMENT OF PATHOLOGY AND [facility] MEDICINE Glucose 123 (H) 65 - 100 mg/dL [facility] DEPARTMENT OF PATHOLOGY AND [facility] MEDICINE Calcium 9.2 8.8 - 10.2 mg/dL [facility] DEPARTMENT OF PATHOLOGY AND GENOMIC MEDICINE Specimen Plasma specimen Performing Organization Address City/[facility]/Zipcode Phone Number [facility] DEPARTMENT OF [address] [place] [address] PATHOLOGY AND GENOMIC MEDICINE * ECG 12 lead (11/04/2017 8:37 PM CDT) Ventricular rate 73 [facility] Atrial rate 73 [facility] NH interval 206 [facility] QRSD interval 74 [facility] QT interval 396 [facility] QTC interval 436 [facility] P axis 1 50 [facility] QRS axis 1 30 [facility] T wave axis 63 [facility] EKG impression Normal sinus rhythm-Cannot [facility] rule out Anterior infarct , age undetermined-Abnormal ECG-No previous ECGs available- Performing Organization Address City/[facility] Phone Number [facility] MUSE [address] [place] [address] * ECG ED Preliminary Interpretation - NOT AN ORDER (11/04/2017 7:45 PM CDT) Narrative Performed At Kateryna Hays Jr., MD 11/07/20171:43 AM ECG ED Preliminary Interpretation - Not an Order Performed by: KATERYNA HAYS JR. Authorized by: KATERYNA HAYS JR. ECG reviewed by ED Physician in the absence of a planogrammer: yes Interpretation: Interpretation: normal Rate: ECG rate:73 ECG rate assessment: normal Rhythm: Rhythm: sinus rhythm Ectopy: Ectopy: none QRS: QRS axis:Normal QRS intervals:Normal Conduction: Conduction: normal ST segments: ST segments:Normal T waves: T waves: normal * Urinalysis screen and microscopy, with reflex to culture (11/04/2017 7:02 PM CDT) Specimen site Catheterized [facility] DEPARTMENT OF PATHOLOGY AND GENOMIC MEDICINE Color, UA Yellow [facility] DEPARTMENT OF PATHOLOGY AND GENOMIC MEDICINE Appearance, UA Slightly-Cloudy [facility] DEPARTMENT OF PATHOLOGY AND GENOMIC MEDICINE Specific gravity, UA 1.014 1.001 - 1.035 [facility] DEPARTMENT OF PATHOLOGY AND GENOMIC MEDICINE pH, UA 5.0 5.0 - 8.5 [facility] DEPARTMENT OF PATHOLOGY AND GENOMIC MEDICINE Protein, UA 1+ (A) Negative [facility] DEPARTMENT OF PATHOLOGY AND GENOMIC MEDICINE Glucose, UA 2+ (A) Negative [facility] DEPARTMENT OF PATHOLOGY AND GENOMIC MEDICINE Ketones, UA Negative Negative [facility] DEPARTMENT OF PATHOLOGY AND GENOMIC MEDICINE Bilirubin, UA Negative Negative [facility] DEPARTMENT OF PATHOLOGY AND GENOMIC MEDICINE Blood, UA Small (A) Negative [facility] DEPARTMENT OF PATHOLOGY AND GENOMIC MEDICINE Nitrite, UA Negative Negative [facility] DEPARTMENT OF PATHOLOGY AND GENOMIC MEDICINE Urobilinogen, UA Negative <2.0 [facility] DEPARTMENT OF PATHOLOGY AND GENOMIC MEDICINE Leukocyte esterase, UA Moderate (A) Negative [facility] DEPARTMENT OF PATHOLOGY AND GENOMIC MEDICINE Epithelial cells, UA Few /HPF [facility] DEPARTMENT OF PATHOLOGY AND GENOMIC MEDICINE WBC, UA 18 (H) 0 - 5 /HPF [facility] DEPARTMENT OF PATHOLOGY AND GENOMIC MEDICINE RBC, UA 1 0 - 5 /HPF [facility] DEPARTMENT OF PATHOLOGY AND GENOMIC MEDICINE Bacteria, UA None seen None seen [facility] DEPARTMENT OF PATHOLOGY AND GENOMIC MEDICINE Yeast, UA None seen [facility] DEPARTMENT OF PATHOLOGY AND GENOMIC MEDICINE Yeast with pseudohyphae, None seen [facility] DEPARTMENT OF UA PATHOLOGY AND GENOMIC MEDICINE Specimen Urine Performing Organization Address City/[facility] Cent[facility] Phone Number [facility] DEPARTMENT [address] [place] [address] PATHOLOGY AND GENOMIC MEDICINE * Gram stain (11/04/2017 7:02 PM CDT) Gram stain result Occasional WBC's [facility] DEPARTMENT OF No organisms seen PATHOLOGY AND Comment: GENOMIC MEDICINE Specimen Information Specimen Source: Urine Specimen Site: Catheterized Specimen Urine - Catheterized Performing Organization Address City/State/Zipcode Phone Number [facility] DEPARTMENT OF [address] [place] [address] PATHOLOGY AND GENOMIC MEDICINE * Urine culture (11/04/2017 7:02 PM CDT) Urine culture isolate Streptococcus group B [facility] DEPARTMENT OF 10-1 cfu/ml PATHOLOGY AND (A) GENOMIC MEDICINE Comment: Specimen Information Specimen Source: Urine Specimen Site: Catheterized Urine culture isolate Mixed Gram negative rods [facility] DEPARTMENT OF 10-2 cfu/ml PATHOLOGY AND (A) GENOMIC MEDICINE Urine culture isolate Mixed Gram positive dallin [facility] DEPARTMENT OF <10-1 cfu/ml PATHOLOGY AND (A) GENOMIC MEDICINE Specimen Urine - Catheterized Performing Organization Address City/[facility]/Zipcode Phone Number [facility] DEPARTMENT OF [address] [place] [address] PATHOLOGY AND GENOMIC MEDICINE after 05/12/2017 Insurance Payer Benefit Subscriber ID Type Phone Address Plan / Group MEDICARE MEDICARE xxxxxxxxxx Medicare [place] PART A AND B BANKERS LIFE AND CASUALTY BANKERS xxxxxxxxx Commercial LIFE AND CASUALTY Advance Directives Patient has advance care planning documents on file. For more information, deb ji contact: Mitch Kirkpatrick [address] [place] [address]
[2018-05-13 11:53] LABS: BASOPHILS # (AUTO) 0.1 (0.0-0.1); BASOPHILS % 0.3 % (0.0-1.0); EOSINOPHILS # (AUTO) 0.2 (0.0-0.4); HEMATOCRIT 40.5 % (34.2-44.1); LYMPHOCYTES # (AUTO) 1.6 (1.0-3.2); LYMPHOCYTES % 8.9 % (18.0-39.1); MEAN CORPUSCULAR HEMOGLOBIN 28.2 pg (28-32); MEAN CORPUSCULAR HGB CONC 32.1 g/dL (31-35); MEAN CORPUSCULAR VOLUME 87.9 fL (81-99); MONOCYTES # (AUTO) 0.7 (0.2-0.8); MONOCYTES % 3.8 % (4.4-11.3); NEUTROPHILS # (AUTO) 15.1 (2.1-6.9); NEUTROPHILS % 85.4 % (38.7-80.0); PLATELET COUNT 389 x10e3/uL (140-360); RED BLOOD COUNT 4.61 x10e6/uL (3.6-5.1); RED CELL DISTRIBUTION WIDTH 14.9 % (11.7-14.4)
[2018-05-13 12:05] LABS: ALBUMIN 3.9 g/dL (3.5-5.0); ALBUMIN/GLOBULIN RATIO 0.9 (0.8-2.0); ANION GAP 18.4 mmol/L (8-16); CALCIUM 9.6 mg/dL (8.4-10.2); CREATININE, SERUM 2.22 mg/dL (0.57-1.11); MAGNESIUM 2.2 MG/DL (1.3-2.1); POTASSIUM 5.4 mmol/L (3.5-5.1)
--- NOTE | 2018-05-13 12:38 | Diagnostic Imaging Report ---
EXAMINATION: CHEST 2 VIEWS INDICATION: Elevated WBC, query pneumonia. COMPARISON: None FINDINGS: Somewhat limited by portable technique and rotation. TUBES and LINES: None. LUNGS: Low lung volumes. Linear opacities in the bilateral lower lung zones, likely subsegmental atelectasis. Mild patchy opacity at the left lung base. No evidence of lobar consolidation. Mild central vascular congestion. No evidence of pulmonary edema. PLEURA: No pleural effusion or pneumothorax. HEART AND MEDIASTINUM: The cardiomediastinal silhouette is unremarkable. Atherosclerotic calcification of the aortic arch. BONES AND SOFT TISSUES: No acute osseous abnormality. Partially seen lateral plate and screw fixation construct involving the right humerus. UPPER ABDOMEN: No free air under the diaphragm. IMPRESSION: Low lung volumes with subsegmental atelectasis at the lung bases. Patchy opacity at the left lung base could reflect atelectasis or early pneumonia in the appropriate clinical setting. Attention on follow-up radiograph is suggested. Signed by: Dr. Alaina Sterling MD on 05/13/2018 12:34 PM
[2018-05-13 13:29] LABS: BILIRUBIN,URINE NEGATIVE (NEGATIVE); CLARITY,URINE SL CLOUDY (CLEAR); COLOR,URINE YELLOW (YELLOW); KETONES,URINE NEGATIVE (NEGATIVE); LEUKOCYTE ESTERASE ,URINE TRACE (NEGATIVE); NITRITE,URINE NEGATIVE (NEGATIVE); PROTEIN,URINE DIPSTICK NEGATIVE (NEGATIVE); URINE UROBILINOGEN 0.2 mg/dL (0.2 - 1)
[2018-05-13 13:42] LABS: BACTERIA,URINE MANY /HPF; EPITHELIAL CELLS,URINE FEW /LPF; WBC,URINE (MAN) 0-5 /HPF (0-5)
[2018-05-13] MEDS ORDERED: CEFTRIAXONE SOD 1 GM/NS 50 ML 50 ML IV ONE (13:45)
--- OUTSIDE RECORDS SUMMARY | 2018-05-13 15:13 | XMS REPORT | Clinical Summary ---
Author Author [facility] Organization [facility] Address Unknown Phone Unavailable Care Team Providers Care [facility] [employer] Liaison Name Role Phone Daquan Spicer MD PCP [...] [facility] [employer] [facility] GFR Af Amer 39 (A) mL/min/1.73 [...] [facility] [place] [address] PATHOLOGY AND [employer] MEDICINE * Basic metabolic panel (11/04/2017 11:09 PM CDT) Only the most recent of 2 results within the time period is included. Sodium 139 135 - 150 mEq/L [facility] [employer] [facility] Potassium 4.6 3.5 - 5.0 mEq/L [facility]OM[facility]IC[facility] Chloride 104 98 - 112 mEq/L [facility] CO2 22 (L) 24 - 31 mmol/L [facility] [employer] [facility] Anion gap 13@ANIO 7 - 15 mEq/L [facility] [employer] [facility] BUN 34 (H) 7 - 18 mg/dL [facility] [employer] [facility] Creatinine 1.60 (H) 0.50 - 0.90 mg/dL [facility] [employer] [facility] Glucose 123 (H) 65 - 100 mg/dL [facility] [employer] [facility] Calcium 9.2 8.8 - 10.2 mg/dL [facility] DEPARTMENT OF PATHOLOGY AND GENOMIC MEDICINE Specimen Plasma specimen Performing Organization Address City/[facility]/Zipcode Phone Number [facility] [address] [place] [address] PATHOLOGY AND GENOMIC MEDICINE * ECG 12 lead (11/04/2017 8:37 PM CDT) Ventricular rate 73 [facility] Atrial rate 73 [facility] DE interval 206 [facility] QRSD interval 74 [facility] QT interval 396 [facility] QTC interval 436 [facility] P axis 1 50 [facility] QRS axis 1 30 [facility] T wave axis 63 [facility] EKG impression Normal sinus rhythm-Cannot [facility] rule out Anterior infarct , age undetermined-Abnormal ECG-No previous ECGs available- Performing Organization Address City/[facility]ode Phone Number [facility] MUSE [address] [place] [address] * ECG ED Preliminary Interpretation - NOT AN ORDER (11/04/2017 7:45 PM CDT) Narrative Performed At Kateryna Hays Jr., MD 11/07/20171:43 AM ECG ED Preliminary Interpretation - Not an Order Performed by: KATERYNA HAYS JR. Authorized by: KATERYNA HAYS JR. ECG reviewed by ED Physician in the absence of a sharepoint engineer: yes Interpretation: Interpretation: normal Rate: ECG rate:73 [...] GENOMIC MEDICINE Specimen Urine Performing Organization Address City/[facility]ercode Phone Number [facility] [address] [place] [id number] PATHOLOGY AND GENOMIC MEDICINE * Gram stain (11/04/2017 7:02 PM CDT) Gram stain result Occasional WBC's [facility] DEPARTMENT OF No organisms seen PATHOLOGY AND Comment: GENOMIC MEDICINE Specimen Information Specimen Source: Urine Specimen Site: Catheterized Specimen Urine - Catheterized Performing Organization Address City/State/Zipcode Phone Number [facility] DEPARTMENT OF [address] [place] [phone] PATHOLOGY AND GENOMIC MEDICINE * Urine culture (11/04/2017 7:02 PM CDT) Urine culture isolate Streptococcus group B [facility] DEPARTMENT OF 10-1 cfu/ml PATHOLOGY AND (A) GENOMIC MEDICINE Comment: Specimen Information Specimen Source: Urine Specimen Site: Catheterized Urine culture isolate Mixed Gram negative rods [facility] DEPARTMENT OF 10-2 cfu/ml PATHOLOGY AND (A) GENOMIC MEDICINE Urine culture isolate Mixed Gram positive dallin [facility] DEPARTMENT OF <10-1 cfu/ml PATHOLOGY AND (A) GENOMIC MEDICINE Specimen Urine - Catheterized Performing Organization Address City/[facility]/Zipcode Phone Number [facility] DEPARTMENT OF [address] [place] [address] PATHOLOGY AND GENOMIC MEDICINE after 05/12/2017 Insurance Payer Benefit Subscriber ID Type Phone Address Plan / Group MEDICARE MEDICARE xxxxxxxxxx Medicare [place] PART A AND B BANKERS LIFE AND CASUALTY BANKERS xxxxxxxxx Commercial LIFE AND CASUALTY Advance Directives Patient has advance care planning documents on file. For more information, deb ji contact: Mitch Kirkpatrick [address] [place] [address]
--- OUTSIDE RECORDS SUMMARY | 2018-05-13 15:14 | XMS REPORT | Clinical Summary ---
Author Author BAIRON Kubi [facility] Organization [facility] [employer] [facility] Address Unknown Phone Unavailable Care Team Providers Care Diesel Engine I Pipe Fitter Name Role Phone Nayan Daquan PCP Allergies [...] times daily for 10 days. 07/24/2017 Discontinued zepdaoct-[id number] Apply 1 1 packet 0 myxnB (NEOSPORIN) packet 8 3.5-400-5,000 topically 2 pv-jqtw-xzls OiPk packet (two) times daily. 06/12/2017 ondansetron [...] / Lot Implanted Type Area Manufactur er [id number] / / [id number] Stent Uret Cntour Inj [id number] Uro Stent Left: Ureter [place] [id number] - [id number] SCI:UROLOG Implanted: Qty: 1 on 07/25/2017 by [...] METER Routine 07/25/2017 1:07 PM CDT FL CONSULTING IT ARCHITECT IN OR 30 Routine 07/25/2017 MINUTE INCREMENTS [...] CDT POCT-GLUCOSE METER Routine 06/05/2017 12:31 PM CENTERLESS GRINDER SET UP OPERATOR POCT-GLUCOSE METER Routine 06/05/2017 7:09 AM CENTERLESS GRINDER SET UP OPERATOR CBC W/PLT COUNT & AUTO Routine 06/05/2017 DIFFERENTIAL 6:01 AM CENTERLESS GRINDER SET UP OPERATOR PHOSPHORUS Routine 06/05/2017 6:01 AM CENTERLESS GRINDER SET UP OPERATOR MAGNESIUM Routine 06/05/2017 6:01 AM CENTERLESS GRINDER SET UP OPERATOR BASIC METABOLIC PANEL (7) Routine 06/05/2017 6:01 AM CENTERLESS GRINDER SET UP OPERATOR CBC W/PLT COUNT & AUTO Routine 06/05/2017 DIFFERENTIAL 6:01 AM CENTERLESS GRINDER SET UP OPERATOR POCT-GLUCOSE METER Routine 06/04/2017 8:49 PM CENTERLESS GRINDER SET UP OPERATOR POCT-GLUCOSE METER Routine 06/04/2017 5:40 PM CENTERLESS GRINDER SET UP OPERATOR POCT-GLUCOSE METER Routine 06/04/2017 10:48 AM CENTERLESS GRINDER SET UP OPERATOR CBC W/PLT COUNT & AUTO Routine 06/04/2017 DIFFERENTIAL 5:50 AM CENTERLESS GRINDER SET UP OPERATOR PHOSPHORUS Routine 06/04/2017 5:50 AM CENTERLESS GRINDER SET UP OPERATOR MAGNESIUM Routine 06/04/2017 5:50 AM CENTERLESS GRINDER SET UP OPERATOR BASIC METABOLIC PANEL (7) Routine 06/04/2017 5:50 AM CENTERLESS GRINDER SET UP OPERATOR CBC W/PLT COUNT & AUTO Routine 06/04/2017 DIFFERENTIAL 5:50 AM CENTERLESS GRINDER SET UP OPERATOR POCT-GLUCOSE METER Routine 06/03/2017 9:32 PM CENTERLESS GRINDER SET UP OPERATOR POCT-GLUCOSE METER Routine 06/03/2017 6:15 PM CENTERLESS GRINDER SET UP OPERATOR POCT-GLUCOSE METER Routine 06/03/2017 12:06 PM CENTERLESS GRINDER SET UP OPERATOR CBC W/PLT COUNT & AUTO Routine 06/03/2017 DIFFERENTIAL 11:01 AM CENTERLESS GRINDER SET UP OPERATOR BASIC METABOLIC PANEL (7) Routine 06/03/2017 11:01 AM CENTERLESS GRINDER SET UP OPERATOR CBC W/PLT COUNT & AUTO Routine 06/03/2017 DIFFERENTIAL 11:01 AM CENTERLESS GRINDER SET UP OPERATOR POCT-GLUCOSE METER Routine 06/03/2017 7:36 AM CENTERLESS GRINDER SET UP OPERATOR POCT-GLUCOSE METER Routine 06/02/2017 9:05 PM CENTERLESS GRINDER SET UP OPERATOR POCT-GLUCOSE METER Routine 06/02/2017 6:25 PM CENTERLESS GRINDER SET UP OPERATOR POCT-GLUCOSE METER Routine 06/02/2017 2:47 PM CENTERLESS GRINDER SET UP OPERATOR PHOSPHORUS Routine 06/02/2017 1:01 PM CENTERLESS GRINDER SET UP OPERATOR MAGNESIUM Routine 06/02/2017 1:01 PM CENTERLESS GRINDER SET UP OPERATOR BASIC METABOLIC PANEL (7) Routine 06/02/2017 1:01 PM CENTERLESS GRINDER SET UP OPERATOR POCT-GLUCOSE METER Routine 06/02/2017 8:23 AM CENTERLESS GRINDER SET UP OPERATOR POCT-GLUCOSE METER Routine 06/01/2017 9:51 PM CENTERLESS GRINDER SET UP OPERATOR POCT-GLUCOSE METER Routine 06/01/2017 5:43 PM CENTERLESS GRINDER SET UP OPERATOR POCT-GLUCOSE METER Routine 06/01/2017 11:34 AM CENTERLESS GRINDER SET UP OPERATOR CBC W/PLT COUNT & AUTO Routine 06/01/2017 DIFFERENTIAL 10:19 AM CENTERLESS GRINDER SET UP OPERATOR CBC W/PLT COUNT & AUTO Routine 06/01/2017 DIFFERENTIAL 10:19 AM CENTERLESS GRINDER SET UP OPERATOR PHOSPHORUS Routine 06/01/2017 10:19 AM CENTERLESS GRINDER SET UP OPERATOR MAGNESIUM Routine 06/01/2017 10:19 AM CENTERLESS GRINDER SET UP OPERATOR BASIC METABOLIC PANEL (7) Routine 06/01/2017 10:19 AM CENTERLESS GRINDER SET UP OPERATOR POCT-GLUCOSE METER Routine 06/01/2017 7:30 AM CENTERLESS GRINDER SET UP OPERATOR POCT-GLUCOSE METER Routine 05/31/2017 8:39 PM CENTERLESS GRINDER SET UP OPERATOR POCT-GLUCOSE METER Routine 05/31/2017 5:18 PM CENTERLESS GRINDER SET UP OPERATOR POCT-GLUCOSE METER Routine 05/31/2017 11:07 AM CENTERLESS GRINDER SET UP OPERATOR POCT-GLUCOSE METER Routine 05/31/2017 7:48 AM CENTERLESS GRINDER SET UP OPERATOR PHOSPHORUS Routine 05/31/2017 4:31 AM CENTERLESS GRINDER SET UP OPERATOR MAGNESIUM Routine 05/31/2017 4:31 AM CENTERLESS GRINDER SET UP OPERATOR BASIC METABOLIC PANEL (7) Routine 05/31/2017 4:31 AM CENTERLESS GRINDER SET UP OPERATOR POCT-GLUCOSE METER Routine 05/30/2017 9:12 PM CENTERLESS GRINDER SET UP OPERATOR POCT-GLUCOSE METER Routine 05/30/2017 5:12 PM CENTERLESS GRINDER SET UP OPERATOR POCT-GLUCOSE METER Routine 05/30/2017 11:38 AM CENTERLESS GRINDER SET UP OPERATOR POCT-GLUCOSE METER Routine 05/30/2017 7:53 AM CENTERLESS GRINDER SET UP OPERATOR PHOSPHORUS Routine 05/30/2017 5:16 AM CENTERLESS GRINDER SET UP OPERATOR MAGNESIUM Routine 05/30/2017 5:16 AM CENTERLESS GRINDER SET UP OPERATOR BASIC METABOLIC PANEL (7) Routine 05/30/2017 5:16 AM CENTERLESS GRINDER SET UP OPERATOR POCT-GLUCOSE METER Routine 05/29/2017 9:27 PM CENTERLESS GRINDER SET UP OPERATOR POCT-GLUCOSE METER Routine 05/29/2017 12:52 PM CENTERLESS GRINDER SET UP OPERATOR POCT-GLUCOSE METER Routine 05/29/2017 7:37 AM CENTERLESS GRINDER SET UP OPERATOR PHOSPHORUS Routine 05/29/2017 5:03 AM CENTERLESS GRINDER SET UP OPERATOR MAGNESIUM Routine 05/29/2017 5:03 AM CENTERLESS GRINDER SET UP OPERATOR BASIC METABOLIC PANEL (7) Routine 05/29/2017 5:03 AM CENTERLESS GRINDER SET UP OPERATOR POCT-GLUCOSE METER Routine 05/28/2017 8:50 PM CENTERLESS GRINDER SET UP OPERATOR PERIPHERAL VASCULAR 05/28/2017 REPORT - SCAN 6:50 PM CENTERLESS GRINDER SET UP OPERATOR POCT-GLUCOSE METER Routine 05/28/2017 6:19 PM CENTERLESS GRINDER SET UP OPERATOR VENOUS DOPPLER LEGS Routine 05/28/2017 BILATERAL 3:32 PM CENTERLESS GRINDER SET UP OPERATOR POCT-GLUCOSE METER Routine 05/28/2017 12:29 PM CENTERLESS GRINDER SET UP OPERATOR XR CHEST 1 VIEW STAT 05/28/2017 PORTABLE/BEDSIDE 11:55 AM CENTERLESS GRINDER SET UP OPERATOR POCT-GLUCOSE METER Routine 05/28/2017 8:38 AM CENTERLESS GRINDER SET UP OPERATOR CBC W/PLT COUNT & AUTO Routine 05/28/2017 DIFFERENTIAL 4:41 AM CENTERLESS GRINDER SET UP OPERATOR B-TYPE NATRIURETIC FACTOR Routine 05/28/2017 (BNP) 4:41 AM CENTERLESS GRINDER SET UP OPERATOR CBC W/PLT COUNT & AUTO Routine 05/28/2017 DIFFERENTIAL 4:41 AM CENTERLESS GRINDER SET UP OPERATOR BASIC METABOLIC PANEL (7) Routine 05/28/2017 4:41 AM CENTERLESS GRINDER SET UP OPERATOR PHOSPHORUS Routine 05/28/2017 4:41 AM CENTERLESS GRINDER SET UP OPERATOR MAGNESIUM Routine 05/28/2017 4:41 AM CENTERLESS GRINDER SET UP OPERATOR CALCIUM, IONIZED Routine 05/28/2017 4:41 AM CENTERLESS GRINDER SET UP OPERATOR POCT-GLUCOSE METER Routine 05/27/2017 9:50 PM CENTERLESS GRINDER SET UP OPERATOR US RENAL COMPLETE Routine 05/27/2017 9:01 PM CENTERLESS GRINDER SET UP OPERATOR POCT-GLUCOSE METER Routine 05/27/2017 5:47 PM CENTERLESS GRINDER SET UP OPERATOR POCT-GLUCOSE METER Routine 05/27/2017 8:32 AM CENTERLESS GRINDER SET UP OPERATOR CBC W/PLT COUNT & AUTO Routine 05/27/2017 DIFFERENTIAL 6:13 AM CENTERLESS GRINDER SET UP OPERATOR HEMOGLOBIN A1C Routine 05/27/2017 6:13 AM CENTERLESS GRINDER SET UP OPERATOR PHOSPHORUS Routine 05/27/2017 6:13 AM CENTERLESS GRINDER SET UP OPERATOR MAGNESIUM Routine 05/27/2017 6:13 AM CENTERLESS GRINDER SET UP OPERATOR COMPREHENSIVE METABOLIC Routine 05/27/2017 PANEL 6:13 AM CENTERLESS GRINDER SET UP OPERATOR CBC W/PLT COUNT & AUTO Routine 05/27/2017 DIFFERENTIAL 6:13 AM CENTERLESS GRINDER SET UP OPERATOR BLOOD CULTURE Routine 05/26/2017 9:45 PM CENTERLESS GRINDER SET UP OPERATOR POCT-GLUCOSE METER Routine 05/26/2017 7:59 PM CENTERLESS GRINDER SET UP OPERATOR CT ABDOMEN/PELVIS WITHOUT STAT 05/26/2017 IV CONTRAST 6:15 PM CENTERLESS GRINDER SET UP OPERATOR URINE CULTURE STAT 05/26/2017 5:23 PM CENTERLESS GRINDER SET UP OPERATOR URINALYSIS W/ MICROSCOPIC STAT 05/26/2017 3:58 PM CENTERLESS GRINDER SET UP OPERATOR XR CHEST 1 VIEW STAT 05/26/2017 PORTABLE/BEDSIDE 2:27 PM CENTERLESS GRINDER SET UP OPERATOR CBC W/PLT COUNT & AUTO STAT 05/26/2017 DIFFERENTIAL 1:38 PM CENTERLESS GRINDER SET UP OPERATOR PROTHROMBIN TIME/INR STAT 05/26/2017 1:38 PM CENTERLESS GRINDER SET UP OPERATOR CREATINE KINASE (CK), STAT 05/26/2017 TOTAL AND MB 1:38 PM CENTERLESS GRINDER SET UP OPERATOR TROPONIN I STAT 05/26/2017 1:38 PM CENTERLESS GRINDER SET UP OPERATOR BASIC METABOLIC PANEL (7) STAT 05/26/2017 1:38 PM CENTERLESS GRINDER SET UP OPERATOR CBC W/PLT COUNT & AUTO STAT 05/26/2017 DIFFERENTIAL 1:38 PM CENTERLESS GRINDER SET UP OPERATOR ECG 12-LEAD Routine 05/26/2017 1:27 PM CENTERLESS GRINDER SET UP OPERATOR Procedure Note - Interface, External Ris In - 05/26/2017 2:20 PM CENTERLESS GRINDER SET UP OPERATOR Ventricula r Rate 71 BPM Atrial Rate 71 BPM P-R Interval 170 ms QRS Duration 66 ms Q-T Interval 410 ms QTC Calculatio n(Bazett) 445 ms P Rawlings 37 degrees R Rawlings 26 degrees T Rawlings 59 degrees Normal sinus rhythm Normal ECG When compared with ECG of 10:38, No significan t change was found ECG 12-LEAD STAT 05/26/2017 1:27 PM CENTERLESS GRINDER SET UP OPERATOR CT BRAIN WITHOUT IV STAT 05/26/2017 CONTRAST 12:11 PM CENTERLESS GRINDER SET UP OPERATOR after 05/12/2017 Results * MR thoracic spine without IV contrast (10/08/2017 12:40 PM CDT) Narrative Performed At FINAL REPORT [employer] [facility] MRI of the thoracic spine [...] MD Report Verified Date/Time:10/08/2017 13:38:56 Reading Location: [facility] [id number] Consult Reading Room Procedure Note Interface, [...] Report Verified Date/Time: 10/08/2017 13:38:56 Reading Location: [address] Consult Reading Room Performing Organization Address City/[facility] Services[facility] Phone Number GE [facility] * POC-Glucose meter (08/03/2017 12:33 PM CDT) Only the most recent of 75 results within the time period is included. POC-Glucose Meter 184 (H)Comment: TESTED AT 70 - 110 mg/dL [address] [address] Specimen Blood Performing Organization Address City/[facility]/Zipcode Phone Number [place] [phone] [place] [address] [facility] * CBC with platelet count + automated diff (08/03/2017 5:57 AM CDT) Only the most recent of 17 results within the time period is included. WBC 8.8 3.5 - 10.5 K/L [facility] RBC 3.29 (L) 3.93 - 5.22 M/L [facility] Hemoglobin 8.7 (L) 11.2 - 15.7 GM/DL [facility] Hematocrit 28.2 (L) 34.1 - 44.9 % [facility] MCV 85.7 79.4 - 94.8 fL [facility] MCH 26.4 25.6 - 32.2 pg [facility] MCHC 30.9 (L) 32.2 - 35.5 GM/DL [facility] RDW 14.5 (H) 11.7 - 14.4 % [facility] Platelets 307 150 - 450 K/CU MM [facility] MPV 10.3 9.4 - 12.3 fL [facility] nRBC 0 0 - 0 /100 WBC [facility] % Neutros 59 % [facility] % Lymphs 26 % [facility] % Monos 7 % [facility] % Eos 6 % [facility] % Baso 1 % [facility] # Neutros 5.19 1.56 - 6.13 K/L [facility] # Lymphs 2.31 1.18 - 3.74 K/L [facility] # Monos 0.65 (H) 0.24 - 0.36 K/L [facility] # Eos 0.56 (H) 0.04 - 0.36 K/L [facility] # Baso 0.04 0.01 - 0.08 K/L [facility] Immature 1 0 - 1 % [facility] Specimen Blood - Line, Venous Performing Organization Address City/State/Zipcode Phone Number [facility] [address] [place] [address] [facility] * Creatine Kinase (CK) (08/03/2017 5:57 AM CDT) Only the most recent of 2 results within the time period is included. Total CK 16 (L) 29 - 200 U/L [facility] Specimen Blood - Line, Venous Performing Organization Address City/[facility] Servicescode Phone Number [facility] [address] [place] [address] [facility] * Basic Metabolic Panel (08/03/2017 5:57 AM CDT) Only the most recent of 17 results within the time period is included. Sodium 140 136 - 145 meq/L [facility] Potassium 3.9 3.5 - 5.1 meq/L [facility] Chloride 101 98 - 107 meq/L [facility] CO2 31 (H) 22 - 29 meq/L [facility] BUN 31 (H) 7 - 21 mg/dL [facility] Creatinine 1.32 (H) 0.57 - 1.25 mg/dL [facility] Glucose 86 70 - 105 mg/dL [facility] Calcium 8.5 8.4 - 10.2 mg/dL [facility] EGFR 40Comment: ESTIMATED GFR IS mL/min/1.73 sq m [facility] NOT ACCURATE CREATININE [facility] CLEARANCE IN PREDICTING GLOMERULAR FILTRATION RATE. ESTIMATED GFR IS NOT APPLICABLE FOR DIALYSIS PATIENTS. Specimen Blood - Line, Venous Performing Organization Address [facility] Servicescode Phone Number [facility] [address] [place] [address] [facility] * C-Reactive Protein (08/02/2017 7:01 AM CDT) Only the most recent of 2 results within the time period is included. CRP 8.76 (H) 0.00 - 0.50 mg/dL [facility] Specimen Blood - Line, Venous Performing Organization Address City/[facility]/Zipcode Phone Number [facility] [address] [place] [address] [facility] * Sedimentation rate (08/02/2017 7:01 AM CDT) Only the most recent of 2 results within the time period is included. Sed Rate 91 (H) 0 - 40 mm/HR [facility] Specimen Blood - Line, Venous Performing Organization Address City/State/Zipcode Phone Number [facility] [address] [place] [address] [facility] * Comprehensive metabolic panel (08/02/2017 7:01 AM CDT) Only the most recent of 4 results within the time period is included. Protein, Total 6.4Comment: Specimen 6.0 - 8.3 gm/dL [facility] hemolyzed [facility] Albumin 2.6 (L)Comment: Specimen 3.5 - 5.0 g/dL [facility] hemolyzed [facility] Alkaline Phosphatase 71 40 - 150 U/L [facility] Total Bilirubin 0.4Comment: Specimen 0.2 - 1.2 mg/dL [facility] moderately hemolyzed [facility] Sodium 140 136 - 145 meq/L [facility] Potassium 3.9Comment: Specimen 3.5 - 5.1 meq/L [facility] hemolyzed [facility] Chloride 104 98 - 107 meq/L [facility] CO2 28 22 - 29 meq/L [facility] BUN 31 (H) 7 - 21 mg/dL [facility] Creatinine 1.20Comment: Specimen 0.57 - 1.25 mg/dL [facility] hemolyzed [facility] Glucose 60 (L) 70 - 105 mg/dL [facility] Calcium 8.5 8.4 - 10.2 mg/dL [facility] AST 15Comment: Specimen moderately 5 - 34 U/L [facility] ALT <6 (L)Comment: Specimen 6 - 55 U/L [facility] moderately hemolyzed [facility] EGFR 45Comment: ESTIMATED GFR IS mL/min/1.73 sq m [facility] NOT ACCURATE CREATININE [facility] CLEARANCE IN PREDICTING GLOMERULAR FILTRATION RATE. ESTIMATED GFR IS NOT APPLICABLE FOR DIALYSIS PATIENTS. Specimen Blood - Line, Venous Performing Organization Address City/[facility]/Zipcode Phone Number [facility] [address] [place] [address] [facility] * Tissue Exam (07/31/2017 1:53 PM CDT) Case Report Surgical Pathology [facility] Report [facility] Case: [id number] Authorizing Provider:Flor Nunes MD Collected: 07/31/2017 1353 Ordering Location: [address] Received: 07/31/2017 1353 Service Pathologist: Salty Gallo MD Specimen:Intervertebra l Disc, thoracic 9 DIAGNOSIS VERTEBRAL COLUMN, T9, [facility] LAMINECTOMY: [facility] MINUTE FRAGMENT OF FIBRIN AND BLOOD CLOT NO FIBROCARTILAGE IS IDENTIFIED Signing Pathologist Direct Phone Line: [phone] CPT Code(s) 30188 [facility] CLINICAL HISTORY None given [facility] SPECIMEN SOURCE Intervertebral disc thoracic 9 [facility] GROSS DESCRIPTION The specimen is received in a [facility] fluidless container labeled [facility] with the patient's information and labeled "thoracic 9 disc tissue" and consists of red soft tissue measuring 0.2 cm in greatest dimension, submitted entirely in A1. CG/ew MICROSCOPIC DESCRIPTION Performed [facility] Specimen Tissue - Intervertebral Disc Performing Organization Address City/[facility]/Zipcode Phone Number [facility] [address] [place] [address] [facility] * CT Biopsy/Aspiration/Injection (07/30/2017 3:25 PM CDT) Narrative Performed At FINAL REPORT [facility] CT-guided fine needle aspiration of the T8/T9 [...] MD Report Verified Date/Time:07/30/2017 17:23:33 Reading Location: [address] Consult Reading Room Procedure Note Interface, [...] Report Verified Date/Time: 07/30/2017 17:23:33 Reading Location: [address] Ortho Consult Reading Room Performing Organization Address City/State/Zipcode Phone Number [facility] * Cytology (07/30/2017 3:20 PM CDT) Case Report Medical Cytology [facility] Report [facility] Case: [id number] Authorizing Provider:Flor Nunes MD Collected: 07/30/2017 1520 Ordering Location: [address] Received: 07/31/2017 1257 Service Pathologist: Tran Dobbins MD Specimen:Bone, T9 spine DIAGNOSIS BONE, T9 SPINE FNA BY [facility] CLINICIAN (CYTOSPINS AND CELL [facility] BLOCK OF ASPIRATE): - NO MALIGNANT CELLS IDENTIFIED (SEE COMMENT) - FEW LYMPHOCYTES PRESENT Signing Pathologist Direct Phone Line: [phone] COMMENT Cytospins and cell block [facility] sections show predominantly [facility] blood elements and a few small clusters of lymphocytes. Immunostains performed on cell block sections are predominantly negative for CAM5.2 and GATA3 (rare nonspecific staining). These findings are supportive of the above diagnosis. Clinical/radiological correlation is recommended to determine the adequacy of the sampling. CPT Code(s) 06130, 49317, 58370, 99525 [facility] CLINICAL DATA CT-guided fine needle [facility] aspiration of the T8/T9 [facility] paravertebral soft tissue disc inflammation, history of breast cancer SPECIMEN SOURCE BONE, T9 SPINE FNA [facility] GROSS DESCRIPTION 25 mls in cytorich red; 4 [facility] cytospins, cell block [facility] Collected: [id number] Received: [id number] SPECIAL STUDIES The following special studies [facility] were performed on this case [facility] and the interpretation is incorporated in the diagnostic report above: Please see the immunohistochemistry results in the COMMENT section. The immunohistochemistry test was developed and its performance characteristics determined by [facility], Pathology Laboratory. It has not been [...] complexity clinical laboratory testing. Technical component was [facility] performed at [place], Department of [facility] Pathology, [address] [place] [address], Professional component [facility] was performed at [place], Department of [facility] Pathology, [address] [place] [address], Specimen Aspirate - Bone Narrative Performed At Performing Organization Address City/State/[place] [address] [facility] * AFB culture + smear (07/30/2017 3:17 PM CDT) Only the most recent of 2 results within the time period is included. Result No acid-fast bacilli isolated [facility] in 42 days [facility] AFB Smear No acid fast bacilli seen [facility] Specimen Tissue - Spine, Thoracic Performing Organization Address City/State/Zipcode Phone Number [facility] [address] [place] [address] [facility] * Body fluid culture + gram stain (07/30/2017 3:17 PM CDT) Result No growth [facility] Gram Stain Result <1+ WBCs [facility] Gram Stain Result No organisms seen [facility] Specimen Body Fluid - Spine, Thoracic Performing Organization Address City/[facility]/Zipcode Phone Number [facility] [address] [place] [address] [facility] * Fungus culture + smear (07/30/2017 3:17 PM CDT) Only the most recent of 2 results within the time period is included. Result No fungus isolated in 28 days [facility] Fungus Smear No fungi seen [facility] Specimen Tissue - Spine, Thoracic Performing Organization Address City/[facility] Servicescode Phone Number [facility] [address] [place] [address] [facility] * CT spine thoracic without IV contrast (07/27/2017 10:53 PM CDT) Narrative Performed At FINAL REPORT [facility] CT, SPINE, THORACIC, WO CONTRAST INDICATION: [...] MD Report Verified Date/Time:07/27/2017 23:51:36 Reading Location: [facility] [id number] Ortho Consult Reading Room Procedure Note [...] Report Verified Date/Time: 07/27/2017 23:51:36 Reading Location: [facility] [id number] Ortho Consult Reading Room Performing Organization Address City/[facility] Servicescode Phone Number [facility] * Vancomycin level, trough (07/25/2017 9:29 PM CDT) Vancomycin Tr 23.1 (H) 10.0 - 20.0 ug/mL [facility] Specimen Blood - Line, Venous Narrative Performed At Please draw 30 min prior to fourth dose of vancomycin [facility] Performing Organization Address City/[facility]/Zipcode Phone Number [facility] [address] [place] [address] MEDICAL CENTER * [place] forex trader in or 30 minute increments (07/25/2017 1:00 PM CDT) Narrative Performed At PROCEDURE PERFORMED IN O.R. - PLEASE REFER TO THE INTRAOPERATIVE [facility] REPORT. Procedure Note Interface, External Ris In - 08/22/2017 10:48 AM CDT PROCEDURE PERFORMED IN O.R. - PLEASE REFER TO THE INTRAOPERATIVE REPORT. Performing Organization Address [facility] Phone Number [facility] * STONE ANALYSIS [...] analytical performance characteristics have been determined by [employer]. It has not been cleared or approved by the [place] Food and Drug Administration. This assay has been validated pursuant to the CLIA regulations and is used for clinical purposes. Specimen Tissue - Stone Narrative Performed At Performing Lab [facility] [facility], [address] [place] [address] Evi Keller MD, PhD Performing Organization Address City/[facility]/Zipcode Phone Number [employer] [facility], [address] [place], [place] [employer] [facility] [address] [address] * Urine culture (07/25/2017 11:40 AM CDT) Only the most recent of 3 results within the time period is included. Result >100,000 col/mL Same organism [facility] has been isolated from [facility] culture(s) of the same body site within 3 days. Repeat identification performed only after consultation with the clinical microbiology laboratory. (A) Comment: Refer to previous culture of Vancomycin resistant Enterococcus species Specimen Urine Narrative Performed At <10,000 col/mL Gram Negative Rods [facility] Performing Organization Address City/[facility]/Zipcode Phone Number [address] [address] [facility] * Anaerobic culture (07/25/2017 11:01 AM CDT) Result No anaerobes isolated [facility] Specimen Other - Kidney, Left Performing Organization Address City/State/Zipcode Phone Number [address] [address] [facility] * Surgically obtained culture + gram stain (07/25/2017 11:01 AM CDT) Result PSEUDOMONAS AERUGINOSA (A) [facility] Result 2+ Vancomycin resistant [facility] Enterococcus species (A) [facility] Result METHICILLIN RESISTANT [facility] STAPHYLOCOCCUS AUREUS (A) [facility] Gram Stain Result <1+ WBCs [facility] Gram Stain Result 2+ gram negative rods [facility] Specimen Other - Kidney, Left Antibiotic Method [...] Methicillin resistant Staphylococcus aureus Performing Organization Address [facility]/[place] [address] [phone] [place] [address] * SPIN/CONCENTRATION CHARGE (07/25/2017 11:01 AM CDT) Concentration charged Done [facility] Specimen Other - Kidney, Left Performing Organization Address [facility]/Zipcode Phone Number [address] [address] [phone] [place] [address] * Urinalysis w/Microscopic (07/24/2017 11:26 PM CDT) Only the most recent of 2 results within the time period is included. Color, UA Light Yellow [facility] Clarity, UA Clear [facility] Specific [place], UA 1.009 1.001 - 1.035 [facility] pH, UA 5.5 5.0 - 8.0 [facility] Protein, UA Negative Negative [facility] Glucose, UA Negative Negative [facility] Ketones, UA Negative Negative [facility] Bilirubin, UA Negative Negative [facility] Blood, UA Negative Negative [facility] Nitrite, UA Negative Negative [facility] Leukocytes, UA Large (A) Negative [facility] Urobilinogen, UA 0.2 0.2 - 1.0 mg/dL [facility] RBC, UA 2 /HPF [facility] WBC, UA 54 /HPF [facility] Bacteria, UA Occasional [facility] Mucus Rare [facility] Squam Epithel, UA <1 /HPF [facility] Hyaline Casts, UA 2 /LPF [facility] Specimen Source Urine, Clean Catch [facility] Specimen Urine - Urine, Clean Catch Performing Organization Address City/[facility] Phone Number [address] * Blood culture (07/24/2017 11:25 PM CDT) Only the most recent of 3 results within the time period is included. Result No growth in 5 days [facility] Specimen Blood - Line, Venous Performing Organization Address City/[facility]/Zipcode Phone Number [address] * XR chest 1 view portable / bedside (07/24/2017 6:33 PM CDT) Only the most recent of 3 results within the time period is included. Narrative Performed At FINAL REPORT [facility] Chest x-ray Clinical History: check picc [...] MD Report Verified Date/Time:07/24/2017 18:53:53 Reading Location: [facility] B1 C013W Consult Reading Room Procedure Note [...] Report Verified Date/Time: 07/24/2017 18:53:53 Reading Location: [facility] B1 C013W Consult Reading Room Performing Organization Address City/State/Zipcode Phone Number [facility] * Prothrombin time/INR (07/24/2017 3:06 PM CDT) Only the most recent of 2 results within the time period is included. Protime 14.9 (H) 11.7 - 14.7 seconds [facility] INR 1.2 <=5.9 [facility] Specimen Blood - Arm, Right Narrative Performed At RECOMMENDED COUMADIN/WARFARIN INR THERAPY RANGES [facility] STANDARD DOSE: 2.0 - 3.0 Includes: PROPHYLAXIS for venous thrombosis, [facility] systemic embolization; TREATMENT for venous thrombosis and/or pulmonary embolus. HIGH RISK: Target INR is 2.5-3.5 for patients with mechanical heart valves. Performing Organization Address City/State/Zipcode Phone Number [facility] [address] [place] [address] MEDICAL CENTER * Phosphorus (06/05/2017 6:01 AM CENTERLESS GRINDER SET UP OPERATOR) Only the most recent of 9 results within the time period is included. Phosphorus 5.7 (H) 2.3 - 4.7 mg/dL [facility] Specimen Blood - Arm, Right Performing Organization Address [facility]/State/Zipcode Phone Number [facility] [address] [place] [address] [phone] [place] [address] * Magnesium (06/05/2017 6:01 AM CENTERLESS GRINDER SET UP OPERATOR) Only the most recent of 9 results within the time period is included. Magnesium 1.9 1.6 - 2.6 mg/dL [facility] Specimen Blood - Arm, Right Performing Organization Address [facility] Phone Number [address] [address] [phone] * PERIPHERAL VASCULAR REPORT - SCAN (05/28/2017 6:50 PM CENTERLESS GRINDER SET UP OPERATOR) Narrative Performed At * Venous doppler legs bilateral (05/28/2017 3:32 PM CENTERLESS GRINDER SET UP OPERATOR) Ejection Fraction [facility] MKCKESSON CPACS Impressions Performed At Right Impression [facility] 1. There is no deep [...] PV LAB - Lower Extremities DVT Study [facility] Demographics [facility] Patient NameBriana BLAIR of Study05/28/2017 Visit [id number] Female of Birth1945 Number Referring Ananya [id number] Physician Dayana Nuclear Equipment Research Engineer Gisele Arrieta RVTInterpreting Josafat Gonzalez, RPGEM Procedure Type of Study: Veins: Lower Extremities DVT Study, VENOUS DOPPLER LEG, BILATERAL. Indications for Study:Fluid collection. Patient Status:Routine. Study Location:Vascular Lab. Technical Quality:Technically Difficult. Risk Factors History of Disease + +----+ + !Diagnosis !Date!Comments! + +----+ + !History/Risk Factors: !!DM, Pneumonia ! + +----+ + Procedure Note Interface, External Ris In - 05/28/2017 6:03 PM CENTERLESS GRINDER SET UP OPERATOR PV LAB - Lower Extremities DVT Study Demographics Patient Name BINTA BLAIR Date of Study 05/28/2017 Age 71 Visit Number [id number] Gender Female Date of 1945 Number Referring [facility] Room Number 7 Physician Dayana Nuclear Equipment Research Engineer Gisele Arrieta T Interpreting Kathe Villagomez, Physician [...] are measured in cm Performing Organization Address [facility] Phone Number [facility] * Calcium, Ionized (05/28/2017 4:41 AM CENTERLESS GRINDER SET UP OPERATOR) Calcium, Ion 1.01 (L) 1.12 - 1.27 mmol/L [facility] pH, Blood 7.31 [facility] Specimen Blood - Arm, Right Performing Organization Address [facility] Phone Number [facility] [address] [place] [address] [facility] * B-type Natriuretic Factor (BNP) (05/28/2017 4:41 AM CENTERLESS GRINDER SET UP OPERATOR) BNP 696 (H) 0 - 100 pg/mL [facility] Specimen Blood - Arm, Right Performing Organization Address [facility] Phone Number [facility] [address] [place] [address] [facility] * US renal complete (05/27/2017 9:01 PM CENTERLESS GRINDER SET UP OPERATOR) Narrative Performed At FINAL REPORT [facility] [...] MD Report Verified Date/Time:05/28/2017 01:13:48 Reading Location: [facility] C013Y CT Body Reading Room Procedure Note Interface, External Ris In - 05/28/2017 1:16 AM CENTERLESS GRINDER SET UP OPERATOR FINAL REPORT U/S, RENAL, COMPLETE CLINICAL INDICATION: [...] Report Verified Date/Time: 05/28/2017 01:13:48 Reading Location: [facility] B1 C013Y CT Body Reading Room Performing Organization Address City/State/Zipcode Phone Number [facility] * Hemoglobin A1c (05/27/2017 6:13 AM CENTERLESS GRINDER SET UP OPERATOR) Hemoglobin A1C 7.9 (H) 4.3 - 6.1 % [facility] Specimen Blood - Arm, Right Performing Organization Address City/State/Zipcode Phone Number [facility] [address] [place] [address] MED[facility]ENTER * CT abdomen/pelvis without iv contrast (05/26/2017 6:15 PM CENTERLESS GRINDER SET UP OPERATOR) Narrative Performed At FINAL REPORT [facility] MDVIP DOSE REDUCTION: The examination was performed according [...] MD Report Verified Date/Time:05/26/2017 18:29:02 Reading Location: [address] Transitional Reading Room Procedure Note Interface, External Ris In - 05/26/2017 6:31 PM CENTERLESS GRINDER SET UP OPERATOR FINAL REPORT DOSE REDUCTION: The examination was [...] Report Verified Date/Time: 05/26/2017 18:29:02 Reading Location: [facility] C0[facility] Transitional Reading Room Performing Organization Address City/[facility]/Zipcode Phone Number [facility] * Troponin I (05/26/2017 1:38 PM CENTERLESS GRINDER SET UP OPERATOR) Troponin I 0.01 0.00 - 0.03 ng/mL [facility] Specimen Blood - Arm, Right Narrative Performed At Troponin I (TnI) levels must be interpreted in the context of the presenting [facility] symptoms and the clinical findings. Elevated TnI levels indicate myocardial [facility] damage, but are not specific for ischemic heart disease. Elevated TnI levels are seen in patients with other cardiac conditions (including myocarditis and congestive heart failure), and slight TnI elevations occur in patients with other conditions, including sepsis, renal failure, acidosis, acute neurological disease, and persistent tachyarrhythmia. Performing Organization Address [facility] Phone Number [place] [phone] [place] [address] [phone] [place] [address] * Creatine Kinase (CK), Total and MB (05/26/2017 1:38 PM CENTERLESS GRINDER SET UP OPERATOR) Total CK 31 29 - 200 U/L [facility] CK-MB 1.3 0.0 - 6.6 ng/mL [facility] MB Relative Index 4.2 % [facility] Specimen Blood - Arm, Right Narrative Performed At CK-MB Reference Range: [facility] <6.7Normal [facility] 6.7-10.0Borderline >10.0 Abnormal Performing Organization Address [facility] Phone Number [facility] [address] [place] [address] [facility] * ECG 12 lead (05/26/2017 1:27 PM CENTERLESS GRINDER SET UP OPERATOR) Narrative Performed At Ventricular Rate 71 BPM GE MUSE Atrial Rate 71 BPM P-R Interval 170 ms QRS Duration 66 ms Q-T Interval 410 ms QTC Calculation(Bazett) 445 ms P Rawlings 37 degrees R Rawlings 26 degrees T Rawlings 59 degrees Normal sinus rhythm Normal ECG When compared with ECG of 28-MAR-2017 10:38, No significant change was found Confirmed by MIRZAI-TEHRANE, MD, MAJID ([id number]) on 05/27/2017 10:24:35 AM Procedure Note Interface, External Ris In - 05/27/2017 10:24 AM CENTERLESS GRINDER SET UP OPERATOR Ventricular Rate 71 BPM Atrial Rate 71 BPM P-R Interval 170 ms QRS Duration 66 ms Q-T Interval 410 ms QTC Calculation(Bazett) 445 ms P Rawlings 37 degrees R Rawlings 26 degrees T Rawlings 59 degrees Normal sinus rhythm Normal ECG When compared with ECG of 28-MAR-2017 10:38, No significant change was found Confirmed by MD DAWN MAJID ([id number]) on 05/27/2017 10:24:35 AM Performing Organization Address City/State/Zipcode Phone Number [employer] * CT brain without IV contrast (05/26/2017 12:11 PM CENTERLESS GRINDER SET UP OPERATOR) Narrative Performed At FINAL REPORT [facility] CT head without contrast INDICATION: Dizziness TECHNIQUE: [...] MD Report Verified Date/Time:05/26/2017 12:21:36 Reading Location: [address] Neuro Reading Room Procedure Note Interface, External Ris In - 05/26/2017 12:23 PM CENTERLESS GRINDER SET UP OPERATOR FINAL REPORT CT head without contrast INDICATION: [...] Report Verified Date/Time: 05/26/2017 12:21:36 Reading Location: [facility] C013 Neuro Reading Room Performing Organization Address City/State/Zipcode Phone Number [facility] after 05/12/2017 Insurance Payer Benefit Subscriber ID Type Phone Address Plan / Group MEDICARE MEDICARE A xxxxxxxxxx Medicare B MCR SUPPLEMENT/INDIVIDUAL BANKER'S xxxxxxxxx Medigap LIFE Advance Directives For more information, please contact: [facility] [address] [place] [address] Date Inactivated Comments Code Status [...]
[2018-05-13] MEDS ORDERED: ACETAMINOPHEN 325 MG TAB PO PRN (15:15)
[2018-05-13] MEDS ORDERED: CEFTRIAXONE SOD 1 GRAM/0.9% SOD CHL 50ML BAG IV SCH (15:15)
[2018-05-13] MEDS ORDERED: DEXTROSE 50% SYRINGE 50 ML IV PRN (15:15)
[2018-05-13] MEDS ORDERED: AZITHROMYCIN 250 MG TAB PO NR (15:30)
[2018-05-13 16:03] LABS: CREATINE KINASE MB 1.4 ng/mL (0-5.0)
[2018-05-13] MEDS: INSULIN REGULAR, HUMAN 100 UNIT/1 ML 3ML VIAL SQ SCH ×2 (16:58→23:20)
--- NOTE | 2018-05-13 18:25 | NUR ---
Right AC 20 g catheter is noted to be infiltrated. IV is removed without incident and site is bandaged.
--- NOTE | 2018-05-13 19:10 | NUR ---
Bedside rounds completed with Antonietta night time babysitter nurse.
[2018-05-13 19:29] LABS: CREATINE KINASE MB 1.5 ng/mL (0-5.0)
[2018-05-13] MEDS ORDERED: LORAZEPAM 0.5 MG TAB PO PRN (19:30)
[2018-05-13] MEDS ORDERED: AMITIZA24 MCG PO (20:13)
[2018-05-13] MEDS ORDERED: AMLODIPINE BESYL5 MG PO (20:13)
[2018-05-13] MEDS ORDERED: CYMBALTA30 MG PO (20:13)
[2018-05-13] MEDS ORDERED: LYRICA50 MG PO (20:13)
[2018-05-13] MEDS ORDERED: LEVOTHYROXINE50 MCG PO (20:13)
[2018-05-13] MEDS ORDERED: LORAZEPAM1 MG PO (20:13)
[2018-05-13] MEDS ORDERED: FOLIC ACID1 MG PO (20:13)
[2018-05-13] MEDS ORDERED: CLONIDINE HCL0.1 MG PO (20:13)
[2018-05-13] MEDS ORDERED: TRAZODONE HCL50 MG PO (20:13)
[2018-05-13] MEDS ORDERED: GLIMEPIRIDE2 MG PO (20:13)
[2018-05-13] MEDS ORDERED: ALLOPURINOL100 MG PO (20:13)
[2018-05-13] MEDS ORDERED: FUROSEMIDE40 MG PO (20:13)
[2018-05-13] MEDS ORDERED: PROMETHAZINE HC25 M1 PO (20:13)
--- NOTE | 2018-05-13 20:40 | History and Physical ---
CHIEF COMPLAINT: Patient is here for a clogged-type urinary catheter. HISTORY OF PRESENTING ILLNESS: This is Ms. Binta Vasques who recently did a lab in her PCP's office, was told to come to the emergency room because of a white count elevation, was 15.3 at the clinic, and the patient came here and was found to be 17,000, admitted for questionable pneumonia and also admitted for IV antibiotics. PAST MEDICAL HISTORY: History of hypertension, history of diabetes mellitus, history of hypothyroidism, history of chronic kidney disease, history of diabetes with neuropathy, history of hyperlipidemia too. MEDICINES: As per medical reconciliation sheet. SURGICAL HISTORY: History of cataract surgery, left mastectomy for breast cancer, history of right ankle surgery, and also history of right shoulder stabilization for fracture. REVIEW OF SYSTEMS: Negative for chest pain. No shortness of breath. No nausea, vomiting, diarrhea. No constipation, no rectal bleeding. No hematochezia, no hematemesis. Positive for a catheter that is clogged up, has more lot of sedimentations in it. The patient has been recently on a medication for UTI, patient has been given Bactrim and stopped about 2 weeks ago. SOCIAL HISTORY: No ETOH, no IV drug abuse. She is wheelchair dependent at this time. Has been going to the physical therapy for rehabilitation. FAMILY HISTORY: Noncontributory. PHYSICAL EXAMINATION: GENERAL: Patient is alert and oriented x3. HEENT: Normocephalic, atraumatic. Pupils are reactive to light and accommodation. CVS: S1 and S2 normal. Regular rate and rhythm. ABDOMEN: Nondistended. Mild tenderness in the suprapubic area. BACK: No CVA tenderness. SKIN: No cyanosis. EXTREMITIES: No clubbing, no cyanosis, no edema. NEUROLOGICAL: Alert and oriented x3 with no sensory or motor deficit. EKG was not done. Chest x-ray shows subsegmental atelectasis, patchy opacity at the left lung base. LABORATORY VALUES: CBC normal except for white count of 17,000 with left shift. Chemistries: Hyperkalemia 5.4, hyperglycemia 230, new creatinine of 2.22. Lactic acid was negative. Urinalysis, WBC is present, many bacteria is present. Chest x-ray shows pneumonia as mentioned above. ASSESSMENT: 1. Questionable pneumonia. Will go ahead and place the patient on antibiotics, Rocephin and Zithromax has been started. 2. Urinary tract infection. Will continue on Rocephin and culture her urine. 3. History of diabetes mellitus. Will continue on antidiabetic agent. Insulin sliding scale. 4. Hypertension. Will continue on her clonidine. Will continue to monitor the patient. Further recommendations on clinical course. 5. For chronic renal failure, will go ahead and give some hydration. 6. For Dotson malfunction, will need another Dotson. Continue to monitor the patient, and also chest x-ray and complete blood cell count and basic metabolic profile in the morning and repeat potassium for hyperkalemia. Job#: [id number]
[2018-05-13 21:00] VITALS: BP_SYST 166; BP_SYST 174; BP_DIAS 74; BP_DIAS 77
--- NOTE | 2018-05-13 21:00 | NUR ---
patient is a new admit that arrived via wheelchair. patient is alert and oriented. patient has been helped into the bed. bed is in lowest position and call henderson is within reach. will continue to monitor patient.
[2018-05-13] MEDS ORDERED: LORAZEPAM 1 MG TAB PO PRN (21:45)
[2018-05-13] MEDS ORDERED: PROMETHAZINE HCL 25 MG TAB PO PRN (21:45)
[2018-05-13] MEDS: CLONIDINE HCL 0.1 MG TAB PO SCH (23:18)
[2018-05-13] MEDS: TRAZODONE HCL 50 MG TAB PO SCH (23:18)
[2018-05-14] VITALS (7 sets, daily range): BP systolic 132–153; BP diastolic 59–70
--- NOTE | 2018-05-14 01:00 | NUR ---
patient presented to unit with potassium of 5.4. MD paged awaiting callback.
--- NOTE | 2018-05-14 02:00 | NUR ---
paged for a second time regarding elevated potassium levels. Awaiting callback from .
[2018-05-14] MEDS: LEVOTHYROXINE SODIUM 50 MCG TAB PO SCH (05:22)
[2018-05-14 05:47] LABS: BASOPHILS # (AUTO) 0.1 (0.0-0.1); BASOPHILS % 0.4 % (0.0-1.0); EOSINOPHILS # (AUTO) 0.5 (0.0-0.4); HEMATOCRIT 32.3 % (34.2-44.1); LYMPHOCYTES # (AUTO) 2.2 (1.0-3.2); LYMPHOCYTES % 19.1 % (18.0-39.1); MEAN CORPUSCULAR HEMOGLOBIN 28.8 pg (28-32); MEAN CORPUSCULAR HGB CONC 32.5 g/dL (31-35); MEAN CORPUSCULAR VOLUME 88.7 fL (81-99); MONOCYTES # (AUTO) 0.6 (0.2-0.8); NEUTROPHILS # (AUTO) 8.3 (2.1-6.9); NEUTROPHILS % 71.2 % (38.7-80.0); PLATELET COUNT 344 x10e3/uL (140-360); RED BLOOD COUNT 3.64 x10e6/uL (3.6-5.1); RED CELL DISTRIBUTION WIDTH 14.7 % (11.7-14.4)
[2018-05-14 06:10] LABS: CREATINE KINASE MB 0.8 ng/mL (0-5.0)
[2018-05-14 06:23] LABS: HEMOGLOBIN 10.5 g/dL (12.0-16.0)
[2018-05-14 06:30] LABS: ANION GAP 14.7 mmol/L (8-16); CALCIUM 8.5 mg/dL (8.4-10.2); CREATININE, SERUM 2.26 mg/dL (0.57-1.11); POTASSIUM 4.7 mmol/L (3.5-5.1)
--- NOTE | 2018-05-14 06:33 | Diagnostic Imaging Report ---
EXAMINATION: CHEST SINGLE (PORTABLE) INDICATION: Atelectasis, pneumonia COMPARISON: 05/13/2018 FINDINGS: TUBES and LINES: None. LUNGS: Low lung volumes. Stable linear opacities in the bilateral lower lung zones, likely subsegmental atelectasis. Stable mild patchy opacity at the left lung base. No evidence of lobar consolidation. Mild central vascular congestion. No evidence of pulmonary edema. PLEURA: No pleural effusion or pneumothorax. HEART AND MEDIASTINUM: The cardiomediastinal silhouette is unremarkable. Atherosclerotic calcification of the aortic arch. BONES AND SOFT TISSUES: No acute osseous abnormality. Partially seen lateral plate and screw fixation construct involving the right humerus. UPPER ABDOMEN: No free air under the diaphragm. IMPRESSION: Stable left basilar opacity likely representing atelectasis or pneumonia in the appropriate clinical setting. Signed by: DR. Tho Meredith MD on 05/14/2018 6:29 AM
--- NOTE | 2018-05-14 06:58 | NUR ---
report given to day nurse. patient is resting comfortably in bed. bed is in lowest position and call henderson is within reach.
[2018-05-14] MEDS ORDERED: SODIUM CHLORIDE 0.9% 1000ML 1,000 ML IV SCH (07:00)
--- NOTE | 2018-05-14 07:12 | Progress Note ---
DATE: Patient comes in with difficulty urinating and the Dotson catheter not draining. The patient currently is stable. Was also diagnosed with pneumonia on arrival. Patient is currently stable. Slept well. No complaints. Patient is back on her home medications. Patient is currently on azithromycin, Rocephin, duloxetine for depression, Lovenox for DVT prophylaxis, levothyroxine, and Lyrica as well. OBJECTIVE VITAL SIGNS: Temperature is 98.5, pulse of 78, respirations of 18, blood pressure is 132/59, pulse oximetry is 95% on room air. HEENT: Normocephalic and atraumatic. Pupils are reactive to light and accommodation. CV: S1 and S2 normal. Regular rate and rhythm. ABDOMEN: Nontender. Slight suprapubic tenderness. LUNGS: Clear to auscultation. : Dotson catheter to gravity. EXTREMITIES: No clubbing. No cyanosis. No edema. MICROBIOLOGY: Urine culture is pending. LABORATORY VALUES: White count was 17,000 yesterday. Today, it is currently down to 11,000. Platelet count was 389,00 and today is 344,000. Neutrophil count has trended down. There is no left shift anymore at 71.2. Chemistry: Sodium is 136, potassium 4.7, BUN of 51, creatinine of 2.26, and glucose is 127. Troponins have been trended and are negative so far at 0.004 and 0.002. Chest x-ray done today shows low lung volume with subsegmental atelectasis, patchy opacity of the left lung. Could reflect atelectasis or early pneumonia. ASSESSMENT 1. Urinary tract infection: Urine cultures are pending. Will continue the patient on Rocephin. 2. Questionable pneumonia: The patient will be given Rocephin and Zithromax treatment. Trend the white count tomorrow. If trending down, the patient can be sent home on antibiotics. The patient's microbiology is pending for urinary tract infection. 3. Hyperkalemia, resolved right now. 4. Chronic kidney disease: Will go ahead and give the patient some fluids of normal saline at 70 mL an hour. The patient will be restarted on her home medications for hypothyroidism, hypertension and diabetes mellitus. Further recommendations per clinical course. Will also put the patient on Lovenox for deep venous thrombosis prophylaxis and Pepcid for gastrointestinal prophylaxis. Job#: [id number] RI
--- NOTE | 2018-05-14 07:20 | NUR ---
PATIENT IN BED RESTING WITH NO RESPIRATORY DISTRESS. ALL PERSONAL ITEMS CLOSE TO PATIENT. BED IN LOWER POSITION, CALL LIGHT AT REACH.
[2018-05-14] MEDS: INSULIN REGULAR, HUMAN 100 UNIT/1 ML 3ML VIAL SQ SCH ×4 (07:30→21:00)
[2018-05-14] MEDS: NPH, HUMAN INSULIN ISOPHANE 100 UNIT/1 ML 3ML VIAL SQ SCH ×2 (08:00→17:00)
[2018-05-14] MEDS ORDERED: FUROSEMIDE 40 MG TAB PO SCH (09:00)
[2018-05-14] MEDS ORDERED: ENOXAPARIN SOD INJ 40 MG/0.4 ML SYR SC SCH (09:00)
[2018-05-14] MEDS: GLIMEPIRIDE 2 MG TAB PO SCH (09:25)
[2018-05-14] MEDS: DULOXETINE HCL 30 MG DELAYED RELEASE PO SCH (09:25)
[2018-05-14] MEDS: FUROSEMIDE 20 MG TAB PO SCH (09:25)
[2018-05-14] MEDS: AMLODIPINE BESYLATE 5 MG TAB PO SCH (09:25)
[2018-05-14] MEDS: CEFTRIAXONE SOD 1 GM/NS 50 ML 50 ML IV SCH (09:25)
[2018-05-14] MEDS: LUBIPROSTONE 24 MCG CAP PO SCH (09:25)
[2018-05-14] MEDS: CITALOPRAM HYDROBROMIDE 20 MG TAB PO SCH (09:25)
[2018-05-14] MEDS: PREGABALIN 50 MG CAP PO SCH (09:25)
[2018-05-14] MEDS: FOLIC ACID 1 MG TAB PO SCH (09:25)
[2018-05-14] MEDS: ALLOPURINOL 100 MG TAB PO SCH (09:26)
[2018-05-14] MEDS: AZITHROMYCIN 250 MG TAB PO SCH (09:26)
[2018-05-14] MEDS: ENOXAPARIN 30 MG/0.3 ML SYR SC SCH (11:25)
--- NOTE | 2018-05-14 11:28 | NUR ---
PATIENT IN BED WITH HEAD OF BED ELEVATED TALKING TO FAMILY MEMBER VISITING. IV FLUID INFUSING ORDERED. BED IN LOWER POSITION, CALL LIGHT AT REACH.
--- NOTE | 2018-05-14 12:32 | NUR ---
SOCIAL WORK INITIAL ASSESSMENT Film Processing Supervisor to bedside to discuss plan of care with patient/family. CM/SW role and care transitions discussed. Anticipated discharge plan discussed along with duration of care. CM/SW discussed patients right to make decisions in care. CM/SW work hours given. Patient lives: IN OWN HOUSE WITH FAMILY Admit/Transfer: VIA ED FROM HOME POA/Emergency contact: ZARA [phone] Current/Previous Home Health: NONE PCP/Follow-up Care: LAURYN Current/Previous DME: [employer] Other Services: LAST ADMIT LAST YEAR Employment Status: RETIRED Areas of Concerns: NONE Referral Needs: NONE Education Needs: NONE IMM/BELCHER given and signed (if applicable): UPON ADMISSION Goal for discharge: RETURN HOME CM/SW left business card at the bedside with contact information. Name and number was also written on the patients whiteboard. Patient verbalized understanding of discussion. CM will follow-up with ongoing discharge and transition of care needs.
--- NOTE | 2018-05-14 13:50 | NUR ---
Visit made by the Spiritual Care Department Pastoral Visitor, Sarah Perez. PV provided pastoral presence, prayer, hospitality, and supportive listening. Pastoral Visitor informed pt/family of the scope of Airline Reservation Agent Services and availability. ZAINAB WAGGONER Ski Base Trimmer Spiritual Care Department O: [phone] Pager: [phone] ([phone] number calling from)
--- NOTE | 2018-05-14 16:00 | NUR ---
PATIENT NOTED WITH BLOOD SUGAR OF 51. NO S/S OF HYPOGLYCEMIA NOTED, PATIENT STATED "I AM FINE". A CUP OF APPLE JUICE AND SOME CRACKERS OFFERED AND WELL TOLERATED. BLOOD SUGAR RECHECKED WITH THE READING OF 98. WILL CLOSELY MONITOR.
[2018-05-14] MEDS: HYDROCODONE/APAP 5MG-325MG TAB PO PRN (17:15)
[2018-05-14] MEDS: CLONIDINE HCL 0.1 MG TAB PO SCH (21:28)
[2018-05-14] MEDS: TRAZODONE HCL 50 MG TAB PO SCH (21:28)
--- NOTE | 2018-05-14 21:55 | NUR ---
DIABETIC SNACK GIVEN TO THE PATIENT, SHE'S EDUCATED TO REPOSITION FREQUENTLY IN BED TO PREVENT PRESSURE ULCER.
[2018-05-15] VITALS: BP 133/61
--- NOTE | 2018-05-15 03:04 | NUR ---
PATIENT IS ASLEEP, SHE'S EASY TO AROUSE. SHE DENIES PAIN, NO RESPIRATORY DISTRESS OBSERVED. CALL LIGHT WITHIN EASY REACH, INSTRUCTED TO CALL FOR ASSISTANCE NEEDED.
[2018-05-15 04:00] VITALS: BP 146/66
[2018-05-15] MEDS: LEVOTHYROXINE SODIUM 50 MCG TAB PO SCH (06:30)
--- NOTE | 2018-05-15 06:45 | NUR ---
DR ALTAMIRANO IS ON THE UNIT TO SEE THE PATIENT, HE'S MADE AWARE OF THE PATIENT'S MOST RECENT BUN AND CREATININE RESULT AND THAT HER IV FLUID WAS STOP. MD ORDER LAB FOR THIS MORNING AND TO NOTIFY HIM WITH THE RESULT.
--- NOTE | 2018-05-15 06:50 | NUR ---
Walking rounds done. Patient is awake and alert x3 in NAD. Dotson to drainage bag. She was instructed to call for assistance and verbalized understanding. Bed in lowest position, locked and call henderson within reach.
--- NOTE | 2018-05-15 07:12 | Progress Note ---
DATE: Patient comes in with elevated white count, leukocytosis, pneumonia, and history of hypertension and diabetes mellitus. Currently, the patient is asymptomatic and afebrile. No complaints. Has been given antibiotics of azithromycin and Rocephin on a continuous basis. Patient had IV fluids yesterday. Labs are pending. OBJECTIVE VITAL SIGNS: Today, temperature is 98, afebrile in the last 48 hours, pulse of 68, respirations of 18, blood pressure is 133/61, and pulse oximetry of 95%. HEENT: Normocephalic and atraumatic. Pupils are reactive to light and accommodation. CV: S1 and S2 normal. Regular rate and rhythm. ABDOMEN: Nontender and nondistended. EXTREMITIES: No clubbing. No cyanosis. No edema. : Dotson to gravity. LABORATORY VALUES: Again, pending. MICROBIOLOGY: No growth on urine culture. ASSESSMENT 1. Pneumonia: Will continue the patient on Rocephin and Zithromax for today. Patient has been afebrile. Patient can be discharged on Levaquin. 2. Leukocytosis: Will recheck her labs today. If resolving, can be discharged. 3. Chronic kidney disease: Patient was given gentle hydration yesterday. Will recheck the creatinine function today. 4. Diabetes mellitus: Will continue monitoring the patient. 5. Dotson malfunction: Will continue on the current Dotson at this time. Further recommendations per clinical course. The patient can be discharged today if all the labs are trending down. Job#: [id number] ANGY
[2018-05-15] MEDS: INSULIN REGULAR, HUMAN 100 UNIT/1 ML 3ML VIAL SQ SCH ×2 (07:30→11:30)
[2018-05-15 07:48] LABS: BASOPHILS % 0.3 % (0.0-1.0); EOSINOPHILS # (AUTO) 0.5 (0.0-0.4); EOSINOPHILS % 4.8 % (0.0-6.0); HEMATOCRIT 33.8 % (34.2-44.1); LYMPHOCYTES # (AUTO) 2.6 (1.0-3.2); MEAN CORPUSCULAR HEMOGLOBIN 28.9 pg (28-32); MEAN CORPUSCULAR HGB CONC 32.5 g/dL (31-35); MEAN CORPUSCULAR VOLUME 88.9 fL (81-99); MONOCYTES # (AUTO) 0.7 (0.2-0.8); MONOCYTES % 6.6 % (4.4-11.3); NEUTROPHILS # (AUTO) 6.6 (2.1-6.9); NEUTROPHILS % 62.8 % (38.7-80.0); PLATELET COUNT 337 x10e3/uL (140-360); RED CELL DISTRIBUTION WIDTH 14.7 % (11.7-14.4)
[2018-05-15 08:00] VITALS: BP 143/67
[2018-05-15] MEDS: NPH, HUMAN INSULIN ISOPHANE 100 UNIT/1 ML 3ML VIAL SQ SCH (08:00)
[2018-05-15 08:08] LABS: ANION GAP 15.7 mmol/L (8-16); CALCIUM 8.7 mg/dL (8.4-10.2); CREATININE, SERUM 2.16 mg/dL (0.57-1.11); POTASSIUM 4.7 mmol/L (3.5-5.1)
[2018-05-15] MEDS: AMLODIPINE BESYLATE 5 MG TAB PO SCH (08:47)
[2018-05-15] MEDS: FUROSEMIDE 20 MG TAB PO SCH (08:47)
[2018-05-15] MEDS: ENOXAPARIN 30 MG/0.3 ML SYR SC SCH (08:47)
[2018-05-15] MEDS: GLIMEPIRIDE 2 MG TAB PO SCH (08:47)
[2018-05-15] MEDS: DULOXETINE HCL 30 MG DELAYED RELEASE PO SCH (08:47)
[2018-05-15] MEDS: LUBIPROSTONE 24 MCG CAP PO SCH (08:47)
[2018-05-15] MEDS: ALLOPURINOL 100 MG TAB PO SCH (08:47)
[2018-05-15] MEDS: CEFTRIAXONE SOD 1 GM/NS 50 ML 50 ML IV SCH (08:47)
[2018-05-15] MEDS: PREGABALIN 50 MG CAP PO SCH (08:47)
[2018-05-15] MEDS: AZITHROMYCIN 250 MG TAB PO SCH (08:47)
[2018-05-15] MEDS: CITALOPRAM HYDROBROMIDE 20 MG TAB PO SCH (08:47)
[2018-05-15] MEDS: FOLIC ACID 1 MG TAB PO SCH (08:47)
--- NOTE | 2018-05-15 10:00 | NUR ---
POST DISCHARGE STATUS CODE FORM FILED ON CHART WITH NO NEEDS RETURNING HOME
[2018-05-15] MEDS: HYDROCODONE/APAP 5MG-325MG TAB PO PRN (10:48)
[2018-05-15 11:30] VITALS: BP 152/63
--- NOTE | 2018-05-15 11:45 | NUR ---
Reviewed labs with Dr. Wood. Per Dr. Wood patient may be discharged home today.
[2018-05-15] MEDS ORDERED: LEVAQUIN500 MG PO (11:50)
--- NOTE | 2018-05-15 12:35 | NUR ---
Patient discharge home with written instruction and prescription. She verbalized understanding. IV dc'd, cath intact and small dressing applied. Pt wheeled to personal vehicle with all belongings in stable condition.
== END 2018-05-15 12:27 | disposition home or self-care (01) ==
LOC: ER 11:01 → ERHOLD 15:01 → IMCU 20:55
PROVIDERS: ADMIT Family Medicine; ATTEND Family Medicine
DX: J18.9 Pneumonia, unspecified organism (principal); E11.22 Type 2 diabetes mellitus with diabetic chronic kidney disease; I12.9 Hypertensive chronic kidney disease with stage 1 through stage 4 chronic kidney disease, or unspecified chronic kidney disease; Z79.4 Long term (current) use of insulin; N18.9 Chronic kidney disease, unspecified; E11.40 Type 2 diabetes mellitus with diabetic neuropathy, unspecified; E78.5 Hyperlipidemia, unspecified; T83.018A Breakdown (mechanical) of other urinary catheter, initial encounter; E11.65 Type 2 diabetes mellitus with hyperglycemia; B37.49 Other urogenital candidiasis
CPT/HCPCS: 36415 ×3; 51700; 71045; 71046; 80048 ×2; 80053; 81001; 82550 ×2; 82553 ×2; 82948 ×3; 83605; 83735; 84484 ×2; 85025 ×3; 87086; 96372; 99284; G0378 ×3; J0696 ×3; J1650 ×2; J1817; J7030